=== PATIENT | male | born 1970 | race Caucasian/White ===

== ENCOUNTER 2023-05-01 18:25 | Emergency (ER) | payer OTHER, SELFPAY ==
[2023-05-01 18:30] VITALS: BP 140/92; PULSE 101; RESP 18; TEMP 36.8; O2SAT 99; BMI 22.7
--- NOTE | 2023-05-01 18:37 | XR_ITS ---
The [place] [id number] Patient Name: COLBY MOCK MRN: [id number] date: 1970 Sex: M Assigned Patient Location: ER Current Patient Location: ED.MAIN Accession/Order Number: [id number] Exam Date: 05/01/2023 18:45 Report Date: 05/01/2023 19:30 At the request of: MARGUERITE CHING Procedure: XR foot LT min 3V STUDY: XR foot LT min 3V, [id number] HISTORY: Crush injury COMPARISON: None FINDINGS: Comminuted transverse oriented fracture of the midshaft of the first proximal phalanx which demonstrates minimal dorsal and medial displacement of the distal fracture with respect to the proximal. No intra-articular extension. No other acute fracture. Bipartite medial first MTP sesamoid present. An accessory navicular and os peroneum are present. XR/XR foot LT min 3V IMPRESSION: Minimally displaced fracture of the left first proximal phalanx. Electronically authenticated by: ROBER PITT Date: 05/01/2023 19:30
--- NOTE | 2023-05-01 18:45 | ED.LOWEXI1 ---
Documented by User: BRIGITTE Pedraza 05/01/23 18:56 HPI - Extremity Injury (Lower) General Chief Complaint: Extremity Injury, Lower Stated Complaint: LOWER EXTREMITY INJURY Time Seen by Provider: 05/01/23 18:31 Source: patient Mode of arrival: walk-in Limitations: no limitations History of Present Illness HPI Narrative: patient is a 52-year-old male who presents to the emergency department for pain, swelling and drainage from the left foot. Patient is diabetic. He states yesterday he dropped a 10 pound weight on his foot. Unknown last tetanus. He is ambulatory, he accompanied his stepson to this emergency department earlier today. He states after being on his feet he has noticed an increase in drainage from the foot. No medications taken prior to arrival Related Data Home Medications Medication Instructions Recorded Confirmed insulin glargine 100 unit/mL (3 34 unit subcut DAILY 05/01/23 05/01/23 mL) subcutaneous pen Previous Rx's Medication Instructions Recorded amoxicillin 875 mg-potassium 1 tab PO Q12H #20 tabs 05/01/23 clavulanate 125 mg tablet hydrocodone 5 mg-acetaminophen 325 1 tab PO Q6H PRN pain #15 tabs 05/01/23 mg tablet ondansetron 4 mg disintegrating 4 mg PO Q6H PRN nausea and 05/01/23 tablet vomiting #12 tabs Allergies Allergy/AdvReac Type Severity Reaction Status Date / Time No Known Drug Allergies Allergy Verified 05/01/23 18:29 Review of Systems ROS Constitutional Denies: fever or chills Cardiovascular Denies: chest pain Respiratory Denies: shortness of breath or cough Gastrointestinal Denies: nausea or vomiting Musculoskeletal Reports: extremity pain and extremity swelling; Denies: back pain or neck pain Integumentary/Breast Denies: rash Hematologic/Lymphatic Denies: easy bruising Allergic/Immunologic Denies: hives Exam Narrative Exam Narrative: Gen.: Awake, alert, in no distress Head: Normocephalic, atraumatic ENT: Moist mucous membranes Respiratory: No respiratory distress Extremities: Moves extremities equally, left foot with diffuse edema, ecchymosis and multiple raised blood-filled blisters to the great toe. Small abrasion noted, no evidence of abscess, no active bleeding. No large lacerations noted. Psych: Normal mood and affect Neuro: No focal neuro deficit Skin: Warm, dry Constitutional Vital Signs, click to edit/add: Last Vital Signs Temp 98.2 F 05/01/23 18:30 Pulse 101 H 05/01/23 18:30 Resp 18 05/01/23 18:30 BP 140/92 H 05/01/23 18:30 Pulse Ox 99 05/01/23 18:30 Course Vital Signs Vital signs: Vital Signs Temperature 98.2 F 05/01/23 18:30 Pulse Rate 101 H 05/01/23 18:30 Respiratory Rate 18 05/01/23 18:30 Blood Pressure 140/92 H 05/01/23 18:30 Pulse Oximetry 99 05/01/23 18:30 Temperature 98.2 F 05/01/23 18:30 Pulse Rate 101 H 05/01/23 18:30 Respiratory Rate 18 05/01/23 18:30 Blood Pressure 140/92 H 05/01/23 18:30 Pulse Oximetry 99 05/01/23 18:30 MDM - Extremity Injury (Lower) MDM Narrative Medical decision making narrative: x-ray show the patient has a comminuted fracture of the proximal phalanx of the left great toe. As the skin is open, tetanus is updated and the open areas are dressed with bacitracin, dressing and postop shoe. Patient remains neurovascularly intact. He is placed on Augmentin for open fracture as well as analgesics. He is referred to podiatry, rest, ice, elevate. Return to the Emergency Room if symptoms change or worsen. Medical Records Attestation: I reviewed the patient's medical records. Imaging Data XR foot: Attestation: I personally reviewed and interpreted this imaging study as follows: My impression: comminuted fracture proximal phalanx left great toe Discharge Plan Discharge Chief Complaint: Extremity Injury, Lower Clinical Impression: Open fracture of great toe of left foot, Crush injury of left foot Patient Disposition: Home, Self-Care Time of Disposition Decision: 18:50 Condition: Good Prescriptions / Home Meds: New hydrocodone-acetaminophen 5-325 mg tablet 1 tab PO Q6H PRN (Reason: pain) Qty: 15 0RF Rx Instructions: DX: M9.672 amoxicillin-pot clavulanate 875-125 mg tablet 1 tab PO Q12H Qty: 20 0RF ondansetron 4 mg tablet,disintegrating 4 mg PO Q6H PRN (Reason: nausea and vomiting) Qty: 12 0RF No Action insulin glargine 100 unit/mL (3 mL) insulin pen 34 unit subcut DAILY Instructions: Foot Fracture in Adults (ED), Crush Injury (ED) Stand Alone Forms: Portal Instructions Referrals: Eduard Shoemaker MD [Primary Care Provider] - 1 week Norberto Davies DPM [Physician] - As soon as possible Discharge Date/Time: 05/01/23 19:32 Documented by User: Jostin Lozano MD 05/01/23 19:45 HPI - Extremity Injury (Lower) General Chief Complaint: Extremity Injury, Lower Stated Complaint: LOWER EXTREMITY INJURY Time Seen by Provider: 05/01/23 18:31 Related Data Home Medications Medication Instructions Recorded Confirmed insulin glargine 100 unit/mL (3 34 unit subcut DAILY 05/01/23 05/01/23 mL) subcutaneous pen Previous Rx's Medication Instructions Recorded amoxicillin 875 mg-potassium 1 tab PO Q12H #20 tabs 05/01/23 clavulanate 125 mg tablet hydrocodone 5 mg-acetaminophen 325 1 tab PO Q6H PRN pain #15 tabs 05/01/23 mg tablet ondansetron 4 mg disintegrating 4 mg PO Q6H PRN nausea and 05/01/23 tablet vomiting #12 tabs Allergies Allergy/AdvReac Type Severity Reaction Status Date / Time No Known Drug Allergies Allergy Verified 05/01/23 18:29 Exam Constitutional Vital Signs, click to edit/add: Last Vital Signs Temp 98.2 F 05/01/23 18:30 Pulse 101 H 05/01/23 18:30 Resp 18 05/01/23 18:30 BP 140/92 H 05/01/23 18:30 Pulse Ox 99 05/01/23 18:30 Course Vital Signs Vital signs: Vital Signs Temperature 98.2 F 05/01/23 18:30 Pulse Rate 101 H 05/01/23 18:30 Respiratory Rate 18 05/01/23 18:30 Blood Pressure 140/92 H 05/01/23 18:30 Pulse Oximetry 99 05/01/23 18:30 Temperature 98.2 F 05/01/23 18:30 Pulse Rate 101 H 05/01/23 18:30 Respiratory Rate 18 05/01/23 18:30 Blood Pressure 140/92 H 05/01/23 18:30 Pulse Oximetry 99 05/01/23 18:30 MDM - Extremity Injury (Lower) MDM Narrative Medical decision making narrative: x-ray show the patient has a comminuted fracture of the proximal phalanx of the left great toe. As the skin is open, tetanus is updated and the open areas are dressed with bacitracin, dressing and postop shoe. Patient remains neurovascularly intact. He is placed on Augmentin for open fracture as well as analgesics. He is referred to podiatry, rest, ice, elevate. Return to the Emergency Room if symptoms change or worsen. I, Dr Lozano, have reviewed the above progress note and course of action in the ER; agree with the above. I have personally seen and evaluated this patient, gone over history and physical, and discussed disposition and treatment plan with the patient. Discharge Plan Discharge Chief Complaint: Extremity Injury, Lower Clinical Impression: Open fracture of great toe of left foot, Crush injury of left foot Patient Disposition: Home, Self-Care Time of Disposition Decision: 18:50 Condition: Good Prescriptions / Home Meds: New hydrocodone-acetaminophen 5-325 mg tablet 1 tab PO Q6H PRN (Reason: pain) Qty: 15 0RF Rx Instructions: DX: M9.672 amoxicillin-pot clavulanate 875-125 mg tablet 1 tab PO Q12H Qty: 20 0RF ondansetron 4 mg tablet,disintegrating 4 mg PO Q6H PRN (Reason: nausea and vomiting) Qty: 12 0RF No Action insulin glargine 100 unit/mL (3 mL) insulin pen 34 unit subcut DAILY Instructions: Foot Fracture in Adults (ED), Crush Injury (ED) Stand Alone Forms: Portal Instructions Referrals: Eduard Shoemaker MD [Primary Care Provider] - 1 week Norberto Davies DPM [Physician] - As soon as possible Discharge Date/Time: 05/01/23 19:32
[2023-05-01] MEDS: BACITRACIN OINTMENT 28.4 GM TUBE 1 APPLIC TOPICAL (19:20)
[2023-05-01] MEDS: ADACEL DIPH,PERTUSS(ACELL),TET VAC/PF 0.5 ML ADULT SYRINGE IM (19:20)
== END 2023-05-01 19:32 | disposition home or self-care (01) ==
PROVIDERS: Emergency Provider Emergency Medicine; PCP Family Medicine
DX: S97.112A Crushing injury of left great toe, initial encounter (principal); S92.412B Displaced fracture of proximal phalanx of left great toe, initial encounter for open fracture; E11.9 Type 2 diabetes mellitus without complications; W20.8XXA Other cause of strike by thrown, projected or falling object, initial encounter; Z79.4 Long term (current) use of insulin; Z23 Encounter for immunization
CPT/HCPCS: 73630; 90471; 90715; 99284

== ENCOUNTER 2023-05-03 13:40 | Outpatient (OUT) | payer OTHER, SELFPAY ==
--- NOTE | 2023-05-03 14:30 | XR_ITS ---
The [address] [address] Patient Name: COLBY MOCK MRN: [id number] date: 1970 Sex: M Assigned Patient Location: [facility] Current Patient Location: [facility] Accession/Order Number: [id number] Exam Date: 05/03/2023 13:48 Report Date: 05/04/2023 08:25 At the request of: JACOB JOSE Procedure: XR foot LT min 3V PROCEDURE: XR foot LT min 3V HISTORY: RIGHT FOOT PAIN COMPARISON: None. FINDINGS: BONES:Comminuted and minimally displaced fractures of the first proximal phalanx without appreciable change in alignment, callus formation, or increasing density of the fracture lines. SOFT TISSUES:Soft tissue swelling of the first toe. EFFUSION:None visible. OTHER: Negative. XR/XR foot LT min 3V IMPRESSION: 1. Stable comminuted fractures of the first proximal phalanx. No change in alignment or radiographic evidence of early bone healing at this time. Electronically authenticated by: KOLBY PELAEZ Date: 05/04/2023 08:25
== END 2023-05-03 13:41 | disposition home or self-care (01) ==
LOC: RAD 13:40
PROVIDERS: PCP Family Medicine; Visit Provider Physician Assistant
DX: M79.675 Pain in left toe(s) (principal)
CPT/HCPCS: 73630

== ENCOUNTER 2023-05-17 14:20 | Outpatient (OUT) | payer OTHER, SELFPAY ==
--- NOTE | 2023-05-17 | XR_ITS ---
The [place] [id number] Patient Name: COLBY MOCK MRN: [id number] date: 1970 Sex: M Assigned Patient Location: RAD Current Patient Location: [facility] Accession/Order Number: [id number] Exam Date: 05/17/2023 10:30 Report Date: 05/17/2023 13:37 At the request of: JEWEL RAI Procedure: XR foot LT min 3V STUDY: XR foot LT min 3V, [id number] HISTORY: LEFT GREAT TOE PAIN COMPARISON: Left foot x-rays 05/03/2023. FINDINGS: Mildly impacted and minimally displaced fracture of the left first proximal phalanx is similar in alignment and degree of displacement compared with 05/03/2023. There has been interval bony consolidation suggesting healing. No new or worsening fracture. A large accessory navicular is present. XR/XR foot LT min 3V IMPRESSION: Healing first proximal phalanx fracture. Electronically authenticated by: ROBER PITT Date: 05/17/2023 13:37
== END 2023-05-17 14:21 | disposition home or self-care (01) ==
LOC: RAD 14:20
PROVIDERS: PCP Family Medicine; Visit Provider Podiatrist Foot & Ankle Surgery
DX: S92.415A Nondisplaced fracture of proximal phalanx of left great toe, initial encounter for closed fracture (principal)
CPT/HCPCS: 73630

== ENCOUNTER 2023-05-24 12:52 | Outpatient (OUT) | payer OTHER, SELFPAY ==
--- NOTE | 2023-05-24 12:56 | CT_ITS ---
[address] [address] Patient Name: COLBY MOCK MRN: [id number] date: 1970 Sex: M Assigned Patient Location: CT Current Patient Location: Accession/Order Number: [id number] Exam Date: 05/24/2023 12:55 Report Date: 05/25/2023 07:32 At the request of: ROE MYERS Procedure: CT lung screening low-dose EXAMINATION: CT lung screening low-dose HISTORY: Screening For Lung Caner COMPARISON: No relevant comparison available. TECHNIQUE: Axial, Coronal, and Sagittal images were created without the administration of IV contrast material. Dose reduction techniques were achieved by using automated exposure control and/or adjustment of mA and/or kV according to patient size and/or use of iterative reconstruction technique. FINDINGS: LUNGS: Scattered subcentimeter noncalcified pulmonary nodules the largest is in the right lower lobe adjacent to the hemidiaphragm axial image 153 measuring 5.3 mm in diameter and in the lingula axial image 133 measuring 6.6 mm in diameter. Additional groundglass opacities are noted in the lung bases, nonspecific. Moderate diffuse centrilobular and paraseptal emphysema with an upper lobe predominance. PLEURA: No mass, effusion, or pneumothorax. VASCULATURE: No abnormality. GISELLE: Calcified left hilar lymph nodes MEDIASTINUM: No mass or pathologic adenopathy. CARDIAC: No enlargement, pericardial thickening, or significant calcification. AORTA: No aneurysm or dissection. CHEST WALL: No mass or axillary adenopathy BONES: No bone lesion or fracture. LIMITED ABDOMEN: No suspicious findings. Limited images of the upper abdomen. OTHER: Negative. CT/CT lung screening low-dose IMPRESSION: LUNG SCREENING: Lung-RADS Category 3- Probably benign. Probably benign finding(s)- short term follow up suggested; includes nodules with a low likelihood of becoming a clinically active cancer. Six month LDCT. Electronically authenticated by: ERVIN PATEL Date: 05/25/2023 07:32
== END 2023-05-24 12:53 | disposition home or self-care (01) ==
LOC: CT 12:52
PROVIDERS: PCP Family Medicine; Visit Provider Family Medicine
DX: Z12.2 Encounter for screening for malignant neoplasm of respiratory organs (principal)
CPT/HCPCS: 71271

== ENCOUNTER 2023-06-15 14:55 | Outpatient (OUT) | payer OTHER, SELFPAY ==
--- NOTE | 2023-06-15 | XR_ITS ---
The [address] [address] Patient Name: COLBY MOCK MRN: [id number] date: 1970 Sex: M Assigned Patient Location: [facility] Current Patient Location: Accession/Order Number: [id number] Exam Date: 06/15/2023 15:00 Report Date: 06/16/2023 12:11 At the request of: JACOB JOSE Procedure: XR foot LT min 3V PROCEDURE: XR foot LT min 3V HISTORY: LEFT FOOT SX F/U ; follow-up fracture of left first toe COMPARISON: XR foot left 05/17/2023 FINDINGS: BONES:Comminuted fracture of the mid diaphysis of the first proximal phalanx; no appreciable intra-articular extension. Mild callus formation and slight increase in density of the fracture lines. Relatively normal alignment is maintained. SOFT TISSUES:No visible soft tissue swelling. EFFUSION:None visible. OTHER: Negative. XR/XR foot LT min 3V IMPRESSION: 1. Stable alignment and ongoing changes of early bone healing of first proximal phalanx fracture. Electronically authenticated by: KOLBY PELAEZ Date: 06/16/2023 12:11
== END 2023-06-15 14:56 | disposition home or self-care (01) ==
LOC: RAD 14:55
PROVIDERS: PCP Family Medicine; Visit Provider Physician Assistant
DX: S92.411D Displaced fracture of proximal phalanx of right great toe, subsequent encounter for fracture with routine healing (principal)
CPT/HCPCS: 73630

== ENCOUNTER 2023-07-06 14:44 | Outpatient (OUT) | payer OTHER, SELFPAY ==
--- NOTE | 2023-07-06 | XR_ITS ---
The [address] [address] Patient Name: COLBY MOCK MRN: [id number] date: 1970 Sex: M Assigned Patient Location: [facility] Current Patient Location: Accession/Order Number: [id number] Exam Date: 07/06/2023 14:51 Report Date: 07/07/2023 01:23 At the request of: JACOB JOSE Procedure: XR foot LT min 3V PROCEDURE: XR foot LT min 3V HISTORY: LEFT FOOT PAIN COMPARISON: XR foot left 06/15/2023 FINDINGS: BONES:Prior comminuted fracture of first proximal phalanx. Normal alignment is maintained. Increased density of the fracture lines consistent with ongoing bone healing. No intra-articular extension. SOFT TISSUES:No visible soft tissue swelling. EFFUSION:None visible. OTHER: Negative. XR/XR foot LT min 3V IMPRESSION: 1. Stable alignment and ongoing bone healing of first proximal phalanx fracture. Electronically authenticated by: KOLBY PELAEZ Date: 07/07/2023 01:23
== END 2023-07-06 14:45 | disposition home or self-care (01) ==
LOC: RAD 14:44
PROVIDERS: PCP Family Medicine; Visit Provider Physician Assistant
DX: M79.672 Pain in left foot (principal); S92.415D Nondisplaced fracture of proximal phalanx of left great toe, subsequent encounter for fracture with routine healing
CPT/HCPCS: 73630

== ENCOUNTER 2023-07-26 13:47 | Outpatient (OUT) | payer OTHER, SELFPAY ==
--- NOTE | 2023-07-26 | XR_ITS ---
The [address] [address] Patient Name: COLBY MOCK MRN: [id number] date: 1970 Sex: M Assigned Patient Location: [facility] Current Patient Location: Accession/Order Number: [id number] Exam Date: 07/26/2023 14:10 Report Date: 07/27/2023 01:56 At the request of: JEWEL RAI Procedure: XR foot LT min 3V PROCEDURE: XR foot LT min 3V HISTORY: LEFT FOOT PAIN ; follow-up first toe fracture COMPARISON: XR foot left 07/06/2023 FINDINGS: BONES:Comminuted fracture of first proximal phalanx diaphysis without appreciable significant displacement. Slowly increasing density of the diaphysis consistent with ongoing bone healing. Stable, near normal alignment. SOFT TISSUES:No visible soft tissue swelling. EFFUSION:None visible. OTHER: Negative. XR/XR foot LT min 3V IMPRESSION: 1. Stable alignment and ongoing bone healing of left first toe proximal phalanx fracture. Electronically authenticated by: KOLBY PELAEZ Date: 07/27/2023 01:56
== END 2023-07-26 13:48 | disposition home or self-care (01) ==
LOC: RAD 13:47
PROVIDERS: PCP Family Medicine; Visit Provider Podiatrist Foot & Ankle Surgery
DX: S92.415A Nondisplaced fracture of proximal phalanx of left great toe, initial encounter for closed fracture (principal)
CPT/HCPCS: 73630

== ENCOUNTER 2023-08-30 11:40 | Outpatient (OUT) | payer OTHER, SELFPAY ==
--- NOTE | 2023-08-30 | XR_ITS ---
The [address] [address] Patient Name: COLBY MOCK MRN: [id number] date: 1970 Sex: M Assigned Patient Location: RAD Current Patient Location: [facility] Accession/Order Number: [id number] Exam Date: 08/30/2023 11:43 Report Date: 08/30/2023 15:04 At the request of: JEWEL RAI Procedure: XR foot LT min 3V PROCEDURE: XR foot LT min 3V HISTORY: LEFT FOOT PAIN COMPARISON: XR foot left 07/26/2023, 05/17/2023 FINDINGS: BONES:Stable, normal alignment of the first proximal phalanx comminuted fracture with slowly increasing density of the fracture lines and small amount of peripheral callus formation. SOFT TISSUES:No visible soft tissue swelling. EFFUSION:None visible. OTHER: Negative. XR/XR foot LT min 3V IMPRESSION: 1. Stable alignment and slowly ossifying right first toe proximal phalanx fracture. Electronically authenticated by: KOLBY PELAEZ Date: 08/30/2023 15:04
--- OUTSIDE RECORDS SUMMARY | 2023-08-30 11:43 | XMS_ITS | CCD ---
Author Name Unknown Address [address] [place] [address] Organization [facility] Care Team Providers Care Gear Technician Name Role Phone DR ROE MYERS Admitting Unavailable LOUIS, DR AU Attending Unavailable DR ROE MYERS Primary Care Unavailable Encounters Encounter Date Encounter Type Care Provider Facility Start: 02-11-[address] ROE MYERS Facility : Payers Date Payer Category Payer Unknown [id number] 1958 Self-pay [id number] Summary Purpose Family History No Family History Records Found Advance Directives No Advanced Directives Records Found Additional Source Comments (unrecognized sect ion and content) No Status Records Found INFORMATION SOURCE (unrecogn ized section and content) DATE CREATED AUTHOR 02/12/2022 The [facility] FOR RECORDS PERTAINING TO PATIENTS WHO ARE OR HAVE BEEN ENROLLED IN A CHEMICAL DEPENDENCY/SUBSTANCEABUSE PROGRAM, SOME INFORMATION MAY BE OMITTED. This clinical summary was aggregated from multiple sources. Caution should be exercised in using it in the provision of clinical care. This summary normalizes information from multiple sources, and as a consequence, information in this document may materially change the coding, format and clinical context of patient data. In addition, data may be omitted in some cases. CLINICAL DECISIONS SHOULD BE BASED ON THE PRIMARY CLINICAL RECORDS. [employer] provides no warranty or guarantee of the accuracy or completeness of information in this document.
== END 2023-08-30 11:41 | disposition home or self-care (01) ==
LOC: RAD 11:40
PROVIDERS: PCP Family Medicine; Visit Provider Podiatrist Foot & Ankle Surgery
DX: M79.672 Pain in left foot (principal); S92.414D Nondisplaced fracture of proximal phalanx of right great toe, subsequent encounter for fracture with routine healing
CPT/HCPCS: 73630

== ENCOUNTER 2023-09-20 14:41 | Outpatient (OUT) | payer OTHER, SELFPAY ==
--- NOTE | 2023-09-20 | XR_ITS ---
The [address] [address] Patient Name: COLBY MOCK MRN: [id number] date: 1970 Sex: M Assigned Patient Location: RAD Current Patient Location: [facility] Accession/Order Number: [id number] Exam Date: 09/20/2023 14:45 Report Date: 09/20/2023 16:21 At the request of: JEWEL RAI Procedure: XR foot LT min 3V PROCEDURE: XR foot LT min 3V COMPARISON: 08/30/2023 HISTORY: LEFT FOOT PAIN FINDINGS: BONES:Stable complex extra-articular fracture diaphysis of the first proximal phalanx. Interval increase in sclerosis and callus formation. No new fracture or dislocation. SOFT TISSUES:Negative. No visible soft tissue swelling. EFFUSION:None visible. OTHER: Negative. XR/XR foot LT min 3V IMPRESSION: Stable healing fracture first proximal phalanx Electronically authenticated by: ERVIN PATEL Date: 09/20/2023 16:21
--- OUTSIDE RECORDS SUMMARY | 2023-09-20 14:49 | XMS_ITS | CCD ---
Author Name Unknown Address [address] [place] [address] Organization [facility] Care Team Providers Care Commercial Door Installer Name Role Phone DR ROE MYERS Admitting Unavailable LOUIS, DR AU Attending Unavailable DR ROE MYERS Primary Care Unavailable Encounters Encounter Date Encounter Type Care Provider Facility Start: 02-11-[address] ROE MYERS Facility : Payers Date Payer Category Payer Unknown [id number] 1958 Self-pay [id number] Summary Purpose Family History No Family History Records Found Advance Directives No Advanced Directives Records Found Additional Source Comments (unrecognized sect ion and content) No Status Records Found INFORMATION SOURCE (unrecogn ized section and content) DATE CREATED AUTHOR 02/12/2022 The [facility] FOR RECORDS PERTAINING TO PATIENTS WHO ARE [...] BE BASED ON THE PRIMARY CLINICAL RECORDS. [employer] provides no warranty or guarantee of the accuracy or completeness of information in this document.
== END 2023-09-20 14:42 | disposition home or self-care (01) ==
LOC: RAD 14:41
PROVIDERS: PCP Family Medicine; Visit Provider Podiatrist Foot & Ankle Surgery
DX: M79.672 Pain in left foot (principal); S92.415D Nondisplaced fracture of proximal phalanx of left great toe, subsequent encounter for fracture with routine healing
CPT/HCPCS: 73630

== ENCOUNTER 2024-05-18 10:48 | Outpatient (OUT) | payer OTHER, SELFPAY ==
--- OUTSIDE RECORDS SUMMARY | 2024-05-18 10:51 | XMS_ITS | CCD ---
Author Organization [facility] [employer] [facility] Care Team Providers Care Electrical Accessories Assembler Name Role Phone DR ROE MYERS Admitting Unavailable LOUIS, DR AU Attending Unavailable DR ROE MYERS Primary Care Unavailable Encounters Encounter Date Encounter Type Care Provider Facility Start: 02-11-[address] ROE MYERS Facility : Payers Date Payer Category Payer Unknown [id number] 1958 Self-pay [id number] Summary Purpose Family History No Family History Records Found Advance Directives No Advanced Directives Records Found Additional Source Comments (unrecognized sect ion and content) No Status Records Found INFORMATION SOURCE (unrecogn ized section and content) DATE CREATED AUTHOR 02/12/2022 The [facility] FOR RECORDS PERTAINING TO PATIENTS WHO [...] BE BASED ON THE PRIMARY CLINICAL RECORDS. [employer] [facility]. provides no warranty or guarantee of the accuracy or completeness of information in this document.
[2024-05-18 11:27] LABS: Basophils Absolute Auto 0.1 10^3/uL (0.0-0.1); Basophils Percent Auto 1.2 % (0.2-2.0); Eosinophils Absolute Auto 0.6 10^3/uL (0.0-0.7); Eosinophils Percent Auto 7.3 % (0.9-7.0); Hematocrit 42.8 % (42.0-54.0); Hemoglobin 14.3 g/dL (14.0-18.0); Immature Granulocytes Abs Auto 0.03 10^3/uL (0.00-0.03); Immature Granulocytes Pct Auto 0.3 % (0.0-0.5); Lymphocytes Absolute Auto 1.8 10^3/uL (1.2-3.8); Lymphocytes Percent Auto 21.4 % (20.5-60.0); Mean Corpuscular HGB Conc 33.4 g/dL (29.9-35.2); Mean Corpuscular Hemoglobin 30.8 pg (25.9-34.0); Mean Corpuscular Volume 92.2 fL (80.0-94.0); Mean Platelet Volume 9.2 fL (9.5-13.5); Monocytes Absolute Auto 0.7 10^3/uL (0.3-0.8); Monocytes Percent Auto 7.8 % (1.7-12.0); Neutrophils Absolute Auto 5.3 10^3/uL (1.4-6.5); Platelet Count 307 10^3/uL (150-450); Red Blood Count 4.64 10^6/uL (4.70-6.10); Red Cell Distribution Width 12.9 % (11.0-15.0); White Blood Count 8.6 10^3/uL (4.0-11.0)
[2024-05-18 11:49] LABS: Estimated Average Glucose 258 mg/dL; Glycohemoglobin A1C 10.6 % (4.5-6.2)
[2024-05-18 12:45] LABS: Free T4 0.92 ng/dL (0.76-1.46)
[2024-05-18 12:51] LABS: Alanine Aminotransferase 35 U/L (16-63); Albumin Globulin Ratio 0.9; Albumin Level 3.4 g/dL (3.4-5.0); Alkaline Phosphatase 75 U/L (46-116); Anion Gap 10.7; Aspartate Amino Transferase 23 U/L (15-37); BUN Creatinine Ratio 15.4; Bilirubin Total 0.7 mg/dL (0.2-1.0); Calcium 9.3 mg/dL (8.5-10.1); Carbon Dioxide 30.2 mmol/L (21.0-32.0); Chloride 102 mmol/L (98-107); Chol HDL Ratio 2.1; Cholesterol 183 mg/dL (<=200); Estimated GFR (African America >60 (>=60); Estimated GFR (Non-African Ame >60 (>=60); Free T3 2.12 pg/mL (2.18-3.98); Globulin 3.7 g/dL; Glucose 71 mg/dL (74-106); HDL Cholesterol 86 mg/dL (40-60); Potassium 3.9 mmol/L (3.5-5.1); Sodium 139 mmol/L (136-145); Thyroid Stimulating Hormone 1.752 uIU/mL (0.358-3.740); Total Protein 7.1 g/dL (6.4-8.2); Triglycerides 66 mg/dL (<=150); VLDL CHOLESTEROL 13.2 mg/dL
[2024-05-19 09:07] LABS: PSA, Free 0.23 ng/mL
== END 2024-05-18 10:49 | disposition home or self-care (01) ==
LOC: LAB 10:49
PROVIDERS: PCP Family Medicine; Visit Provider Family Medicine
DX: Z00.00 Encounter for general adult medical examination without abnormal findings (principal)
CPT/HCPCS: 36415; 80053; 80061; 83036; 84153; 84154; 84439; 84443; 84481; 85025; G0103

== ENCOUNTER 2024-06-18 22:04 | Emergency (ER) | payer OTHER, SELFPAY ==
[2024-06-18] VITALS (15 sets, daily range): BP systolic 127–140; BP diastolic 80–93; PULSE 102–109; TEMP 37.4; O2SAT 90–98; BMI 18.5
--- OUTSIDE RECORDS SUMMARY | 2024-06-18 22:09 | XMS_ITS | CCD ---
Author Organization [facility] [employer] [facility] Care Team Providers Care Bait Man Name Role Phone DR ROE MYERS Admitting Unavailable LOUIS, DR AU Attending Unavailable DR ROE MYERS Primary Care Unavailable Encounters Encounter Date Encounter Type Care Provider Facility Start: 02-11-[address] ROE MYERS Facility : Payers Date Payer Category Payer Unknown [id number] 1958 Self-pay [id number] Summary Purpose Family History No Family History Records Found Advance Directives No Advanced Directives Records Found Additional Source Comments (unrecognized sect ion and content) No Status Records Found INFORMATION SOURCE (unrecogn ized section and content) DATE CREATED AUTHOR 02/12/2022 The [facility] FOR RECORDS PERTAINING TO PATIENTS WHO [...] BE BASED ON THE PRIMARY CLINICAL RECORDS. [employer] [facility]. provides no warranty or guarantee of the accuracy or completeness of information in this document.
--- NOTE | 2024-06-18 22:54 | ED.CHESTPAI1 ---
HPI - Chest Pain General Chief Complaint: Chest Pain Stated Complaint: SOB Time Seen by Provider: 06/18/24 22:51 Source: patient Mode of arrival: walk-in Limitations: no limitations History of Present Illness HPI narrative: type I IDDM. presents ill for the past week with shortness of breath and chest pain. pressure like pain.3-4 days ago had pain and his chest that radiated down both arms. No longer has this pain. nausea but no vomiting. felt he had probably pulled a muscle in his chest. cold chills. dry cough. Related Data Home Medications ?Medication ?Instructions ?Recorded ?Confirmed insulin glargine 100 unit/mL (3 34 unit subcut DAILY 05/01/23 05/01/23 mL) subcutaneous pen Previous Rx's ?Medication ?Instructions ?Recorded amoxicillin 875 mg-potassium 1 tab PO Q12H #20 tabs 05/01/23 clavulanate 125 mg tablet hydrocodone 5 mg-acetaminophen 325 1 tab PO Q6H PRN pain #15 tabs 05/01/23 mg tablet ondansetron 4 mg disintegrating 4 mg PO Q6H PRN nausea and 05/01/23 tablet vomiting #12 tabs Allergies Allergy/AdvReac Type Severity Reaction Status Date / Time No Known Drug Allergies Allergy Verified 05/01/23 18:29 Review of Systems ROS Status of ROS 10 or more systems reviewed and unremarkable except as noted in history and below PFSH [facility] Social History Little interest or pleasure in doing things: not at all Feeling down, depressed, or hopeless: not at all Exam Constitutional Vital Signs, click to edit/add: Last Vital Signs Temp 99.3 F 06/18/24 22:14 Pulse 94 H 06/19/24 01:00 Resp 22 H 06/19/24 01:00 BP 105/63 06/19/24 01:00 Pulse Ox 94 L 06/19/24 01:00 O2 Del Method Room Air 06/18/24 22:14 Common normals: no apparent distress, average body habitus, oriented x3, no limitations, healthy appearing, alert and well nourished [facility] Common normals: normocephalic and head/scalp atraumatic Eye Common normals: PERRL, EOMs intact bilaterally and conjunctivae normal Chest Other: mild chest wall tenderness Respiratory Common normals: normal respiratory effort, no retractions, no use of accessory muscles and clear to auscultation bilaterally Cardio Common normals: regular rate, regular rhythm, S1 normal heart sound and S2 normal heart sound GI Common normals: Normal to inspection, nondistended, normoactive bowel sounds present, soft to palpation and non-tender Extremity Common normals: normal to inspection and full ROM Neuro Common normals: oriented x3, CN's II-XII intact bilaterally, moves all extremities and no focal motor deficits Psych Appearance: grossly normal Course Vital Signs Vital signs: Vital Signs Blood Pressure 138/86 06/18/24 22:10 Pulse Oximetry 98 06/18/24 22:10 Temperature 99.3 F 06/18/24 22:14 Pulse Rate 94 H 06/19/24 01:00 Respiratory Rate 22 H 06/19/24 01:00 Blood Pressure 105/63 06/19/24 01:00 Pulse Oximetry 94 L 06/19/24 01:00 Oxygen Delivery Method Room Air 06/18/24 22:14 MDM - Chest Pain MDM Narrative Medical decision making narrative: IDDM presents complaining of chest pain. His worse pain was 3-4 days ago and at that time he also had pain radiating down both arms. No longer had this pain. chest stil feels sore but he also feels short of breath. no history of NV but EKG with old anterior wall scar anterior precordial leads. d-dimer positive and CTA chest ordered d-dimer positive. CTA with evidence of small bilat pleural effusion and pulmonary edema. COVID19 and influenza neg. Patient given lasix IVP. Serial troponin both positive and trending down. Patient informed he most likely had NV 3-4 days ago and the plan to transfer to a facility that has statistical typist available. Patient would like to be transferred to [facility] patient accepted in transfer by Hospitalist at [facility] Lab Data Labs: Lab Results 06/18/24 06/18/24 06/19/24 Range/Units 22:20 23:18 01:19 WBC 5.8 (4.0-11.0) 10^3/uL RBC 3.72 L (4.70-6.10) 10^6/uL Hgb 11.4 L (14.0-18.0) g/dL Hct 33.8 L (42.0-54.0) % MCV 90.9 (80.0-94.0) fL MCH 30.6 (25.9-34.0) pg MCHC 33.7 (29.9-35.2) g/dL RDW 12.0 (11.0-15.0) % Plt Count 419 (150-450) 10^3/uL MPV 9.6 (9.5-13.5) fL Neut % (Auto) 54.0 (43.0-75.0) % Lymph % (Auto) 18.1 L (20.5-60.0) % [place] % (Auto) 10.8 (1.7-12.0) % Eos % (Auto) 15.7 H (0.9-7.0) % Baso % (Auto) 1.2 (0.2-2.0) % Neut # (Auto) 3.1 (1.4-6.5) 10^3/uL Lymph # (Auto) 1.1 L (1.2-3.8) 10^3/uL [place] # (Auto) 0.6 (0.3-0.8) 10^3/uL Eos # (Auto) 0.9 H (0.0-0.7) 10^3/uL Baso # (Auto) 0.1 (0.0-0.1) 10^3/uL Abs Immat Gran (auto) 0.01 (0.00-0.03) 10^3/uL Imm/Tot Granulo (auto) 0.2 (0.0-0.5) % D-Dimer 1.33 H* (<=0.59) mg/L FEU Sodium 135 L (136-145) mmol/L Potassium 4.7 (3.5-5.1) mmol/L Chloride 98 (98-107) mmol/L Carbon Dioxide 27.5 (21.0-32.0) mmol/L Anion Gap 14.2 BUN 22.0 H (7.0-18.0) mg/dL Creatinine 1.20 (0.70-1.30) mg/dL Est GFR ( Amer) >60 (>=60 mL/min/1.73m^2) Est GFR (Non-Af Amer) >60 (>=60 mL/min/1.73m^2) BUN/Creatinine Ratio 18.3 Glucose 493 H (74-106) mg/dL Calcium 8.9 (8.5-10.1) mg/dL Total Bilirubin 0.4 (0.2-1.0) mg/dL AST 25 (15-37) U/L ALT 38 (16-63) U/L Alkaline Phosphatase 131 H (46-116) U/L Troponin I High Sens 547.4 H* 515.1 H* (4.0-76.1) pg/mL Total Protein 6.7 (6.4-8.2) g/dL Albumin 2.5 L (3.4-5.0) g/dL Globulin 4.2 g/dL Albumin/Globulin Ratio 0.6 Influenza Type A Ag Negative Influenza Type B Ag Negative SARS-CoV-2 Ag (CV2AG) Negative (NEGATIVE) Imaging Data Chest x-ray: Radiologist's impression: ITS Impressions Chest X-Ray 06/18/24 22:57 IMPRESSION: Findings suggest pulmonary interstitial edema and small bilateral pleural effusions. Multifocal pneumonia is possible in the appropriate clinical setting. Electronically authenticated by: KOLBY JACOBS Date: 06/19/2024 01:00 Chest CTA 06/18/24 23:27 IMPRESSION: 1. No evidence of pulmonary embolus. 2. Interstitial edema in the lungs. Diffuse hazy airspace disease in each upper lobe and each lower lobe concerning for multifocal infection. Superimposed alveolar edema cannot entirely be excluded, either. 3. Small to moderate bilateral pleural effusions. Electronically authenticated by: YADIRA NUÑEZ Date: 06/19/2024 01:51 Discharge Plan Discharge Chief Complaint: Chest Pain Clinical Impression: Congestive heart failure, Myocardial infarct [facility] Disposition: [facility]
--- NOTE | 2024-06-18 22:57 | XR_ITS ---
The [address] [address] Patient Name: COLBY MOCK MRN: [id number] date: 1970 Sex: M Assigned Patient Location: ER Current Patient Location: ER Accession/Order Number: [id number] Exam Date: 06/18/2024 23:13 Report Date: 06/19/2024 01:00 At the request of: JORGE MARROQUIN Procedure: XR chest 1V EXAM: XR chest 1V HISTORY: pain-chest COMPARISON: Chest CT 05/24/2023 TECHNIQUE: Single frontal view of the chest FINDINGS: Hazy airspace opacities of the right and left lower lung with bronchial wall thickening. Left retrocardiac opacity. No pneumothorax. Blunting of the bilateral costophrenic angles. Unremarkable cardiomediastinal contours. No acute osseous abnormality. XR/XR chest 1V IMPRESSION: Findings suggest pulmonary interstitial edema and small bilateral pleural effusions. Multifocal pneumonia is possible in the appropriate clinical setting. Electronically authenticated by: KOLBY JACOBS Date: 06/19/2024 01:00
[2024-06-18] MEDS: 0.9 % SODIUM CHLORIDE 1,000 ML 999 ML IV (23:02)
[2024-06-18 23:08] LABS: Basophils Absolute Auto 0.1 10^3/uL (0.0-0.1); Basophils Percent Auto 1.2 % (0.2-2.0); Eosinophils Absolute Auto 0.9 10^3/uL (0.0-0.7); Eosinophils Percent Auto 15.7 % (0.9-7.0); Hematocrit 33.8 % (42.0-54.0); Hemoglobin 11.4 g/dL (14.0-18.0); Immature Granulocytes Abs Auto 0.01 10^3/uL (0.00-0.03); Immature Granulocytes Pct Auto 0.2 % (0.0-0.5); Lymphocytes Absolute Auto 1.1 10^3/uL (1.2-3.8); Lymphocytes Percent Auto 18.1 % (20.5-60.0); Mean Corpuscular HGB Conc 33.7 g/dL (29.9-35.2); Mean Corpuscular Hemoglobin 30.6 pg (25.9-34.0); Mean Corpuscular Volume 90.9 fL (80.0-94.0); Mean Platelet Volume 9.6 fL (9.5-13.5); Monocytes Absolute Auto 0.6 10^3/uL (0.3-0.8); Monocytes Percent Auto 10.8 % (1.7-12.0); Neutrophils Absolute Auto 3.1 10^3/uL (1.4-6.5); Platelet Count 419 10^3/uL (150-450); Red Blood Count 3.72 10^6/uL (4.70-6.10); White Blood Count 5.8 10^3/uL (4.0-11.0)
[2024-06-18 23:19] LABS: Alanine Aminotransferase 38 U/L (16-63); Albumin Globulin Ratio 0.6; Albumin Level 2.5 g/dL (3.4-5.0); Alkaline Phosphatase 131 U/L (46-116); Anion Gap 14.2; Aspartate Amino Transferase 25 U/L (15-37); BUN Creatinine Ratio 18.3; Bilirubin Total 0.4 mg/dL (0.2-1.0); Calcium 8.9 mg/dL (8.5-10.1); Carbon Dioxide 27.5 mmol/L (21.0-32.0); Chloride 98 mmol/L (98-107); Estimated GFR (African America >60 (>=60 mL/min/1.73m^2); Estimated GFR (Non-African Ame >60 (>=60 mL/min/1.73m^2); Globulin 4.2 g/dL; Glucose 493 mg/dL (74-106); Potassium 4.7 mmol/L (3.5-5.1); Sodium 135 mmol/L (136-145); Total Protein 6.7 g/dL (6.4-8.2)
[2024-06-18 23:23] LABS: D Dimer 1.33 mg/L FEU (<=0.59); Troponin I High Sensitivity 547.4 pg/mL (4.0-76.1)
--- NOTE | 2024-06-18 23:27 | CT_ITS ---
[address] [address] Patient Name: COLBY MOCK MRN: [id number] date: 1970 Sex: M Assigned Patient Location: ER Current Patient Location: ER Accession/Order Number: [id number] Exam Date: 06/18/2024 23:35 Report Date: 06/19/2024 01:51 At the request of: JORGE MARROQUIN Procedure: CT angio chest EXAMINATION:CT angio chest INDICATION:chest pain COMPARISON:05/24/2023 TECHNIQUE:Thin section transaxial slices were acquired through the chest with intravenous contrast per PE protocol. Coronal and sagittal reconstructed images were reviewed. FINDINGS: PULMONARY ARTERIES: There is excellent opacification of the pulmonary vasculature. No suspicious pulmonary arterial filling defects are identified to suggest pulmonary embolus. LUNGS: Severe bullous emphysematous changes are present in the lungs with chronic interstitial lung disease. There are multiple scattered subsolid groundglass densities in the right upper lobe extending into the lower lobes. There is also diffuse interstitial edema in the chest. The airspace disease is concerning for multifocal infection. Superimposed alveolar edema cannot be excluded, either. PLEURAL CAVITY: There are small to moderate bilateral pleural effusions, right greater than left. MEDIASTINUM: Trachea and central airways are patent. HEART: No pericardial effusion.There is no evidence of right heart strain. VASCULAR:No aneurysm or dissection of the thoracic aorta. LYMPH NODES:Small mediastinal lymph nodes are present likely reactive. CHEST WALL/AXILLA: Chest wall and axilla are unremarkable. BONES: Osseous structures are unremarkable. VISUALIZED UPPER ABDOMEN: Severe diffuse hepatic steatosis is present. Calcified granulomas are present in the spleen. CT/CT angio chest IMPRESSION: 1. No evidence of pulmonary embolus. 2. Interstitial edema in the lungs. Diffuse hazy airspace disease in each upper lobe and each lower lobe concerning for multifocal infection. Superimposed alveolar edema cannot entirely be excluded, either. 3. Small to moderate bilateral pleural effusions. Electronically authenticated by: YADIRA NUÑEZ Date: 06/19/2024 01:51
[2024-06-18 23:38] LABS: Influenza Virus A Antigen Negative; Influenza Virus B Antigen Negative; Internal Control Within Normal Limits; SARS-CoV-2 Ag NEGATIVE (NEGATIVE)
--- NOTE | 2024-06-18 23:38 | ECG_ITS ---
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
[2024-06-18] MEDS: FUROSEMIDE 40 MG/4 ML VIAL IVP (23:53)
[2024-06-19] VITALS (31 sets, daily range): BP systolic 105–128; BP diastolic 63–83; PULSE 90–113; TEMP 37.5; O2SAT 86–96
[2024-06-19 01:45] LABS: Troponin I High Sensitivity 515.1 pg/mL (4.0-76.1)
[2024-06-19 03:53] LABS: INR 1.03; Prothrombin Time 10.9 sec (9.0-11.6)
[2024-06-19 03:54] LABS: Partial Thromboplastin Time 26.5 sec (22.3-36.2)
[2024-06-19] MEDS: HEPARIN SODIUM,PORCINE/D5W 25,000 UNIT/500 ML IV.SOLN 15.241 UNIT IV (04:05)
--- NOTE | 2024-06-19 05:05 | PC.NURSE ---
04:55 [facility] arrives and I gave patient report and paperwork to ems crew 04:59 I callled [phone] [facility] to give patient report to Padmini BARRAZA
== END 2024-06-19 05:00 | disposition short-term general hospital (02) ==
PROVIDERS: Emergency Provider Internal Medicine; PCP Family Medicine
DX: I21.9 Acute myocardial infarction, unspecified (principal); I50.9 Heart failure, unspecified; E10.9 Type 1 diabetes mellitus without complications; Z20.822 Contact with and (suspected) exposure to COVID-19
CPT/HCPCS: 36415; 71045; 71275; 80053; 84484; 85025; 85378; 85610; 85730; 87804; 87811; 93005; 96365; 96375; 99285; J1644; J1940; Q9967

== ENCOUNTER 2024-08-20 12:22 | Outpatient (RCR) | payer OTHER, SELFPAY ==
--- NOTE | 2024-07-09 12:48 | CR1_ITS ---
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
--- NOTE | 2024-07-10 11:22 | CR1_ITS ---
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
--- NOTE | 2024-08-06 10:08 | CR1_ITS ---
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
--- NOTE | 2024-09-05 08:00 | CR1_ITS ---
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
== END 2024-08-20 23:59 | disposition home or self-care (01) ==
LOC: CR 12:22
PROVIDERS: PCP Family Medicine; Visit Provider Internal Medicine Cardiovascular Disease
DX: I25.10 Atherosclerotic heart disease of native coronary artery without angina pectoris (principal); I25.5 Ischemic cardiomyopathy; Z98.61 Coronary angioplasty status; I21.3 ST elevation (STEMI) myocardial infarction of unspecified site; E10.65 Type 1 diabetes mellitus with hyperglycemia
CPT/HCPCS: 36415; 80061; 80069; 82043; 82306; 82570; 84681; 93798

== ENCOUNTER 2024-09-26 10:02 | Outpatient (OUT) | payer OTHER, SELFPAY ==
--- OUTSIDE RECORDS SUMMARY | 2024-09-26 10:21 | XMS_ITS | CCD ---
Author Organization [facility] Care Team Providers Care Flight Service Specialist Name Role Phone DR ROE SHOEMAKER Admitting Unavailable DR ROE SHOEMAKER Attending Unavailable DR ROE SHOEMAKER Primary Care Unavailable MD Katlin Salvador Admit Provider MD Mekhi Powers Attending Provider MADI Long Other Provider Unavailable DO Nuria Tobin Other Provider MD Ric Nicole Other Provider MD Adiel Davidson Other Provider MD Ruba Teran Other Provider MD Andrew Rainey Other Provider TASHI Wilcox Other Provider [phone] MD Irish Verdugo Other Provider MD Ascencion Parker Other Provider MD Renee Newberry Other Provider Blake [facility] Brianda Zelaya Other Provider MD Amy Lozoya Other Provider MD Roe Shoemaker Primary Care Provider George BARRAZA, Maru Unavailable Unavailable Roe Shoemaker MD Primary Care Provider Adiel Tobin DO Unavailable [phone] Katlin Salvador Admitting Unavailable Roe Shoemaker Primary Care Unavailable Mekhi Powers Attending Unavailable Gabriela Long Consulting Unavailable Nuria Tobin Consulting Unavailable Ric Nicole Consulting Unavailable Adiel Davidson Consulting Unavail able Ruba Teran Consulting Unavailable Andrew Rainey Consulting Unavailab Nisreen Cotto Consulting Unavailable Irish Verdugo Consulting Unavailable Ascencion Parker Consulting Unavailab Renee Vasquez Consulting Unavailable Brianda Lozano Consulting Unavailable Amy Lozoya Consulting Unavaila ADIEL Morrison Referring Unavailable ROE SHOEMAKER Primary Care Unavailable ADIEL TOBIN Attending Unavailable ROE SHOEMAKER Primary Care Unavailable Roe Shoemaker MD Primary Care Provider [phone] Allergies Allergy Classification Reported Allergen(s) Allergy Type Date of Onset Reaction(s) Facility (2 sources) Gadolinium-Conta ining Contrast Medi; Translations: [Gadolinium-Cont aining Contrast Medi] Allergy to substance 06-19-2024 [facility] (2 sources) Iodinated Contrast Media; Translations: [Iodinated Contrast Media] Allergy to substance 06-19-2024 [facility] Medications Current Medications Medication Drug Class(es) Dates Sig (Normalized) Sig (Original) aspirin 81 mg delayed release oral tablet (7 sources) Platelet Aggregation Inhibitor, Nonsteroidal Anti-inflammatory Drug Start: 06-20-2024 take 81 mg by mouth once daily Aspirin Active 81 MG PO Daily 90 90 June 20, 2024 12:00am atorvastatin 80 mg oral tablet (8 sources) HMG-CoA Reductase Inhibitor Start: 06-20-2024 End: 07-03-2025 take 1 tablet by mouth once daily atorvastatin (Lipitor) 80 mg tablet Indications: Coronary artery disease involving afognak coronary artery of afognak heart without angina pectoris Take 1 tablet (80 mg) by mouth once daily. 90 tablet 3 07/03/2024 07/03/2025 Active carvedilol 6.25 mg oral tablet (5 sources) alpha-Adrenergic Deven, beta-Adrenergic Deven Start: 06-20-2024 End: 07-03-2025 take 1 tablet by mouth twice daily carvedilol (Coreg) 6.25 mg tablet Indications: Coronary artery disease involving afognak coronary artery of afognak heart without angina pectoris , Cardiomyopathy, ischemic Take 1 tablet (6.25 mg) by mouth 2 times a day. 180 tablet 3 07/03/2024 07/03/2025 Active take 1 tablet by mouth twice avril ly carvedilol (Coreg) 3.125 mg tablet Take 1 tablet (3.125 mg) by mouth 2 times a day. Active Continuous Glucose Horse Trainer (Dexcom G6 senior it specialist) device (3 sources) Continuous Gluco se Horse Trainer (Dexcom G6 senior it specialist) device Inject 1 Device under the skin if needed Use as instructed Active Continuous Glucose Sensor (Dexcom G6 Sensor) misc (3 sources) Continuous Gluco se Sensor (Dexcom G6 Sensor) misc Active Continuous Glucose Transmitter (Dexcom G6 transmitter) misc (3 sources) Continuous Gluco se Transmitter (Dexcom G6 transmitter) misc Inject under the skin if needed Use as instructed Active dapagliflozin 10 mg oral tablet (8 sources) Sodium-Glucose Cotransporter 2 Inhibitor Start: End: take 1 tablet by mouth in the morning Farxiga 10 mg Indications: Coronary artery disease involving afognak coronary artery of afognak heart without angina pectoris , Cardiomyopathy, ischemic , Type 2 diabetes mellitus without complication, with long-term current use of insulin (Multi) Take 1 tablet (10 mg) by mouth early in the morning.. 90 tablet 3 07/03/2024 07/03/2025 Active 3 ml insulin glargine 100 unt/ml pen injector (7 sources) Insulin Analog Start: inject 34 [IU] by subcutaneous injection once daily at bedtime insulin glargine (Lantus) 100 unit/mL (3 mL) pen Inject 34 Units under the skin once daily at bedtime. 06/19/2024 Active insulin glargine (Semglee) 100 UNIT/ML injection Inject 34 Units under the skin at bedtime Active insulin glargine (Semglee) 100 UNIT/ML injection Inject 44 Units under the skin at bedtime Active Insulin Lispro (3 sources) Insulin Analog Insulin Lispro (HUMALOG KWIKPEN SC) Inject under the skin Per sliding scale. Active nitroglycerin 0.4 mg sublingual tablet (4 sources) Nitrate Vasodilator Start: nitroglycerin (Nitrostat) 0.[address] 1 tablet (0.4 mg) under the tongue every 5 minutes if needed. 06/20/2024 Active olmesartan medoxomil 5 mg oral tablet (3 sources) Angiotensin 2 Receptor Deven Start: End: take 1 tablet by mouth once daily olmesartan (BENIcar) 5 mg tablet Indications: Coronary artery disease involving afognak coronary artery of afognak heart without angina pectoris , Cardiomyopathy, ischemic Take 1 tablet (5 mg) by mouth once daily. 90 tablet 3 07/03/2024 07/03/2025 Active Semglee,insulin glarg-yfgn,Pen 100 unit/mL (3 mL) Pen (3 sources) Start: Semglee,insulin glarg-yfgn,Pen 100 unit/mL (3 mL) Pen Inject under the skin once daily in the morning. 02/29/2024 Active sildenafil 100 mg oral tablet (3 sources) Phosphodiesterase 5 Inhibitor take 1 tablet by mouth every twenty-four hours as needed sildenafil (Viagra) 100 MG tablet Take 100 mg by mouth Daily as needed for erectile dysfunction Active spironolactone 25 mg oral tablet (8 sources) Aldosterone Antagonist Start: End: take 0.5 tablet by mouth once daily spironolactone (Aldactone) 25 mg tablet Indications: Coronary artery disease involving afognak coronary artery of afognak heart without angina pectoris , Cardiomyopathy, ischemic Take 0.5 tablets (12.5 mg) by mouth once daily. 45 tablet 3 07/03/2024 07/03/2025 Active Start: 06-20-2024 take 12.5 mg by mout h once daily Spironolactone Active 12.5 MG PO Daily 45 90 June 20, 2024 12:00am take 1 tablet by aaliyah th once daily spironolactone (Aldactone) 25 MG tablet Take 25 mg by mouth Daily Active ticagrelor 90 mg oral tablet (8 sources) Start: 06-20-2024 End: 07-03-2025 take 1 tablet by mouth twice daily ticagrelor (Brilinta) 90 mg tablet Indications: Coronary artery disease involving afognak coronary artery of afognak heart without angina pectoris , S/P PTCA (percutaneous transluminal coronary angioplasty) , ST elevation myocardial infarction (STEMI), unspecified artery (Multi) Take 1 tablet (90 mg) by mouth 2 times a day. 180 tablet 3 07/03/2024 07/03/2025 Active Completed/Discontinued Medications Medication Drug Class(es) Dates Sig (Normalized) Sig (Original) [id number] RBCs (Ultratag) injection 25 millicurie (1 source) Start: 07-30-2024 End: 07-30-2024 25 millicurie, intravenous, Once in imaging, Starting on Mon07/30/24 at 1512, For 1 dose, Administer immediately and up to 24 hours prior to imaging unless otherwise indicated Problems Problem Classification Problem Date Documented Da te Episodic/Chronic Acute myocardial infarction (17 sources) Myocardial infarction; Translations: [Non-ST elevation (NSTEMI) myocardial infarction] Onset: 06-19-2024 06-19-2024 Chronic Administrative/social admission (2 sources) Patient encounter status; Translations: [Dietary counseling and surveillance] 09-25-2024 Episodic Congestive heart failure; nonhypertensive (3 sources) Acute exacerbation of chronic congestive heart failure; Translations: [Heart failure, unspecified] Onset: 06-19-2024 06-19-2024 Chronic Coronary atherosclerosis and other heart disease (20 sources) Ischemic myocardial dysfunction; Translations: [Ischemic cardiomyopathy] Onset: 06-19-2024 06-19-2024 Chronic Coronary atherosclerosis and other heart disease (12 sources) Patient post percutaneous transluminal coronary angioplasty; Translations: [Coronary angioplasty status] Onset: 07-03-2024 07-03-2024 Episodic Diabetes mellitus with complications (2 sources) Type 1 diabetes mellitus uncontrolled; Translations: [Type 1 diabetes mellitus with hyperglycemia] 09-25-2024 Chronic Diabetes mellitus without complication (9 sources) Type 1 diabetes mellitus; Translations: [Type 1 diabetes mellitus without complications] Onset: 06-19-2024 06-19-2024 Chronic Disorders of lipid metabolism (8 sources) Mixed hyperlipidemia; Translations: [Mixed hyperlipidemia] Onset: 07-03-2024 07-03-2024 Chronic Essential hypertension (2 sources) Essential hypertension; Translations: [Essential (primary) hypertension] 09-25-2024 Chronic Nutritional deficiencies (2 sources) Vitamin D deficiency; Translations: [Vitamin D deficiency, unspecified] 09-25-2024 Chronic Other aftercare (2 sources) alf (current) use of insulin; Translations: [alf (current) use of insulin (Multi)] Onset: 07-03-2024 Episodic Other aftercare (2 sources) Long-term current use of insulin; Translations: [alf (current) use of insulin] 09-25-2024 Episodic Other nutritional; endocrine; and metabolic disorders (5 sources) Decreased body mass index; Translations: [Body mass index (BMI) 19.9 or less, adult] Onset: 07-03-2024 07-03-2024 Episodic Other nutritional; endocrine; and metabolic disorders (1 source) Body mass index (BMI) 19.9 or less, adult; Translations: [Body mass index (BMI) 19.9 or less, adult] Onset: 07-03-2024 Episodic Residual codes; unclassified (1 source) Tobacco user; Translations: [Tobacco use] 06-19-2024 Episodic Residual codes; unclassified (2 sources) Tobacco use; Translations: [Tobacco use disorder] Onset: 06-19-2024 06-20-2024 Episodic Screening and history of mental health and substance abuse codes (6 sources) Ex-smoker; Translations: [Personal history of nicotine dependence] Onset: 07-03-2024 07-03-2024 Episodic Results Test Name Value Interpretation Reference Range Facility Glucose (Bld) [Mass/Vol]Orde red By: Jo Nunez on 09-25-2024 Glucose Blood, POC 112 mg/dL [facility] 09-25-2024 HbA1c (Bld) [Mass fraction] 9.6 % [facility] No Panel InformationOrdered By: Jo Nunez on 09-25-2024 [facility] NM HEART BLOOD POOL EJECTION FRACTION WALL MOTION (MUGA)on 07-30-2024 NM HEART BLOOD POOL EJECTION FRACTION WALL MOTION (MUGA) Interpreted By: Ruba Teran and Giannuzzi Michael STUDY: MUGA Performing facility: [facility], [address] [place] [address], Suite [facility], [address] Provider: Tae Tobin DO, [facility] PCP: Dr. Rocky Shoemaker Supervising provider: Ric Nicole [facility] INDICATION: CAD; ICM STEMI Hx PTCA HISTORY: Gender: M; Age: 54 y/o ; Height: HT 185.4 cm cm; Weight: WT 66.679 kg kg. CAD; High Cholesterol; Diabetes; Previous HI;2023 Quit smoking unknown years ago. Cardiac catheterization on 2023. PTCA on 2023. COMPARISON: No comparison. Echo 2023 EF= 25-30% ACCESSION NUMBER(S): [id number] ORDERING CLINICIAN: ADIEL TOBIN TECHNIQUE: The patient's red cells were labeled using the ultra tag method with 24.6 mCi of technetium 99m pertechnetate. Gated cardiac images were then acquired with images obtained in the anterior, left anterior oblique, and left lateral projections. FINDINGS: The right ventricle was normal. The left ventricle was normal in size. Regional wall motion was global hypokinesis. Global resting LVEF was abnormal- at 33%. IMPRESSION: Normal resting right ventricular function. Abnormalresting left ventricular function. Left ventricular ejection fraction is 33%. No previous study available for comparison Signed by: Ruba Teran 07/30/2024 5:00 PM Dictation workstation: [id number] [place] Heart Wall motion and Eje ction fractionon 07-30-2024 Normal resting right ventricular function. Abnormalresting left ventricular function. Left ventricular ejection fraction is 33%. No previous study available for comparison Signed by: Ruba Teran 07/30/2024 5:00 PM Dictation workstation: [id number] Interpreted By: Ruba Teran and Giannuzzi Michael STUDY: MUGA Performing facility: [facility], [address] [place] [address], [address] Provider: Tae Tobin DO, FACC PCP: Dr. Rocky Shoemaker Supervising provider: Ric Nicole MD, FACC INDICATION: CAD; ICM STEMI Hx PTCA HISTORY: Gender: M; Age: 54 y/o ; Height: HT 185.4 cm cm; Weight: WT 66.679 kg kg. CAD; High Cholesterol; Diabetes; Previous HI;2023 Quit smoking unknown years ago. Cardiac catheterization on 2023. PTCA on 2023. COMPARISON: No comparison. Echo 2023 EF= 25-30% ACCESSION NUMBER(S): [id number] ORDERING CLINICIAN: ADIEL TOBIN TECHNIQUE: The patient's red cells were labeled using the ultra tag method with 24.6 mCi of technetium 99m pertechnetate. Gated cardiac images were then acquired with images obtained in the anterior, left anterior oblique, and left lateral projections. FINDINGS: The right ventricle was normal. The left ventricle was normal in size. Regional wall motion was global hypokinesis. Global resting LVEF was abnormal- at 33%. MMODAL Ruba Teran MD - 07/30/2024 Interpreted By: Ruba Teran and Giannuzzi Michael STUDY: MUGA Performing facility: [facility], [address] [place] [address], [address], [address] Provider: Tae Tobin DO, FAC PCP: Dr. Rocky Shoemaker Supervising provider: Ric Nicole MD, FACC INDICATION: CAD; ICM STEMI Hx PTCA HISTORY: Gender: M; Age: 54 y/o ; Height: HT 185.4 cm cm; Weight: WT 66.679 kg kg. CAD; High Cholesterol; Diabetes; Previous HI;2023 Quit smoking unknown years ago. Cardiac catheterization on 2023. PTCA on 2023. COMPARISON: No comparison. Echo 2023 EF= 25-30% ACCESSION NUMBER(S): [id number] ORDERING CLINICIAN: ADIEL TOBIN TECHNIQUE: The patient's red cells were labeled using the ultra tag method with 24.6 mCi of technetium 99m pertechnetate. Gated cardiac images were then acquired with images obtained in the anterior, left anterior oblique, and left lateral projections. FINDINGS: The right ventricle was normal. The left ventricle was normal in size. Regional wall motion was global hypokinesis. Global resting LVEF was abnormal- at 33%. IMPRESSION: Normal resting right ventricular function. Abnormalresting left ventricular function. Left ventricular ejection fraction is 33%. No previous study available for comparison Signed by: Ruba Teran 07/30/2024 5:00 PM Dictation workstation: [id number] [facility] Work Phone: Radiology Study observation (narrative) [facility] Work Phone: NM Heart Wall motion and Eje ction fractionOrdered By: Ruba Teran on 07-30-2024 [facility] Work Phone: Automated basophil %Ordered By: Nuria Tobin on 06-20-2024 Basophils/100 WBC (Bld) 0.7 % Normal . [facility] Comment on above: Performed By: #### B MP, CBC, LIPID #### [address] Automated basophil countOrde red By: Nuria Tobin on 06-20-2024 Basophils (Bld) [#/Vol] 0.1 10*3/uL Normal 0.0-0.2 [facility] Comment on above: Result Comment: PERF ORMED BY: [place] [address] PATHOLOGIST IMPLEMENTATION SPECIALIST PAYROLL MEL SCOTT M.D. Performed By: #### B MP, CBC, LIPID #### [address] Automated blood monocyte cou ntOrdered By: Nuria Tobin on 06-20-2024 Monocytes (Bld) [#/Vol] 0.9 10*3/uL High 0.0-0.8 [facility] Comment on above: Performed By: #### B MP, CBC, LIPID #### [address] Automated eosinophil %Ordere d By: Nuria Tobin on 06-20-2024 Eosinophils/100 WBC (Bld) 0.8 % Normal . [facility] Comment on above: Performed By: #### B MP, CBC, LIPID #### [address] Automated eosinophil countOr dered By: Nuria Tobin on 06-20-2024 Eosinophils (Bld) [#/Vol] 0.1 10*3/uL Normal 0.0-0.45 [facility] Comment on above: Performed By: #### B MP, CBC, LIPID #### [address] Automated monocyte %Ordered By: Nuria Tobin on 06-20-2024 Monocytes/100 WBC (Bld) 10.6 % Normal . [facility] Comment on above: Performed By: #### B MP, CBC, LIPID #### [address] Automated neutrophil %Ordere d By: Nuria Tobin on 06-20-2024 Neutrophils/100 WBC (Bld) 68.1 % Normal . [facility] Comment on above: Performed By: #### B MP, CBC, LIPID #### [address] Basic Metabolic Panelon 10-3 Creatinine Clr Calc Pharmacy 94.82 Normal [facility] Comment on above: Performed By: #### B MP, CBC, LIPID #### [address] GFR/1.73 sq M.predicted MDRD (S/P/Bld) [Vol rate/Area] mL/min/{1.73_m2} Normal [facility] Comment on above: Performed By: #### B MP, CBC, LIPID #### [address] Calcium [Mass/volume] in Ser um or PlasmaOrdered By: Nuria Tobin on 06-20-2024 Calcium [Mass/Vol] 8.2 mg/dL Low 8.6-10.3 [facility] Comment on above: Performed By: #### B MP, CBC, LIPID #### [address] Capillary blood glucose reina urement by glucometer (mass/volume)Ordered By: Mekhi Powers on 06-20-2024 Glucose [Mass/Vol] 149 mg/dL Normal [facility] Comment on above: Random Glucose Refer ence Range is dependent on time and content of last meal. Glucose of more than 200 mg/dL in a nonstressed, ambulatory subject supports the diagnosis of Diabetes Mellitus. Result Comment: [place] Glucose Reference Range is dependent on time and content of last meal. Glucose of more than 200 mg/dL in a nonstressed, ambulatory subject supports the diagnosis of Diabetes Mellitus. Performed By: #### G LULS #### Point of Care testing , Carbon dioxide, total [Moles /volume] in Serum or PlasmaOrdered By: Nuria Tobin on 06-20-2024 CO2 [Moles/Vol] 29.7 mmol/L Normal 21.0-31.0 [facility] Comment on above: Performed By: #### B MP, CBC, LIPID #### [facility] [address] [place] [address] [place] Chloride [Moles/volume] in S jenelle or PlasmaOrdered By: Nuria Tobin on 06-20-2024 Chloride [Moles/Vol] 102 mmol/L Normal 98-[address] [facility] Comment on above: Performed By: #### B MP, CBC, LIPID #### [facility] [address] [place] [address] [place] Cholesterol [Mass/volume] in Serum or PlasmaOrdered By: Nuria Tobin on 06-20-2024 Cholesterol [Mass/Vol] 97 mg/dL Low 140-200 [facility] Comment on above: Chol less than 200 m g/dl low riskChol 201-239 mg/dl borderline riskChol 240 mg/dl and greater high risk Result Comment: Chol less than 200 mg/dl low risk Chol 201-239 mg/dl borderline risk Chol 240 mg/dl and greater high risk Performed By: #### B MP, CBC, LIPID #### [facility] [address] [place] [id number] [place] Cholesterol in LDL Calc [Mas s/Vol]Ordered By: Nuria Tobin on 06-20-2024 Cholesterol in LDL [Mass/Vol] 51 mg/dL 0-100 [facility] Comment on above: LDL ATP III CLASSIFI CATIONLDL less than 100 mg/dL OptimalLDL 100-129 mg/dL Near or above optimalLDL 130-159 mg/dL Borderline highLDL 160-189 mg/dL HighLDL greater than 189 mg/dL Very high Cholesterol in VLDL Calc [Ma ss/Vol]Ordered By: Nuria Tobin on 06-20-2024 Cholesterol in VLDL [Mass/Vol] 13 mg/dL [facility] Complete Blood Count Auto Di ffon 06-20-2024 Mean Corpuscular HGB Conc 34.2 g/dL Normal 32.5-35.6 [facility] Comment on above: Performed By: #### B MP, CBC, LIPID #### [facility] [address] NRBC% 0.1 /100{WBC} Normal 0-0.5 [facility] Comment on above: Performed By: #### B MP, CBC, LIPID #### [facility] [address] Creatinine [Mass/volume] in Serum or PlasmaOrdered By: Nuria Tobin on 06-20-2024 Creatinine [Mass/Vol] 0.85 mg/dL Normal 0.70-1.30 [facility] Comment on above: Performed By: #### B MP, CBC, LIPID #### [facility] [address] ECG 12 lead ECGon 06-20-2024 ECG 12 lead ECG [facility] Main [place] [address] [place] [address] Electrocardiograph Report Signed Patient: Wing Alejandro MR#: [id number] 5 : 1970 Acct:[id number] Age/Sex: 54 / M ADM Date: 06/19/24 Loc: Room: [address] [place] [address] Type: DIS IN Attending Dr: eMkhi Powers MD Ordering Provider: Nuria Tobin DO Date of Service: 06/20/24 ECG/ECG 12 lead ECG: Post Angioplasty Procedure in AM Copies to: Test Reason : Blood Pressure : 99/65 mmHG Vent. Rate : 77 BPM Atrial Rate : 77 BPM P-R Int : 156 ms QRS Dur : 92 ms QT Int : 462 ms P-R-T Axes : 69 85 182 degrees QTcB Int : 522 ms Normal sinus rhythm Septal infarct (cited on or before 19-Jun-2024) T wave abnormality, consider inferior ischemia T wave abnormality, consider anterolateral ischemia Prolonged QT Abnormal ECG When compared with ECG of 19-Jun-2024 06:39, Serial changes of evolving Septal infarct present Confirmed by Jim Hinkle ([id number]) on 06/20/2024 8:56:34 PM Referred By: Electronically Signed By: Jim Hinkle Transcribed By: MUS Signed By Jim Hinkle MD 06/20/242055 Normal [facility] echo transthoracicon [facility] echo transthoracic [facility] Main [place] [id number] Echocardiogram Signed Patient: Wing Alejandro MR#: [id number] 5 : 1970 Acct:[id number] Age/Sex: 54 / M ADM Date: 06/19/24 Loc: Room: [address] [place] [address] Type: ADM IN Attending Dr: Mekhi Powers MD Ordering Provider: Nuria Tobin DO Date of Service: 06/20/24 [facility] echo transthoracic: Anterior STEMI Copies to: MD Nuria Joseph, AM Patient Location: : 1970 Gender: Male (MM/DD/YYYY) Age: 54 Years Ordering Physician: Nuria Tobin Height: 72.83 in Weight: 150.128 lb Performed By: Tawana Parsons BSA: 1.90 m2 BP: 91 / 55 mmHg HR: 77 bpm Reason For Study: Anterior STEMI History: Smoker, DM + + Interpretation Summary Ejection Fraction = 25-30%. The left ventricle is mildly dilated. There is mild mitral regurgitation. Hypokinesis of the apical, anterior, anteroseptal and anterolateral figueroa. A variety of Doppler measurements indicate restrictive left ventricular relaxation, which is associated with grade III/IV or moderate diastolic dysfunction. There is no comparison study available. Procedure/Quality: A two-dimensional transthoracic echocardiogram with color flow and Doppler was performed. The study was technically good in quality. Left Ventricle: The left ventricular thickness is normal. The left ventricle is mildly dilated. Ejection Fraction = 25-30%. A variety of Doppler measurements indicate restrictive left ventricular relaxation, which is associated with grade III/IV or moderate diastolic dysfunction. Hypokinesis of the apical, anterior, anteroseptal and anterolateral figueroa. Left Atrium: The left atrium appears normal in size. Right Atrium: The right atrium appears normal in size. Right Ventricle: The right ventricle is normal in size and function. Aortic Valve: The aortic valve is normal in structure. No hemodynamically significant valvular aortic stenosis. No aortic regurgitation is present. Mitral Valve: The mitral valve is normal in structure. No significant mitral valve stenosis. There is mild mitral regurgitation. Tricuspid Valve: The tricuspid valve is normal in structure. No tricuspid regurgitation. Pulmonic Valve: The pulmonic valve is not well visualized. No significant pulmonic regurgitation. Arteries: The aortic root is normal size. Pericardium/Pleura: No pericardial effusion seen. There is no pleural effusion. IVC/Hepatic Veins: The inferior vena cava is normal in size, with a normal collapsibility index. MMode/2D Measurements Calculations IVSd (0.7-1.1 cm): 0.92 cm LVIDd (3.7-5.4 cm): 5.4 cm LVPWd (0.7-1.1 cm): 0.92 cm LVIDs (2.3-3.6 cm): 4.1 cm LA dimension (2.3-4.0 cm): 2.9 Ao root diam (2.0-3.2 cm): 3.0 cm cm FS: 24.5 % Ao root area: 7.1 cm2 EDV(Teich): 142.5 ml LVOT diam: 1.99 cm ESV(Teich): 74.0 ml LVOT area: 3.1 cm2 EF(Teich): 48.1 % LAV(MOD-sp2): 58.0 ml LAV(MOD-sp4): 32.6 ml LA A2 area: 19.5 cm2 LA A4 area: 13.6 cm2 LA length (vol): 4.5 cm LA vol: 50.6 ml LA vol index: 26.6 ml/m2 Doppler Measurements Calculations MV E max belkys: 93.1 cm/sec Ao V2 max: 112.9 cm/sec MV A max belkys: 37.3 cm/sec Ao max P.1 mmHg MR max belkys: 184.6 cm/sec Ao mean P.5 mmHg MV dec time: 0.18 sec Ao V2 mean: 88.7 cm/sec MV dec slope: 511.1 cm/sec?? Ao V2 VTI: 23.0 cm E/E' lat: 13.0 CHRISSIE(I,D): 2.6 cm2 E/E' med: 10.0 CHRISSIE(V,D): 2.9 cm2 TV max P.0 mmHg LV V1 max: 106.7 cm/sec TR max belkys: 220.4 cm/sec LV V1 max P.6 mmHg TR max P.4 mmHg LV V1 mean: 72.4 cm/sec RAP systole: 3.0 mmHg LV V1 mean P.50 mmHg LV V1 VTI: 19.3 cm + + + + + ------+ + : Electronically : : signed by: Jim : : : : Arin : : : : on: 06/20/2024, : : : : 1:36 PM : + ------+ + Transcribed By: SCV Performed At: 10/31/24 0909 Signed By: Jim Hinkle MD 06/20/24 1336 Normal [facility] Erythrocyte distribution wid th [Ratio] by Automated countOrdered By: Nuria Tobin on 06-20-2024 Erythrocyte distribution width (RBC) [Ratio] 12.6 % Normal 12.0-14.8 [facility] Comment on above: Performed By: #### B MP, CBC, LIPID #### [facility] [address] [place] [address] [place] Erythrocytes [#/volume] in B lood by Automated countOrdered By: Nuria Tobin on 06-20-2024 RBC (Bld) [#/Vol] 3.41 10*6/uL Low 3.90-5.60 [facility] Comment on above: Performed By: #### B MP, CBC, LIPID #### [facility] [address] [place] [id number] [facility] Glucose Poct Glucometerson 1 Commemt1 Glu2: Cleaned Meter Normal [facility] Comment on above: Result Comment: PERF ORMED BY: [place] [address] PATHOLOGIST IMPLEMENTATION SPECIALIST PAYROLL MEL SCOTT M.D. Performed By: #### G LULS #### Point of Care testing , Commemt1 Glu2: Cleaned Meter Normal [facility] Comment on above: Result Comment: PERF ORMED BY: [place] [address] PATHOLOGIST IMPLEMENTATION SPECIALIST PAYROLL MEL SCOTT M.D. Performed By: #### H S TROP #### [facility] [address] [place] [address] [place] Glucose [Mass/Vol] 119 mg/dL Normal [facility] Comment on above: Result Comment: [facility] Glucose Reference Range is dependent on time and content of last meal. Glucose of more than 200 mg/dL in a nonstressed, ambulatory subject supports the diagnosis of Diabetes Mellitus. Performed By: #### H S TROP #### [facility] [address] [place] [id number] [place] Glucose [Mass/volume] in Ser um or PlasmaOrdered By: Nuria Tobin on 06-20-2024 Glucose [Mass/Vol] 100 mg/dL Normal 70-100 [facility] Comment on above: ADA recommended refe rence rangeRandom Glucose Reference Range is dependent on time and content of last meal. Glucose of more than 200 mg/dL in a nonstressed, ambulatory subject supports the diagnosis of Diabetes Mellitus. Result Comment: [place] om Glucose Reference Range is dependent on time and content of last meal. Glucose of more than 200 mg/dL in a nonstressed, ambulatory subject supports the diagnosis of Diabetes Mellitus. ADA recommended reference range Performed By: #### B MP, CBC, LIPID #### [address] Hematocrit [Volume Fraction] of Blood by Automated countOrdered By: Nuria Tobin on 06-20-2024 Hematocrit (Bld) [Volume fraction] 30.7 % Low 38.8-50.0 [facility] Comment on above: Performed By: #### B MP, CBC, LIPID #### [place] [address] [place] Hemoglobin [Mass/volume] in BloodOrdered By: Nuria Tobin on 06-20-2024 Hemoglobin (Bld) [Mass/Vol] 10.5 g/dL Low 13.0-17.0 [facility] Comment on above: Performed By: #### B MP, CBC, LIPID #### [place] [address] [place] Leukocytes [#/volume] correc cheryl for nucleated erythrocytes in Blood by Automated counOrdered By: Nuria Tobin on 06-20-2024 WBC corrected for nucl RBC Auto (Bld) [#/Vol] 8.8 10*3/uL 4.1-10.5 [facility] Leukocytes [#/volume] in Blo od by Automated countOrdered By: Nuria Tobin on 06-20-2024 WBC (Bld) [#/Vol] 8.8 10*3/uL Normal 4.1-10.5 [facility] Comment on above: Performed By: #### B MP, CBC, LIPID #### [address] [place] [address] [place] Lipid Panelon 06-20-2024 LDL Cholesterol,Calculated 51 mg/dL Normal 0-100 [facility] Comment on above: Result Comment: LDL ATP III CLASSIFICATION LDL less than 100 mg/dL Optimal LDL 100-129 mg/dL Near or above optimal LDL 130-159 mg/dL Borderline high LDL 160-189 mg/dL High LDL greater than 189 mg/dL Very high Performed By: #### B MP, CBC, LIPID #### [address] Triglyceride w/Reflex 67 mg/dL Normal 0-149 [facility] Comment on above: Result Comment: TRIG ATP III CLASSIFICATION TRIG less than 150 mg/dL Normal TRIG 150-199 mg/dL Borderline high TRIG 200-500 mg/dL High TRIG greater than 500 mg/dL Very high Standard traceable to the Center for Disease Conrtrol and Prevention (CDC) test method. Performed By: #### B MP, CBC, LIPID #### [address] VLDL CHOLESTEROL 13 mg/dL Normal [facility] Comment on above: Performed By: #### B MP, CBC, LIPID #### [address] Lymphocytes [#/volume] in Bl ood by Automated countOrdered By: Nuria Tobin on 06-20-2024 Lymphocytes (Bld) [#/Vol] 1.8 10*3/uL Normal 1.00-4.8 [facility] Comment on above: Performed By: #### B MP, CBC, LIPID #### [place] [address] [place] Lymphocytes/100 leukocytes i n Blood by Automated countOrdered By: Nuria Tobin on 06-20-2024 Lymphocytes/100 WBC (Bld) 19.8 % Normal . [facility] Comment on above: Performed By: #### B MP, CBC, LIPID #### [address] MCH [Entitic mass] by Automa cheryl countOrdered By: Nuria Tobin on 06-20-2024 MCH (RBC) [Entitic mass] 30.8 pg Normal 27.5-35.2 [facility] Comment on above: Performed By: #### B MP, CBC, LIPID #### [facility] [address] [place] [address] MCHC Auto (RBC) [Mass/Vol]Or dered By: Nuria Tobin on 06-20-2024 MCHC (RBC) [Mass/Vol] 34.2 g/dL 32.5-35.6 [facility] MCV [Entitic volume] by Auto mated countOrdered By: Nuria Tobin on 06-20-2024 MCV (RBC) [Entitic vol] 90.0 fL Normal 83.5-101 [facility] Comment on above: Performed By: #### B MP, CBC, LIPID #### [facility] [address] [place] [address] Neutrophils [#/volume] in Bl ood by Automated countOrdered By: Nuria Tobin on 06-20-2024 Neutrophils (Bld) [#/Vol] 6.0 10*3/uL Normal 1.8-7.7 [facility] Comment on above: Performed By: #### B MP, CBC, LIPID #### [facility] [address] [place] [address] No Panel InformationOrdered By: Mekhi Powers on 06-20-2024 Bedside Glucose Comment Glu2: cleaned meter [facility] No Panel InformationOrdered By: Nuria Tobin on 06-20-2024 Estimated GFR (CKD-EPI) > 60.0 mL/Min [facility] Creatinine Clearance (Chem 94.82 [facility] Nucleated erythrocytes [Pres ence] in Blood by Automated countOrdered By: Nuria Tobin on 06-20-2024 Nucleated RBC Auto Ql (Bld) 0.1 /100{WBC} 0-0.5 [facility] Platelet mean volume [Entiti c volume] in Blood by Automated countOrdered By: Nuria Tobin on 06-20-2024 Platelet mean volume (Bld) [Entitic vol] 7.5 fL Normal 6.6-10.1 [facility] Comment on above: Performed By: #### B MP, CBC, LIPID #### [facility] [address] Platelets [#/volume] in Bloo d by Automated countOrdered By: Nuria Tobin on 06-20-2024 Platelets (Bld) [#/Vol] 407 10*3/uL Normal 150-450 [facility] Comment on above: Performed By: #### B MP, CBC, LIPID #### [facility] [address] [place] [address] Potassium [Moles/volume] in Serum or PlasmaOrdered By: Nuria Tobin on 06-20-2024 Potassium [Moles/Vol] 3.6 mmol/L Normal 3.5-5.1 [facility] Comment on above: Performed By: #### B MP, CBC, LIPID #### [address] Serum or plasma anion gap de terminationOrdered By: Nuria Tobin on 06-20-2024 Anion gap [Moles/Vol] 9.9 mmol/L Normal 6.0-15.0 [facility] Comment on above: Performed By: #### B MP, CBC, LIPID #### [facility] [address] [place] [address] Serum or plasma high density lipoprotein (HDL) cholesterol measurementOrdered By: Nuria Tobin on 06-20-2024 Cholesterol in HDL [Mass/Vol] 33 mg/dL Normal 23-92 [facility] Comment on above: HDL CHOL ATP-III CLA SSIFICATION Cardiovascular RiskHDL > or equal to 60 mg/dL LOWHDL < 40 mg/dL HIGH Result Comment: HDL CHOL ATP-III CLASSIFICATION Cardiovascular Risk HDL > or equal to 60 mg/dL LOW HDL < 40 mg/dL HIGH Performed By: #### B MP, CBC, LIPID #### [address] Serum or plasma total choles terol/high density lipoprotein (HDL) cholesterol mass ratOrdered By: Nuria Tobin on 06-20-2024 Cholesterol.total/Choles terol in HDL [Mass ratio] 2.9 {ratio} Normal <5.0 [facility] Comment on above: Result Comment: PERF ORMED BY: [place] [address] PATHOLOGIST IMPLEMENTATION SPECIALIST PAYROLL MEL SCOTT M.D. Performed By: #### B MP, CBC, LIPID #### [address] Sodium [Moles/volume] in Ser um or PlasmaOrdered By: Nuria Tobin on 06-20-2024 Sodium [Moles/Vol] 138 mmol/L Normal 136-145 [facility] Comment on above: Performed By: #### B MP, CBC, LIPID #### [address] Triglyceride [Mass/volume] i n Serum or PlasmaOrdered By: Nuria Tobin on 06-20-2024 Triglyceride [Mass/Vol] 67 mg/dL 0-149 [facility] Comment on above: TRIG ATP III CLASSIF ICATIONTRIG less than 150 mg/dL NormalTRIG 150-199 mg/dL Borderline highTRIG 200-500 mg/dL High TRIG greater than 500 mg/dL Very highStandard traceable to the Center for Disease Conrtrol and Prevention (CDC) test method. Troponin I High Sensitivityo n 06-20-2024 Troponin I High Sensitivity 311.6 pg/mL Off scale high 0.0-20.0 [facility] Comment on above: Result Comment: Crit ical Result : Called to and read back by: MARK OJEDA at: 06/20/2024 05:31:19 by:[id number] PERFORMED BY: [place] [address] PATHOLOGIST IMPLEMENTATION SPECIALIST PAYROLL MEL SCOTT M.D. Performed By: #### H S TROP #### [facility] [address] [place] [address] Troponin I.cardiac [Mass/vol ume] in Serum or Plasma by Detection limit <= 0.01 ng/Ordered By: Nuria Tobin on 06-20-2024 Troponin I.cardiac DL <= 0.01 ng/mL [Mass/Vol] 311.6 pg/mL High 0.0-20.0 [facility] Comment on above: Critical Result : Ca lled to and read back by: MARK OJEDA at: 06/20/2024 05:31:19 by:[id number] Urea nitrogen [Mass/volume] in Serum or PlasmaOrdered By: Nuria Tobin on 06-20-2024 Urea nitrogen [Mass/Vol] 19 mg/dL Normal 7-25 [facility] Comment on above: Performed By: #### B MP, CBC, LIPID #### [facility] [address] [place] [address] A1C with Estimated Average G benignon 06-19-2024 Glucose [Mass/Vol] 278 mg/dL Normal [facility] Comment on above: Result Comment: PERF ORMED BY: [place] [address] PATHOLOGIST IMPLEMENTATION SPECIALIST PAYROLL MEL SCOTT M.D. Performed By: #### H S TROP #### [address] Anti-Xa UF Heparinon 024 Anti-Xa UF Heparin < 0.04 Low 0.30-0.70 [facility] Comment on above: Result Comment: Use the aPTT protocol when triglycerides are > 800 mg/dL, total bilirubin is > 20 mg/dL and/or patient has received a DOAC, Fondaparinux or LMWH within 72 hours AND baseline anti-Xa level is > 0.7 units/mL PERFORMED BY: [place] [address] PATHOLOGIST IMPLEMENTATION SPECIALIST PAYROLL MEL SCOTT M.D. Performed By: #### H S TROP #### [place] [address] [place] BNP ser/plasOrdered By: Abundio Salvador on 06-19-2024 Natriuretic peptide B (Bld) [Mass/Vol] 1043.0 pg/mL High 5-100 [facility] Comment on above: Result Comment: PERF ORMED BY: [place] [address] PATHOLOGIST IMPLEMENTATION SPECIALIST PAYROLL MEL SCOTT M.D. Performed By: #### G LULS #### Point of Care testing , ECG 12 lead ECGon 06-19-2024 ECG 12 lead ECG [facility] [place] [address] Electrocardiograph Report Signed Patient: Wing Alejandro MR#: [id number] 5 : 1970 Acct:[id number] Age/Sex: 54 / M ADM Date: 06/19/24 Loc: Room: [address] [place] [address] Type: ADM IN Attending Dr: Mekhi Powers MD Ordering Provider: Katlin Salvador MD Date of Service: 06/19/24 ECG/ECG 12 lead ECG: chest pain, elevated trop Copies to: Test Reason : Blood Pressure : */* mmHG Vent. Rate : 90 BPM Atrial Rate : 90 BPM P-R Int : 154 ms QRS Dur : 94 ms QT Int : 420 ms P-R-T Axes : 72 72 119 degrees QTcB Int : 513 ms Normal sinus rhythm Minimal voltage criteria for LVH, may be normal variant ( Wagoner product ) Anterolateral infarct , age undetermined Prolonged QT Abnormal ECG No previous ECGs available Confirmed by Jim Hinkle ([id number]) on 06/19/2024 11:15:31 AM Referred By: Electronically Signed By: Jim Hinkle Transcribed By: MUS Signed By Jim Hinkle MD 06/19/24 1115 Normal [facility] Glucose Poct Glucometerson 1 Commemt1 Glu2: Cleaned Meter Normal [facility] Comment on above: Result Comment: PERF ORMED BY: [place] [address] PATHOLOGIST IMPLEMENTATION SPECIALIST PAYROLL MEL SCOTT M.D. Performed By: #### G LULS #### Point of Care testing , Glucose [Mass/Vol] 355 mg/dL Normal [facility] Comment on above: Result Comment: [place] Glucose Reference Range is dependent on time and content of last meal. Glucose of more than 200 mg/dL in a nonstressed, ambulatory subject supports the diagnosis of Diabetes Mellitus. Performed By: #### G LULS #### Point of Care testing , Commemt1 Glu2: Cleaned Meter Normal [facility] Comment on above: Result Comment: PERF ORMED BY: [place] [address] PATHOLOGIST IMPLEMENTATION SPECIALIST PAYROLL MEL SCOTT M.D. Performed By: #### H S TROP #### [place] [address] [place] Glucose [Mass/Vol] 282 mg/dL Normal [facility] Comment on above: Result Comment: [place] om Glucose Reference Range is dependent on time and content of last meal. Glucose of more than 200 mg/dL in a nonstressed, ambulatory subject supports the diagnosis of Diabetes Mellitus. Performed By: #### H S TROP #### [address] Glucose [Mass/Vol] 269 mg/dL Normal [facility] Comment on above: Result Comment: [place] om Glucose Reference Range is dependent on time and content of last meal. Glucose of more than 200 mg/dL in a nonstressed, ambulatory subject supports the diagnosis of Diabetes Mellitus. PERFORMED BY: [place] [address] PATHOLOGIST IMPLEMENTATION SPECIALIST PAYROLL MEL SCOTT M.D. Performed By: #### G LULS #### Point of Care testing , Glucose [Mass/Vol] 292 mg/dL Normal [facility] Comment on above: Result Comment: [place] om Glucose Reference Range is dependent on time and content of last meal. Glucose of more than 200 mg/dL in a nonstressed, ambulatory subject supports the diagnosis of Diabetes Mellitus. PERFORMED BY: [place] [address] PATHOLOGIST IMPLEMENTATION SPECIALIST PAYROLL MEL SCOTT M.D. Performed By: #### G LULS #### Point of Care testing , Glucose mean value [Mass/vol ume] in Blood Estimated from glycated hemoglobinOrdered By: Katlin Salvador on 06-19-2024 Average glucose Estimated from glycated hemoglobin (Bld) [Mass/Vol] 278 mg/dL [facility] Hemoglobin A1c percentageOrd ered By: Katlin Salvador on 06-19-2024 HbA1c (Bld) [Mass fraction] 11.3 % High 4.3-5.6 [facility] Comment on above: Increased risk for d iabetes: 5.7 - 6.4diabetes: >6.4glycemic control for adults with diabetes: <7.0 Result Comment: Incr eased risk for diabetes: 5.7 - 6.4 diabetes: >6.4 glycemic control for adults with diabetes: <7.0 Performed By: #### H S TROP #### [address] Heparin anti-Xa unfractionat edOrdered By: Katlin Salvador on 06-19-2024 Heparin unfractionated Chromogenic method Qn (PPP) < 0.04 [IU]/mL Low 0.30-0.70 [facility] Comment on above: Use the aPTT protoco l when triglycerides are > 800 mg/dL,total bilirubin is > 20 mg/dL and/or patient has received aDOAC, Fondaparinux or LMWH within 72 hours AND baselineanti-Xa level is > 0.7 units/mL Lipid Panelon 06-19-2024 Cholesterol [Mass/Vol] 116 mg/dL Low 140-200 [facility] Comment on above: Result Comment: Chol less than 200 mg/dl low risk Chol 201-239 mg/dl borderline risk Chol 240 mg/dl and greater high risk Performed By: #### H S TROP #### [facility] [address] [place] [address] Cholesterol in HDL [Mass/Vol] 39 mg/dL Normal 23-92 [facility] Comment on above: Result Comment: HDL CHOL ATP-III CLASSIFICATION Cardiovascular Risk HDL > or equal to 60 mg/dL LOW HDL < 40 mg/dL HIGH Performed By: #### H S TROP #### [facility] [address] [place] [address] Cholesterol.total/Choles terol in HDL [Mass ratio] 3.0 {ratio} Normal <5.0 [facility] Comment on above: Result Comment: PERF ORMED BY: [place] [address] PATHOLOGIST IMPLEMENTATION SPECIALIST PAYROLL MEL SCOTT M.D. Performed By: #### H S TROP #### [address] LDL Cholesterol,Calculated 60 mg/dL Normal 0-100 [facility] Comment on above: Result Comment: LDL ATP III CLASSIFICATION LDL less than 100 mg/dL Optimal LDL 100-129 mg/dL Near or above optimal LDL 130-159 mg/dL Borderline high LDL 160-189 mg/dL High LDL greater than 189 mg/dL Very high Performed By: #### H S TROP #### [address] Triglyceride w/Reflex 85 mg/dL Normal 0-149 [facility] Comment on above: Result Comment: TRIG ATP III CLASSIFICATION TRIG less than 150 mg/dL Normal TRIG 150-199 mg/dL Borderline high TRIG 200-500 mg/dL High TRIG greater than 500 mg/dL Very high Standard traceable to the Center for Disease Conrtrol and Prevention (CDC) test method. Performed By: #### H S TROP #### [address] VLDL CHOLESTEROL 17 mg/dL Normal [facility] Comment on above: Performed By: #### H S TROP #### [place] [address] [place] Troponin I High Sensitivityo n 06-19-2024 Troponin I High Sensitivity 298.5 pg/mL Off scale high 0.0-20.0 [facility] Comment on above: Result Comment: Crit ical Result : Called to and read back by: MONA ZARAGOZA at: 06/19/2024 15:36 by:MLG PERFORMED BY: [place] [address] PATHOLOGIST IMPLEMENTATION SPECIALIST PAYROLL MEL SCOTT M.D. Performed By: #### H S TROP #### [address] Troponin I High Sensitivity 313.1 pg/mL Off scale high 0.0-20.0 [facility] Comment on above: Result Comment: Crit ical Result : Called to and read back by: MARIAH PATTON at: 06/19/2024 14:48:55 by:MLG PERFORMED BY: [place] [address] PATHOLOGIST IMPLEMENTATION SPECIALIST PAYROLL MEL SCOTT M.D. Performed By: #### H S TROP #### [address] Troponin I High Sensitivity 364.4 pg/mL Off scale high 0.0-20.0 [facility] Comment on above: Result Comment: Crit ical Result : Called to and read back by: NERISSA LARRY at: 06/19/2024 11:50:46 by:MLG PERFORMED BY: [place] [address] PATHOLOGIST IMPLEMENTATION SPECIALIST PAYROLL MEL SCOTT M.D. Performed By: #### H S TROP #### [address] Troponin I High Sensitivity 343.1 pg/mL Off scale high 0.0-20.0 [facility] Comment on above: Result Comment: Crit ical Result : Called to and read back by: MONALAMONT LOMBARDI at: 06/19/2024 07:40:51 by:MLG PERFORMED BY: [place] [address] PATHOLOGIST IMPLEMENTATION SPECIALIST PAYROLL MEL SCOTT M.D. Performed By: #### H S TROP #### [place] [id number] [facility] XR chest 1V portableon 06-19 XR chest 1V portable [facility] [place] [address] XRay Report Signed Patient: Wing Alejandro MR#: [id number] 5 : 1970 Acct:[id number] Age/Sex: 54 / M ADM Date: 06/19/24 Loc: Room: [address] [place] [address] Type: ADM IN Attending Dr: Mekhi Powers MD Copies to: MD Katlin Soliz MD Ordering Provider: Katlin Salvador MD Date of Service: 06/19/24 XR/XR chest 1V portable: CHF exacerbation PORTABLE AP ERECT CHEST 0607 hours CLINICAL HISTORY: Chest pain. Exacerbation of CHF COMPARISON: 06/18/2024 The heart is within normal limits. There is continued interstitial change and some areas of groundglass opacity. There is little if any interval improvement. There is blunting of the costophrenic angles suggesting pleural effusion.. No pneumothorax is noted. The osseous structures are intact. Mild endplate spurring is seen. XR/XR chest 1V portable IMPRESSION: CONTINUED PARENCHYMAL CHANGES SUGGESTING EDEMA, STABLE TO MINIMALLY IMPROVED. SMALL PLEURAL EFFUSIONS. Impression dictated by: Chelsi Ordaz M.D.06/19/2024 8:03 AM Dictation Location: [place] [address] Transcribed By: [facility] 06/19/24 0803 Dictated By: Chelsi Ordaz MD 06/19/24 0756 Signed By: 06/19/24 0803 Normal [facility] Vital Signs Date Time Vital Sign Value Performing Clinician Facility 09-25-2024 10:15-0500 Body height 185.4 cm Zenia Langford MD Work Phone: [facility] 09-25-2024 10:15-0500 Body mass index (BMI) [Ratio] 20.58 kg/m2 Zenia Langford MD Work Phone: [facility] 09-25-2024 10:15-0500 Body weight 70.76 kg Zenia Langford MD Work Phone: [facility] 09-25-2024 10:15-0500 Diastolic blood pressure 70 mm[Hg] Zenia Langford MD Work Phone: [facility] 09-25-2024 10:15-0500 Heart rate 95 /min Zenia Langford MD Work Phone: [facility] 09-25-2024 10:15-0500 Respiratory rate 18 /min Zenia Langford MD Work Phone: [facility] 09-25-2024 10:15-0500 SaO2% (BldA) [Mass fraction] 97 % Zenia Langford MD Work Phone: [facility] 09-25-2024 10:15-0500 Systolic blood pressure 100 mm[Hg] Zenia Langford MD Work Phone: [facility] 07-03-2024 10:37-0500 Body height 185.4 cm Adiel Tobin DO Work Phone: [facility] 07-03-2024 10:37-0500 Body mass index (BMI) [Ratio] 19.39 kg/m2 Adiel Tobin DO Work Phone: [facility] 07-03-2024 10:37-0500 Body weight 66.68 kg Adiel Tobin DO Work Phone: [facility] 07-03-2024 10:37-0500 Diastolic blood pressure 60 mm[Hg] Adiel Tobin DO Work Phone: [facility] 07-03-2024 10:37-0500 Heart rate 72 /min Adiel Tobin DO Work Phone: [facility] 07-03-2024 10:37-0500 Systolic blood pressure 100 mm[Hg] Adiel Tobin DO Work Phone: [facility] 06-20-2024 16:15-0400 Diastolic blood pressure 69 mm[Hg] MD Katlin Salvador Work Phone: [facility] 06-20-2024 16:15-0400 Heart rate 80 /min MD Katlin Salvador Work Phone: [facility] 06-20-2024 16:15-0400 Respiratory rate 20 /min MD Katlin Salvador Work Phone: [facility] 06-20-2024 16:15-0400 SaO2% (BldA) [Mass fraction] 95 % MD Katlin Salvador Work Phone: [facility] 06-20-2024 16:15-0400 Systolic blood pressure 108 mm[Hg] MD Katlin Salvador Work Phone: [facility] 06-20-2024 15:08-0400 Body height 185.42 cm MD Katlin Salvador Work Phone: [facility] 06-20-2024 12:00-0400 Body temperature 98.3 [degF] MD Katlin Salvador Work Phone: [facility] 06-20-2024 06:00-0400 Body weight 68.1 kg MD Katlin Salvador Work Phone: [facility] Encounters Encounter Date Encounter Type Care Provider Facility Start: 09-25-2024 End: 09-25-2024 Bamboo flowsheet Zenia Langford MD Work Phone: [facility] Start: 09-25-2024 End: 09-25-2024 [employer] Manzanao flowsheet Zenia Langford MD Work Phone: [facility] Start: 09-25-2024 End: 09-25-2024 Office outpatient new 45 minutes Zenia Langford MD Work Phone: [facility] Comment on above: Poor control type I diabetes mellitus (CMS/HCC) (Primary Dx); Primary hypertension (CMS/HCC); Encounter for dietary consultation; Vitamin D deficiency; Hyperlipemia, mixed (CMS/HCC); Insulin long-term use (CMS/HCC) Start: 07-30-2024 End: 07-30-2024 Subsequent hospital visit by physician Natalee Love Admin Room 1 [facility] Comment on above: Coronary artery dise ase involving afognak coronary artery of afognak heart without angina pectoris; Cardiomyopathy, ischemic; S/P PTCA (percutaneous transluminal coronary angioplasty); ST elevation myocardial infarction (STEMI), unspecified artery (Multi) Start: 07-30-2024 End: 07-30-2024 ambulatory [facility] Start: 07-03-2024 End: 07-03-2024 Transitional care manage srvc 14 day discharge Adiel Tobin DO Work Phone: [facility] Comment on above: Coronary artery dise ase involving afognak coronary artery of afognak heart without angina pectoris; Cardiomyopathy, ischemic; S/P PTCA (percutaneous transluminal coronary angioplasty); ST elevation myocardial infarction (STEMI), unspecified artery (Multi); Type 2 diabetes mellitus without complication, with long-term current use of insulin (Multi); Mixed hyperlipidemia; Former smoker; Body mass index (BMI) 19.9 or less, adult Start: 07-03-2024 End: 07-03-2024 ambulatory [facility] Start: 06-19-2024 Non-patient / Non-visit MD Phi Salvador Work Phone: [facility] Work Phone: Start: 06-19-2024 End: 06-20-2024 Evaluation and management of inpatient MD Katlin Salvador Work Phone: [facility] Work Phone: Start: 02-11-[address] ROE SHOEMAKER Facility :H1 Procedures Date Procedure Procedure Detail Performing Clinician Start: 09-25-2024 Gluc bld gluc mntr d ev cleared fda spec home use Zenia Langford MD Work Phone: Start: 07-30-2024 Card blood pool gate d planar 1 study rest/stress Adiel Tobin Work Phone: Start: 06-19-2024 CL Coronary Thrombol ysis IV MD Katlin Salvador Work Phone: Start: 06-19-2024 CL Ivus Initial Vessel MD Katlin Salvador Work Phone: Start: 06-19-2024 CL LHC & COR Angio MD Marlene Salvador Work Phone: Start: 06-19-2024 CL PCI AMI 1st Vesse l LAD ESTHER MD Katlin Salvador Work Phone: Start: 06-19-2024 MD Katlin Salvador Work Phone: Start: 06-19-2024 Plain chest X-ray MD Heriberto Salvador Work Phone: Plan of Treatment Date Care Activity Detail Author Start: 06-20-2025 Echocardiography Echocardiogram [facility] Start: 12-23-2024 End: 12-23-2024 Patient encounter procedure 12/23/2024 11:20 AM EDT Office Visit [facility] [address] [place] [address] Zenia Langford MD [address] [place] [address] [facility] Start: 10-02-2024 End: 10-02-2024 Patient encounter procedure 10/02/2024 10:40 AM EST Office Visit [facility] [address] [place] [id number] Adiel Tobin DO [address] [place] [address] [facility] Start: 09-25-2024 End: 09-25-2025 25-hydroxyvitamin D3 [Mass/volume] in Serum or Plasma Vitamin D 25 hydroxy Total Lab Routine Poor control type I diabetes mellitus (CMS/HCC) Expected: 09/25/2024 (Approximate), Expires: 09/25/2025 [facility] Comment on above: Expected: 09/25/2024 (Approximate), Expi res: 09/25/2025 Start: 09-25-2024 End: 09-25-2025 C-peptide C-peptide Lab Routine Poor control type I diabetes mellitus (CMS/HCC) Expected: 09/25/2024 (Approximate), Expires: 09/25/2025 [facility] Work Phone: Comment on above: Expected: 09/25/2024 (Approximate), Expi res: 09/25/2025 Start: 09-25-2024 End: 09-25-2025 Lipid 1996 panel - Serum or Plasma Lipid panel Lab Routine Poor control type I diabetes mellitus (CMS/HCC) Expected: 09/25/2024 (Approximate), Expires: 09/25/2025 [facility] Comment on above: Expected: 09/25/2024 (Approximate), Expi res: 09/25/2025 Start: 09-25-2024 End: 09-25-2025 Microalbumin/Creatinine panel in random Urine Microalbumin / creatinine urine ratio Lab Routine Poor control type I diabetes mellitus ([facility]) Expected: 09/25/2024 (Approximate), Expires: 09/25/2025 [facility] Comment on above: Expected: 09/25/2024 (Approximate), Expi res: 09/25/2025 Start: 09-25-2024 End: 09-25-2025 Renal function panel Renal function panel Lab Routine Poor control type I diabetes mellitus ([facility]) Expected: 09/25/2024 (Approximate), Expires: 09/25/2025 [facility] Comment on above: Expected: 09/25/2024 (Approximate), Expi res: 09/25/2025 Start: 09-25-2024 End: 09-25-2024 Patient encounter procedure 09/25/2024 10:00 AM EST Office Visit [facility] [address] [place] [address] Zenia Langford MD [address] [place] [address] Type 2 diabetes mellitus with hyperglycemia, with long-term current use of insulin ([facility]) [facility] Comment on above: Type 2 diabetes mellitus with hyperglyce lion, with long-term current use of insulin ([facility]) Start: 08-02-2024 End: 07-03-2025 NM Heart Wall motion and Ejection fraction NM heart blood pool ejection fraction wall motion (MUGA) Imaging Routine Coronary artery disease involving afognak coronary artery of afognak heart without angina pectoris Cardiomyopathy, ischemic S/P PTCA (percutaneous transluminal coronary angioplasty) ST elevation myocardial infarction (STEMI), unspecified artery (Multi) Expected: 08/02/2024, Expires: 07/03/2025 [facility] Service Area Work Phone: Comment on above: Expected: 08/02/2024, Expires: Start: 06-20-2024 [facility] Start: 06-19-2024 Consultation [facility] Start: 06-19-2024 Hospital admission [facility] Start: 06-19-2024 Referral to cardiac rehabilitation program [facility] Start: 06-19-2024 Referral to elocution teacher [facility] Start: 06-19-2024 Hospital admission [facility] Start: 04-21-2024 COVID-19 Vaccine ( season) COVID-19 Vaccine ( season) [facility] Start: 04-21-2024 COVID-19 Vaccine ( season) COVID-19 Vaccine ( season) [facility] Start: 04-21-2024 Influenza vaccination Influenza Vaccine (#1) [facility] Start: 2021 Zoster Vaccines (1 of 2) Zoster Vaccines (1 of 2) [facility] Start: 1993 DTaP/Tdap/Td Vaccines (1 - Tdap) DTaP/Tdap/Td Vaccines (1 - Tdap) [facility] Start: 1990 Hepatitis B Vaccines (1 of 3 - 19+ 3-dose series) Hepatitis B Vaccines (1 of 3 - 19+ 3-dose series) [facility] Start: 1990 Urine screening for protein Diabetes: Urine Protein Screening [facility] Start: 1989 Diabetes mellitus screening Diabetes Screening [facility] Start: 1989 Hepatitis C screening Hepatitis C Screening [facility] Start: 1981 Glaucoma screening Diabetes: Retinopathy Screening [facility] Start: 1977 Pneumococcal Vaccine: Pediatrics (0 to 5 Years) and At-Risk Patients (6 to 64 Years) (1 of 2 - PCV) Pneumococcal Vaccine: Pediatrics (0 to 5 Years) and At-Risk Patients (6 to 64 Years) (1 of 2 - PCV) [facility] Start: 1972 MMR Vaccines (1 of 1 - Standard series) MMR Vaccines (1 of 1 - Standard series) [facility] Start: 1971 Creatinine measurement [facility]inine [facility] Start: 1971 Hemoglobin A1c measurement Diabetes: Hemoglobin A1C [facility] Start: 1971 HIV screening HIV Screening [facility] Start: 1971 Lipid panel Lipid Panel [facility] Start: 1971 Potassium measurement Potassium Level [facility] Start: 1971 Screening for malignant neoplasm of colon [facility] Start: 1971 Yearly Adult Physical Yearly Adult Physical [facility] Patient Education Smoking: Not J ust Harmful to Your Lungs and Heart Heart Failure, Adult (DC) Heart Attack (DC) Coronary Stenting (DC) Angina (DC) Chest Pain (DC) Quitting smoking Drug Eluting Stents Know your Meds [facility] Work Phone: Patient referral [facility] Work Phone: Referral to cardiac rehabilitation program [facility] Payers Date Payer Category Payer Self-pay 2023 Managed Care (Private) [facility] [id number] 2023 Private Health Insurance [id number] 1998 Managed Care HMO (unspecified) [employer] [id number] 1998 Private Health Insurance [id number] 1971 Unknown [id number] 1971 Unknown [id number] 1971 Unknown [id number] 1971 Unknown [id number] 1959 Self-pay [id number] Unknown [id number] Social History Date Type Detail Facility Start: 06-19-2024 Tobacco smoking stat [facility] Smoker (finding) [facility] Start: 1971 Sex Assigned At Male F [facility] Start: 07-03-2024 [facility] Work Phone: History of tobacco use Cigarette Smoker [facility] Work Phone: Start: 07-03-2024 Tobacco use and exposure Smokeless tobacco non-user [facility] Work Phone: Start: 07-03-2024 Alcoholic beverage intake Current drinker of alcohol (finding) [facility] Work Phone: Start: 07-03-2024 Alcohol Comment social [facility] Work Phone: Start: 1971 Sex assigned at Not on file [facility] Work Phone: Start: 07-03-2024 Gender identity Not on file [facility] Work Phone: Start: 06-23-2024 End: 07-30-2024 Exposure to SARS-CoV-2 (event) Not sure [facility] Start: 07-03-2024 History of Social function [facility] Work Phone: Tobacco smoking stat us [facility] Tobacco smoking consumption unknown [facility] Medical Equipment Procedure Code Equipment Code Equipment Origin al Text Equipment Identifier Dates CL STENT GISELLE FRONTIER 3.5 X 15 FDA Start: 06-19-2024 Goals Date Patient Goal Desired Activity /State Functional Status Date Assessment Result Facility 06-20-2024 Functional status Patient at Baseline [facility] Work Phone: Mental Status Date Assessment Result Facility 06-20-2024 Cognitive function Cognitive Sta tus Patient at Baseline [facility] Work Phone: Clinical Notes 06-19-2024 to 09-25-2024 Zenia Langford MD - 09/25/2024 10:00 AM Mariel Tobin DO - 07/03/2024 10:30 AM ESTPatient Instructions Note Date & Type Note Facility 09-25-2024 History of Present illness Narrative Wing Alejandro is a 54 y.o. male Roe Shoemaker MD presents with chief complaint of Diabetes (NEW REF) HPI: HPI 09/2024 New patient sent from Dr. Roe Shoemaker for uncontrolled diabetes, he has it since 2002, currently he is on Lantus 34 units at bedtime, Humalog sliding scale only A1c in our office 9.6, blood sugar 112, he has coronary artery disease status post stent, denies kidney problems, he is on Farxiga recently since 05/2024. SUBJECTIVE: MEDICATIONS: Current Outpatient Medications Medication Instructions aspirin 81 mg, Daily atorvastatin (LIPITOR) 80 mg, Daily Continuous Glucose Horse Trainer (Dexcom G6 senior it specialist) device 1 Device, As needed Continuous Glucose Sensor (Dexcom G6 Sensor) misc No dose, route, or frequency recorded. Continuous Glucose Transmitter (Dexcom G6 transmitter) misc As needed insulin glargine (SEMGLEE) 34 Units, Nightly Insulin Lispro (HUMALOG KWIKPEN SC) Inject under the skin Per sliding scale. sildenafil (VIAGRA) 100 mg, Daily PRN spironolactone (ALDACTONE) 25 mg, Daily ticagrelor (BRILINTA) 90 mg, 2 times daily ALLERGIES: No Known Allergies Past Medical History: Diagnosis Date CAD (coronary artery disease) ([facility]) Cardiomyopathy ([facility]) Cervical disc disease 05/2024 Controlled type 2 diabetes mellitus with diabetic polyneuropathy ([facility]) Crushing injury of left foot, initial encounter Hyperkalemia Hypertension ([facility]) Impotence Kidney injury Nondisplaced fracture of proximal phalanx of left great toe, initial encounter for closed fracture Pain in left foot Sinus tachycardia STEMI (ST elevation myocardial infarction) ([facility]) ([facility]) Type 2 diabetes mellitus ([facility]) Past Surgical History: Procedure Laterality Date CORONARY ANGIOPLASTY REVIEW OF SYMPTOMS: 14 POINT OF SYSTEM REVIEWED AND NEGATIVE OBJECTIVE: Constitutional: Afebrile @ home; no weakness or night sweats SKIN: No change in skin color; no itching, rash or lesions; no hair loss; HEENT: No HAs or injury; no dizziness; No difficulty with vision; no eye pain, discharge or lesions; no hearing loss or difficulty; no nasal discharge, NECK: No pain, limitation of motion, lumps or swollen glands RESP: No cough, wheezing or difficulty breathing. No CP with breathing; CARDIO: No CP , SOB or fatigue, No edema, palpitations or dyspnea with exertion GI: No N/V/D or abd. pain; good appetite with no recent change. No heart burn, liver or gallbladder disease; no rectal bleeding or pain : No urinary pain , frequency or odor. MUSCULOSKELETAL: No muscle pain or cramps; no extremity weakness.No joint pain, stiffness, swelling or limitation of movement NEUROLOGY: No H/O seizures, stroke or fainting. No weakness, tremors. Hematology: No bleeding problems or excessive bruising ENDOCRINE: No increase in hunger, thirst or urination; admits compliance to medical management plan Feet: numbness tingling yes , ulcers or skin break no Lab Results Component Value Date HGBA1C 9.6 09/25/2024 Lab Results Component Value Date GLU 112 09/25/2024 Visit Vitals BP 100/70 Pulse 95 Resp 18 Ht 6' 1 Wt 156 lb SpO2 97% BMI 20.58 kg/m BSA 1.91 m ASSESSMENT AND PLAN: Assessment/Plan Diagnoses and all orders for this visit: Poor control type I diabetes mellitus (CMS/HCC) - POCT glucose manually resulted - POCT glycosylated hemoglobin (Hb A1C) docked device - C-peptide; Future - Vitamin D 25 hydroxy Total; Future - Microalbumin / creatinine urine ratio; Future - Lipid panel; Future - Renal function panel; Future We will decrease his Lantus to 25 units, start Humalog fixed dose 3-4-5 according to meal size, instruction to start how to count carbs, sliding scale +1, we will start him on T slim insulin pump. Primary hypertension ([facility]) Encounter for dietary consultation Diet and exercise reviewed with the patient Vitamin D deficiency Hyperlipemia, mixed ([facility]) Insulin long-term use ([facility]) Follow up in about 3 months (around 12/23/2024). documented in this encounter [facility] 07-03-2024 History of Present illness Narrative Subjective Wing Alejandro is a 54 y.o. male Chief Complaint Follow-up 54-year-old gentleman here for TCM follow-up visit following recent in-house anterior STEMI (probably late presenting), with primary revascularization of the distal left main and ostial/proximal LAD with drug-eluting stent with IVUS guidance. LV function was severely impaired with ejection fraction of 25 to 35%. Interestingly the remainder of his coronary arteries were completely normal. He has had no cardiac symptoms or repeat hospitalizations since discharge, denies shortness of breath, angina, syncope or edema. He has quit smoking altogether, he remains compliant with GDMT as reviewed He does have underlying diabetes that is under good control from what he tells me currently insulin requiring. 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 HENT: Nose: Nose normal. Neck: Vascular: No carotid bruit. Cardiovascular: Rate and Rhythm: Normal rate. Pulses: Normal pulses. Heart sounds: Normal heart sounds. Pulmonary: Effort: Pulmonary effort is normal. Abdominal: General: Bowel sounds are normal. Palpations: Abdomen is soft. Musculoskeletal: General: Normal range of motion. Cervical back: Normal range of motion. Right lower leg: No edema. Left lower leg: No edema. Skin: General: Skin is warm and dry. Neurological: General: No focal deficit present. Mental Status: He is alert. Psychiatric: Mood and Affect: Mood normal. Behavior: Behavior normal. Thought Content: Thought content normal. Judgment: Judgment normal. Allergies Patient has no known allergies. Current Medications Current Outpatient Medications: aspirin 81 mg EC tablet, Take 1 tablet (81 mg) by mouth once daily., Disp: , Rfl: atorvastatin (Lipitor) 80 mg tablet, Take 1 tablet (80 mg) by mouth once daily., Disp: , Rfl: carvedilol (Coreg) 6.25 mg tablet, Take 1 tablet (6.25 mg) by mouth 2 times a day., Disp: , Rfl: Farxiga 10 mg, Take 1 tablet (10 mg) by mouth early in the morning.., Disp: , Rfl: insulin glargine (Lantus) 100 unit/mL (3 mL) pen, Inject 34 Units under the skin once daily at bedtime., Disp: , Rfl: nitroglycerin (Nitrostat) 0.4 mg SL tablet, Place 1 tablet (0.4 mg) under the tongue every 5 minutes if needed., Disp: , Rfl: olmesartan (BENIcar) 5 mg tablet, Take 1 tablet (5 mg) by mouth once daily., Disp: , Rfl: Semglee,insulin glarg-yfgn,Pen 100 unit/mL (3 mL) Pen, Inject under the skin once daily in the morning., Disp: , Rfl: spironolactone (Aldactone) 25 mg tablet, Take 0.5 tablets (12.5 mg) by mouth once daily., Disp: , Rfl: ticagrelor (Brilinta) 90 mg tablet, Take 1 tablet (90 mg) by mouth 2 times a day., Disp: , Rfl: Assessment/Plan 1. Coronary artery disease involving afognak coronary artery of afognak heart without angina pectoris 2. Cardiomyopathy, ischemic 3. S/P PTCA (percutaneous transluminal coronary angioplasty) 4. ST elevation myocardial infarction (STEMI), unspecified artery (Multi) 5. Type 2 diabetes mellitus without complication, with long-term current use of insulin (Multi) 6. Former smoker 7. Body mass index (BMI) 19.9 or less, adult Scribe Attestation By signing my name below, I, Rekha Gonzales LPN , Scribe attest that this documentation has been prepared under the direction and in the presence of Adiel Tobin DO. Provider Attestation - Scribe documentation All medical record entries made by the Scribe were at my direction and personally dictated by me. I have reviewed the chart and agree that the record accurately reflects my personal performance of the history, physical exam, discussion and plan. documented in this encounter [facility] Work Phone: 07-03-2024 Instructions Martha Mckeon RN - 07/03/2024 10:30 AM EST Please bring all medicines, vitamins, and herbal supplements with you when you come to the office. Prescriptions will not be filled unless you are compliant with your follow up appointments or have a follow up appointment scheduled as per instruction of your physician. Refills should be requested at the time of your visit. documented in this encounter [facility] Work Phone: 06-20-2024 Procedure note [facility] 06-20-2024 Hospital Discharge instructions Additional Instructions DISCHARGE INSTRUCTIONS FOR ANGIOPLASTY/CORONARY/PERIPHERAL/ STENT IMPLANT FOR ADULT ANTICOAGULATION -Since the greatest risk of a blood clot forming with the stent occurs in the first 2-3 weeks after implantation, you will need to take anticoagulants for at least 12-18 months. ANTICOAGULATION MEDICATION Aspirin 81mg once a day, Ticagrelor (Brilinta) 90mg twice a day STATIN MEDICATION Atorvastatin (Lipitor) 80 mg Drug-Eluting Stent (ESTHER) DO NOT discontinue Brilinta/Aspirin during the first few months regardless of what you are advised by your family doctor or pharmacist, without first calling the elocution teacher who implanted the stent. If you require pain relief during this time, please take only ACETAMINOPHEN (TYLENOL)- NO additional aspirin or ibuprofen. DISCHARGE ACTIVITIES ARE FOLLOWS: First week after discharge: -Take it easy at home, no strenuous activity. -Do not lift or pull objects over 10-15 pounds, including children, and groceries for four weeks. If puncture site is at wrist do NOT lift more than three pounds for three days. - May walk up stairs. -May shower. -No excessive scrubbing of the affected site (groin). -May ride in car. -May resume sexual intercourse after 1-2 weeks. -No MRI for 12 days. -May drive in 4-7 days. -If puncture site is at the wrist do not manipulate the wrist for 24 hours, and no soaking wrist for three days. Second Week: -May take a bath -May start walking 3 times a week for 15-20 minutes at a leisurely pace. You should be able to carry on a conversation comfortably without feeling winded. -No strenuous activity as in jogging, running, weight lifting, stair steppers, etc. until the elocution teacher approves these activities. Check with the elocution teacher on your first follow-up visit. CALL YOUR CREDIT COLLECTIONS REP: -If bleeding should occur from the catheter insertion site- apply pressure to the site then immediately call us. -Report any fever, redness, drainage, increased swelling, or firmness at the catheter insertion site. Some bruising or slight swelling may be present at the time of discharge. -Should arm or leg become cold, numb, white, or blue, contact the elocution teacher immediately. -IF you should experience episodes of angina, e.g. chest discomfort, heaviness, tightness, pressure burning with or without radiation to the neck, jaw, arms or back- use 1 Nitrostat tablet under your tongue every 5-10 minutes and up to three tablets. IF NO RELIEF, CALL 911 or GO TO THE NEAREST EMERGENCY ROOM. -Please notify our office if you have recurrent angina. -Cardiac Rehab Education Provided. Participation in the Cardiopulmonary Rehabilitation program is recommended. The attending elocution teacher or a nurse clinician should provide you with specific instructions regarding activity, diet, medications, and further follow up for you. Follow the medication instructions provided on your discharge. If the dosages and instructions on this sheet differ from the dosage and instructions on the bottle, follow the instructions on the bottle. [facility] is not responsible for incorrect prescription information provided by the patient during their visit. Do not stop your medications without consulting your health care provider. Please take the list with you to your next doctor's appointment. [facility] Work Phone: 06-19-2024 Consult note Note Date/Time June 19, 2024 12:28pm [facility] [address] [place] [address] Pulmonology Consult Note Signed Patient: Wing Alejandro MR#: [id number] : 1970 Acct:[id number] Age/Sex: 54 / M Adm Date: 4 Loc: Room: [address] [place] [address] Type: ADM IN Attending Dr: Mekhi Powers MD Copies to: NON STAFF MD Amy Soliz MD~ HPI Date/Time of Consultation: Date of Service: 06/19/2024 Time of Service: 12:21 Consulting Provider: Amy Lozoya Requesting Provider: Mekhi Powers History of Present Illness History of present illness: Mr. Alejandro is a 54 year old male smoker 1PPD, type I diabetes, presents to [place] ER with chest pain that has been ongoing for 2 weeks. Subsequent ECGs showed he evolved into an anterior STEMI and was [place] [facility] [place] with Dr. Kirk. PCI was performed at 0822; 72 minutes after recognition and review of in-house ECG, with Primary PCI distal left main?ostial/proximal LAD with 4 x 15 mm Phelps stent (per cardiology notes). CT chest at [place] reviewed, bilateral effusions and likely cardiogenic pulmonary edema with underlying emphysema. Patient denies productive cough or fevers, just PERDOMO. EF reported reduced 30%. Currently stable post cath in ICU. Review of Systems Review of Systems Review of systems: see HPI [facility] Social History Smoking Status: Current every day smoker Tobacco Type: cigarettes Substance Use Type: None Meds Medications and Allergies Allergies Gadolinium-Containing Contrast Medi [From Contrast Media] Allergy (Verified 06/19/24 09:25) Hives Iodinated Contrast Media [From Contrast Media] Allergy (Verified 06/19/24 09:25) Hives Home Medications insulin glargine 100 unit/mL (3 mL) subcutaneous pen (Lantus Solostar U-100 Insulin) 34 unit subcut QPM 06/19/24 [History Confirmed 06/19/24] Exam Physical Exam Vital Signs: Temp Pulse Resp BP Pulse Ox O2 Del Method 98.8 F 85 18 106/70 96 Room Air 06/19/24 05:36 06/19/24 12:15 06/19/24 12:15 06/19/24 12:15 06/19/24 05:36 06/19/24 12:15 Const Other: Gen: Chronically ill appearing not in respiratory distress HENT: EOMI PERRL no thrush Neck: supple no JVD CVS: RRR -m/r/g Lungs: clear to auscultation bilaterally Abd: soft non tender Ext: no LE edema good cap refill Neuro: AOx3 non focal motor and sensory exam Psych: normal affect Results - Pulmonology Intake and Output I&O - Last 24 Hours: Intake & Output 06/18/24 06/19/24 06/19/24 23:59 07:59 15:59 Intake Total 300 / 300 Output Total 0 / 0 Balance 300 / 300 Weight 66.7 kg Assessment/Plan (1) ST elevation myocardial infarction (STEMI) of anterior wall: (2) Ischemic cardiomyopathy: (3) Type 1 diabetes: (4) Tobacco abuse: (5) CHF exacerbation: Plan - patient currently stable in ICU post LHC and PCI - monitor for rhythm and hemodynamic changes - on DAPT, statin, BB, cardiology and hospitalist managing - strongly encourage smoking cessation - will likely benefit from PFTs outpatient as he has significant emphysema on CTand likely has COPD - lung clear on exam will hold off on steroids or nebs at this time - will follow while in ICU, thank you for consult Documented By: Amy Lozoya MD [id number] Signed By: <Electronically signed by Amy Lozoya MD> 06/19/24 1238 [facility] Work Phone: 1(207) 441-630210-30-2024 Progress note Author Mekhi Powers [facility] June 19, 2024 9:46am Note Date/Time June 19, 2024 9 :44am [facility] [address] [place] [address] Hospitalist Progress Note Signed Patient: Wing Alejandro MR#: [id number] : 1970 Acct:[id number] Age/Sex: 54 / M Adm Date: 4 Loc: Room: 9A4032-6 Type: ADM IN Attending Dr: Mekhi Powers MD Copies to: ~ Date of Service: 06/19/2024 Subjective Subjective Narrative: Patient is resting in bed, With no complaints of chest pain or shortness of breath. Spouse is at bedside. Heart is regular, no gallop rub JVD. Point of ultrasound shows a moderate to severe LV dysfunction. No effusion. Lungs clear to auscultation Abdomen soft benign Neurological nonfocal Assessment and plan 1. Acute coronary syndrome. Acute decompensated HFrEF. Patient has been having ongoing symptoms for about 2 weeks now. He presented chaim outside facility and was transferred to us with concern of unstable angina and non-STEMI. EKG performed this morning indicated ST elevation in anteroseptal leads. Ctixi-ut-wogd ultrasound shows moderate to severe LV dysfunction. Interventional cardiology service contacted, patient taken to the [facility] this morning, and he was found to have a distal 95% left main/proximal LAD stenosis. Continue dual antiplatelet Maximal statin Guideline directed medical therapy for HFrEF will be implemented. Discussed the importance of complete tobacco cessation Chronic problems Diabetes type 2 Tobacco abuse a pack a day Exam Physical Exam Vital Signs: Temp Pulse Resp BP Pulse Ox O2 Del Method 98.8 F 96 18 117/73 96 Room Air 06/19/24 05:36 06/19/24 05:36 06/19/24 05:36 06/19/24 05:36 06/19/24 05:36 06/19/24 05:36 Meds Allergies and Active Meds Allergies Gadolinium-Containing Contrast Medi [From Contrast Media] Allergy (Verified 06/19/24 09:25) Hives Iodinated Contrast Media [From Contrast Media] Allergy (Verified 06/19/24 09:25) Hives Active Meds: Active Medications Generic Name Dose Route Start Last Admin Trade Name Reynaldoq PRN Reason Stop Dose Admin Acetaminophen 1,000 mg 06/19/24 09:23 Acetaminophen 500 Mg Tablet PO 06/19/25 09:22 Q6H PRN Fever or Pain Aspirin 81 mg 06/19/24 09:00 Aspirin 81 Mg Tablet.Dr PO 06/19/25 08:59 DAILY ARLYN Atorvastatin Calcium 80 mg 06/19/24 21:00 Atorvastatin 80 Mg Tablet PO 06/19/25 20:59 QPM ARLYN Atropine Sulfate 1 mg 06/19/24 08:47 Atropine Sulfate 1 Mg/10 Ml Syringe IV-PUSH ONCE PRN Symptomatic Bradycardia Carvedilol 6.25 mg 06/19/24 17:00 Carvedilol 6.25 Mg Tablet PO 06/19/25 16:59 BID.WITH.MEALS ARLYN Dextrose 0 gm 06/19/24 06:05 Dextrose 50% In Water 25 Gm/50 Ml Syringe IV-PUSH 06/19/25 06:04 PRN PRN Hypoglycemia Enoxaparin Sodium 40 mg 06/19/24 10:00 Enoxaparin 40 Mg/0.4 Ml Syringe SUBCUT 06/19/25 09:59 DAILY@10 ARLYN Glucose 0 gm 06/19/24 06:05 Dextrose 40% Gel 15 Gm Tube PO 06/19/25 06:04 PRN PRN Hypoglycemia Dextrose/Sodium Chloride 1,000 mls @ 100 mls/hr 06/19/24 09:00 5 % Dextrose-0.45 % Nacl IV 06/19/24 18:59 .Q10H ARLYN Sodium Chloride 250 mls @ 999 mls/hr 06/19/24 08:47 0.9% Sodium Chloride 250 Ml IV 06/19/25 08:46 PRN PRN Hypotension Bivalirudin 250 mg in 50 mls @ 23.345 mls/hr 06/19/24 09:00 06/19/24 09:13 Angiomax IV 06/19/24 11:08 1.75 mg/kg/hr .Q2H9M ARLYN 23.35 mls/hr Administration 1.75 MG/KG/HR Cangrelor 50 mg/ Sodium 250 mls @ 80.04 mls/hr 06/19/24 09:00 06/19/24 09:14 Chloride IV 06/19/24 12:07 4 mcg/kg/min .Q3H8M ARLYN 80.04 mls/hr Administration 4 MCG/KG/MIN Insulin Aspart 0 units 06/19/24 08:00 06/19/24 09:14 Insulin Aspart 300 Units/3 Ml Insuln.Pen SUBCUT 06/19/25 07:59 Not Given TID.WM.HS ARLYN Protocol Insulin Glargine 34 units 06/19/24 21:00 Insulin Glargine 300 Units/3 Ml Insuln.Pen SUBCUT 06/19/25 20:59 QPM ARLYN Lidocaine HCl 10 ml 06/19/24 08:47 Lidocaine 2% Mdv 50 Ml Vial SUBCUT 06/19/24 20:47 ONCE PRN Sheath Removal Losartan Potassium 25 mg 06/19/24 09:23 Losartan 25 Mg Tablet PO 06/19/25 09:22 QAM ARLYN Meperidine HCl 25 mg 06/19/24 08:47 Meperidine Pf 25 Mg/Ml Vial IV-PUSH 06/19/24 20:47 ONCE PRN Sheath Removal Pantoprazole Sodium 40 mg 06/19/24 09:00 Pantoprazole 40 Mg Vial IV-PUSH 06/19/25 08:59 DAILY ARLYN Potassium Chloride 40 meq 06/19/24 08:47 Potassium Chloride Er 20 Meq Tab.Er.Prt PO ONCE PRN Potassium </= 3.9 Promethazine HCl 12.5 mg 06/19/24 08:47 Promethazine 25 Mg/Ml Vial IM 06/19/24 20:47 ONCE PRN Sheath Removal Sodium Chloride 10 ml 06/19/24 06:15 06/19/24 06:56 Sodium Chloride 0.9 % 10 Ml Syringe IV-PUSH 06/19/25 06:14 10 ml Q8H ARLYN Administration Sodium Chloride 0 ml 06/19/24 14:00 Sodium Chloride 0.9 % 10 Ml Syringe IV-PUSH 06/19/25 13:59 QSHIFT ARLYN Sodium Chloride 10 ml 06/19/24 06:05 Sodium Chloride 0.9 % 10 Ml Vial.Pf INJECTION 06/19/25 06:04 PRN PRN Dilution Sodium Chloride 10 ml 06/19/24 06:05 Sodium Chloride 0.9 % 10 Ml Syringe IV-PUSH 06/19/25 06:04 PRN PRN Flush Sodium Chloride 0 ml 06/19/24 08:47 Sodium Chloride 0.9 % 10 Ml Syringe IV-PUSH 06/19/25 08:46 PRN PRN Flush Ticagrelor 90 mg 06/19/24 21:00 Ticagrelor 90 Mg Tablet PO 06/19/25 20:59 BID ARLYN A&P - Hospitalist Assessment/Plan (1) CHF exacerbation: (2) NSTEMI (non-ST elevated myocardial infarction): (3) Type 1 diabetes: Plan Atypical chest pain with heart score of 6 Acute exacerbation of CHF (not no other systolic or diastolic etc. diagnosis) Elevated troponin in the setting of type II HI versus non-STEMI History of type 1 diabetes on insulin -Patient presented with above HPI, physical exam findings lab and imaging results as well as ED course at [facility] -Pt has been chest pain free since yesterday, he is hemodynamically stable and not grossly overloaded on exam except for his chest xray findings -He has no fever or chills or cough, I don't see an indication to start him on antibiotics for pneumonia for now -Admit patient to PCU -Start patient heparin drip -Strict I/os -Daily weight -Obtain echo -Low-sodium diet -Give atorvastatin 40 mg p.o. once -Give aspirin 81 mg p.o. once -Cardio consult -Place patient on telemetry -Obtain A1c and lipid panel for risk stratification -Counseled patient on smoking -Insulin sliding scale and keep monitoring his POCT glucose -I discussed the plan in detail with the patient at bedside. Understands agreeswith this plan of management. -Patient n.p.o. in anticipation of cardiac cath today pending cardiology Addendum addendum: At 648 I received the repeat EKG ordered for this patient, showing T wave inversions in V4 V5 V6 as well as possible Wellens sign in V2 andV3, I called interventional cardiology on-call, patient will be taken to [facility] and I will give Brilinta 180 mg p.o. once, pt is already NPO as discussed earlier. With the help of my colleague, a bedside echo was done showing an EF of approximately 15-20%. Documented By: Mekhi Powers MD 06/19/24 0956 Signed By: <Electronically signed by Mekhi Powers MD> 06/19/24 0946 [facility] Work Phone: 1(280) 657-902110-30-2024 Consult note Author Nuria Tobin [facility] June 19, 2024 9:23am Note Date/Time June 19, 2024 9 :24am [facility] [address] [place] [address] Cardiology Consult Note Signed Patient: Wing Alejandro MR#: [id number] : 1970 Acct:[id number] Age/Sex: 54 / M Adm Date: 4 Loc: Room: [address] [place] [address] Type: ADM IN Attending Dr: Mekhi Powers MD Copies to: NON STAFF MD Nuria Soliz, DO~ Cardiology HPI History of Present Illness Consult Date: 06/19/24 Reason for Consult: Anterior STEMI HPI: Mr. Alejandro is a 54 year old male seen in emergent interventional cardiology consultation at request of hospitalist earlier this morning and patient was transferred from [place] ER with acute coronary syndrome; initial ECGs from [place] did not reveal STEMI criteria. Patient arrived at 0531, and in clinically and hemodynamically stable condition. Subsequent ECGs on the progressive unit performed revealing evolving anterior STEMI performed at 0648, hospitalist contacted interventional cardiology immediately at 0700; [facility] team was activated; PCI was performed at 0822; 72 minutes after recognition and review of in-house ECG. Past medical history is noted for tobacco use, diabetes There is no prior history myocardial infarction, revascularization, stroke, thrombolic bleeding disorder Only medication noted on his EMR is insulin. The remainder of his medical history is unremarkable. A total of 60 minutes of nonprocedural critical care time were devoted to the hospitalist, [facility] staff, nursing staff, patient and family both pre and postprocedurally Review of Systems Review of Systems All other systems reviewed & are negative unless noted below or in HPI Cardiovascular Cardiovascular: Reports as per HPI and Reports chest pain at rest PMFSH Social History Smoking Status: Current every day smoker Tobacco Type: cigarettes Substance Use Type: None Meds Medications and Allergies Allergies No Known Allergies Allergy (Verified 06/19/24 06:23) Home Medications insulin glargine 100 unit/mL (3 mL) subcutaneous pen (Lantus Solostar U-100 Insulin) 34 unit subcut QPM 06/19/24 [History Confirmed 06/19/24] Exam Physical Exam Vital Signs: Temp Pulse Resp BP Pulse Ox O2 Del Method 98.8 F 96 18 117/73 96 Room Air 06/19/24 05:36 06/19/24 05:36 06/19/24 05:36 06/19/24 05:36 06/19/24 05:36 06/19/24 05:36 Const General: cooperative and comfortable Orientation: alert, awake and oriented x3 HEENT Head: normal to inspection Teeth and gingiva: abnormal dentition and abnormal tooth or associated gingiva Neck Neck: normal visual inspection Chest Chest palpation & inspection: normal inspection of the chest Resp Effort & Inspection: normal respiratory effort Auscultation: clear to auscultation bilaterally Cardio Palpation: normal PMI Rate: regular rate Rhythm: regular rhythm Bruits: no carotid bruits Pulses: radial pulses present GI Inspection: no obesity Palpation: soft Skin General: no rashes or lesions noted Neuro General: patient alert, patient awake and patient oriented x3 Cognition: normal cognition Speech: speech normal Extrem General: no clubbing, cyanosis or edema Results - Cardiology Labs Lab results: Cardiac Enzymes 06/19/24 Range/Units 06:07 B-Natriuretic Peptide 1043.0 H (5-100) pg/mL Lipids 06/19/24 Range/Units 06:03 Triglycerides 85 (0-149) mg/dL Cholesterol 116 L (140-200) mg/dL HDL Cholesterol 39 (23-92) mg/dL Cholesterol/HDL Ratio 3.0 (<5.0) Intake and Output 06/18/24 06/19/24 06/19/24 23:59 07:59 15:59 Other: Weight 66.7 kg Patient Weight 06/19/24 23:59 Weight 66.7 kg EKG Interpretations EKG EKG results cardiology: sinus rhythm HI, pacemaker, normal Myocardial infarction: anterior HI (acute or recent) A&P - Cardiology (1) ST elevation myocardial infarction (STEMI) of anterior wall: Assessment/Problem Details: Initially presented with ACS at [facility] and converted to anterior STEMI after arrival at [facility] Code(s): I21.09 - ST elevation (STEMI) myocardial infarction involving other coronary artery of anterior wall (2) CHF exacerbation: Code(s): I50.9 - Heart failure, unspecified (3) Ischemic cardiomyopathy: Code(s): I25.5 - Ischemic cardiomyopathy (4) Tobacco abuse: Code(s): Z72.0 - Tobacco use (5) Type 1 diabetes: Code(s): E10.9 - Type 1 diabetes mellitus without complications Plan Emergent cath and revascularization Documented By: Nuria Tobin DO 06/19/2417 Signed By: <Electronically signed by Nuria Tobin DO> 06/19/24922 [facility] Work Phone: 1(979) 451-184210-30-2024 History and physical note Author Katlin Salvador [facility] June 19, 2024 7:20am Note Date/Time June 19, 2024 6 :08am [facility] [address] [place] [address] Hospitalist H&P Signed Patient: Wing Alejandro MR#: [id number] : 1970 Acct:[id number] Age/Sex: 54 / M Adm Date: 4 Loc: Room: [address] [place] [address] Type: ADM IN Attending Dr: Mekhi Powers MD Copies to: NON STAFF MD Katlin Soliz MD~ HPI DATE OF EXAMINATION: 06/19/24 CHIEF COMPLAINT: Chest pain and SOB of 2 weeks duration HISTORY OF PRESENT ILLNESS: This is a 54-year-old male with past medical history of type I diabetes, tobaccouse, presented initially to [facility] complaining of chest pain of 2 weeks duration. History obtained from the patient at bedside as well as from the ED physician at [facility] as well as from his chart from his ED stay. 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 2 weeks ago he started to have this generalized chest pain all over his chest radiating to both his arms down, described as as if he is being hit bya block and pressure-like sensation, continuous 4/10 intensity, no specific relieving factors however it started when he was doing a job, associated with shortness of breath and dyspnea on exertion, with palpitations at times, no nausea or vomiting, he endorses having sweating with the symptoms. He thought that he had problems with a muscle in the chest while doing his job up until 2 days ago chest pain became worse and last night he came to the ED at [place] for further workup and management. He denies having this pain before. He denies any fever or chills, he denies any cough. He denies any PND orthopnea orleg swelling. At [place] ED, he had a heart rate of 94 with respiratory of 22 and a blood pressure of 105/63 with a pulse of 94-98 on room air and patient didnot require any oxygen. He was not in acute distress. His labs showed a CBC significant for white blood cell count of 5.8, hemoglobin of 11.4 as well as platelet of 419 which is insignificant, his D-dimer was elevated at 1.33 BUN was22 and creatinine was 1.2. His glucose was elevated at 493 however the patient did not have any acidosis. His potassium and sodium were not significant. His respiratory panel including COVID and influenza were negative in the ED. He didhave a troponin of of 547.4 which later became 515.1. His chest x-ray showed pulmonary interstitial edema and small bilateral pleural effusion. Given his elevated D-dimer a CTA chest was done which was negative for pulmonary embolism but did endorse again interstitial edema in the lungs concerning for possible infection versus pulmonary edema and vascular congestion. In the ED at [place] patient received IV Lasix once, and patient was transferred to our facility for further workup and management. He will be admitted for management of non-STEMI and CHF exacerbation and no other systolic diastolic and that will be a new diagnosis. I discussed the plan of management with the patient at bedside in details. I answered his questions and addressed his concerns. Review of Systems Review of Systems All other systems reviewed & are negative unless noted below or in HPI Meds Medications and Allergies Allergies No Known Allergies Allergy (Verified 06/19/24 06:23) Home Medications insulin glargine 100 unit/mL (3 mL) subcutaneous pen (Lantus Solostar U-100 Insulin) 34 unit subcut QPM 06/19/24 [History Confirmed 06/19/24] Exam Physical Exam Vital Signs: Temp Pulse Resp BP Pulse Ox O2 Del Method 98.8 F 96 18 117/73 96 Room Air 06/19/24 05:36 06/19/24 05:36 06/19/24 05:36 06/19/24 05:36 06/19/24 05:36 06/19/24 05:36 Narrative: Constitutional: Alert and oriented x 3, patient is average body habitus, he is not ill-appearing, he is well-nourished and is not in acute distress. He is cooperative, calm, pleasant, and conversant HEENT: PERRL, EOMI, neck is supple no lymphadenopathy no JVD no thyromegaly, head is atraumatic and normocephalic Chest: Bilateral decreased air entry however no wheezes or crackles. Patient brittany room air satting 92 to 98%. No use of accessory muscles, no abdominal breathing, no labored breathing, not tachypneic. CVS: Normal S1 and S2, no murmurs, no gallops or rub, regular rhythm and normal rate Abdomen: Soft, non tender, no organomegaly, normal Bowel sounds Extremities; No leg swelling, intact peripheral pulses Neuro: Alert and oriented x3, no focal motor or sensory deficits, Cranial nervesII-XII intact, pleasant and cooperative Assessment & Plan Assessment/Plan (1) CHF exacerbation: (2) NSTEMI (non-ST elevated myocardial infarction): (3) Type 1 diabetes: Plan Atypical chest pain with heart score of 6 Acute exacerbation of CHF (not no other systolic or diastolic etc. diagnosis) Elevated troponin in the setting of type II HI versus non-STEMI History of type 1 diabetes on insulin -Patient presented with above HPI, physical exam findings lab and imaging results as well as ED course at [facility] -Pt has been chest pain free since yesterday, he is hemodynamically stable and not grossly overloaded on exam except for his chest xray findings -He has no fever or chills or cough, I don't see an indication to start him on antibiotics for pneumonia for now -Admit patient to PCU -Start patient heparin drip -Strict I/os -Daily weight -Obtain echo -Low-sodium diet -Give atorvastatin 40 mg p.o. once -Give aspirin 81 mg p.o. once -Cardio consult -Place patient on telemetry -Obtain A1c and lipid panel for risk stratification -Counseled patient on smoking -Insulin sliding scale and keep monitoring his POCT glucose -I discussed the plan in detail with the patient at bedside. Understands agreeswith this plan of management. -Patient n.p.o. in anticipation of cardiac cath today pending cardiology Addendum addendum: At 648 I received the repeat EKG ordered for this patient, showing T wave inversions in V4 V5 V6 as well as possible Wellens sign in V2 andV3, I called interventional cardiology on-call, patient will be taken to the [facility] and I will give Brilinta 180 mg p.o. once, pt is already NPO as discussed earlier. With the help of my colleague, a bedside echo was done showing an EF of approximately 15-20%. IP vs OBS Justification Based on differential dx, clinical care plan, and risk of adverse events, if untreated, in my clinical judgement this patient requires an acute care setting as: INPATIENT because of an expectation of an over 2 midnight stay. Estimated length of stay (# of days): 3 Time Spent With Patient (min): 55 Documented By: Katlin Salvador MD 06/19/24 0546 Signed By: <Electronically signed by Katlin Salvador MD> 06/19/24 0720 [facility] Work Phone: 1(365) 980-606210-30-2024 [facility] * Diagnosis Onset Date Resolution Status CHF exacerbation acute Ischemic cardiomyopathy acut e ST elevation myocardial infa rction (STEMI) of anterior wall acute Tobacco abuse acute Type 1 diabetes acute [facility] Work Phone: Evaluation note* Diagnosis Coronary artery disease involving afognak coronary artery of afognak heart without angina pectoris Cardiomyopathy, ischemic Other specified forms of chronic ischemic heart disease S/P PTCA (percutaneous transluminal coronary angioplasty) Postsurgical percutaneous transluminal coronary angioplasty status ST elevation myocardial infarction (STEMI), unspecified artery (Multi) Type 2 diabetes mellitus without complication, with long-term current use of insulin (Multi) Mixed hyperlipidemia Former smoker Personal history of tobacco use, presenting hazards to health Body mass index (BMI) 19.9 or less, adult documented in this encounter [facility] Work Phone: Evaluation note* Diagnosis Coronary artery disease involving afognak coronary artery of afognak heart without angina pectoris Cardiomyopathy, ischemic Other specified forms of chronic ischemic heart disease S/P PTCA (percutaneous transluminal coronary angioplasty) Postsurgical percutaneous transluminal coronary angioplasty status ST elevation myocardial infarction (STEMI), unspecified artery (Multi) documented in this encounter [facility] Work Phone: Evaluation note* Diagnosis Poor control type I diabetes mellitus ([facility] [facility] Primary Type I (juvenile type) diabetes mellitus without mention of complication, uncontrolled Primary hypertension ([facility]) Unspecified essential hypertension Encounter for dietary consultation Vitamin D deficiency Hyperlipemia, mixed ([facility]) Mixed hyperlipidemia Insulin long-term use ([facility]) Encounter for long-term (current) use of insulin documented in this encounter [facility] note Author W Ángel [facility] June 20, 2024 4:44pm Note Date/Time June 20, 2024 4 :44pm [facility] [address] [place] [address] Cardiology Progress Note Signed Patient: Wing Alejandro MR#: [id number] : 1970 Acct:[id number] Age/Sex: 54 / M Adm Date: 4 Loc: Room: [address] [place] [address] Type: ADM IN Attending Dr: Mekhi Powers MD Copies to: ~ Date of Service: 06/20/2024 Subjective Principal diagnosis: Anterior STEMI Interval history: Mr. Alejandro is a 54 year old male seen in emergent interventional cardiology consultation at request of hospitalist earlier this morning and patient was transferred from [place] ER with acute coronary syndrome; initial ECGs from [place] did not reveal STEMI criteria. Patient arrived at 0531, and in clinically and hemodynamically stable condition. Subsequent ECGs on the progressive unit performed revealing evolving anterior STEMI performed at 0648, hospitalist contacted interventional cardiology immediately at 0700; [facility] team was activated; PCI was performed at 0822; 72 minutes after recognition and review of in-house ECG. Past medical history is noted for tobacco use, diabetes There is no prior history myocardial infarction, revascularization, stroke, thrombolic bleeding disorder Only medication noted on his EMR is insulin. The remainder of his medical history is unremarkable. A total of 60 minutes of nonprocedural critical care time were devoted to the hospitalist, [facility] staff, nursing staff, patient and family both pre and postprocedurally Interim evaluation 06/20/2024: Stable status post anterior STEMI with primary revascularization of the distal left main/proximal LAD x 1 drug-eluting stent with IVUS guidance. Peak troponin was 380, echocardiogram reveals severe anteroapical akinesis and ejection fraction of 25 to 30%; out of proportion compared to the relatively low troponin rise; however left ventricle could simply be stunned, and will likely come back with revascularization and appropriate GDMT. Discussed smoking cessation, dietary discretion, abstention from Mountain Dew soft drinks, participation in cardiac rehab, cardiology follow-up, and weight restrictions and work related activities. 30 minutes of review of medications, prescription services, follow-up arrangements performed; will follow-up again with TCM visit in 1 to 2 weeks patient is clinically stable, hemodynamically stable, ECG stable Exam Physical Exam Vital Signs: Temp Pulse Resp BP Pulse Ox O2 Del Method 98.3 F 79 18 104/62 95 Room Air 06/20/24 12:00 06/20/24 15:00 06/20/24 15:00 06/20/24 15:00 06/20/24 14:00 06/20/24 15:00 Const General: cooperative and comfortable Orientation: alert, awake and oriented x3 HEENT Head: normal to inspection Teeth and gingiva: abnormal dentition and abnormal tooth or associated gingiva Neck Neck: normal visual inspection Chest Chest palpation & inspection: normal inspection of the chest Resp Effort & Inspection: normal respiratory effort Auscultation: clear to auscultation bilaterally Cardio Palpation: normal PMI Rate: regular rate Rhythm: regular rhythm Bruits: no carotid bruits Pulses: radial pulses present GI Inspection: no obesity Palpation: soft Skin General: no rashes or lesions noted Neuro General: patient alert, patient awake and patient oriented x3 Cognition: normal cognition Speech: speech normal Extrem General: no clubbing, cyanosis or edema Objective Labs 06/20/24 04:23 06/20/24 04:23 Labs: Laboratory Results - last 24 hr 06/19/24 06/20/24 06/20/24 21:03 04:23 07:51 Corrected WBC 8.8 Uncorrected WBC Count 8.8 RBC 3.41 L Hgb 10.5 L Hct 30.7 L MCV 90.0 MCH 30.8 MCHC 34.2 RDW 12.6 Plt Count 407 MPV 7.5 Neut % (Auto) 68.1 Lymph % (Auto) 19.8 Grayson % (Auto) 10.6 Eos % (Auto) 0.8 Baso % (Auto) 0.7 Nucleat RBC Rel Count 0.1 Neut # (Auto) 6.0 Lymph # (Auto) 1.8 Grayson # (Auto) 0.9 H Eos # (Auto) 0.1 Baso # (Auto) 0.1 PHA Creatinine Clear 94.82 Sodium 138 Potassium 3.6 Chloride 102 Carbon Dioxide 29.7 Anion Gap 9.9 BUN 19 Creatinine 0.85 Est GFR (CKD-EPI) > 60.0 Glucose 100 POC Glucose 355 119 POC Glucose Comment Glu2: cleaned meter Glu2: cleaned meter Calcium 8.2 L Troponin I High Sens 311.6 H* Triglycerides 67 Cholesterol 97 L LDL Cholesterol, Calc 51 VLDL Cholesterol 13 HDL Cholesterol 33 Cholesterol/HDL Ratio 2.9 06/20/24 11:32 Corrected WBC Uncorrected WBC Count RBC Hgb Hct MCV MCH MCHC RDW Plt Count MPV Neut % (Auto) Lymph % (Auto) Grayson % (Auto) Eos % (Auto) Baso % (Auto) Nucleat RBC Rel Count Neut # (Auto) Lymph # (Auto) Grayson # (Auto) Eos # (Auto) Baso # (Auto) PHA Creatinine Clear Sodium Potassium Chloride Carbon Dioxide Anion Gap BUN Creatinine Est GFR (CKD-EPI) Glucose POC Glucose 149 POC Glucose Comment Glu2: cleaned meter Calcium Troponin I High Sens Triglycerides Cholesterol LDL Cholesterol, Calc VLDL Cholesterol HDL Cholesterol Cholesterol/HDL Ratio A&P - Cardiology (1) ST elevation myocardial infarction (STEMI) of anterior wall: Assessment/Problem Details: Initially presented with ACS at [facility] and converted to anterior STEMI after arrival at [facility] Code(s): I21.09 - ST elevation (STEMI) myocardial infarction involving other coronary artery of anterior wall (2) CHF exacerbation: Code(s): I50.9 - Heart failure, unspecified (3) Ischemic cardiomyopathy: Code(s): I25.5 - Ischemic cardiomyopathy (4) Tobacco abuse: Code(s): Z72.0 - Tobacco use (5) Type 1 diabetes: Code(s): E10.9 - Type 1 diabetes mellitus without complications Plan Emergent cath and revascularization Documented By: Nuria Tobin DO 06/20/24 3187 Signed By: <Electronically signed by Nuria Tobin DO> 06/20/24 1644 [facility] Work Phone: Reason for visit Narrative* Imaging (Routine) - Authorized Specialty Diagnoses / Procedures Referred By Contac t Referred To Contact Radiology Diagnoses Coronary artery disease involving afognak coronary artery of afognak heart without angina pectoris Cardiomyopathy, ischemic S/P PTCA (percutaneous transluminal coronary angioplasty) ST elevation myocardial infarction (STEMI), unspecified artery (Multi) Procedures NM heart blood pool ejection fraction wall motion (MUGA) Adiel Tobin, [address] [facility] [address] [place] [id number] Phone: tel: fax: Referral ID Status Reason Start Date Expiration Date Visits Requested Visits Authorized [id number] Authorized Perform Procedure 4 07/03/2025 2 2 [facility] Work Phone: Reason for visit Narrative* Imaging (Routine) - Authorized Specialty Diagnoses / Procedures Referred By Contdarshana t Referred To Contact Radiology Diagnoses Coronary artery disease involving afognak coronary artery of afognak heart without angina pectoris Cardiomyopathy, ischemic S/P PTCA (percutaneous transluminal coronary angioplasty) ST elevation myocardial infarction (STEMI), unspecified artery (Multi) Procedures NM heart blood pool ejection fraction wall motion (MUGA) Adiel Tobin, [address] [facility] [address], [facility] [address] [place] [address] Phone: tel: fax: Referral ID Status Reason Start Date Expiration Date Visits Requested Visits Authorized [id number] Authorized Perform Procedure 4 07/03/2025 2 2 [facility] Work Phone: Summary Purpose Family History No Family History Records FoundNo Family History Records FoundNo Family History Records FoundNo Family History Records Found Advance Directives Advance Directive Response Recorded Date/ Time Advance Directives No June 19, 2024 3:44am Chief Complaint and Reason for Visit Chief Complaint n-stemi, chs n-stemi, chs Reason for Visit CHF exacerbation Ischemic cardiomyopathy ST elevation myocardial infarction (STEMI) of anterior wall Tobacco abuse Type 1 diabetes Additional Source Comments (unrecognized sect ion and content) No Status Records FoundNo Status Records FoundNo Status Records FoundNo Status Records Found INFORMATION SOURCE (unrecogn ized section and content) DATE CREATED AUTHOR 02/12/2022 [facility] DATE CREATED AUTHOR AUTHOR'S ORGANIZ ATION 07/18/2024 [facility] DATE CREATED AUTHOR AUTHOR'S ORGANIZ ATION 09/11/2024 [facility] DATE CREATED AUTHOR AUTHOR'S ORGANIZ ATION 09/21/2024 [facility] Data Review Specialist Teams (unrecognized sec tion and content) Team Status: Active Member Role Status Dates Roe Shoemaker MD Primary Care Provider Active Team Status: Inactive Member Role Status Dates Katlin Salvador MD Admit Provider Active Start: O ctober 2023 End: June 20, 2024 Mekhi Powers MD Attending Provider Active St art: June 19, 2024 End: June 20, 2024 Gabriela Long RN Other Provider Active Star t: June 19, 2024 End: June 20, 2024 Nuria Tobin DO Other Provider Active Start : June 19, 2024 End: June 20, 2024 Ric Nicole MD Other Provider Active Start: June 19, 2024 End: June 20, 2024 Adiel Davidson MD Other Provider Active Start: June 19, 2024 End: June 20, 2024 Ruba Teran MD Other Provider Active St art: June 19, 2024 End: June 20, 2024 Andrew Rainey MD Other Provider Active Start: June 19, 2024 End: June 20, 2024 Nisreen Wilcox APRN Other Provider Active Start : June 19, 2024 End: June 20, 2024 Irish Verdugo MD Other Provider Active Start: O ctober 2023 End: June 20, 2024 Ascencion Parker MD Other Provider Active Start: June 19, 2024 End: June 20, 2024 Renee Newberry MD Other Provider Active Start: O ctober 2023 End: June 20, 2024 PATRICIA Bernard-KIMMY Other Provider Active Sta rt: June 19, 2024 End: June 20, 2024 Amy Lozoya MD Other Provider Active Start: June 19, 2024 End: June 20, 2024 Roe Shoemaker MD Primary Care Provider Active Start: June 19, 2024 End: June 20, 2024 Team Status: Active Member Role Status Dates Katlin Salvador MD Admit Provider Active Start: O ctober 2023 NON STAFF Primary Care Provider Active Start: June 19, 2024 Mekhi Powers MD Other Provider Active Start: June 19, 2024 Gabriela Long RN Other Provider Active Star t: June 19, 2024 W Julián Tobin DO Other Provider Active Start : June 19, 2024 Ric Nicole MD Other Provider Active Start: June 19, 2024 Adiel Davidson MD Other Provider Active Start: June 19, 2024 Ruba Teran MD Other Provider Active St art: June 19, 2024 Andrew Rainey MD Other Provider Active Start: June 19, 2024 Nisreen Wilcox APRN Other Provider Active Start : June 19, 2024 Irish Verdugo MD Other Provider Active Start: O ctober 2023 Ascencion Parker MD Other Provider Active Start: June 19, 2024 Renee Newberry MD Other Provider Active Start: O ctober 2023 Brianda Lozano , IMPLEMENTATION SPECIALIST [employer]- Other Provider Active Sta rt: June 19, 2024 Amy Lozoya MD Attending Ia nolan, Other Provider Active Start: June 19, 2024 Flight Service Specialist Relationship Specialty Start Date End Date Roe Shoemaker MD [address] [facility] [place] [address] PCP - General Family Medicine 07/03/24 Maru Vazquez, software educatorCourt Monitor 06/20/24 Adiel Tobin DO [address] [facility] [address] [place] [address] Consulting Physician Cardiology 07/03/24 Flight Service Specialist Relationship Specialty Start Date End Date Roe Shoemaker MD [address] [place] [address] PCP - General Family Medicine 07/03/24 Maru Vazquez, software educatorCourt Monitor 06/20/24 Adiel Tobin DO [address] [place] [address] [address] [place] [address] Consulting Physician Cardiology 07/03/24 Flight Service Specialist Relationship Specialty Start Date End Date Roe Shoemaker MD [facility] [place] [address] PCP - General Family Medicine 07/03/24 Maru Vazquez, software educatorCourt Monitor 06/20/24 Adiel Tobin DO [address] [place] [address] [address] [place] [address] Consulting Physician Cardiology 07/03/24 Flight Service Specialist Relationship Specialty Start Date End Date Roe Shoemaker MD [address] [place] [address] PCP - General Family Medicine 09/02/24 Flight Service Specialist Relationship Specialty Start Date End Date Roe Shoemaker MD [address] [place] [address] PCP - General Family Medicine 09/02/24 Reason for Visit (unrecogniz ed section and content) Reason Comments Follow-up TCM Visit Reason Comments Diabetes NEW REF Specialty Diagnoses / Procedures Referred By Contac t Referred To Contact Endocrinology Diagnoses Type 2 diabetes mellitus without complications ([facility]) Procedures AL OFFICE/OUTPATIENT NEW LOW MDM 30 MINUTES Roe Shoemaker MD [address] [place] [address] Phone: tel: fax: Zenia Langford MD [address] [place] [address] Phone: tel: fax: Referral ID Status Reason Start Date Expiration Date V isits Requested Visits Authorized [id number] Pending Review 09/02/2024 03/01/2025 1 FOR RECORDS PERTAINING TO PATIENTS WHO ARE [...] BE BASED ON THE PRIMARY CLINICAL RECORDS. [facility] [employer] provides no warranty or guarantee of the accuracy or completeness of information in this document.
[2024-09-26 11:24] LABS: Albumin Level 3.8 g/dL (3.4-5.0); Anion Gap 12.4; BUN Creatinine Ratio 20.4; Carbon Dioxide 29.9 mmol/L (21.0-32.0); Chloride 104 mmol/L (98-107); Chol HDL Ratio 1.8; Cholesterol 138 mg/dL (<=200); Estimated GFR (African America >60 (>=60 mL/min/1.73m^2); Estimated GFR (Non-African Ame >60 (>=60 mL/min/1.73m^2); Glucose 80 mg/dL (74-106); HDL Cholesterol 75 mg/dL (40-60); Phosphorus 4.6 mg/dL (2.6-4.7); Potassium 4.3 mmol/L (3.5-5.1); Sodium 142 mmol/L (136-145); Triglycerides 53 mg/dL (<=150); VLDL CHOLESTEROL 10.6 mg/dL
[2024-09-26 11:33] LABS: Creatinine Urine Random 101.02 mg/dL (20.00-300.00); Microalbum Creatinine Ratio Ur 83.1 mg/g (0.0-29.9); Microalbumin Urine Random 8.4 mg/dL (<=30.0)
[2024-09-27 05:08] LABS: C-Peptide, Serum <0.1 ng/mL (1.1-4.4)
== END 2024-09-26 10:03 | disposition home or self-care (01) ==
LOC: LAB 10:05
PROVIDERS: PCP Family Medicine; Visit Provider Internal Medicine
DX: E10.65 Type 1 diabetes mellitus with hyperglycemia (principal)
CPT/HCPCS: 36415; 80061; 80069; 82043; 82306; 82570; 84681

== ENCOUNTER 2024-11-08 07:02 | Outpatient (RCR) | payer OTHER, SELFPAY ==
--- NOTE | 2024-10-07 14:00 | CR1_ITS ---
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
--- NOTE | 2024-11-05 08:14 | CR1_ITS ---
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
== END 2024-12-04 14:31 | disposition home or self-care (01) ==
LOC: CR 07:02
PROVIDERS: PCP Family Medicine; Visit Provider Internal Medicine Cardiovascular Disease
DX: I25.10 Atherosclerotic heart disease of native coronary artery without angina pectoris (principal); I25.5 Ischemic cardiomyopathy; Z98.61 Coronary angioplasty status; I21.3 ST elevation (STEMI) myocardial infarction of unspecified site; E10.65 Type 1 diabetes mellitus with hyperglycemia
CPT/HCPCS: 36415; 80061; 80069; 82043; 82306; 82570; 84681; 93798

== ENCOUNTER 2024-11-22 11:23 | Outpatient (OUT) | payer OTHER, SELFPAY ==
[2024-11-22 11:56] LABS: Basophils Absolute Auto 0.1 10^3/uL (0.0-0.1); Basophils Percent Auto 1.3 % (0.2-2.0); Eosinophils Absolute Auto 0.5 10^3/uL (0.0-0.7); Eosinophils Percent Auto 6.2 % (0.9-7.0); Hematocrit 39.4 % (42.0-54.0); Hemoglobin 12.9 g/dL (14.0-18.0); Immature Granulocytes Abs Auto 0.03 10^3/uL (0.00-0.03); Immature Granulocytes Pct Auto 0.4 % (0.0-0.5); Lymphocytes Absolute Auto 2.4 10^3/uL (1.2-3.8); Lymphocytes Percent Auto 30.4 % (20.5-60.0); Mean Corpuscular HGB Conc 32.7 g/dL (29.9-35.2); Mean Corpuscular Hemoglobin 30.4 pg (25.9-34.0); Mean Corpuscular Volume 92.9 fL (80.0-94.0); Mean Platelet Volume 8.7 fL (9.5-13.5); Monocytes Absolute Auto 0.7 10^3/uL (0.3-0.8); Monocytes Percent Auto 9.4 % (1.7-12.0); Neutrophils Absolute Auto 4.1 10^3/uL (1.4-6.5); Neutrophils Percent Auto 52.3 % (43.0-75.0); Platelet Count 248 10^3/uL (150-450); Red Blood Count 4.24 10^6/uL (4.70-6.10); Red Cell Distribution Width 12.8 % (11.0-15.0); White Blood Count 7.8 10^3/uL (4.0-11.0)
[2024-11-22 12:17] LABS: INR 1.03; Prothrombin Time 10.9 sec (9.0-11.6)
[2024-11-22 13:14] LABS: Anion Gap 12.9; BUN Creatinine Ratio 22.7; Carbon Dioxide 27.6 mmol/L (21.0-32.0); Chloride 104 mmol/L (98-107); Estimated GFR (African America >60 (>=60 mL/min/1.73m^2); Estimated GFR (Non-African Ame >60 (>=60 mL/min/1.73m^2); Glucose 117 mg/dL (74-106); Potassium 4.5 mmol/L (3.5-5.1); Sodium 140 mmol/L (136-145)
== END 2024-11-22 11:24 | disposition home or self-care (01) ==
PROVIDERS: PCP Family Medicine; Visit Provider Internal Medicine Cardiovascular Disease
DX: I25.5 Ischemic cardiomyopathy (principal)
CPT/HCPCS: 36415; 80048; 85025; 85610

== ENCOUNTER 2025-06-19 22:10 | Inpatient (IN) | payer OTHER, SELFPAY ==
--- OUTSIDE RECORDS SUMMARY | 2024-05-22 10:30 | XMS_ITS ---
Author Organization The [facility] [place] Address [address] [place] [address] Care Team Providers Care Bond Manager Name Role Phone Fidel Shoemaker Primary Care Provider [phone] REASON FOR VISIT Wellness Encounters Encounter Location Date Provider Diagnosis [facility] [address] [place] [address] 05/22/2024 Fidel Shoemaker Plan Of Treatment No Information Progress Notes * FLAVIA Wing LDOB:1970 (55 yo M)Acc No.[id number]:05/22/2024 UNLOCKED PROGRESS NOTE Progress Note Patient: Wing VASQUEZ :?Eduard JENNINGS), MDDOB:1970???Age: 53 Y???Sex:MaleDate:4Phone:[phone]:[address] [place], [place] [id number] Subjective: * Chief Complaints: * 1 . Wellness. * Medical History: Objective: * Vitals: Assessment: Plan: * Treatment: * * Electronic signature of Fidel Shoemaker MD, [phone] on 06/19/2025 at 10:44 PM EDT Sign off status: PendingVisit Status:?N/S N/C (No Show/No Charge) * Provider: Roberto Shoemaker MD (TTC) Date: 1 Generated for Printing/Faxing/eTransmitting on:?06/19/2025 10:44 PM EDT
--- OUTSIDE RECORDS SUMMARY | 2025-06-10 11:10 | XMS_ITS | Encounter Summary ---
Author Organization [facility] Address [address] [place] [address] Phone Care Team Providers Care Nuclear Power Reactor Operator Name Role Phone Eduard Shoemaker MD Primary Care Provider [phone] Uriah Neal DO Unavailable [phone] Maris White MD Unavailable Reason for Referral * Imaging (Routine) - Pending ReviewSpecialtyDiagnoses / ProceduresReferred By ContactReferred To ContactCardiology Diagnoses Presence of automatic cardioverter/defibrillator (AICD) Non-ischemic cardiomyopathy (Multi) Procedures Cardiac Device Check - Remote Maris White MD [address] [place] [address] [address] [place] [address] Phone: tel: fax: Referral IDStatusDarleneasonStart DateExpiration DateVisits RequestedVisits [id number] Review Perform Procedure / Reason for Visit * Imaging (Routine) - Pending ReviewSpecialtyDiagnoses / ProceduresReferred By ContactReferred To ContactCardiology Diagnoses Presence of automatic cardioverter/defibrillator (AICD) Non-ischemic cardiomyopathy (Multi) Procedures Cardiac Device Check - Remote Maris White MD [address] [place] [address] [address] [place] [address] Phone: tel: fax: Referral IDStatusDarleneasonStart DateExpiration DateVisits RequestedVisits [id number] Review Perform Procedure 5/20/59735/252 Encounter Details DateTypeDepartmentCare Team (Latest Contact Info)Cmierivnwvu78/21/2025 11:10 AM EDT - 2025 11:59 PM EDTHospital Encounter [place] [address] [place] [address] Presence of automatic cardioverter/defibrillator (AICD); Non-ischemic cardiomyopathy (Multi) Discharge Disposition: Home Social History Tobacco UseTypesPacks/DayYears UsedDateSmoking Tobacco: FormerCigarettesQuit: 04/02/2024Smokeless Tobacco: NeverAlcohol UseStandard Drinks/WeekCommentsYes0 (1 standard drink = 0.6 oz pure alcohol)[facility] UtilitiesAnswerDate RecordedIn the past 12 months has the electric, gas, oil, or water [employer] threatened to shut off services in your home?No11/27/2024Humiliation, Afraid, Rape, and Kick questionnaireAnswerDate RecordedWithin the last year, have you been afraid of your partner or ex-partner?No11/27/2024Within the last year, have you been humiliated or emotionally abused in other ways by your partner or ex-partner?No 11/27/2024Within the last year, have you been kicked, hit, slapped, or otherwise physically hurt by your partner or ex-partner?No11/27/2024Within the last year, have you been raped or forced to have any kind of sexual activity by your part ner or ex-partner?No11/27/2024UDIT-CAnswerDate RecordedQ1: How often do you have a drink containing alcohol?4 or more times a week11/27/2024Q2: How many drinks containing alcohol do you have on a typical day when you are drinking?1 or Q3: How often do you have six or more drinks on one occasion?Less than pstimau9311/27/2024Overall Financial Resource Strain (CARDIA)AnswerDate RecordedHow hard is it for you to pay for the very basics like food, housing, medical care, and heating?Not very hard11/27/2024PHQ-2AnswerDate RecordedPatient Health Questionnaire-2 [id number] Vital SignAnswerDate RecordedOn average, how many days per week do you engage in moderate to strenuous exercise (like a brisk walk)?5 days11/27/2024On average, how many minutes do you engage in exercise at this level?30 min11/27/2024Hunger Vital SignAnswerDate Recorded Within the past 12 months, you worried that your food would run out before you got the money to buymore.Never true11/27/2024Within the past 12 months, the food you bought just didn't last and you didn't have money to get more.Never true 11/27/2024PRAPARE - TransportationAnswerDate RecordedIn the past 12 months, has lack of transportation kept you from medical appointments or from getting medications?No11/27/2024In the past 12 months, has lack of transportation kept you from meetings, work, or from getting things needed for daily living?No 11/27/2024Housing Stability Vital SignAnswerDate RecordedIn the last 12 months, was there a time when you were not able to pay the mortgage or rent on time?No 11/27/2024In the past 12 months, how many times have you moved where you were living?t any time in the past 12 months, were you homeless or living in a long-term (including now)?No11/27/2024Sex and Gender InformationValueDate RecordedSex Assigned at BirthNot on fileLegal BhrIhkv51/30/2024 8:42 AM EDT Gender IdentityNot on fileSexual OrientationNot on filedocumented as of this encounter Medications at Time of Discharge MedicationSigDispense QuantityRefillsLast FilledStart DateEnd Date acetaminophen (Tylenol) 325 mg tablet Indications:Post-op painTake 2 tablets (650 mg) by mouth every 6 hours. 11/28/2024 aspirin 81 mg EC tablet Take 1 tablet (81 mg) by mouth once daily. atorvastatin (Lipitor) 80 mg tablet Indications:Coronary artery disease involving [place]qasuk coronary artery of [place] heart without angina pectorisTAKE 1 TABLET BY MOUTH ONCE DAILY 90 tablet 05/15/2025 carvedilol (Coreg) 3.125 mg tablet Take 1 tablet (3.125 mg) by mouth 2 times a day. Dexcom G6 Transmitter device USE 1 DEVICE EVERY 3 MONTHS FOR CONTINUOUS GLUCOSE [id number]/03/2025 Farxiga 10 mg tablet Indications:Coronary artery disease involving [place]qasuk coronary artery of [place] heart without angina pectoris,Cardiomyopathy, ischemic,Type 2 diabetes mellitus without complication, with long-term current use of insulin (Multi)Take 1 tablet (10 mg) by mouth once daily. 90 tablet 05/15/2025 HumaLOG KwikPen Insulin 100 unit/mL injection 07/08/2024 lisinopril 2.5 mg tablet Indications:Coronary artery disease involving [place] coronary artery of [place]qas[place] heart without angina pectoris,Cardiomyopathy, unspecified type (Multi),S/P PTCA (percutaneous transluminal coronary angioplasty),ST elevation myocardial infarction (STEMI), unspecified artery (Multi),History of placement of stent in LAD coronary arteryTake 1 tablet (2.5 mg) by mouth once daily. 90 tablet / nitroglycerin (Nitrostat) 0.[address] 1 tablet (0.4 mg) under the tongue every 5 minutes if needed.06/20/2024 spironolactone (Aldactone) 25 mg tablet Indications:Coronary artery disease involving [place] coronary artery of [place] heart without angina pectoris,Cardiomyopathy, ischemicTAKE ONE-HALF (1/2) TABLET BY MOUTH DAILY 45 tablet 05/15/2025 ticagrelor (Brilinta) 90 mg tablet Indications:Coronary artery disease involving [place] coronary artery of [place] heart without angina pectoris,S/P PTCA (percutaneous transluminal coronary angioplasty),ST elevation myocardial infarction (STEMI), unspecified artery (Multi)TAKE 1 TABLET BY MOUTH TWICE A DAY 180 tablet 05/15/2025documented as of this encounter Plan of Treatment DateTypeDepartmentCare Team (Latest Contact Info)Oelvvabhtvx20/24/2025 2:00 PM ESTOffice Visit [facility] [address] [facility] [address] [place] [address] Nisreen Wilcox, ASSURANCE SERVICES MANAGER HEALTH CARE-VENTILATION MECHANIC [address] [facility] [address] [place] [address] 09/15/2025 10:00 AM ESTAppointment [facility] [address] [place] [address] documented as of this encounter Procedures Procedure NamePriorityDate/TimeAssociated DiagnosisCommentsCARDIAC DEVICE CHECK - REMOTE - YWYPspwngk20/21/2025 11:30 AM EDT Presence of automatic cardioverter/defibrillator (AICD) Non-ischemic cardiomyopathy (Multi) documented in this encounter Results * CARDIAC DEVICE CHECK - REMOTE - ICD (2025 11:30 AM EDT)Anatomical Region LateralityModalityMonitor/DeviceSpecimen (Source)Anatomical Location / LateralityCollection Method / VolumeCollection TimeReceived Time2025 3:33 AM EDT Narrative Authorizing ProviderResult TypeResult StatusMaris White [facility] IMPL[facility] CARDIAC DEVICE PROCEDURESFinal Result documented in this encounter Visit Diagnoses Diagnosis Presence of automatic cardioverter/defibrillator (AICD) Automatic implantable cardiac defibrillator in situ Non-ischemic cardiomyopathy (Multi) Other primary cardiomyopathies documented in this encounter Additional Health Concerns AssessmentNoted TimeA fall risk assessment has been completed for the patient 10/07/2024 11:12 AM ESTdocumented as of this encounter Care Teams Team MemberRelationshipSpecialtyStart DateEnd Eduard Shoemaker MD [address] [facility] [place] [address] PCP - GeneralFamily Dydgfrqr77/13/24 Uriah eNal DO [address] [facility] [address] [place] [address] Consulting BohkbehepNimucxwjud52/13/24 Maris White MD [address] [facility] [place] [address] CardiologistCardiology-Clinical Cardiac Electrophysiology03/05/25documented as of this encounter
[2025-06-19] VITALS (12 sets, daily range): BP systolic 131; BP diastolic 73; PULSE 97–199; TEMP 36.6; O2SAT 97–100; BMI 23.1
--- NOTE | 2025-06-19 22:29 | ECG_ITS ---
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 Measurements Intervals [place] Rate: 100 P: 74 CT: 166 QRS: 77 QRSD: 84 T: 90 QT: 350 QTc: 407 Interpretive Statements 1120 Sinus tachycardia 3432 Septal myocardial infarction, probably recent 9150 abnormal ECG Compared to ECG 06/18/2024 22:11:55 No significant changes Electronically Signed On 06-20-2025 6:29:28 EDT by JAMES KEARNEY M.D.
--- NOTE | 2025-06-19 22:35 | ED_ITS ---
HPI - Chest Pain General Chief Complaint: Nausea/Vomiting/Diarrhea Stated Complaint: VOMITED/ NOT EATING/ PAIN IN NECK AND SHOULDER Time Seen by Provider: 06/19/25 22:29 Source: patient and family Mode of arrival: walk-in Limitations: no limitations History of Present Illness HPI narrative: chest pain started about an hour ago past history of IDDM, CAD, CHF. has stent in place and AICD. Tonight experienced acute painful indigestion associated with recurrent vomiting and dyspnea. pain 10/10 at home. Pain has now eased to 2/10. States pain started abruptly. Ex smoker. Related Data Home Medications ?Medication ?Instructions ?Recorded ?Confirmed insulin glargine 100 unit/mL (3 34 unit subcut DAILY 0 05/01/23 05/01/23 mL) subcutaneous pen atorvastatin 80 mg tablet 80 mg PO DAILY 06/19/2505/23 blood-glucose transmitter (Dexcom 06/19/25 06/19/25 G6 Transmitter device) dapagliflozin propanediol 10 mg 10 mg PO DAILY 5 06/19/25 tablet (Farxiga) insulin lispro 100 unit/mL subcut 06/19/25 subcutaneous pen (Humalog KwikPen (U-100) Insulin) lisinopril 2.5 mg tablet 2.5 mg PO DAILY 06/19/25 spironolactone 25 mg tablet 25 mg PO DAILY 06/19/25 ticagrelor 90 mg tablet 90 mg PO DAILY 06/19/2505/23 Allergies Allergy/AdvReac Type Severity Reaction Status Date / Time No Known Drug Allergies Allergy Verified 06/19/25 22:51 Review of Systems ROS Status of ROS 10 or more systems reviewed and unremark able except as noted in history and below PFSH PFS Social History Little interest or pleasure in doing things: not at all Feeling down, depressed, or hopeless: not at all Exam Constitutional Vital Signs, click to edit/add: Last Vital Signs Temp 97.8 F 06/19/25 22:24 Pulse 102 H 06/20/25 02:00 Resp 13 06/20/25 02:00 BP 131/73 06/19/25 22:24 Pulse Ox 96 06/20/25 02:00 O2 Del Method Room Air 06/19/25 22:24 Common normals: no apparent distress, average body habitus, oriented x3, no limitations, healthy appearing, alert and well nourished [facility] Common normals: normocephalic and head/scalp atraumatic Eye Common normals: EOMs intact bilaterally and conjunctivae normal Respiratory Common normals: normal respiratory effort, no retractions, no use of accessory muscles and clear to auscultation bilaterally Cardio Common normals: S1 normal heart sound and S2 normal heart sound Rate: tachycardic GI Common normals: Normal to inspection, nondistended, normoactive bowel sounds present and soft to palpation Other: epigastric tenderness Extremity Common normals: normal to inspection and full ROM Neuro Common normals: oriented x3, moves all extremities and no focal motor deficits Psych Appearance: grossly normal Course Vital Signs Vital signs: Vital Signs Pulse Oximetry 100 06/19/25 22:19 Temperature 97.8 F 06/19/25 22:24 Pulse Rate 102 H 06/20/25 02:00 Respiratory Rate 13 06/20/25 02:00 Blood Pressure 131/73 06/19/25 22:24 Pulse Oximetry 96 06/20/25 02:00 Oxygen Delivery Method Room Air 06/19/25 22:24 MDM - Chest Pain MDM Narrative Medical decision making narrative: patient is IDDM with history of CAD and CHF. presents with acute onset of epigastric burning pain associated with nausea, vomiting and dyspnea. Pain was 10/10 at home and decreased to 2/10 by the time he arrived here an hour later. His pain did recur again and he vomited again during workup in the department. again pain decreased down to about 3/10. He was given Nitro SL and also GI cocktail with complete resolution of his pain. His labs demonstrate metabolic acidosis with bicarb down to 11.7. RBS 434. acetone level pending.Patient medicated with insulin 8U SQ. chest xray is clear. EKG with sinus tach and peaked T waves with potassium 5.1. first troponin neg and 2nd troponin pending. 2nd troponin is also neg. Patient remains pain free. repeat RBS after 8U insulin 348. Hospitalist paged for admission Dr Ray requested CT abdomen which returned neg except possibleRLL pneumonia. Clinically patient does not have pneumonia. Lab Data Labs: Lab Results 06/19/25 06/20/25 06/20/25 Range/Units 22:38 00:30 00:55 WBC 16.2 H (4.0-11.0) 10^3/uL RBC 4.39 L (4.70-6.10) 10^6/uL Hgb 13.3 L (14.0-18.0) g/dL Hct 41.5 L (42.0-54.0) % MCV 94.5 H (80.0-94.0) fL MCH 30.3 (25.9-34.0) pg MCHC 32.0 (29.9-35.2) g/dL RDW 12.4 (11.0-15.0) % Plt Count 303 (150-450) 10^3/uL MPV 9.2 L (9.5-13.5) fL Neut % (Auto) 85.6 H (43.0-75.0) % Lymph % (Auto) 8.4 L (20.5-60.0) % [place] % (Auto) 4.7 (1.7-12.0) % Eos % (Auto) 0.1 L (0.9-7.0) % Baso % (Auto) 0.7 (0.2-2.0) % Neut # (Auto) 13.8 H (1.4-6.5) 10^3/uL Lymph # (Auto) 1.4 (1.2-3.8) 10^3/uL [place] # (Auto) 0.8 (0.3-0.8) 10^3/uL Eos # (Auto) 0.0 (0.0-0.7) 10^3/uL Baso # (Auto) 0.1 (0.0-0.1) 10^3/uL Abs Immat Gran (auto) 0.08 H (0.00-0.03) 10^3/uL Imm/Tot Granulo (auto) 0.5 (0.0-0.5) % Sodium 134 L (136-145) mmol/L Potassium 5.1 (3.5-5.1) mmol/L Chloride 96 L (98-107) mmol/L Carbon Dioxide 11.7 L (21.0-32.0) mmol/L Anion Gap 31.4 BUN 30.0 H (7.0-18.0) mg/dL Creatinine 1.55 H (0.70-1.30) mg/dL Est GFR ( Amer) 57 L (>=60 mL/min/1.73m^2) Est GFR (Non-Af Amer) 47 L (>=60 mL/min/1.73m^2) BUN/Creatinine Ratio 19.4 Glucose 434 H (74-106) mg/dL Calcium 9.7 (8.5-10.1) mg/dL Total Bilirubin 1.2 H (0.2-1.0) mg/dL Direct Bilirubin 0.3 H (0.0-0.2) mg/dL AST 28 (15-37) U/L ALT 44 (16-63) U/L Alkaline Phosphatase 113 (46-116) U/L Troponin I High Sens 16.7 17.0 (4.0-76.1) pg/mL NT-Pro-B Natriuret Pep 680.0 (<=900.0) pg/mL Total Protein 7.7 (6.4-8.2) g/dL Albumin 4.0 (3.4-5.0) g/dL Globulin 3.7 g/dL Albumin/Globulin Ratio 1.1 Lipase 14.0 L (16.0-77.0) U/L Acetone, Qual Small A (NEGATIVE) POC Glucose 383 H 417 H (74-106) mg/dL 06/20/25 06/20/25 Range/Units 02:13 05:00 WBC (4.0-11.0) 10^3/uL RBC (4.70-6.10) 10^6/uL Hgb (14.0-18.0) g/dL Hct (42.0-54.0) % MCV (80.0-94.0) fL MCH (25.9-34.0) pg MCHC (29.9-35.2) g/dL RDW (11.0-15.0) % Plt Count (150-450) 10^3/uL MPV (9.5-13.5) fL Neut % (Auto) (43.0-75.0) % Lymph % (Auto) (20.5-60.0) % [place] % (Auto) (1.7-12.0) % Eos % (Auto) (0.9-7.0) % Baso % (Auto) (0.2-2.0) % Neut # (Auto) (1.4-6.5) 10^3/uL Lymph # (Auto) (1.2-3.8) 10^3/uL [place] # (Auto) (0.3-0.8) 10^3/uL Eos # (Auto) (0.0-0.7) 10^3/uL Baso # (Auto) (0.0-0.1) 10^3/uL Abs Immat Gran (auto) (0.00-0.03) 10^3/uL Imm/Tot Granulo (auto) (0.0-0.5) % Sodium (136-145) mmol/L Potassium (3.5-5.1) mmol/L Chloride (98-107) mmol/L Carbon Dioxide (21.0-32.0) mmol/L Anion Gap BUN (7.0-18.0) mg/dL Creatinine (0.70-1.30) mg/dL Est GFR ( Amer) (>=60 mL/min/1.73m^2) Est GFR (Non-Af Amer) (>=60 mL/min/1.73m^2) BUN/Creatinine Ratio Glucose (74-106) mg/dL Calcium (8.5-10.1) mg/dL Total Bilirubin (0.2-1.0) mg/dL Direct Bilirubin (0.0-0.2) mg/dL AST (15-37) U/L ALT (16-63) U/L Alkaline Phosphatase (46-116) U/L Troponin I High Sens (4.0-76.1) pg/mL NT-Pro-B Natriuret Pep (<=900.0) pg/mL Total Protein (6.4-8.2) g/dL Albumin (3.4-5.0) g/dL Globulin g/dL Albumin/Globulin Ratio Lipase (16.0-77.0) U/L Acetone, Qual (NEGATIVE) POC Glucose 348 H 291 H (74-106) mg/dL Discharge Plan Discharge Chief Complaint: Nausea/Vomiting/Diarrhea Clinical Impression: Chest pain, Metabolic acidosis, Acute hyperglycemia, DKA (diabetic ketoacidosis) Patient Disposition: Admitted as Observation
--- NOTE | 2025-06-19 22:35 | XR_ITS ---
[address] [address] Patient Name: COLBY MOCK MRN: [id number] date: 1970 Sex: M Assigned Patient Location: ER Current Patient Location: ED.MAIN Accession/Order Number: [id number] Exam Date: 06/19/2025 22:40 Report Date: 06/19/2025 23:05 At the request of: JORGE MARROQUIN MD Procedure: XR chest 1V PA CHEST: CLINICAL HISTORY: chest pain COMPARISON: 06/18/2024 Unremarkable cardiomediastinal silhouette. Lungs clear. No effusion or pneumothorax. Left chest wall pacemaker/fibrillator. IMPRESSION: Negative for acute pleural or parenchymal disease Impression dictated by: Caden Chavez M.D. 06/19/2025 11:05 PM Dictation Location: [place] [address] Electronically authenticated by: [id number] Y Date: 06/19/2025 23:05
--- OUTSIDE RECORDS SUMMARY | 2025-06-19 22:44 | XMS_ITS | CCD ---
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 Name Role Phone DR EDUARD MYERS Admitting Unavailable DR EDUARD MYERS Attending Unavailable DR EDUARD MYERS Primary Care Unavailable MD Katlin Salvador Admit Provider MD Mekhi Powers Attending Provider MADI Long Other Provider Unavailable DO Nuria Neal Other Provider MD Ric Nicole Other Provider MD Uriah Davidson Other Provider MD Ruba Teran Other Provider MD Andrew Rainey Other Provider TASHI Wilcox Other Provider [phone] MD Irish Verdugo Other Provider MD Ascencion Parker Other Provider MD Renee Newberry Other Provider Blake [facility] Brianda Zelaya Other Provider MD Amy Lozoya Other Provider MD Eduard Myers Primary Care Provider Maru Vazquez RN Unavailable Unavailable Eduard Myers MD Primary Care Provider Uriah Neal DO Unavailable Katlin Salvador Admitting Unavailable Eduard Myers Primary Care Unavailable Mekhi Powers Attending Unavailable Gabriela Long Consulting Unavailable Nuria Neal Consulting Unavailable Ric Nicole Consulting Unavailable Uriah Davidson Consulting Unavail able Ruba Teran Consulting Unavailable Andrew Rainey Consulting Unavailab Nisreen Cotto Consulting Unavailable Irish Verdugo Consulting Unavailable Ascencion Parker Consulting Unavailab Renee Vasquez Consulting Unavailable Brianda Lozano Consulting Unavailable Amy Lozoya Consulting Unavaila Eduard Cheema MD Primary Care Provider [id number] [phone] Eduard Myers MD Primary Care Provider Uriah Neal DO S Unavailable [phone] ZENIA LANGFORD Attending Unavailable EDUARD MYERS Referring Unavailable ZENIA LANGFORD Attending Unavailable ZENIA LANGFORD Referring Unavailable ZENIA LANGFORD Attending Unavailable Maris Ramos MD Unavailable Eduard Myers MD Primary Care Provider [phone] Maris Ramos MD Unavailable URIAH NEAL Attending Unavailable EDUARD MYERS Primary Care Unavailable URIAH NEAL Referring Unavailable URIAH NEAL Attending Unavailable EDUARD MYERS Primary Care Unavailable URIAH NEAL Attending Unavailable ÁNGEL, URIAH S Referring Unavailable HORey, EDUARD DORANTES Primary Care Unavailable MARIS RAMOS Attending Unavailable ÁNGELURIAH TATUM S Referring Unavailable HORey, EDUARD DORANTES Primary Care Unavailable HOY, EDUARD JAYNA Primary Care Unavailable HOY, EDUARD JAYNA Primary Care Unavailable Uriah Neal DO S Unavailable Maris Ramos MD Unavailable URIAH NEAL Referring Unavailable EDUARD MYERS Primary Care Unavailable MARIS RAMSO Admitting Unavailable MARIS RAMOS Attending Unavailable FRANK MYERSLAS JAYNA Primary Care Unavailable MARIS RAMOS Referring Unavailable LOUIS, EDUARD JAYNA Primary Care Unavailable MARIS RAMOS Referring Unavailable EDUARD MYERS Primary Care Unavailable Allergies Allergy ClassificationReported Allergen(s)Allergy TypeDate of OnsetReaction(s) Facility (2 sources)Gadolinium-Containing Contrast Medi; Translations: [Gadolinium- Containing Contrast Medi]Allergy to rfgifxguv62-79-3287ZnfvtNajchfuznWooster [facility] (10 sources)Iodinated Contrast Media; Translations: [Iodinated Contrast Media] Allergy to lkzkeifrq08-26-7717RqhbsLmgstfqmmWooster Community Hospital Medications Current Medications MedicationDrug Class(es)DatesSig (Normalized)Sig (Original)acetaminophen 325 mg oral tablet (6 sources)Start: 38-40-3593xekj 2 tablets by mouth every six hoursacetaminophen (Tylenol) 325 mg tablet Indications: Post-op pain Take 2 tablets (650 mg) by mouth every 6 hours. 11/28/2024 ActiveStart: 95-64-2590uevl 1 tablet by mouth every six mg, oral, Every 6 hours, First dose on Mon11/27/24 at 1230, If ordered PRN for pain, nurse is permitted to administer this medication for higher pain scores based on patient preference? Yesaspirin 81 mg delayed release oral tablet (20 sources)Platelet Aggregation Inhibitor, Nonsteroidal Anti-inflammatory Drug Start: 79-25-5184oxot 81 mg by mouth once daily81 mg, oral, Daily, First dose on Mon11/28/24 at 0900, Do not crush, chew, or split.atorvastatin 80 mg oral tablet (20 sources)HMG-CoA Reductase InhibitorStart: 06-20-2024 End: 04-62-1291dtvs 1 tablet by mouth once dailyatorvastatin (Lipitor) 80 mg tablet Indications: Coronary artery disease involving redding coronary artery of redding heart without angina pectoris TAKE 1 TABLET BY MOUTH ONCE DAILY 90 tablet 05/15/2025 Activecarvedilol 3.125 mg oral tablet (16 sources)alpha-Adrenergic Jaime, beta-Adrenergic BlockerStart: 10-02-2024 End: 25-46-2833ttil 1 tablet by mouth twice dailycarvedilol (Coreg) 3.125 mg tablet Indications: Coronary artery disease involving redding coronary artery of redding heart without angina pectoris , ST elevation myocardial infarction (STEMI), unspecified artery (Multi) , S/P PTCA (percutaneous transluminal coronary angioplasty) , History of placement of stent in LAD coronary artery , Cardiomyopathy, ischemic Take 1 tablet (3.125 mg) by mouth 2 times daily (morning and late afternoon). 180 tablet 3 10/02/2024 04/02/2025 Discontinued (Therapy completed)Start: 06-20-2024 End: 63-96-6302brqr 1 tablet by mouth twice dailycarvedilol (Coreg) 6.25 mg tablet Indications: Coronary artery disease involving redding coronary artery of redding heart without angina pectoris , Cardiomyopathy, ischemic Take 1 tablet (6.25 mg) by mouth 2 times a day. 180 tablet 3 07/03/2024 07/03/2025 Active Continuous Glucose Audio Narrator (Dexcom G6 client services coordinator) device (12 sources)Continuous Glucose Audio Narrator (Dexcom G6 client services coordinator) device Inject 1 Device under the skin if needed Use as instructed ActiveContinuous Glucose Sensor (Dexcom G6 Sensor) misc (12 sources)Continuous Glucose Sensor (Dexcom G6 Sensor) misc ActiveContinuous Glucose Transmitter (Dexcom G6 transmitter) misc (12 sources)Continuous Glucose Transmitter (Dexcom G6 transmitter) misc Inject under the skin if needed Use as instructed Activedapagliflozin 10 mg oral tablet (15 sources)Sodium-Glucose Cotransporter 2 InhibitorStart: 06-20-2024 End: 13-80-9505blnf 1 tablet by mouth once dailyFarxiga 10 mg tablet Indications: Coronary artery disease involving redding coronary artery of redding heart without angina pectoris , Cardiomyopathy, ischemic , Type 2 diabetes mellitus without complication, with long-term current use of insulin (Multi) Take 1 tablet (10 mg) by mouth once daily. 90 tablet 05/15/2025 ActiveDexcom G6 Transmitter device (6 sources)Start: 48-75-6048Ahktmc G6 Transmitter device USE 1 DEVICE EVERY 3 MONTHS FOR CONTINUOUS GLUCOSE MONITORING 09/23/2024 Active3 ml insulin glargine 100 unt/ml pen injector (17 sources)Insulin AnalogStart: 06-19-2024 End: 31-08-6800erbjeb 34 [IU] by subcutaneous injection once daily at bedtime insulin glargine (Lantus) 100 unit/mL (3 mL) pen Inject 34 Units under the skin once daily at bedtime. 06/19/2024 10/02/2024 Discontinued (Therapy completed) insulin glargine (Semglee) 100 UNIT/ML injection Inject 34 Units under the skin at bedtime Activeinsulin glargine (Semglee) 100 UNIT/ML injection Inject 44 Units under the skin at bedtime Activeinsulin lispro 100 unt/ml injectable solution (20 sources)Insulin AnalogStart: 03-25-2025 End: 94-17-0163Cpaajxp Lispro (HumaLOG) 100 UNIT/ML solution Indications: Poor control type I diabetes mellitus (HCC) Inject 70 Units as directed Daily 40 mL 1 03/25/2025 06/23/2025 ActiveStart: 39-04-1688GbzzFLT KWIKPEN 100 UNIT/ML injection Indications: Poor control type I diabetes mellitus (HCC) INJECT SUBCUTANEOUSLY 60 UNITS DAILY DIRECTED 60 mL 3 03/07/2025 ActiveStart: 11-21-2024 End: 25-93-9224Zifgcxl Lispro 100 UNIT/ML solution Indications: Poor control type I diabetes mellitus (CMS/HCC) Inject 60 Units as directed Daily 54 mL 1 12/23/2024 03/23/2025 ActiveStart: 96-44-8617SymjSQH KwikPen Insulin 100 unit/mL injection 07/08/2024 Active End: 14-08-6232Owqsctn Lispro (HUMALOG KWIKPEN SC) Inject under the skin Per sliding scale. 11/21/2024 Discontinued (Formulary change)Insulin Lispro (HUMALOG KWIKPEN SC) Inject under the skin Per sliding scale. Activelisinopril 2.5 mg oral tablet (2 sources)Angiotensin Converting Enzyme InhibitorStart: 04-02-2025 End: 59-53-5870heyy 1 tablet by mouth once dailylisinopril 2.5 mg tablet Indications: Coronary artery disease involving redding coronary artery of redding heart without angina pectoris , Cardiomyopathy, unspecified type (Multi) , S/P PTCA (percutaneous transluminal coronary angioplasty) , ST elevation myocardial infarction (STEMI), unspecified artery (Multi) , History of placement of stent in LAD coronary artery Take 1 tablet (2.5 mg) by mouth once daily. 90 tablet 3 04/02/2025 04/02/2026 Activemethocarbamol 500 mg oral tablet (2 sources)Muscle RelaxantStart: 04-38-3547wljq 500 mg by mouth every six hours 500 mg, oral, Every 6 hours scheduled, [place]11/[place] [address] ml morphine sulfate 4 mg/ml prefilled syringe (2 sources)Opioid AgonistStart: 61-87-6987ndzr 2 mg intravenously every four hours as needed2 mg, intravenous, Every 4 hours PRN, pain severe (7-10), second line, Starting on Mon11/27/24 at 1032, For 2 doses, If ordered PRN for pain, nurse is permitted to administer this medication for higher pain scores based on patient preference? Yesnitroglycerin 0.4 mg sublingual tablet (11 sources)Nitrate VasodilatorStart: 25-58-2403btvzjujuyxhnv (Nitrostat) 0.[address] 1 tablet (0.4 mg) under the tongue every 5 minutesif needed. 06/20/2024 Activeolmesartan medoxomil 5 mg oral tablet (3 sources)Angiotensin 2 Receptor BlockerStart: 06-20-2024 End: 83-27-2066slnq 1 tablet by mouth once dailyolmesartan (BENIcar) 5 mg tablet Indications: Coronary artery disease involving redding coronary artery of redding heart without angina pectoris , Cardiomyopathy, ischemic Take 1 tablet (5 mg) by mouthonce daily. 90 tablet 3 07/03/2024 07/03/2025 ActiveOndansetron (2 sources)Serotonin-3 Receptor AntagonistStart: 26-29-1750ttka 1 tablet by mouth every eight hours as neededondansetron (Zofran) tablet 4 mgSemglee,insulin glarg-yfgn,Pen 100 unit/mL (3 mL) Pen (9 sources)Start: 02-29-2024 End: 73-66-2403Myijfso,insulin glarg-yfgn,Pen 100 unit/mL (3 mL) Pen Inject under the skin once daily in the morning. 02/29/2024 04/02/2025 Discontinued (Therapy completed)Start: 47-30-1843Zmcbyrh,insulin glarg-yfgn,Pen 100 unit/mL (3 mL) Pen Inject under the skin once daily in the morning. 02/29/2024 Active sildenafil 100 mg oral tablet (12 sources)Phosphodiesterase 5 Inhibitortake 1 tablet by mouth every twenty- four hours as neededsildenafil (Viagra) 100 MG tablet Take 100 mg by mouth Daily as needed for erectile dysfunction Activespironolactone 25 mg oral tablet (20 sources)Aldosterone AntagonistStart: 47-24-1257nezb 12.5 mg by mouth once daily12.5 mg, oral, Daily, First dose on Sunshine 11/28/24 at 0900Start: 06-20-2024 End: 65-39-7155ttwr 0.5 tablet by mouth once dailyspironolactone (Aldactone) 25 mg tablet Indications: Coronary artery disease involving redding coronary artery of redding heart without angina pectoris , Cardiomyopathy, ischemic TAKE ONE-HALF (1/2) TABLET BY MOUTH DAILY 45 tablet 05/15/2025 ActiveStart: 46-37-8870pjta 12.5 mg by mouth once dailySpironolactone Active 12.5 MG PO Daily 45 90 June 20, 2024 12:00amtake 1 tablet by mouth once dailyspironolactone (Aldactone) 25 MG tablet Take 25 mg by mouth Daily Activeticagrelor 90 mg oral tablet (20 sources)Start: 06-20-2024 End: 58-67-4025rohh 1 tablet by mouth twice dailyticagrelor (Brilinta) 90 mg tablet Indications: Coronary artery disease involving redding coronary artery of redding heart without angina pectoris , S/P PTCA (percutaneous transluminal coronary angioplasty) , ST elevation myocardial infarction (STEMI), unspecified artery (Multi) TAKE 1 TABLET BY MOUTH TWICE A DAY 180 tablet 05/15/2025 Active traMADol hydrochloride 50 mg oral tablet (5 sources)Opioid AgonistStart: 11-28-2024 End: 64-98-8024mkmTZIqc (Ultram) 50 mg tablet Indications: Post-op pain Take 1 tablet (50 mg) by mouth every 8 hours if needed for moderate pain (4 - 6) or severe pain (7 - 10). If no relief from tylenol then alternate tylenol with Tramadol 15 tablet 11/28/2024 04/02/2025 Discontinued (Therapy completed)Start: 50-44-0072gzec 1 tablet by mouth every six hours as mg, oral, Every 6 hours PRN, pain moderate (4-6), second line, pain severe (7-10), second line, S tarting on Mon11/27/24 at 1031, If ordered PRN for pain, nurse is permitted to administer this medication for higher pain scores based on patient preference? Yes Completed/Discontinued Medications MedicationDrug Class(es)DatesSig (Normalized)Sig (Original)chlorhexidine gluconate 40 mg/ml medicated liquid soap (2 sources)Start: 11-27-2024 End: 08-48-6749bomba 1 dose topically onceTopical, Once, On Mon11/27/24 at 0645, For 1 dose, Preprocedure, For pre-op skin preparation1 ml ketorolac tromethamine 30 mg/ml injection (2 sources)Nonsteroidal Anti-inflammatory Drug, Cyclooxygenase InhibitorStart: 11-27-2024 End: 06-40-0425pogy 30 mg intravenously every six hours30 mg, intravenous, Every 6 hours, First dose on Mon11/27/24 at 1100, For 4 dosesmupirocin 0.02 mg/mg topical ointment (2 sources)RNA Synthetase Inhibitor AntibacterialStart: 11-27-2024 End: Application, Topical, Once, On Mon11/27/24 at 0645, For 1 dose, Preprocedure, Apply topically to both nares prior to procedure. Do not initiate until staph screening obtained first.Fs-31v-riqpotw RBCs (Ultratag) injection 25 millicurie (1 source)Start: 07-30-2024 End: millicurie, intravenous, Once in imaging, Starting on Mon07/30/24 at 1512, For 1 dose, Administer immediately and up to 24 hours prior to imaging unless otherwise xrxiyktfk395 ml vancomycin 5 mg/ml injection (2 sources)Glycopeptide AntibacterialStart: 11-27-2024 End: 29-95-7721xkcs 1 g intravenously every twelve hours1 g, intravenous, at 200 mL/hr, Administer over 60 Minutes, Every 12 hours, First dose on Mon11/27/24 at 0800, For 2 doses, car body designer to EP lab premix bag, Dosing of this medication varies based on severity of illness. Does this patient have sepsis or concern for sepsis (probable or documented infection plus systemic manifestations of infection)? No, Suspected Indication (Select all that apply): Surgical Prophylaxis, Indications: Surgical Prophylaxis Problems Active Problems Problem ClassificationProblemDateDocumented DateEpisodic/ChronicAcute myocardial infarction (20 sources)Myocardial infarction; Translations: [Non-ST elevation (NSTEMI) myocardial infarction]Onset: 602416-72-4287XxcvpxzJvtauwblzu disorders (11 sources)Automatic implantable cardiac defibrillator in situ; Translations: [Presence of automatic (implantable) cardiac defibrillator]Onset: 01-07-2025 06-39-3985EtfthmbQpkiedmosb heart failure; nonhypertensive (12 sources)Acute exacerbation of chronic congestive heart failure; Translations: [Heart failure, unspecified]Onset: 276936-86-6546Xvawemd Coronary atherosclerosis and other heart disease (20 sources)Ischemic myocardial dysfunction; Translations: [Ischemic cardiomyopathy]Onset: 946020-60-2538WgloiasTvrlxfpp mellitus with complications (8 sources)Type 1 diabetes mellitus uncontrolled; Translations: [Type 1 diabetes mellitus with hyperglycemia]56-90-8422IbaqxzqWbpjpwkg mellitus without complication (20 sources)Type 1 diabetes mellitus; Translations: [Type 1 diabetes mellitus without complications]Onset: 315943-23-1978WwkfnyyXrrnxnbu mellitus without complication (6 sources)Insulin pump present; Translations: [Presence of insulin pump (external) (internal)]57-20-6561FypkxcktOhbwgumag of lipid metabolism (20 sources)Mixed hyperlipidemia; Translations: [Mixed hyperlipidemia]Onset: 581595-19-4120EcoyyfnFqwmljxtb hypertension (8 sources)Essential hypertension; Translations: [Essential (primary) hypertension]88-18-4177EhvositZiibqidiqpt deficiencies (8 sources)Vitamin D deficiency; Translations: [Vitamin D deficiency, unspecified]05-60-1608XgwiddaIkfeu aftercare (8 sources)Long-term current use of insulin; Translations: [intermediate manager (current) use of insulin]84-06-7937NyldmzdpAjqns aftercare (2 sources)intermediate manager (current) use of insulin; Translations: [residential (current) use of insulin (Multi)]Onset: 94-51-9168NivfbslqTvcmf lower respiratory disease (3 sources)Dyspnea on exertion; Translations: [Other forms of dyspnea]Onset: 170392-47-9098EqulbwkuLoodx lower respiratory disease (2 sources)Other forms of dyspnea; Translations: [Other forms of dyspnea]Onset: 67-30-2507ZhoxyrbfGiegm nervous system disorders (1 source)Postoperative pain ; Translations: [Other acute postprocedural pain] 33-08-6597OqjnkiofTigo-; endo-; and myocarditis; cardiomyopathy (except that caused by tuberculosis or sexually transmitted disease) (19 sources)Cardiomyopathy; Translations: [Cardiomyopathy, unspecified]Onset: 653019-92-5759YxffnjkVdkstlwv codes; unclassified (1 source)Tobacco user; Translations: [Tobacco use]40-75-9679ChiamultCkzyinio codes; unclassified (2 sources)Tobacco use; Translations: [Tobacco use disorder]Onset: 06-19-2024 79-31-1029YckkqsskKynzfamu codes; unclassified (2 sources)Body mass index (BMI) 22.0-22.9, adult; Translations: [Body mass index (BMI) 22.0-22.9, adult]Onset: 10-86-0092Iuetfkxc Past or Other Problems Problem ClassificationProblemDateDocumented DateEpisodic/Chronic Administrative/social admission (20 sources)Patient encounter status; Translations: [Dietary counseling and surveillance]Onset: 611775-89-5886CwdzkkgjBmwxiyxy atherosclerosis and other heart disease (20 sources)Patient post percutaneous transluminal coronary angioplasty; Translations: [Coronary angioplasty status]Onset: 002834-84-4254Grpgycdv Other nutritional; endocrine; and metabolic disorders (12 sources)Decreased body mass index; Translations: [Body mass index (BMI) 19.9 or less, adult]Onset: 07-03-2024 Resolved: 603200-80-8767EyvkzfqgSmpqp nutritional; endocrine; and metabolic disorders (1 source)Body mass index (BMI) 19.9 or less, adult; Translations: [Body mass index (BMI) 19.9 or less, adult]Onset: 22-08-7213XnlbbogdSyazt screening for suspected conditions (not mental disorders or infectious disease) (7 sources)Depression of left ventricular systolic function; Translations: [Abnormal result of cardiovascular function study, unspecified]Onset: 10-02-2024 53-82-0752TfavufqpGetyzreg codes; unclassified (10 sources)Body mass index 20-24 - normal; Translations: [Body mass index (BMI) 21.0-21.9, adult]Onset: 107847-98-5733KyckwpjaApkjsezk codes; unclassified (2 sources)Body mass index (BMI) 21.0-21.9, adult; Translations: [Body mass index (BMI) 21.0-21.9, adult]Onset: 31-55-1525KqmlqjbjKtjjkwyyv and history of mental health and substance abuse codes (16 sources)Ex-smoker; Translations: [Personal history of nicotine dependence] Onset: 626307-48-1256SsbbzytdTdbnwzhrgove (6 sources)Onset: Results Test NameValueInterpretationReference RangeFacilityGlucose (Bld) [Mass/Vol]on 24-03-5985Lpavfmr Blood, LUM657 mg/dLNOMS HealthcareLaboratory - Hematology and Cell countson 91-99-3969ImY6o (Bld) [Mass fraction]7.7 %[facility] CenterNo Panel Informationon 01-17-8019VUXL HealthcareGlucose (Bld) [Mass/Vol]Ordered By: Jo Nunez on 50-44-0043Fraryxa Blood, ZWC316 mg/dLNOMS HealthcareLaboratory - Hematology and Cell countson 03-22-1909PhQ9z (Bld) [Mass fraction]7.3 %[facility] CenterNo Panel InformationOrdered By: Jo Nunez on 71-05-2066JPKT HealthcareBasic metabolic 2000 panelon 93-99-9461Rgmkb gap [Moles/Vol]10 mmol/L 10 - 20 mmol/[facility] Medical CenterCalcium [Mass/Vol]8.6 mg/dL8.6 - 10.3 mg/dLLima City HospitalChloride [Moles/Vol]104 mmol/L98 - 107 mmol/[facility] Medical CenterCO2 [Moles/Vol]27 mmol/L21 - 32 mmol/[facility] Medical CenterCreatinine [Mass/Vol]1.04 mg/dL0.50 - 1.30 mg/dLUnAshtabula County Medical CenterGFR/1.73 sq M.predicted among non- blacks MDRD (S/P/Bld) [Vol rate/Area]86 mL/min/{1.73_m2}- PINFUniversity Hospitals of ClevelandComment on above:Calculations of estimated GFR are performed using the 2020 CKD-EPI Study Refit equation without therace variable for the IDMS-Traceable creatinine methods. https://jasn.asnjournals.org/content/early/ASN.9075085700 Glucose [Mass/Vol]123 mg/yZZjpi09 - 99 mg/dLUnAshtabula County Medical Center Interpretation and review of laboratory resultsAbnormalUniKettering Health – Soin Medical CenterPotassium [Moles/Vol]4 mmol/L3.5 - 5.3 mmol/[facility] Medical CenterSodium [Moles/Vol]137 mmol/L136 - 145 mmol/[facility] Medical CenterUrea nitrogen [Mass/Vol]29 mg/dLHigh6 - 23 mg/dLUnAshtabula County Medical CenterUnAshtabula County Medical CenterAnion gap [Moles/Vol]10 mmol/LNormal 10-20UnUniversity Hospitals TriPoint Medical CenterComment on above:Performed By: #### [id number] #### ALAYNA JULIAN ([id number]) [facility] ([facility]) [address], [place] [address]Kejchwu [Mass/Vol]8.6 mg/dLNormal8.6-10.3UnUniversity Hospitals TriPoint Medical CenterComment on above:Performed By: #### [id number] #### ALAYNA JULIAN ([id number]) [facility] ([facility]) [address], [place] [address]Zwgubfva [Moles/Vol]104 mmol/MZcklcd19-037ZbnwcjzmigUniversity Hospitals TriPoint Medical CenterComment on above:Performed By: #### 97585-1 #### ALAYNA JULIAN ([id number]) [facility] ([facility]) [address] [place] [address] 519[address]KN6 [Moles/Vol]27 mmol/OCkfwhk80-97WgtflyygqpUniversity Hospitals TriPoint Medical CenterComment on above:Performed By: #### 79345-4 #### ALAYNA JULIAN ([id number]) [facility] ([facility]) [address] [place] [address] 11226Yxjdagmktx [Mass/Vol]1.04 mg/dLNormal0.50-1.30[facility] Barber[facility] CampusComment on above:Performed By: #### [id number] #### ALAYNA JULIAN ([id number]) [facility] ([facility]) [address] [place] [address] 432[address]Icmqqsmfjq filtration rate/1.73 sq M.krvzlshcu53 mL/min/1.73m*2 Normal>60UnUniversity Hospitals TriPoint Medical CenterComment on above:Result Comment: Calculations of estimated GFR are performed using the 2020 CKD-EPI Study Refit equation without the race variable for the IDMS-Traceable creatinine methods. https://jasn.asnjournals.org/content/early//ASN.7487479605Qkslzvptt By: #### [id number] #### ALAYNA JULIAN ([id number]) [facility] ([facility]) [address] [place] [address] 63[address]Rkeonsw [Mass/Vol]123 mg/sDZddc85-45KcdrpyiiuvSumma Health Barberton CampusComment on above:Performed By: #### [id number] #### ALAYNA JULIAN ([id number]) [facility] ([facility]) [address] [place] [address] 90816Otudlmpqn [Moles/Vol]4.0 mmol/LNormal3.5-5.3[facility] Barber[facility] CampusComment on above:Performed By: #### 80334-8 #### ALAYNA JULIAN ([id number]) [facility] ([facility]) [address] [place] [address] 83914Xszzpr [Moles/Vol]137 mmol/SKhyxol195-951SseggtncbeUniversity Hospitals TriPoint Medical CenterComment on above:Performed By: #### 95902-5 #### ALAYNA JULIAN ([id number]) [facility] ([facility]) [address] [place] [address] 80260Izjt nitrogen [Mass/Vol]29 mg/dLHigh6-23Sum[facility] CampusComment on above:Performed By: #### 25356-0 #### ALAYNA JULIAN ([id number]) [facility] ([facility]) [address] [place] [address] 595[address]UFX panel Auto (Bld)on 04-83-3630Ahdnvhrgnct distribution width (RBC) [Ratio]12.8 %11.5 - 14.5 %[facility] City HospitalHematocrit (Bld) [Volume fraction]34.7 %Low41.0 - 52.0 %[facility] Hemoglobin (Bld) [Mass/Vol]11.6 g/dLLow13.5 - 17.5 g/dLLima City HospitalInterpretation and review of laboratory resultsAbnoThe Jewish Hospital (RBC) [Entitic mass]30.9 pg26.0 - 34.0 pgDayton Osteopathic HospitalHC (RBC) [Mass/Vol]33.4 g/dL32.0 - 36.0 g/dLDayton Osteopathic HospitalV (RBC) [Entitic vol]93 fL80 - 100 [facility] HospitalNucleated RBC/100 WBC (Bld) [Ratio]0 %[facility] HospitalPlatelets (Bld) [#/Vol]194 10*3/[facility] RBC (Bld) [#/Vol]3.75 10*6/[facility] CenterWBC (Bld) [#/Vol]12.1 10*3/[facility] HospitalUnAshtabula County Medical CenterErythrocyte distribution width (RBC) [Ratio]12.8 %Juvfmr87.5-14.5 [facility] CampusComment on above:Performed By: #### 32974-5 #### ALAYNA JULIAN ([id number]) [facility] (EMC) [address] [place] [address] 98846Mbnvjcwfiz (Bld) [Volume fraction]34.7 %Low41.0-52.0UnUniversity Hospitals TriPoint Medical CenterComment on above:Performed By: #### 35158-8 #### ALAYNA JULIAN ([id number]) [facility] (EMC) [address] [place] [address] 49603Rlantzgipe (Bld) [Mass/Vol]11.6 g/dLLow13.5-17.5Sum[facility] Health Barberton CampusComment on above:Performed By: #### 32117-8 #### ALAYNA JULIAN ([id number]) [facility] (EMC) [address] [place] [address] 74788MEZ (RBC) [Entitic mass]30.9 loVafhrh54.0-34.0UnUniversity Hospitals TriPoint Medical CenterComment on above:Performed By: #### 23075-8 #### ALAYNA JULIAN ([id number]) [facility] (EMC) [address] [place] [address] 22937WYLS (RBC) [Mass/Vol]33.4 g/tGUcxkyt83.0-36.0UnUniversity Hospitals TriPoint Medical CenterComment on above:Performed By: #### 46463-1 #### ALAYNA JULIAN ([id number]) [facility] (EMC) [address] [place] [address] 22964HWF (RBC) [Entitic vol]93 fRQifava64-766WcaejgekifUniversity Hospitals TriPoint Medical CenterComment on above:Performed By: #### 38570-9 #### ALAYNA JULIAN ([id number]) [facility] (EMC) [address] [place] [address] 16474Cbuvpvedj RBC/100 WBC (Bld) [Ratio]0.0 /100 WBCsNormal0.0-0.0 [facility] Barber[facility] CampusComment on above:Performed By: #### 57574-1 #### ALAYNA JULIAN ([id number]) [facility] (EMC) [address] [place] [address] 92894Lnnqnagbg (Bld) [#/Vol]194 x10*3/sFGxwfvl246-995JogjkweolbUniversity Hospitals TriPoint Medical CenterComment on above:Performed By: #### 06617-7 #### ALAYNA JULIAN ([id number]) [facility] (EMC) [address] [place] [address] 91300UES (Bld) [#/Vol]3.75 x10*6/uLLow4.50-5.90UnUniversity Hospitals TriPoint Medical CenterComment on above:Performed By: #### 71037-6 #### ALAYNA JULIAN ([id number]) [facility] (EMC) [address] [place] [address] 71424BUZ (Bld) [#/Vol]12.1 x10*3/uLHigh4.4-11.3UnUniversity Hospitals TriPoint Medical CenterComment on above:Performed By: #### 12428-4 #### ALAYNA JULIAN ([id number]) [facility] (EMC) [address] [place] [address] 17213Qnpce metabolic 2000 panelon 78-87-1970Issod gap [Moles/Vol]11 mmol/L10 - 20 mmol/[facility] Medical CenterCalcium [Mass/Vol]8.9 mg/dL 8.6 - 10.3 mg/dLUnAshtabula County Medical CenterChloride [Moles/Vol]105 mmol/L 98 - 107 mmol/[facility] Vincent Medical CenterCO2 [Moles/Vol]26 mmol/L21 - 32 mmol/[facility] Medical CenterCreatinine [Mass/Vol]0.75 mg/dL0.50 - 1.30 mg/dLUnAshtabula County Medical CentereGFR- PINFUniKettering Health – Soin Medical CenterComment on above:Calculations of estimated GFR are performed using the 2020 CKD-EPI Study Refit equation without therace variable for the IDMS- Traceable creatinine methods. https://jasn.asnjournals.org/content//ASN.5447048012 Glucose [Mass/Vol]125 mg/wABchk01 - 99 mg/dLUnAshtabula County Medical Center Interpretation and review of laboratory resultsAbnormalUKettering Health TroyPotassium [Moles/Vol]4.2 mmol/L3.5 - 5.3 mmol/[facility] Vincent Medical CenterSodium [Moles/Vol]138 mmol/L136 - 145 mmol/[facility] Vincent Medical CenterUrea nitrogen [Mass/Vol]16 mg/dL6 - 23 mg/dLLima City HospitalUnAshtabula County Medical CenterAnion gap [Moles/Vol]11 mmol/LNormal 10-20UnUniversity Hospitals TriPoint Medical CenterComment on above:Performed By: #### 64530-6 #### ALAYNA JULIAN ([id number]) [facility] (EMC) [address] [place] [address] 72719Qnpvkax [Mass/Vol]8.9 mg/dLNormal8.6-10.3Sum[facility] Health Barberton CampusComment on above:Performed By: #### 54813-9 #### ALAYNA JULIAN ([id number]) [facility] (EMC) [address] [place] [address] 91892Enlzzdwh [Moles/Vol]105 mmol/EWcekbg81-702SjittqnqilUniversity Hospitals TriPoint Medical CenterComment on above:Performed By: #### 64907-1 #### ALAYNA JULIAN ([id number]) [facility] (EMC) [address] [place] [address] 33424GH2 [Moles/Vol]26 mmol/KZdeaoj21-67RkivdhkkuySumma Health Barberton CampusComment on above:Performed By: #### 53215-2 #### ALAYNA JULIAN ([id number]) [facility] (EMC) [address] [place] [address] 87487Kwgpztnxrn [Mass/Vol]0.75 mg/dLNormal0.50-1.30Sum[facility] Health Barberton CampusComment on above:Performed By: #### 11884-4 #### ALAYNA JULIAN ([id number]) [facility] (EMC) [address] [place] [address] 24183TEN/1.73 sq M.predicted MDRD (S/P/Bld) [Vol rate/Area] mL/min/{1.73_m2}Normal>60UnUniversity Hospitals TriPoint Medical CenterComment on above:Result Comment: Calculations of estimated GFR are performed using the 2020 CKD-EPI Study Refit equation without the race variable for the IDMS-Traceable creatinine methods. https://jasn.asnjournals.org/content/early/ASN.1584170593Bvuccrlxw By: #### 50007-3 #### ALAYNA JULIAN ([id number]) [facility] (EMC) [address] [place] [address] 47527Ifgnwiu [Mass/Vol]125 mg/kWDfkb72-20GrjywsjugkUniversity Hospitals TriPoint Medical CenterComment on above:Performed By: #### 34727-0 #### ALAYNA JULIAN ([id number]) [facility] (EMC) [address] [place] [address] 05144Ejhfgfgmh [Moles/Vol]4.2 mmol/LNormal3.5-5.3UnUniversity Hospitals TriPoint Medical CenterComment on above:Performed By: #### 47654-1 #### JACQUELINEIBKT JULIAN ([id number]) [facility] (EMC) [address] [place] [address] 52253[place] [Moles/Vol]138 mmol/IZqhxgr182-293AntsjefdwxUniversity Hospitals TriPoint Medical CenterComment on above:Performed By: #### 85591-8 #### ALAYNA JULIAN ([id number]) [facility] (EMC) [address] [place] [address] 68984Tmve nitrogen [Mass/Vol]16 mg/dLNormal6-23UnUniversity Hospitals TriPoint Medical CenterComment on above:Performed By: #### 01861-1 #### ALAYNA JULIAN ([id number]) [facility] (EMC) [address] [place] [address] 10385Redcx type and Indirect antibody screen panel (Bld)on 11-27-2024 ABO group Nom (Bld)OUniKettering Health – Soin Medical CenterBlood group antibody screen QlNegativeUnPremier Health Upper Valley Medical Center Ag Ql (Bld)PositiveLima City HospitalUnAshtabula County Medical CenterABO group Nom (Bld)O NormalSumma Health Barberton CampusComment on above:Performed By: #### 56796-5 #### ANAIBELIUNIQUE HERACLIO SAMUELS ([id number]) [facility] ([facility]) [address] [place] [address] USBlood group antibody screen QlNegativeNoWestern Reserve HospitalComment on above:Performed By: #### 49062-8 #### ANAIBELIUNIQUE DIOMEDESINSIGHT SURGICAL [facility] ([id number]) [facility] ([facility]) [address] [place] [address] USD Ag Ql (Bld)PositiveNoWestern Reserve HospitalComment on above:Performed By: #### 94246-4 #### ANAIBELIUNIQUE DIOMEDESINSIGHT SURGICAL HOSPITAL ([id number]) [facility] ([facility]) [address] [place] [address] USCBC panel Auto (Bld)on 11-40-6251Nircyajjzeu distribution width (RBC) [Ratio]12.9 %11.5 - 14.5 %[facility] Hematocrit (Bld) [Volume fraction]38.9 %Low41.0 - 52.0 %[facility] City HospitalHemoglobin (Bld) [Mass/Vol]12.8 g/dLLow13.5 - 17.5 g/dLUnAshtabula County Medical CenterInterpretation and review of laboratory resultsAbnormal [facility] Osteopathic HospitalH (RBC) [Entitic mass]30.5 pg26.0 - 34.0 pg [facility] City HospitalMCHC (RBC) [Mass/Vol]32.9 g/dL32.0 - 36.0 g/dL [facility] HospitalMCV (RBC) [Entitic vol]93 fL80 - 100 fL [facility] HospitalNucleated RBC/100 WBC (Bld) [Ratio]0 % [facility] HospitalPlatelets (Bld) [#/Vol]215 10*3/[facility]UM[facility] Barnesville HospitalRBC (Bld) [#/Vol]4.19 10*6/[facility] Medical CenterWBC (Bld) [#/Vol]7.2 10*3/WVUMedicine Barnesville HospitalUnAshtabula County Medical CenterErythrocyte distribution width (RBC) [Ratio]12.9 %Normal 11.5-14.5Sum[facility] Health Barberton CampusComment on above:Performed By: #### 44342-5 #### ALAYNA JULIAN ([id number]) [facility] (EMC) [address] [place] [address] 24906Blbwdkwbla (Bld) [Volume fraction]38.9 %Low41.0-52.0UnUniversity Hospitals TriPoint Medical CenterComment on above:Performed By: #### 12344-8 #### ALAYNA JULIAN ([id number]) [facility] (EMC) [address] [place] [address] 05548Bfinojlsrw (Bld) [Mass/Vol]12.8 g/dLLow13.5-17.5UnUniversity Hospitals TriPoint Medical CenterComment on above:Performed By: #### 32752-5 #### ALAYNA JULIAN ([id number]) [facility] (EMC) [address] [place] [address] 42742LWP (RBC) [Entitic mass]30.5 hkEfruhp32.0-34.0UnUniversity Hospitals TriPoint Medical CenterComment on above:Performed By: #### 83965-6 #### ALAYNA JULIAN ([id number]) [facility] ([facility]C) [address] [place] [address] 37408DAAO (RBC) [Mass/Vol]32.9 g/cUVbdkrx74.0-36.0UnUniversity Hospitals TriPoint Medical CenterComment on above:Performed By: #### 35980-3 #### ALAYNA JULIAN ([id number]) [facility] ([facility]C) [address] [place] [address] 16745RHY (RBC) [Entitic vol]93 sCUhnfnz98-515SydnghkeolUniversity Hospitals TriPoint Medical CenterComment on above:Performed By: #### 55434-2 #### ALAYNA JULIAN ([id number]) [facility] (EMC) [address] [place] [address] 14403Ubyttxuue RBC/100 WBC (Bld) [Ratio]0.0 /100 WBCsNormal0.0-0.0 [facility] CampusComment on above:Performed By: #### 84229-6 #### ALAYNA JULIAN ([id number]) [facility] (EMC) [address] [place] [address] 41655Eiulrlbxu (Bld) [#/Vol]215 x10*3/vODdfcpe785-281PyfyelzdgbUniversity Hospitals TriPoint Medical CenterComment on above:Performed By: #### 86690-7 #### ALAYNA JULIAN ([id number]) [facility] (EMC) [address] [place] [address] 99579TVW (Bld) [#/Vol]4.19 x10*6/uLLow4.50-5.90UnUniversity Hospitals TriPoint Medical CenterComment on above:Performed By: #### 40583-5 #### ALAYNA JULIAN ([id number]) [facility] (EMC) [address] [place] [address] 40093NCP (Bld) [#/Vol]7.2 x10*3/uLNormal4.4-11.3Sum[facility] Health Barberton CampusComment on above:Performed By: #### 16309-3 #### ALAYNA JULIAN ([id number]) [facility] (EMC) [address] [place] [address] 31214XTZ 12-LEADon 82-71-8241GIM 12-LEADVentricular Rate 68 Atrial Rate 68 P-R Interval 170 QRS Duration 92 Q-T Interval 416 QTC Calculation(Bazett) 442 P [place] 65 R [place] 13 T [place] 103 QRS Count 11 Q Onset 222 P Onset 137 P Offset 182 T Offset 430 QTC Fredericia 434 Diagnosis Poor data quality, interpretation may be adversely affected Sinus rhythm with marked sinus arrhythmia 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) T wave abnormality, consider lateral ischemia Abnormal ECG When compared with ECG of 27-NOV-2024 06:24, (unconfirmed) Serial changes of Anteroseptal infarct Present Confirmed by Jabier Arnett ([id number]) on 12/05/2024 7:01:22 [facility] HospitalECG 12-LEADVentricular Rate 78 Atrial Rate 78 P-R Interval 156 QRS Duration 92 Q-T Interval 388 QTC Calculation(Bazett) 442 P [place] 70 R [place] 26 T [place] 89 QRS Count 13 Q Onset 222 P Onset 144 P Offset 192 T Offset 416 QTC Fredericia 423 Diagnosis Normal sinus rhythm Septal infarct , age undetermined Abnormal ECG No previous ECGs available Confirmed by Jabier Arnett ([id number]) on 12/05/2024 6:43:06 [facility] HospitalElectrophysiology studyon 13-00-4018AjuzhtfreqAshtabula County Medical Center Work Phone: Glucose Test strip manual (Bld) [Mass/Vol]on 61-76-0792Eoukzrl [Mass/Vol]208 mg/rXHphr76 - 99 mg/dLUnAshtabula County Medical CenterInterpretation and review of laboratory resultsAbnoOhioHealth Van Wert HospitalUnAshtabula County Medical CenterGlucose [Mass/Vol]208 mg/iMEsus85-54OdfoqjxmwaUniversity Hospitals TriPoint Medical CenterComment on above: Performed By: #### 2341-6 #### ALAYNA JULIAN ([id number]) [facility] (EMC) [address] [place] [address] 84362Dvjmovj [Mass/Vol]340 mg/eQOkxq28 - 99 mg/dLUnAshtabula County Medical CenterInterpretation and review of laboratory resultsAbnoOhioHealth Van Wert HospitalUnAshtabula County Medical CenterGlucose [Mass/Vol]340 mg/dQExaw30-98VtidozggztUniversity Hospitals TriPoint Medical CenterComment on above: Performed By: #### 2341-6 #### JACQUELINEIBKT JULIAN ([id number]) [facility] (EMC) [address] [place] [address] 25563Tpbgqsiwpy - Blood bankon 26-94-7734WQO group Nom (Bld)O [facility] HospitalD Ag Ql (Bld)PositiveLima City HospitalNo Panel Informationon 15-31-2649Uazuu Expiration Date12/19/2024 11:59:00 PM EDTLima City HospitalDispense StatusXSouthern Ohio Medical CenterPRODUC BLOOD [id number] City HospitalPRODUC CODE [id number]. Elizabeth Hospital [id number] City HospitalUn ABOOUnSt. Charles Hospital Number [id number]-MDezvccivvaAdena Pike Medical Center [id number]-S [facility] RHPositiveWright-Patterson Medical Center YPSEYS833RthuwbogayMansfield Hospital UYZTZH393UiraqrafkgLima City HospitalX INTEPCOMPLima City HospitalUnAshtabula County Medical CenterUnAshtabula County Medical CenterPT and aPTT panel Coag (PPP)on 62-26-7302aIDO Coag (PPP) [Time]29 [facility] ClinicINR Coag (PPP) [Relative time]1 {INR}0.9 - 1.1[facility] Interpretation and review of laboratory resultsNormalUniKettering Health – Soin Medical CenterPT Coag (PPP) [Time]11 [facility] ClinicThe APTT is no longer used for monitoring Unfractionated Heparin Therapy. For monitoring Heparin Therapy, use the Heparin Assay.Ohio Valley HospitalaPTT Coag (PPP) [Time]29 eTaaajp05-83JjxemxewthUniversity Hospitals TriPoint Medical CenterComment on above:Order Comment: The APTT is no longer used for monitoring Unfractionated Heparin Therapy. For monitoring Heparin Therapy, use the Heparin Assay.Performed By: #### 39020-7 #### ALAYNA JULIAN ([id number]) [facility] ([facility]C) [address] [place] [address] 29132UUH Coag (PPP) [Relative time]1.0Wehanj0.9-1.1Sum[facility] Health Barberton CampusComment on above:Order Comment: The APTT is no longer used for monitoring Unfractionated Heparin Therapy. For monitoring Heparin Therapy, use the Heparin Assay.Performed By: #### 70381-7 #### JACQUELINEIBKT DIOMEDES ABRIL ([id number]) [facility] (EMC) [address] [place] [address] 50844LB Coag (PPP) [Time]11.0 sNormal9.8-12.4Summa Health Barberton CampusComment on above:Order Comment: The APTT is no longer used for monitoring Unfractionated Heparin Therapy. For monitoring Heparin Therapy, use the Heparin Assay.Performed By: #### 79722-2 #### ALAYNA DIOMEDES ABRIL ([id number]) [facility] ([facility]C) [address] [place] [address] 87919KOTEJ/VERIFY ABORHon 54-85-1488HDW group Nom (Bld)ONWilson Street HospitalComment on above:Order Comment: This is for confirming/verifying history of ABORh on file for transfusion of blood products. If this is not for transfusion, please order an ABO/RH [[id number]]. If you have any questions or unsure what to order, please call the blood bank. Performed By: #### VERAB #### ALAYNA [facility] ([id number]) [facility] ([facility]) [address] [place] [address] USD Ag Ql (Bld)PositiveNormalUniSt. Charles HospitalComment on above:Order Comment: This is for confirming/verifying history of ABORh on file for transfusion of bloodproducts. If this is not for transfusion, please order an ABO/RH [[id number]]. If you have any questions or unsure what to order, please call the blood bank.Performed By: #### VERAB #### JACQUELINEIBKT [facility] ([id number]) [facility] [address] [place] [address]3570 USXR CHEST 1 VIEWon 02-16-8843EE CHEST 1 VIEWInterpreted By: Sammy Paul, STUDY: XR CHEST 1 VIEW; 11/27/2024 1:03 pm INDICATION: Signs/Symptoms:s/p AICD placement. COMPARISON: None ACCESSION NUMBER(S): [id number] ORDERING CLINICIAN: PRIYA LOPEZ TECHNIQUE: Single frontal view of the chest; Portable technique FINDINGS: AICD generator and lead Not unexpected subcutaneous emphysema around the generator 6-7 mm nodule towards the left lung base; no other focal lung abnormality No overt edema/failure No pleural effusion, pneumothorax or pneumomediastinum No mediastinal widening IMPRESSION: As above MACRO: None Signed by: Sammy Paul 11/27/2024 2:04 PM Dictation workstation: [id number] County HospitalXR Chest Single viewon 04-26-9353Jk above MACRO: None Signed by: Sammy Paul 11/27/2024 2:04 PM Dictation workstation: [id number] MMODALInterpreted By: Sammy Paul, STUDY: XR CHEST 1 VIEW; 11/27/2024 1:03 pm INDICATION: Signs/Symptoms:s/p AICD placement. COMPARISON: None ACCESSION NUMBER(S): [id number] ORDERING CLINICIAN: PRIYA LOPEZ TECHNIQUE: Single frontal view of the chest; Portable technique FINDINGS: AICD generator and lead Not unexpected subcutaneous emphysema around the generator 6-7 mm nodule towards the left lung base; no other focal lung abnormality No overt edema/failure No pleural effusion, pneumothorax or pneumomediastinum No mediastinal widening MMODALSammy Paul MD - 11/27/2024 Interpreted By: Sammy Paul, STUDY: XR CHEST 1 VIEW; 11/27/2024 1:03 pm INDICATION: Signs/Symptoms:s/p AICD placement. COMPARISON: None ACCESSION NUMBER(S): [id number] ORDERING CLINICIAN: PRIYA LOPEZ TECHNIQUE: Single frontal view of the chest; Portable technique FINDINGS: AICD generator and lead Not unexpected subcutaneous emphysema around the generator 6-7 mm nodule towards the left lung base; no other focal lung abnormality No overt edema/failure No pleural effusion, pneumothorax or pneumomediastinum No mediastinal widening IMPRESSION: As above MACRO: None Signed by: Sammy Paul 11/27/2024 2:04 PM Dictation workstation: [id number] [facility] Work Phone: Radiology Study observation (narrative)[facility] Work Phone: xr Chest Single viewOrdered By: Sammy Paul on 56-81-9151VrykgnpnjiLima City Hospital Work Phone: Glucose (Bld) [Mass/Vol]Ordered By: Jo Nunez on 16-89-5860Pibaquh Blood, SBS374 mg/dLLafayette Regional Health Center HealthcareGlucose (Bld) [Mass/Vol]Ordered By: Jo Nunez on 19-05-1829Hpuusqz Blood, UOI450 mg/dL [facility] HealthcareLaboratory - Hematology and Cell countson 50-13-2017VyS0v (Bld) [Mass fraction]9.6 %[facility] HealthcareNo Panel InformationOrdered By: Jo Nunez on 35-64-9973NLNXRay County Memorial Hospital HEART BLOOD POOL EJECTION FRACTION WALL MOTION (MUGA)on 37-75-4965WX HEART BLOOD POOL EJECTION FRACTION WALL MOTION (MUGA) Interpreted By: Ruba Teran and Giannuzzi Michael STUDY: MUGA Performing facility: [facility], [address] [place] [address], [address] Provider: Tae Neal DO, [facility] PCP: Dr. Rocky Myers Supervising provider: Ric Nicole MD, [facility] INDICATION: CAD; ICM STEMI Hx PTCA HISTORY: Gender: M; Age: 54 y/o ; Height: HT 185.4 cm cm; Weight: WT 66.679 kg kg. CAD; High Cholesterol; Diabetes; Previous [place];2023 Quit smoking unknown years ago. Cardiac catheterization on 2023. PTCA on 2023. COMPARISON: No comparison. Echo 2023 EF= 25-30% ACCESSION NUMBER(S): [id number] ORDERING CLINICIAN: URIAH NEAL TECHNIQUE: The patient's red cells were labeled [...] Ruba Teran 07/30/2024 5:00 PM Dictation workstation: [id number] County Hospital NM Heart Wall motion and Ejection fractionon 52-96-9766Pqynie resting right ventricular function. Abnormalresting left ventricular function. Left ventricular ejection fraction is 33%. No previous study available for comparison Signed by: Ruba Teran 07/30/2024 5:00 PM Dictation workstation: [id number] By: Ruba Teran and Giannuzzi Michael STUDY: MUGA Performing facility: [facility], [address] [place] [address], [place] [id number] [facility] Provider: Tae Neal DO, FACC PCP: Dr. Rocky Myers Supervising provider: Ric Nicole MD, [facility] INDICATION: CAD; ICM STEMI Hx PTCA HISTORY: Gender: M; Age: 54 y/o ; Height: HT 185.4 cm cm; Weight: WT 66.679 kg kg. CAD; High Cholesterol; Diabetes; Previous [place];2023 Quit smoking unknown years ago. Cardiac catheterization on 2023. PTCA on 2023. COMPARISON: No comparison. Echo 2023 EF= 25-30% ACCESSION NUMBER(S): [id number] ORDERING CLINICIAN: URIAH NEAL TECHNIQUE: The patient's red cells were labeled [...] Global resting LVEF was abnormal- at 33%. Ruba Moura MD - 07/30/2024 Interpreted By: Ruba Teran and Giannuzzi Michael STUDY: MUGA Performing facility: [facility], [address] [place] [address], [address], [address] Provider: Tae Neal DO, [facility] PCP: Dr. Rocky Myers Supervising provider: Ric Nicole MD, [facility] INDICATION: CAD; ICM STEMI Hx PTCA HISTORY: Gender: M; Age: 54 y/o ; Height: HT 185.4 cm cm; Weight: WT 66.679 kg kg. CAD; High Cholesterol; Diabetes; Previous [place];2023 Quit smoking unknown years ago. Cardiac catheterization on 2023. PTCA on 2023. COMPARISON: No comparison. Echo 2023 EF= 25-30% ACCESSION NUMBER(S): [id number] ORDERING CLINICIAN: URIAH NEAL TECHNIQUE: The patient's red cells were labeled [...] Ruba Teran 07/30/2024 5:00 PM Dictation workstation: [id number] [facility] Work Phone: Radiology Study observation (narrative)[facility] Work Phone: nm Heart Wall motion and Ejection fractionOrdered By: Ruba Teran on 04-04-1784LbpfwydfxnLima City Hospital Work Phone: Automated basophil %Ordered By: Nuria Nela on 32-84-6265Kckqjguai/100 WBC (Bld)0.7 %Normal.[facility] Comment on above:Performed By: #### BMP, CBC, LIPID #### [facility] [address] [place] [address] USAAutomated basophil countOrdered By: Nuria Neal on 66-26-3238Jhpyndxag (Bld) [#/Vol]0.1 10*3/uLNormal0.0-0.2Firelands Regional Medical CenterComment on above:Result Comment: PERFORMED BY: [place] [address] PATHOLOGIST [employer] OPERATOR MEL SCOTT M.D.Performed By: #### BMP, CBC, LIPID #### [place] [address] USAAutomated blood monocyte countOrdered By: W Ángel on 10-21-8102Vkawgmuiv (Bld) [#/Vol]0.9 10*3/uLHigh0.0-0.8St. Francis HospitalComment on above:Performed By: #### BMP, CBC, LIPID #### [place] [address] USAAutomated eosinophil %Ordered By: W Ángel on 06-20-2024 Eosinophils/100 WBC (Bld)0.8 %Normal.St. Francis HospitalComment on above:Performed By: #### BMP, CBC, LIPID #### [place] [address] USAAutomated eosinophil countOrdered By: W Ángel on 47-89-7497Dbjnihnfrel (Bld) [#/Vol]0.1 10*3/uLNormal0.0-0.45St. Francis HospitalComment on above:Performed By: #### BMP, CBC, LIPID #### [place] [address] USAAutomated monocyte %Ordered By: Nuria Neal on 06-20-2024 Monocytes/100 WBC (Bld)10.6 %Normal.St. Francis HospitalComment on above:Performed By: #### BMP, CBC, LIPID #### [place] [address] USAAutomated neutrophil %Ordered By: W Ángel on 06-20-2024 Neutrophils/100 WBC (Bld)68.1 %Normal.St. Francis HospitalComment on above:Performed By: #### BMP, CBC, LIPID #### [place] [address] USABasic Metabolic Panelon 20-51-9578Laejignsfs Clr Calc Opofaybh79.82NoSandhills Regional Medical Center Physician GroupComment on above:Performed By: #### BMP, CBC, LIPID #### [facility] [address] [place] [address] USAGFR/1.73 sq M.predicted MDRD (S/P/Bld) [Vol rate/Area] mL/min/{1.73_m2}[facility] Physician GroupComment on above:Performed By: #### BMP, CBC, LIPID #### [facility] [address] [place] [address] USACalcium [Mass/volume] in Serum or PlasmaOrdered By: Nuria Neal on 95-95-9713Vektkno [Mass/Vol]8.2 mg/dLLow8.6-10.3FSuburban Community Hospital & Brentwood HospitalComment on above:Performed By: #### BMP, CBC, LIPID #### [facility] [address] [place] [address] USACapillary blood glucose measurement by glucometer (mass/volume)Ordered By: Mekhi Powers on 80-24-5644Gspnpfm [Mass/Vol]149 mg/dL City HospitalComment on above:Random Glucose Reference Range is dependent on time and content of last meal. Glucose of more than 200 mg/dL in a nonstressed, ambulatory subject supports the diagnosis of Diabetes Mellitus.Result Comment: Random Glucose Reference Range is dependent on time and content of last meal. Glucose of more than 200 mg/dL in a nonstressed, ambulatory subject supports the diagnosis of Diabetes Mellitus.Performed By: #### GLULS #### Point of Care testing ,[employer] dioxide, total [Moles/volume] in Serum or PlasmaOrdered By: Nuria Neal on 61-74-7340GV9 [Moles/Vol]29.7 mmol/FSvqomd73.0-31.0St. Francis HospitalComment on above:Performed By: #### BMP, CBC, LIPID #### [facility] [address] [place] [address] USAChloride [Moles/volume] in Serum or PlasmaOrdered By: Nuria Neal on 62-07-1644Dpcrqkez [Moles/Vol]102 mmol/EUsfown44-296PvlhoogtzSt. Francis HospitalComment on above:Performed By: #### BMP, CBC, LIPID #### [facility] [address] [place] [address] USACholesterol [Mass/volume] in Serum or PlasmaOrdered By: Nuria Neal on 21-39-6227Ysgwrgmeiot [Mass/Vol]97 mg/qOKol677-464LmsuufsziSt. Francis HospitalComment on above:Chol less than 200 mg/dl low riskChol 201-239 mg/dl borderline riskChol 240 mg/dl and greater high riskResult Comment: Chol less than 200 mg/dl low risk Chol 201-239 mg/dl borderline risk Chol 240 mg/dl and greater high riskPerformed By: #### BMP, CBC, LIPID #### [facility] [address] [place] [address] USACholesterol in LDL Calc [Mass/Vol]Ordered By: Nuria Neal on 21-28-6575Jdvtxgvxioy in LDL [Mass/Vol]51 mg/dL0-100St. Francis HospitalComment on above:LDL ATP III CLASSIFICATIONLDL less than 100 mg/dL OptimalLDL 100-129 mg/dL Near or above wbcyzgkXVP841-829 mg/dL Borderline highLDL 160-189 mg/dL HighLDL greater than 189 mg/dL Very highCholesterol in VLDL Calc [Mass/Vol]Ordered By: Nuria Neal on 85-69-8921Fqhpvmckppg in VLDL [Mass/Vol]13 mg/dLSt. Francis HospitalComplete Blood Count Auto Diffon 05-72-8345Gpyf Corpuscular HGB Conc34.2 g/lYWtlwkt52.5-35.6The [facility] Physician GroupComment on above:Performed By: #### BMP, CBC, LIPID #### [facility] [address] [place] [address] USANRBC%0.1 /100{WBC}Normal0-0.5The [facility] Comment on above:Performed By: #### BMP, CBC, LIPID #### [facility] [address] [place] [address] USACreatinine [Mass/volume] in Serum or PlasmaOrdered By: Nuria Neal on 79-86-8211Funeifccdj [Mass/Vol]0.85 mg/dLNormal0.70-1.30St. Francis HospitalComment on above:Performed By: #### BMP, CBC, LIPID #### [place] [address] USAECG 12 lead ECGon 55-29-3253JOF 12 lead ECGOHIOHEALTH [place] [address] Electrocardiograph Report Signed Patient: Wing Alejandro MR#: [id number] 5 : 1970 Acct:[id number] Age/Sex: 54 / M ADM Date: 06/19/24 Loc: Room: [address] [place] [address] Type: DIS IN Attending Dr: Mekhi Powers MD Ordering Provider: Nuria Neal DO Date of Service: 06/20/24 ECG/ECG 12 [...] Septal infarct present Confirmed by Jim Hinkle ([id number]) on 06/20/2024 8:56:34 PM Referred By: Electronically Signed By: Jim Hinkle Transcribed By: MUS Signed By Jim Hinkle MD 06/20/242055[facility] Physician GroupECH echo transthoracicon 05-80-3539SIQ echo transthoracicOHIOHEALTH MANSFIELD [facility]OSPITAL Main [place] [id number] Echocardiogram Signed Patient: Wing Alejandro MR#: [id number] 5 : 1970 Acct:[id number] Age/Sex: 54 / M ADM Date: 06/19/24 Loc: Room: [address] [place] [address] Type: ADM IN Attending Dr: Mekhi Powers MD Ordering Provider: Nuria Neal DO Date of Service: 06/20/24 ECH/ECH echo transthoracic: Anterior STEMI Copies to: Jim Hinkle MD Nuria Neal DO AM Patient Location: : 1970 Gender: Male (MM/DD/YYYY) Age: 54 Years Ordering Physician: Nuria Neal Height: 72.83 in Weight: 150.128 lb Performed [...] 19.3 cm + + + + + + + : Electronically : : signed by: Jim : : : : Arin : : : : on: 06/20/2024, : : : : 1:36 PM : + + + Transcribed By: SCV Performed At: 06/20/24908 Signed By: Jim Hinkle MD 06/20/[address] [place] [address] Physician GroupErythrocyte distribution width [Ratio] by Automated countOrdered By: Nuria Neal on 13-10-7993Aavcpzycems distribution width (RBC) [Ratio]12.6 % Nhcwhs70.0-14.8St. Francis HospitalComment on above:Performed By: #### BMP, CBC, LIPID #### [facility] [address] [place] [address] USAErythrocytes [#/volume] in Blood by Automated countOrdered By: Nuria Neal on 93-43-8211ODG (Bld) [#/Vol]3.41 10*6/uLLow3.90-5.60St. Francis HospitalComment on above:Performed By: #### BMP, CBC, LIPID #### [place] [address] USAGlucose Poct Glucometerson 40-22-4028Sonwugp0Akd9: Cleaned MeterNoSandhills Regional Medical Center Physician GroupComment on above:Result Comment: PERFORMED BY: [place] [address] PATHOLOGIST STEEL CRANE OPERATOR MEL SCOTT M.D.Performed By: #### GLULS #### Point of Care testing ,Lsjpfdi1Wsa6: Cleaned MeterNoSandhills Regional Medical Center Physician GroupComment on above: Result Comment: PERFORMED BY: [place] [address] PATHOLOGIST STEEL CRANE OPERATOR MEL SCOTT M.D.Performed By: #### HS TROP #### [place] [address] USAGlucose [Mass/Vol]119 mg/dLNoSandhills Regional Medical Center Physician GroupComment on above:Result Comment: Random Glucose Reference Range is dependent on time and content of last meal. Glucose of more than 200 mg/dL in a nonstressed, ambulatory subject supports the diagnosis of Diabetes Mellitus.Performed By: #### HS TROP #### [place] [address] USAGlucose [Mass/volume] in Serum or PlasmaOrdered By: Nuria Neal on 28-61-7759Ntbukbn [Mass/Vol]100 mg/bRPeylgh15-246AiiwpqvbpSt. Francis HospitalComment on above:ADA recommended reference rangeRandom Glucose Reference Range is dependent on time and content of last meal. Glucose of more than 200 mg/dL in a nonstressed, ambulatory subject supports the diagnosisof Diabetes Mellitus.Result Comment: Random Glucose Reference Range is dependent on time and content of last meal. Glucose of more than 200 mg/dL in a nonstressed, ambulatory subject supports the diagnosis of Diabetes Mellitus. ADA recommended reference rangePerformed By: #### BMP, CBC, LIPID #### [facility] [address] [place] [address] USAHematocrit [Volume Fraction] of Blood by Automated count Ordered By: Nuria Neal on 82-83-2391Rabzhswuje (Bld) [Volume fraction]30.7 %Low 38.8-50.0St. Francis HospitalComment on above:Performed By: #### BMP, CBC, LIPID #### [facility] [address] [place] [address] USAHemoglobin [Mass/volume] in BloodOrdered By: Nuria Neal on 21-15-0341Sbcwgvkddx (Bld) [Mass/Vol]10.5 g/dLLow13.0-17.0St. Francis HospitalComment on above:Performed By: #### BMP, CBC, LIPID #### [facility] [address] [place] [address] USALeukocytes [#/volume] corrected for nucleated erythrocytes in Blood by Automated counOrdered By: Nuria Neal on 78-73-8338ONT corrected for nucl RBC Auto (Bld) [#/Vol]8.8 10*3/uL4.1-10.5FSuburban Community Hospital & [facility] Leukocytes [#/volume] in Blood by Automated countOrdered By: Nuria Neal on 00-11-0121AFF (Bld) [#/Vol]8.8 10*3/uLNormal4.1-10.5FSuburban Community Hospital & Brentwood HospitalComment on above:Performed By: #### BMP, CBC, LIPID #### [facility] [address] [place] [address] USALipid Panelon 26-96-7080RKR Cholesterol,Wpdljaigor18 mg/dL Normal0-100The [facility]c Physician GroupComment on above:Result Comment: LDL ATP III CLASSIFICATION LDL less than 100 mg/dL Optimal LDL 100-129 mg/dL Near or above optimal LDL 130-159 mg/dL Borderline high LDL 160-189 mg/dL High LDL greater than 189 mg/dL Very highPerformed By: #### BMP, CBC, LIPID #### [facility] [address] [place] [address] USATriglyceride w/Zxxhhs56 mg/dLNormal0-149The [facility]c Physician GroupComment on above:Result Comment: TRIG ATP III CLASSIFICATION TRIG less than 150 mg/dL Normal TRIG 150-199 mg/dL Borderline high TRIG 200-500 mg/dL High TRIG greater than 500 mg/dL Very high Standard traceable to the Center for Disease Conrtrol and Prevention (CDC) test method.Performed By: #### BMP, CBC, LIPID #### [place] [address] USAVLDL VWFIUDAEENS84 mg/dLNormalThe [facility]c Physician GroupComment on above:Performed By: #### BMP, CBC, LIPID #### [place] [address] USALymphocytes [#/volume] in Blood by Automated countOrdered By: Nuria Neal on 00-57-4853Fnzawsrlsgh (Bld) [#/Vol]1.8 10*3/uLNormal1.00-4.8 [facility] Francis HospitalComment on above:Performed By: #### BMP, CBC, LIPID #### [place] [address] USALymphocytes/100 leukocytes in Blood by Automated count Ordered By: Nuria Neal on 69-36-4658Xqnuhfqfcje/100 WBC (Bld)19.8 %Normal. St. Francis HospitalComment on above:Performed By: #### BMP, CBC, LIPID #### [place] [id number] [facility] [Entitic mass] by Automated countOrdered By: Nuria Neal on 37-33-4954GYJ (RBC) [Entitic mass]30.8 plIrevan52.5-35.2FSuburban Community Hospital & Brentwood HospitalComment on above:Performed By: #### BMP, CBC, LIPID #### [place] [id number] USAMCHC Auto (RBC) [Mass/Vol]Ordered By: Nuria Neal on 37-65-3356GUES (RBC) [Mass/Vol]34.2 g/dL32.5-35.6FSuburban Community Hospital & Brentwood HospitalMCV [Entitic volume] by Automated countOrdered By: Nuria Neal on 06-20-2024 MCV (RBC) [Entitic vol]90.0 iZQwopdl78.5-101[facility] Comment on above:Performed By: #### BMP, CBC, LIPID #### [facility] [address] [place] [address] USANeutrophils [#/volume] in Blood by Automated countOrdered By: Nuria Neal on 89-73-7776Qvjcxgjnzzn (Bld) [#/Vol]6.0 10*3/uLNormal1.8-7.7 [facility] HospitalComment on above:Performed By: #### BMP, CBC, LIPID #### [facility] [address] [place] [address] USANo Panel InformationOrdered By: Mekhi Powers on 59-68-0973Npnwgol Glucose CommentGlu2: cleaned [facility] HospitalNo Panel InformationOrdered By: Nuria Neal on 67-43-2283Glqimhliu GFR (CKD-EPI)> 60.0 mL/MinSt. Francis HospitalPharmacy Creatinine Clearance (Chem94.82St. Francis HospitalNucleated erythrocytes [Presence] in Blood by Automated countOrdered By: Nuria Neal on 06-20-2024 Nucleated RBC Auto Ql (Bld)0.1 /100{WBC}0-0.5FSuburban Community Hospital & [facility] Platelet mean volume [Entitic volume] in Blood by Automated countOrdered By: Nuria Neal on 20-64-2956Fycmefbi mean volume (Bld) [Entitic vol]7.5 fLNormal 6.6-10.1FSuburban Community Hospital & Brentwood HospitalComment on above:Performed By: #### BMP, CBC, LIPID #### [facility] [address] [place] [address] USAPlatelets [#/volume] in Blood by Automated countOrdered By: Nuria Neal on 94-62-5185Ckbvyqalu (Bld) [#/Vol]407 10*3/gNJsfyhh819-763 [facility] HospitalComment on above:Performed By: #### BMP, CBC, LIPID #### [facility] [address] [place] [id number] USAPotassium [Moles/volume] in Serum or PlasmaOrdered By: Nuria Neal on 12-28-3915Anhwrfwvz [Moles/Vol]3.6 mmol/LNormal3.5-5.1FSuburban Community Hospital & Brentwood HospitalComment on above:Performed By: #### BMP, CBC, LIPID #### [facility] [address] [place] [address] USASerum or plasma anion gap determinationOrdered By: Nuria Neal on 42-73-3494Zorrz gap [Moles/Vol]9.9 mmol/LNormal6.0-15.0St. Francis HospitalComment on above:Performed By: #### BMP, CBC, LIPID #### [facility] [address] [place] [address] USASerum or plasma high density lipoprotein (HDL) cholesterol measurementOrdered By: Nuria Neal on 85-68-0619Ajirrzehaqt in HDL [Mass/Vol]33 mg/kRYdekag03-76PmpqyxnefSt. Francis HospitalComment on above:HDL CHOL ATP- III CLASSIFICATION Cardiovascular RiskHDL > or equal to 60 mg/dL LOWHDL < 40 mg/dL HIGHResult Comment: HDL CHOL ATP-III CLASSIFICATION Cardiovascular Risk HDL > or equal to 60 mg/dL LOW HDL < 40 mg/dL HIGHPerformed By: #### BMP, CBC, LIPID #### [facility] [address] [place] [id number] USASerum or plasma total cholesterol/high density lipoprotein (HDL) cholesterol mass ratOrdered By: Nuria Neal on 06-20-2024 Cholesterol.total/Cholesterol in HDL [Mass ratio]2.9 {ratio}Normal<5.0St. Francis HospitalComment on above:Result Comment: PERFORMED BY: [place] [id number] PATHOLOGIST STEEL CRANE OPERATOR MEL SCOTT M.D.Performed By: #### BMP, CBC, LIPID #### [facility] [address] [place] [address] USASodium [Moles/volume] in Serum or PlasmaOrdered By: Nuria Neal on 08-56-2774Kjngvp [Moles/Vol]138 mmol/OMbcqxa927-120OzwjakpcwSt. Francis HospitalComment on above:Performed By: #### BMP, CBC, LIPID #### [facility] [address] [place] [address] USATriglyceride [Mass/volume] in Serum or PlasmaOrdered By: Nuria Neal on 23-67-6355Timdaywvbrqw [Mass/Vol]67 mg/dL0-149St. Francis HospitalComment on above:TRIG ATP III CLASSIFICATIONTRIG less than 150 mg/dL NormalTRIG 150-199 mg/dL Borderline highTRIG 200-500 mg/dL High TRIG greater than 500 mg/dL Very highStandard traceable to the Center for Disease Co nrtrol and Prevention (CDC) test method.Troponin I High Sensitivityon 06-20-2024 Troponin I High Tcvvjmubhaq177.6 pg/mLOff scale high0.0-20.0The [facility] Physician GroupComment on above:Result Comment: Critical Result : Called to and read back by: ZANDRA OJEDA at: 06/20/2024 05:31:19 by:[id number] PERFORMED BY: [place] [id number] PATHOLOGIST STEEL CRANE OPERATOR MEL SCOTT M.D.Performed By: #### HS TROP #### [place] [id number] USATroponin I.cardiac [Mass/volume] in Serum or Plasma by Detection limit <= 0.01 ng/Ordered By: Nuria Neal on 12-60-6320Askxontj I.cardiac DL <= 0.01 ng/mL [Mass/Vol]311.6 pg/mLHigh0.0-20.0St. Francis HospitalComment on above:Critical Result : Called to and read back by: ZANDRA OJEDA at: 06/20/2024 05:31:19 by:[id number] nitrogen [Mass/volume] in Serum or PlasmaOrdered By: Nuria Neal on 71-27-1025Fqdo nitrogen [Mass/Vol]19 mg/dLNormal 03-14St. Francis HospitalComment on above:Performed By: #### BMP, CBC, LIPID #### [place] [address] USAA1C with Estimated Average Gluon 07-24-3599Xzzrxzl [Mass/Vol]278 mg/dLNoSandhills Regional Medical Center Physician GroupComment on above:Result Comment: PERFORMED BY: [place] [address] PATHOLOGIST STEEL CRANE OPERATOR MEL SCOTT M.D.Performed By: #### HS TROP #### [place] [address] USAAnti-Xa UF Heparinon 92-83-7754Tluy-Xa UF Heparin< 0.04Low 0.30-0.70The [facility] Physician [facility] GulfportComment on above:Result Comment: Use the aPTT protocol when triglycerides are > 800 mg/dL, total bilirubin is > 20 mg/dL and/or patient has received a DOAC, Fondaparinux or LMWH within 72 hours AND baseline anti-Xa level is > 0.7 units/mL PERFORMED BY: [place] [address] PATHOLOGIST STEEL CRANE OPERATOR MEL SCOTT M.D.Performed By: #### HS TROP #### [place] [address] USABNP ser/plasOrdered By: Katlin Salvador on 06-19-2024 Natriuretic peptide B (Bld) [Mass/Vol]1043.0 pg/mLEdith Nourse Rogers Memorial Veterans HospitalSt. Francis HospitalComment on above:Result Comment: PERFORMED BY: [place] [address] PATHOLOGIST STEEL CRANE OPERATOR MEL SCOTT M.D.Performed By: #### GLULS #### Point of Care testing ,ECG 12 lead ECGon 40-93-6196TIB 12 lead ECGOHIOHEALTH MANSFIELD [facility]OSPITAL Main [address] [address] Electrocardiograph Report Signed Patient: Wing Alejandro MR#: [id number] 5 : 1970 Acct:[id number] Age/Sex: 54 / M ADM Date: 06/19/24 Loc: Room: [address] [place] [address] Type: ADM IN Attending Dr: Mekhi Powers [...] for LVH, may be normal variant ( Ingomar product ) Anterolateral infarct , age undetermined Prolonged QT Abnormal ECG No previous ECGs available Confirmed by Jim Hinkle ([id number]) on 06/19/2024 11:15:31 AM Referred By: Electronically Signed By: Jim Hinkle Transcribed By: MUS Signed By Jim Hinkle MD 06/19/24 1115NoSandhills Regional Medical Center Physician GroupGlucose Poct Glucometerson 56-39-7414Hltwrnm4Zjw8: Cleaned MeterCleveland Clinic Tradition Hospital Physician GroupComment on above:Result Comment: PERFORMED BY: [place] [id number] PATHOLOGIST STEEL CRANE OPERATOR MEL SCOTT M.D.Performed By: #### GLULS #### Point of Care testing ,Glucose [Mass/Vol]355 mg/dLCleveland Clinic Tradition Hospital Physician GroupComment on above: Result Comment: Random Glucose Reference Range is dependent on time and content of last meal. Glucose of more than 200 mg/dL in a nonstressed, ambulatory subject supports the diagnosis of Diabetes Mellitus.Performed By: #### GLULS #### Point of Care testing ,Rumnyok3Rsw8: Cleaned MeterNormCleveland Clinic [facility] Hospital Physician GroupComment on above: Result Comment: PERFORMED BY: [place] [address] PATHOLOGIST STEEL CRANE OPERATOR MEL SCOTT M.D.Performed By: #### HS TROP #### [facility] [address] [place] [address] USAGlucose [Mass/Vol]282 mg/dLNoSandhills Regional Medical Center Physician GroupComment on above:Result Comment: Random Glucose Reference Range is dependent on time and content of last meal. Glucose of more than 200 mg/dL in a nonstressed, ambulatory subject supports the diagnosis of Diabetes Mellitus.Performed By: #### HS TROP #### [facility] [address] [place] [address] USAGlucose [Mass/Vol]269 mg/dLNoSandhills Regional Medical Center Physician GroupComment on above:Result Comment: Random Glucose Reference Range is dependent on time and content of last meal. Glucose of more than 200 mg/dL in a nonstressed, ambulatory subject supports the diagnosis of Diabetes Mellitus. PERFORMED BY: [place] [address] PATHOLOGIST STEEL CRANE OPERATOR MEL SCOTT M.D.Performed By: #### GLULS #### Point of Care testing ,Glucose [Mass/Vol]292 mg/dLNoSandhills Regional Medical Center Physician GroupComment on above: Result Comment: Random Glucose Reference Range is dependent on time and content of last meal. Glucose of more than 200 mg/dL in a nonstressed, ambulatory subject supports the diagnosis of Diabetes Mellitus. PERFORMED BY: [place] [address] PATHOLOGIST STEEL CRANE OPERATOR MEL SCOTT M.D.Performed By: #### GLULS #### Point of Care testing ,Glucose mean value [Mass/volume] in Blood Estimated from glycated hemoglobin Ordered By: Katlin Salvador on 88-25-7015Aoenwei glucose Estimated from glycated hemoglobin (Bld) [Mass/Vol]278 mg/dLSt. Francis HospitalHemoglobin A1c percentageOrdered By: Katlin Salvador on 69-10-4536UaW6q (Bld) [Mass fraction] 11.3 %High4.3-5.6FSuburban Community Hospital & Brentwood HospitalComment on above:Increased risk for diabetes: 5.7 - 6.4diabetes: >6.4glycemic control for adults with diabetes: <7.0Result Comment: Increased risk for diabetes: 5.7 - 6.4 diabetes: >6.4 glycemic control for adults with diabetes: <7.0Performed By: #### HS TROP #### [facility] [address] [place] [address] USAHeparin anti-Xa unfractionatedOrdered By: Katlin Salvador on 84-80-4591Vwbtdul unfractionated Chromogenic method Qn (PPP)< 0.04 [IU]/mLLow 0.30-0.70St. Francis HospitalComment on above:Use the aPTT protocol when triglycerides are > 800 mg/dL,total bilirubin is > 20 mg/dL and/orpatient has received aDOAC, Fondaparinux or LMWH within 72 hours AND baselineanti-Xa level is > 0.7 units/mLLipid Panelon 30-68-2621Hpulkxbayre [Mass/Vol]116 mg/dL Ppx388-601Kbo [facility] Physician GroupComment on above:Result Comment: Chol less than 200 mg/dl low risk Chol 201-239 mg/dl borderline risk Chol 240 mg/dl and greater high riskPerformed By: #### HS TROP #### [facility] [address] [place] [address] USACholesterol in HDL [Mass/Vol]39 mg/tAOndipx28-33Mke [facility] Physician GroupComment on above:Result Comment: HDL CHOL ATP-III CLASSIFICATION Cardiovascular Risk HDL > or equal to 60 mg/dL LOW HDL < 40 mg/dL HIGHPerformed By: #### HS TROP #### [facility] [address] [place] [address] USACholesterol.total/Cholesterol in HDL [Mass ratio]3.0 {ratio}Normal<5.0The [facility] Physician GroupComment on above:Result Comment: PERFORMED BY: [facility] [address] [place] [address] PATHOLOGIST STEEL CRANE OPERATOR MEL SCOTT M.D.Performed By: #### HS TROP #### [place] [id number] USALDL Cholesterol,Ettaqhpuxj88 mg/dLNormal0-100The [facility] Physician GroupComment on above:Result Comment: LDL ATP III CLASSIFICATION LDL less than 100 mg/dL Optimal LDL 100-129 mg/dL Near or above optimal LDL 130-159 mg/dL Borderline high LDL 160-189 mg/dL High LDL greater than 189 mg/dL Very highPerformed By: #### HS TROP #### [place] [address] USATriglyceride w/Ndlcxw31 mg/dLNormal0-149The [facility] Physician GroupComment on above:Result Comment: TRIG ATP III CLASSIFICATION TRIG less than 150 mg/dL Normal TRIG 150-199 mg/dL Borderline high TRIG 200-500 mg/dL High TRIG greater than 500 mg/dL Very high Standard traceable to the Center for Disease Conrtrol and Prevention (CDC) test method.Performed By: #### HS TROP #### [place] [address] USAVLDL BOBFKPTDWKV25 mg/dLNormalThe [facility] Physician GroupComment on above:Performed By: #### HS TROP #### [place] [address] USATroponin I High Sensitivityon 05-12-6308Hgzrftyw I High Ajyqgkulxbe107.5 pg/mLOff scale high0.0-20.0The [facility] Physician [facility] GulfportComment on above:Result Comment: Critical Result : Called to and read back by: MONA ZARAGOZA at: 06/19/2024 15:36 by:MLG PERFORMED BY: [place] [address] PATHOLOGIST STEEL CRANE OPERATOR MEL SCOTT M.D.Performed By: #### HS TROP #### [place] [address] USATroponin I High Dbdinavwqra777.1 pg/mLOff scale high 0.0-20.0The [facility] Physician GroupComment on above:Result Comment: Critical Result : Called to and read back by: MARYANNE PATTON at: 06/19/2024 14:48:55 by:MLG PERFORMED BY: [place] [address] PATHOLOGIST STEEL CRANE OPERATOR MEL SCOTT M.D.Performed By: #### HS TROP #### [place] [id number] USATroponin I High Ftnpnnyhjdj171.4 pg/mLOff scale high 0.0-20.0The [facility] Physician GroupComment on above:Result Comment: Critical Result : Called to and read back by: NERISSA LARRY at: 06/19/2024 11:50:46 by:MLG PERFORMED BY: [place] [address] PATHOLOGIST STEEL CRANE OPERATOR MEL SCOTT M.D.Performed By: #### HS TROP #### [place] [id number] USATroponin I High Ruxdqdmbtqr169.1 pg/mLOff scale high 0.0-20.0The [facility] Physician GroupComment on above:Result Comment: Critical Result : Called to and read back by: MONA LOMBARDI at: 06/19/2024 07:40:51 by:MLG PERFORMED BY: [place] [address] PATHOLOGIST STEEL CRANE OPERATOR MEL SCOTT M.D.Performed By: #### HS TROP #### [place] [id number] USAXR chest 1V portableon 92-08-2112LX chest 1V portable [facility] Main [place] [id number] XRay Report Signed Patient: Wing Alejandro MR#: [id number] [birth year] : 1970 Acct:[id number] Age/Sex: 54 / M ADM Date: 06/19/24 Loc: Room: [address] [place] [address] Type: ADM IN Attending Dr: Mekhi Powers [...] Chelsi Ordaz M.D.06/19/2024 8:03 AM Dictation Location: [facility]--23 Transcribed By: CHASE 06/19/24 0803 Dictated By: Chelsi Ordaz MD 06/19/24 0756 Signed By: 06/19/24 0803[facility] Vital Signs Date TimeVital SignValuePerforming SkfudpsvvSwikvbtm73-92-2276 11:30-0400Body .4 cmWibrianna Neal DO Work Phone: [facility]08-13-2025 11:30-0400 Body mass index (BMI) [Ratio]22.3 kg/v2LsvyozyUriah Neal DO Work Phone: [phone]08-13-2025 11:30-0400 Body rreoan20.66 kgUriah Neal DO Work Phone: [facility]08-13-2025 11:30-0400 Diastolic blood gynpgrps31 mm[Hg]Uriah Neal DO Work Phone: [phone]08-13-2025 11:30-0400 Heart rate72 /minUriah Neal DO Work Phone: [facility]08-13-2025 11:30-0400 Systolic blood axbhjymg598 mm[Hg]Uriah Neal DO Work Phone: [facility]08-05-2025 14:50-0400 Body .4 Patricio Langford MD Work Phone: [phone] [place], [place] [address]Lumbhyqcip30-68-0637 14:50-0400Body mass index (BMI) [Ratio]21.64 kg/b6ClvwuZenia Langford MD Work Phone: [phone])[facility] [place], [place] [address]Wdojlghbvt66-25-1907 14:50-0400Body ydlpum68.39 kgZenia Langford MD Work Phone: [phone] [place], [place] [address]Wmgdkraypy73-71-6399 14:50-0400Heart rate80 /min Zenia Langford MD Work Phone: [phone])[facility] [place], [place] [address]Vmkjlyxcnn43-33-3241 14:50-0400Respiratory rate18 /minZenia Langford MD Work Phone: [phone] [place], [place] [address]008-05-2025 14:50-4071RiA2% (BldA) [Mass fraction]97 %Zenia Langford MD Work Phone: 1(161)[address] [place], [place] 9537005-05-2025 11:32-0400Body poxpjh553.4 Patricio Langford MD Work Phone: 1(034)[facility] [place], [place] [address]Glnsuvyznt02-03-5296 11:32-0400Diastolic blood tgakgncj17 mm[Hg]Zenia Langford MD Work Phone: 1(773)[facility] [place], [place] [address]Vjljwjsvwy92-37-1379 11:32-0400Heart rate79 /min Zenia Langford MD Work Phone: 1(280)[facility] [place], [place] [address]Olqynolljj13-12-7624 11:32-0400Respiratory rate18 /minZenia Langford MD Work Phone: 1(451)[facility] [place], [place] [address]Lpapxvwraf35-97-2921 11:32-3959MdY8% (BldA) [Mass fraction]96 %Zenia Langford MD Work Phone: 1(464)[address] [place], [place] 9537005-05-2025 11:32-0400Systolic blood iinflurc859 mm[Hg]Zenia Langford MD Work Phone: 1(474)[address] [place], [place] 9537004-10-2025 11:00-0400Diastolic blood zmgotlhq13 mm[Hg]Maris Ramos MD Work Phone: 1(975)[address]04-10-2025 11:00-0400 Heart rate74 /Boaz Ramos MD Work Phone: 1(285)[address]04-10-2025 11:00-0400 Respiratory rate22 /Boaz Ramos MD Work Phone: 1(898)[address]04-10-2025 11:00-0400 SaO2% (BldA) [Mass fraction]98 %Maris Ramos MD Work Phone: 1(389)[address]04-10-2025 11:00-0400 Systolic blood vwevrbba316 mm[Hg]Maris Ramos MD Work Phone: 1(104)[address]04-10-2025 10:53-0400 Body mass index (BMI) [Ratio]21.52 kg/m2Maris Ramos MD Work Phone: 1(785)[address]04-10-2025 10:53-0400 Body awvnuj20 kgMaris Ramos MD Work Phone: 1(550)[address]04-10-2025 08:00-0400 Body rjkjbrmboys36.5 [degF]Maris Ramos MD Work Phone: 1(291)[address]04-09-2025 12:00-0400 Diastolic blood heqlleha26 mm[Hg]Maris Ramos MD Work Phone: 1(042)[address]04-09-2025 12:00-0400 Heart rate86 /Boaz Ramos MD Work Phone: 1(017)[address]04-09-2025 12:00-0400 Respiratory rate24 /Boaz Ramos MD Work Phone: 1(424)[address]04-09-2025 12:00-0400 SaO2% (BldA) [Mass fraction]99 %Maris Ramos MD Work Phone: 1(122)[address]04-09-2025 12:00-0400 Systolic blood mm[Hg]Marsi Ramos MD Work Phone: 1(285)[address] [place], [place] 6878604-09-2025 10:45-0400 Body .4 cmMaris Ramos MD Work Phone: 1(217)[address]04-09-2025 10:45-0400 Body mass index (BMI) [Ratio]21.52 kg/m2Maris Ramos MD Work Phone: 1(234)[address]04-09-2025 10:45-0400 Body kgMaris Ramos MD Work Phone: 1(783)[address]04-09-2025 10:35-0400 Body tmixbifezld37.2 [degF]Maris Ramos MD Work Phone: 1(120)[address]02-17-2025 11:16-0500 Body pasmzw614.4 cmMaris Ramos MD Work Phone: 1(232)[address]02-17-2025 11:16-0500 Body mass index (BMI) [Ratio]21.22 kg/m2Maris Ramos MD Work Phone: 1(810)[address]02-17-2025 11:16-0500 Body nafsjl12.94 kgMaris Ramos MD Work Phone: 1(385)[address]02-17-2025 11:16-0500 Diastolic blood huevcbkz09 mm[Hg]Maris Ramos MD Work Phone: 1(392)[address]02-17-2025 11:16-0500 Heart rate79 /minMaris Ramos MD Work Phone: 1(081)[address]02-17-2025 11:16-0500 Systolic blood wvvpuoai158 mm[Hg]Maris Ramos MD Work Phone: 1(941)[address]02-12-2025 11:28-0500 Body ildmif279.4 cmUriah Neal DO Work Phone: 1(111)[address] [place], [place] 5055602-12-2025 11:28-0500 Body mass index (BMI) [Ratio]21.11 kg/o9BrxcuztUriah Neal DO Work Phone: [facility]02-12-2025 11:28-0500 Body unwzro79.58 kgWibrianna Neal DO Work Phone: [facility]02-12-2025 11:28-0500 Diastolic blood wfpvciza87 mm[Hg]Uriah Neal DO Work Phone: [facility]02-12-2025 11:28-0500 Heart rate84 /minUriah Neal DO Work Phone: [facility]02-12-2025 11:28-0500 Systolic blood dxfzjodj787 mm[Hg]Uriah Neal DO Work Phone: [facility]02-05-2025 10:15-0500 Body bagccc333.4 Patricio Langford MD Work Phone: 1(191)464-[address] [place], [place] [address]Adcysdkrby89-33-5524 10:15-0500Body mass index (BMI) [Ratio]20.58 kg/j5GqpwrZenia Langford MD Work Phone: 1(923)332-[address] [place], [place] [address]Wzgwmgomev11-68-3410 10:15-0500Body .76 kgZenia Langford MD Work Phone: 1(201)080-[address] [place], [place] [address]Txshvwrmhx12-40-5725 10:15-0500Diastolic blood rzsxqqeo10 mm[Hg]Zenia Langford MD Work Phone: 1(213)885-[address] [place], [place] [address]Xbpxriuycu31-62-5091 10:15-0500Heart rate95 /min Zenia Langford MD Work Phone: [address] [place], [place] [address]Faktmawtgd49-07-9687 10:15-0500Respiratory rate18 /minZenia Langford MD Work Phone: 1(960)415-[address] [place], [place] [address]Yezaudiszr65-98-8920 10:15-8377EvJ2% (BldA) [Mass fraction]97 %Zenia Langford MD Work Phone: 1(568)117-[address] [place], [place] [address]Yoofowlqlc27-54-2375 10:15-0500Systolic blood dwftolns448 mm[Hg]Zenia Langford MD Work Phone: [facility] CenterSufzijysdf00-31-8209 10:37-0500Body bbbaak435.4 cmWibrianna Neal DO Work Phone: [facility]11-13-2024 10:37-0500 Body mass index (BMI) [Ratio]19.39 kg/x7WafsmoqUriah Neal DO Work Phone: 1(938)996-[address] [place], [place] 5055611-13-2024 10:37-0500 Body dttyax48.68 kgWibrianna Neal DO Work Phone: 1(973)429-[address] [place], [place] 5055611-13-2024 10:37-0500 Diastolic blood cqttmaeu93 mm[Hg]Uriah Neal DO Work Phone: 0(363)869-[address] [place], [place] 5055611-13-2024 10:37-0500 Heart rate72 /minUriah Neal DO Work Phone: 4(084)241-[address] [place], [place] 5055611-13-2024 10:37-0500 Systolic blood qtowuemo510 mm[Hg]Uriah eNal DO Work Phone: [facility]10-31-2024 16:15-0400 Diastolic blood nsuldioc11 mm[Hg]MD Katlin Salvador Work Phone: [facility]10-31-2024 16:15-0400 Heart rate80 /minMD Katlin Salvador Work Phone: [facility]10-31-2024 16:15-0400 Respiratory rate20 /minMD Katlin Salvador Work Phone: [facility]10-31-2024 16:15-0400 SaO2% (BldA) [Mass fraction]95 %MD Katlin Salvador Work Phone: [facility]10-31-2024 16:15-0400 Systolic blood cpniofkt297 mm[Hg]MD Katlin Salvador Work Phone: [facility]10-31-2024 15:08-0400 Body .42 cmMD Katlin Salvador Work Phone: [facility]10-31-2024 12:00-0400 Body fhaukyoiowu51.3 [degF]MD Katlin Salvador Work Phone: [facility]10-31-2024 06:00-0400 Body itqjvy05.1 kgMD Katlin Salvador Work Phone: [facility] Encounters Encounter DateEncounter TypeCare ProviderFacilityStart: 2025 End: 05-58-1223rrrjgxpludEBLQK[facility] Start: 2025 End: 94-18-8067Ffbzmihefp hospital visit by physicianEly Device General acute hospitalComment on above:Presence of automatic cardioverter/defibrillator (AICD); Non-ischemic cardiomyopathy (Multi)Start: 04-02-2025 End: 71-61-3439Uuicuq outpatient visit 25 minutesPhaneuf Hospital Work Phone: [facility] campusComment on above:Coronary artery disease involving redding coronary artery of redding heart without angina pectoris; Cardiomyopathy, unspecified type (Multi); S/P PTCA (percutaneous transluminal coronary angioplasty); ST elevation myocardial infarction (STEMI), unspecified artery (Multi); History of placement of stent in LAD coronary artery; AICD (automatic cardioverter/defibrillator) present; Type 2 diabetes mellitus without complication, with long-term current use of insulin; Dyspnea on exertion; Congestive heart failure, NYHA class 2, unspecified congestive heart failure type; BMI 22.0-22.9, adult; Former smokerStart: 04-02-2025 End: 21-48-3266qvbcgjreklUSPONFFEm[facility] AmbulatoryStart: 03-25-2025 End: 58-63-5332Drbjzf outpatient visit 25 minutesZenia Langford MD Work Phone: NONM [place] EndocrinologyComment on above:Primary hypertension (Primary Dx); Poor control type I diabetes mellitus (HCC); Encounter for dietary consultation; Vitamin D deficiency; Hyperlipemia, mixed ; Insulin long-term use (HCC); Insulin pump status; Encounter for fitting and adjustment of insulin pumpStart: 03-25-2025 End: 26-88-3161Mqynkvberry Langford MD Work Phone: [facility] [place] EndocrinologyStart: 03-25-2025 End: 17-49-6964Vvwcgnroberto Langford MD Work Phone: [facility] [place] EndocrinologyStart: 01-07-2025 End: 66-37-5401oiwffatgacJRGSCleveland Clinic [facility] Hospital Start: 01-07-2025 End: 01-64-1765Wquwseefms hospital visit by physicianEly Device General acute hospitalComment on above:Presence of automatic cardioverter/defibrillator (AICD); Non-ischemic cardiomyopathy (Multi)Start: 32-44-8970ufzmzftmmpUYDVBUS [facility] AmbulatoryStart: 12-23-2024 End: 33-55-7384Pkxslfberry Langford MD Work Phone: [facility] ENDOCRINOLOGYStart: 12-23-2024 End: 76-27-1729Jlkrxvroberto Langford MD Work Phone: [facility] ENDOCRINOLOGYStart: 12-23-2024 End: 54-43-4381rwbnayptqyBCMWODavid Magaña AvailableStart: 12-23-2024 End: 17-01-0493Mufyda outpatient visit 40 minutesZenia Langford MD Work Phone: noms ENDOCRINOLOGYComment on above:Poor control type I diabetes mellitus (CMS/HCC) (Primary Dx); Primary hypertension (CMS/HCC); Encounter for dietary consultation; Vitamin D deficiency; Hyperlipemia, mixed (CMS/HCC); Insulin long-term use (CMS/HCC); Insulin pump status; Encounter for fitting and adjustment of insulin pumpStart: 12-04-2024 End: 37-44-7743kvslmkgveeYHNIGIE [facility] Start: 11-27-2024 End: 75-10-5181Xicgopqvsk hospital visit by Priya Ramos MD Work Phone: [facility] Medical Intensive CareComment on above:Cardiomyopathy, ischemic (Primary Dx)Cardiomyopathy, ischemic (Primary Dx); Post-op painStart: 11-21-2024 End: 61-43-1881Wmrrbbroberto Langford MD Work Phone: [facility] ENDOCRINOLOGYStart: 11-21-2024 End: 88-19-4135Mhcaymroberto Langford MD Work Phone: [facility] ENDOCRINOLOGYStart: 11-21-2024 End: 64-71-2378bzhfafpuxkSUCCH F SABBAGHNot AvailableStart: 11-21-2024 End: 94-31-2043Htvvqr outpatient visit 40 Cait Langford MD Work Phone: noms ENDOCRINOLOGYComment on above:Poor control type I diabetes mellitus (CMS/HCC) (Primary Dx); Primary hypertension (CMS/HCC); Encounter for dietary consultation; Vitamin D deficiency; Hyperlipemia, mixed (CMS/HCC); Insulin long-term use (CMS/HCC); Insulin pump status; Encounter for fitting and adjustment of insulin pumpStart: 88-10-3255ittvgxgqobFirelands Regional Medical Centertart: 10-07-2024 End: 86-20-8612gidvhmdyfeAXPGNortheast [facility] AmbulatoryStart: 10-07-2024 End: 21-83-0392Omknra consultation new/estab patient 80 Boaz Ramos MD Work Phone: [facility] DrComment on above:Cardiomyopathy, ischemic (Primary Dx); Coronary artery disease involving redding coronary artery of redding heart without angina pectoris; History of placement of stent in LAD coronary artery; Mixed hyperlipidemia; S/P PTCA (percutaneous transluminal coronary angioplasty); ST elevation myocardial infarction (STEMI), unspecified artery (Multi); BMI 21.0-21.9, adult; Former smoker; Encounter for medication review and counseling; Encounter to discuss treatment options; Encounter to establish care with new doctorStart: 10-02-2024 End: 05-90-3862dfbopuqpclRDROOCHEmory Decatur Hospital AmbulatoryStart: 10-02-2024 End: 91-27-7170Cmkwxl outpatient visit 40 minutesMichaelbrianna Mcallisterdon DO Work Phone: [facility] CenterComasc[facility] on above:Coronary artery disease involving redding coronary artery of redding heart without angina pectoris; ST elevation myocardial infarction (STEMI), unspecified artery (Multi); S/P PTCA (percutaneous transluminal coronary angioplasty); History of placement of stent in LAD coronary artery; Cardiomyopathy, ischemic; Former smoker; BMI 21.0-21.9, adultStart: 09-25-2024 End: 44-13-4072Pcnqberoberto Langford MD Work Phone: [facility] ENDOCRINOLOGYStart: 09-25-2024 End: 35-35-2801Tmdtbtroberto Langford MD Work Phone: [facility] ENDOCRINOLOGYStart: 09-25-2024 End: 86-90-5144Wghyhe outpatient new 45 Cait Langford MD Work Phone: noms ENDOCRINOLOGYComment on above:Poor control type I diabetes mellitus (CMS/HCC) (Primary Dx); Primary hypertension (CMS/HCC); Encounter for dietary consultation; Vitamin D deficiency; Hyperlipemia, mixed (CMS/HCC); Insulin long-term use (CMS/HCC)Start: 09-25-2024 End: 27-81-6020tkjcbnpmmcGEMPPDavid Magaña AvailableStart: 07-30-2024 End: 63-19-2739Ozkgbbgwfe hospital visit by Qiana Love Admin Room [address] [place] [address] on above:Coronary artery disease involving redding coronary artery of redding heart without angina pectoris; Cardiomyopathy, ischemic; S/P PTCA (percutaneous transluminal coronary angioplasty); ST elevation myocardial infarction (STEMI), unspecified artery (Multi)Start: 07-30-2024 End: 84-05-8805jxvuwoujsmBPGVHAVOhioHealth Van Wert Hospital CenterStart: 07-03-2024 End: 62-29-2583Readnkxewtgm care manage srvc 14 day [facility]Add[facility] Cinthya [facility] Work Phone: FirelandsComment on above:Coronary artery disease involving redding coronary artery of redding heart without angina pectoris; Cardiomyopathy, ischemic; S/P PTCA (percutaneous transluminal coronary angioplasty); ST elevation myocardial infarction (STEMI), unspecified artery (Multi); Type 2 diabetes mellitus without complication, with long-term current use of insulin (Multi); Mixed hyperlipidemia; Former smoker; Body mass index (BMI) 19.9 or less, adultStart: 07-03-2024 End: 39-11-8668fhpreuukhgLTVZJADEmory Decatur Hospital AmbulatoryStart: 21-83-0166Hko-patient / Non-visitMD Phihao Salvador Work Phone: [facility] Work Phone: Start: 06-19-2024 End: 23-74-7367Enjyouiuyu and management of inpatientMD Leanderfanta Salvador Work Phone: [facility] Work Phone: Start: 10-58-1421ozsappnwqwKF EDUARD HOYFacility:H1 Procedures DateProcedureProcedure DetailPerforming ClinicianStart: 94-73-9527Odvg bld gluc mntr dev cleared fda spec home useZenia Langford MD Work Phone: Start: 87-81-8707Jwha bld gluc mntr dev cleared fda spec home useZenia Langford MD Work Phone: Start: 23-18-6502Fjaodqg dev eval implantable in persn 1 ld dfbMichtosha Duratn ECHOCARDIOGRAPHY RADIOLOGY TECHNOLOGIST-INJECTION MOULDING MACHINE OPERATOR Work Phone: Start: 45-12-1771Svwyo metabolic panel calcium total Anu Durant ECHOCARDIOGRAPHY RADIOLOGY TECHNOLOGIST-INJECTION MOULDING MACHINE OPERATOR Work Phone: Start: 67-55-7710Doogzzk quantitative blood xcpt reagent stripMatthew T [employer] Work Phone: Start: 64-89-9150Kazzlqviam exam chest single view Priya Lopez MD Work Phone: Start: 55-31-9962Kpesipk quantitative blood xcpt reagent stripMatthew T [employer] Work Phone: Start: 92-58-7764Kgq routine ecg w/least 12 lds trcg only w/o i&Ghassan Carias ECHOCARDIOGRAPHY RADIOLOGY TECHNOLOGIST-INJECTION MOULDING MACHINE OPERATOR Work Phone: Start: 69-12-5422Xqevyijtxbxaxqhxg Sulaiman Ramos MD Work Phone: Start: 61-03-7677Eoe routine ecg w/least 12 lds trcg only w/o i&Ghassan Torres ECHOCARDIOGRAPHY RADIOLOGY TECHNOLOGIST-INJECTION MOULDING MACHINE OPERATOR Work Phone: Start: 12-37-1498LXEGP/VERIFY ABORHMaris Ramos MD Work Phone: Start: 27-82-8937Hzhxm metabolic panel calcium total Georgia Torres ECHOCARDIOGRAPHY RADIOLOGY TECHNOLOGIST-INJECTION MOULDING MACHINE OPERATOR Work Phone: Start: 35-12-0006Gnvua typing serologic rh (d)Georgia Torres ECHOCARDIOGRAPHY RADIOLOGY TECHNOLOGIST-INJECTION MOULDING MACHINE OPERATOR Work Phone: Start: 75-30-5451PVIBVON RBCGeorgia Torres ECHOCARDIOGRAPHY RADIOLOGY TECHNOLOGIST-INJECTION MOULDING MACHINE OPERATOR Work Phone: Start: 96-58-5792Ixsb bld gluc mntr dev cleared fda spec home useZenia Langford MD Work Phone: Start: 41-68-5956Dcceqme of placement of stent in anterior descending branch of left coronary arteryHistory of placement of stent in LAD coronary arteryUriah Mendes Ángel DO Work Phone: Start: 00-54-7287Cnuif 1996 panel - Serum or Plasma Uriah Ángel DO Work Phone: Start: 36-48-4419Sdhv bld gluc mntr dev cleared fda spec home useZenia Langford MD Work Phone: Start: 33-19-8245Ziql blood pool gated planar 1 study rest/stressWillshelli Neal DO Work Phone: Start: 81-09-7098FM Coronary Thrombolysis IVMD Katlin Salvador Work Phone: Start: 00-10-7335JI Ivus Initial VesselMD Katlin Salvador Work Phone: Start: 34-38-1325IA LHC & COR AngioMD Katlin Salvador Work Phone: Start: 19-88-8617KX PCI AMI 1st Vessel LAD DESMD Katlin Salvador Work Phone: Start: 87-68-8874RT Katlin Salvador Work Phone: Start: 36-47-7949Stpvd chest X-rayMD Katlin Salvador Work Phone: History of placement of stent in anterior descending branch of left coronary arteryHistory of placement of stent in LAD coronary arteryMaris Ramos MD Work Phone: History of placement of stent in anterior descending branch of left coronary arteryHistory of placement of stent in LAD coronary arteryWiandrewshelli Neal DO Work Phone: Plan of Treatment DateCare ActivityDetailAuthorStart: 15-17-7167CYxU/Tdap/Td Vaccines (2 - Td or Tdap)DTaP/Tdap/Td Vaccines (2 - Td or Tdap)[facility] Start: 65-68-6707Evitngndyi measurementCreatinine LevelUnAshtabula County Medical CenterStart: 90-30-7962Foxzpbwbj measurementPotassium LevelUnAshtabula County Medical CenterStart: 26-29-2397Ltwoyiexzx measurementCreatinine Level [facility] HospitalStart: 20-29-7115Uqksrdvue measurementPotassium LevelUnUniversity Hospitals Elyria Medical [facility]: 19-79-6203Kfljh panelLipid Panel [facility]: 70-17-0140Zdbzj screening for protein Diabetes: Urine Protein ScreeningCleveland Clinic Luther[facility] Hospital: 07-14-2025 End: 00-28-8076Yycegeh encounter htgibhgyc54/24/2025 2:00 PM EST Office Visit [place] [address] [facility] [address] [place] [address] Nisreen Wilcox, ECHOCARDIOGRAPHY RADIOLOGY TECHNOLOGIST-INJECTION MOULDING MACHINE OPERATOR [address] [facility] [address] [place] [address] [facility]: 75-92-2607Kziqfz Adult PhysicalYearly Adult PhysicalUnUniversity Hospitals Elyria Medical Center: 07-03-2025 End: 68-68-1198Hjthh metabolic 2000 panel - Serum or PlasmaBasic Metabolic Panel Lab Routine Coronary artery disease involving redding coronary artery of redding heart without angina pectoris Cardiomyopathy, unspecified type (Multi) S/P PTCA (percutaneous transluminal coronary angioplasty) History of placement of stent in LAD coronary artery Expected: 07/03/2025, Expires: 10/01/2025[facility] Service Area Work Phone: Comment on above:Expected: 07/03/2025, Expires: 10/01/2025Start: 07-03-2025 End: 00-45-2989Aiotaspjwaw peptide B [Mass/volume] in BloodB-Type Natriuretic Peptide Lab Routine Cardiomyopathy, unspecified type (Multi) Expected: 07/03/2025, Expires: 10/01/2025[facility] Work Phone: Comment on above:Expected: 07/03/2025, Expires: 10/01/2025Start: 06-24-2025 End: 62-04-3412Guzcixh encounter pbfqadbzo62/04/2025 10:00 AM EST Office Visit [facility] [address] [place] [address] Zenia Langford MD [address] [place] [address] [facility] [place]ocrinologyStche[place]: 68-40-4134RrprhwmbvdnzwtxhIibemjxgqmulruNtsrdvlvez [facility] ClevelandStart: 38-22-2982XOJJQ-19 Vaccine ( season)COVID-19 Vaccine ( season)[facility]: 42-46-8834Omsztyyqo vaccination [facility]: 04-02-2025 End: 49-09-9222Ybwwknx encounter xyiwcwogn71/13/2025 11:20 AM EDT Office Visit [place] [address] [facility] [address] [place] [address] Uriah Neal DO [address] [facility] [place] [address] [facility]: 03-25-2025 End: 77-50-1303Svrcxud encounter /05/2025 9:50 AM EDT Office Visit [facility] END[facility] [address] [place] [phone] Zenia Langford MD [address] [place] [address] [facility] ENDOCRINOLOGYMartinton: 03-24-2025 End: 08-34-2429Gwsvloz encounter wsarypwyj33/04/2025 9:50 AM EDT Office Visit [facility] ENDOCRINOLOGY [address] [place] [phone] Zenia Langford MD [address] [place] [address] [facility] ENDOCRINOLOGYMartinton: 28-06-4582Dsvkymoew vaccinationInfluenza Vaccine (#1)[facility]: 03-07-2025 End: 77-43-0274Dvxxmyk Device Check - In ClinicCardiac Device Check - In Clinic Implantable Cardiac Device Routine Cardiomyopathy, ischemic Expected: 03/07/2025 (Approximate), Expires: 11/27/2025[facility] Service Area Work Phone: Comment on above:Expected: 03/07/2025 (Approximate), Expires: 11/27/2025Start: 03-07-2025 End: 10-12-5162Iehhyra encounter procedurePioneers Medical Centertart: 12-23-2024 End: 20-81-9625Pjduwil encounter ddsmsuvbm82/05/2025 11:20 AM EDT Office Visit [facility] ENDOCRINOLOGY [address] [place] [address] Zenia Langford MD [address] [place] [address] [facility] ENDOCRINOLOGYStart: 12-04-2024 End: 41-74-3770Zoytvwoq Veqaupc1612/04/2024 2:00 PM EDT Clinical Support [facility] [address] [facility] [address] [place] [address] YDGrisell Memorial Hospitaltart: 10-07-2024 End: 39-08-8163Kbgzuki encounter btjcloqpd88/17/2025 11:00 AM EST Office Visit [facility] [address] [facility] [address] [place] [address] Maris Ramos MD [address] [facility] [address] [place] [address] [facility] DrStart: 10-02-2024 End: 54-08-5854Knfbbcy encounter quxtcqeur04/12/2025 10:40 AM EST Office Visit [facility] [address] [facility] [address] [place] [address] Uriah Neal DO [address] [facility] [address] [place] [address] [facility] CenterStart: 09-25-2024 End: 80-67-486604810359-nwhpbzxiuwgdbb D3 [Mass/volume] in Serum or PlasmaVitamin D 25 hydroxy Total Lab Routine Poor control type I diabetes mellitus ([facility]) Expected: 09/25/2024 (Approximate), Expires: 09/25/2025[facility] HealthcareComment on above:Expected: 09/25/2024 (Approximate), Expires: 09/25/2025Start: 09-25-2024 End: 87-01-3675C-peptideC-peptide Lab Routine Poor control type I diabetes mellitus ([facility]) Expected: 09/25/2024 (Approximate), Expires: 09/25/2025[facility] Healthcare Work Phone: Comment on above:Expected: 09/25/2024 (Approximate), Expires: 09/25/2025Start: 09-25-2024 End: 59-51-5490Jtyjd 1996 panel - Serum or PlasmaLipid panel Lab Routine Poor control type I diabetes mellitus ([facility]) Expected: 09/25/2024 (Approximate), Expires: 09/25/2025[facility] HealthcareComment on above:Expected: 09/25/2024 (Approximate), Expires: 09/25/2025Start: 09-25-2024 End: 49-21-3974Vukhfuynindg/Creatinine panel in random UrineMicroalbumin / creatinine urine ratio Lab Routine Poor control type I diabetes mellitus ([facility]) Expected: 09/25/2024 (Approximate), Expires: 09/25/2025[facility] Healthcare Comment on above:Expected: 09/25/2024 (Approximate), Expires: 09/25/2025Start: 09-25-2024 End: 03-76-7978Mxluw function panelRenal function panel Lab Routine Poor control type I diabetes mellitus ([facility]) Expected: 09/25/2024 (Approximate), Expires: 09/25/2025[facility] HealthcareComment on above:Expected: 09/25/2024 (Approximate), Expires: 09/25/2025Start: 09-25-2024 End: 51-07-0978Xpwipqy encounter lmvcfjevd08/05/2025 10:00 AM EST Office Visit [facility] [address] [place] [phone] Zenia Langford MD [address] [place] [address] Type 2 diabetes mellitus with hyperglycemia, with long-term current use of insulin (CMS/HCC)[facility] ENDOCRINOLOGYComment on above: Type 2 diabetes mellitus with hyperglycemia, with long-term current use of insulin (CMS/HCC)Start: 08-02-2024 End: 69-56-0387IK Heart Wall motion and Ejection fractionNM heart blood pool ejection fraction wall motion (MUGA) Imaging Routine Coronary artery disease inv olving redding coronary artery of redding heart without angina pectoris Cardiomyopathy, ischemic S/P PTCA (percutaneous transluminal coronary angioplasty) ST elevation myocardial infarction (STEMI), unspecified artery (Multi) Expected: 08/02/2024, Expires: 07/03/2025[facility] Service Area Work Phone: Comment on above:Expected: 08/02/2024, Expires: 07/03/2025Start: 33-94-6349MzjofvvvcPremier Healthtart: 06-19-2024 ConsultationPremier Healthtart: 60-09-7927Eyyicras admission [facility]: 81-06-6373Cxiczirc to cardiac rehabilitation programPremier Healthtart: 45-70-7066Bdobsypw to cardiologistPremier Healthtart: 63-21-8788Wkfdfcaj admissionPremier Healthtart: 21-80-3709AANPC-19 Vaccine ( season)COVID-19 Vaccine ( season)[facility]: 25-26-9000ZETOM-19 Vaccine ( season)COVID-19 Vaccine ( season)[facility]: 18-20-7955Tpcudhmwh vaccinationInfluenza Vaccine (#1)[facility]: 63-50-2213Rwhjurem specific antigen measurementPSA Prostate Cancer Screening [facility]: 66-45-0857Pjtesa Vaccines (1 of 2)Zoster Vaccines (1 of 2)[facility]: 85-83-2692PCxH/Tdap/Td Vaccines (1 - Tdap)DTaP/Tdap/Td Vaccines (1 - Tdap)[facility]: 62-01-8215Jyrlcdezr B Vaccines (1 of 3 - 19+ 3-dose series) Hepatitis B Vaccines (1 of 3 - 19+ 3-dose series)[facility]: 75-60-4389Ngcmhzcdncmj vaccinationPneumococcal Vaccine (1 of 2 - PCV)[facility]: 32-23-4466Zgkin screening for proteinDiabetes: Urine Protein ScreeningUnUniversity Hospitals [facility]: 36-25-1104Skeypcgb mellitus screeningDiabetes ScreeningUnUniversity Hospitals Elyria Medical Center: 52-14-1547Yjpcbqdnc C screeningHepatitis C ScreeningUnUniversity Hospitals Elyria Medical Center: 27-87-0779Tgqldqor screeningDiabetes: Retinopathy ScreeningUnUniversity Hospitals Elyria Medical Center: 69-21-0126Docdgbzhtxkc Vaccine: Pediatrics (0 to 5 Years) and At-Risk Patients (6 to 64 Years) (1 of 2 - PCV) Pneumococcal Vaccine: Pediatrics (0 to 5 Years) and At-Risk Patients (6 to 64 Years) (1 of 2 - PCV)[facility]: 76-73-5420PBL Vaccines (1 of 1 - Standard series)MMR Vaccines (1 of 1 - Standard series) [facility]: 94-04-4657Jadgpcdylh measurement Creatinine LevelUnUniversity Hospitals Ely[facility] Medical [facility]: 66-65-7684Tukbgjcrqchplu vitamin b-12Vitamin B-12UnUniversity Hospitals Ely[facility]: 1970 Diabetes: Celiac Disease ScreeningDiabetes: Celiac Disease ScreeningUnUniversity Hospitals [facility]: 41-21-4869Kvjgfxvgio A1c measurementDiabetes: Hemoglobin M5UHsvgcscqiuUniversity Hospitals Elyria Medical Center: 69-83-4843DPK screeningHIV ScreeningUnUniversity Hospitals [facility]: 56-02-1277Ltrad panelLipid PanelUnUniversity Hospitals Ely[facility]: 78-60-0247Osweajggq measurement Potassium LevelUnUniversity Hospitals [facility]: 76-55-1965Ktnaeoagn for malignant neoplasm of colonC[facility]: 1970 Thyroid stimulating hormone measurementCincinnati [facility]: 80-93-1256Poqyoo Adult PhysicalYearly Adult PhysicalLima City Hospital End: 39-50-8302Spvmd metabolic 2000 panel - Serum or PlasmaBasic Metabolic Panel Lab Routine Cardiomyopathy, ischemic 1 Occurrences starting 10/07/2024 until 0 10/07/2025[facility] Work Phone: Comment on above:1 Occurrences starting 10/07/2024 until 10/07/2025 End: 43-50-5335Gmbcs metabolic 2000 panel - Serum or PlasmaBasic Metabolic Panel Lab Routine Morning draw (Lab) for 1 Occurrences starting 11/28/2024 until 05/2025[facility] Work Phone: Comment on above:Morning draw (Lab) for 1 Occurrences starting 11/28/2024 until 11/28/2024 End: 68-01-7672Qmwvfqv device check - InpatientCardiac device check - Inpatient Implantable Cardiac Device Routine Cardiomyopathy, ischemic Once for 1 Occurrences starting 11/28/2024 until 11/28/2024[facility] Work Phone: Comment on above:Once for 1 Occurrences starting 11/28/2024 until 11/28/2024ardiac device check - InpatientCardiac device check - Inpatient Implantable Cardiac Device Routine Cardiomyopathy, ischemic 025 8:02 AM [facility] Work Phone: End: 44-84-1191Wtnbbtg Device Check - RemoteNORTHERN [facility]AVA[facility] Service Area Work Phone: Comment on above:Once for 1 Occurrences starting 01/07/2025 until 01/07/2025 End: 34-48-8739Hygxpfu Device Check - RemoteNORTHERN [facility]AVAJO [facility] Service Area Work Phone: Comment on above:Once for 1 Occurrences starting 2025 until 2025 End: 21-89-6794XDZ panel - Blood by Automated countCBC Lab Routine Cardiomyopathy, ischemic 1 Occurrences starting 10/07/2024 until 10/07/2025 [facility] Work Phone: Comment on above:1 Occurrences starting 10/07/2024 until 10/07/2025 End: 53-28-3361PMA panel - Blood by Automated countCBC Lab Routine Morning draw (Lab) for 1 Occurrences starting 11/28/2024 until 11/28/2024[facility] Work Phone: Comment on above:Morning draw (Lab) for 1 Occurrences starting 11/28/2024 until 11/28/2024 End: 20-13-1550Ueomwiz Line RemovalCentral Line Removal Procedures Routine Once for 1 Occurrences starting 11/27/2024 until 11/27/2024[facility] Work Phone: Comment on above:Once for 1 Occurrences starting 11/27/2024 until 11/27/2024ECG 12 lead STATECG 12 lead STAT ECG STAT 11/27/2024 7:19 AM [facility] Work Phone: ECG 12 lead STATECG 12 lead STAT ECG STAT 11/27/2024 10:45 AM [facility] Work Phone: End: 93-48-6184Oensgzjqaoqloukwg [facility] Work Phone: Comyzca on above:Once for 1 Occurrences starting 10/07/2024 until 10/07/2024Glucose [Mass/volume] in Serum or PlasmaLima City Hospital Work Phone: Comment on above:4 times daily before meals and at bedtime until discontinued starting times daily before meals and at bedtime until discontinued starting 11/27/2024, 3 completedICD SUBQ IMPLANTICD SUBQ IMPLANT Cardiomyopathy, ischemicUnAshtabula County Medical Center Work Phone: Patient EducationSmoking: Not Just Harmful to Your Lungs and Heart Heart Failure, Adult (DC) Heart Attack (DC) Coronary Stenting (DC) Angina (DC) Chest Pain (DC) Quitting smoking Drug Eluting Stents Know your [facility] Work Phone: Patient referralMount [facility]. [facility] Work Phone: End: 33-80-5975Lvipbpb Platelets: 1 UnitsPrepare Platelets: 1 Units Blood Bank STAT Once for 1 Occurrences starting 11/27/2024 until 11/27/2024[facility] Service Area Work Phone: Comment on above:Once for 1 Occurrences starting 11/27/2024 until 11/27/2024 End: 60-41-1551Aygjvaufpxq time (PT)Protime-INR Lab Routine Cardiomyopathy, ischemic 1 Occurrences starting 10/07/2024 until 10/07/2025[facility] Service Area Work Phone: Comment on above:1 Occurrences starting 10/07/2024 until 10/07/2025Referral [facility]St[facility] Immunizations Immunization DateImmunizationNotesCare QzsbymobFafrrhwa66-55-6542rkxnrpm toxoid, reduced diphtheria toxoid, and acellular pertussis vaccine, adsorbedWilliam Ángel DO Work Phone: [facility] Work Phone: Payers DatePayer CategoryPayerPolicy [id number] Health [id number] Care (Private) [id number] Care HMO (unspecified)[id number] Health [id number] [id number] 2..840.1.300956.3.57[id number] 2.16.840.1.771780.3.57[id number] 2.0.1.703044.3.57[id number] 2.840.1.565223.3.57[id number] 2.0.1.716648.3.579.[id number] 2.0.1.961822.3.579.[id number] 2..1.433863.3.57[id number] 2..1.154224.3.579.[id number] 2..1.832651.3.579.[id number] 2..1.791367.3.57[id number] 2..1.677107.3.579.[id number] 2..1.766026.3.579.2.[id number] 2..1.869857.3.579.2.541[id number] 2..1.998313.3.579.2.044071-97-7923Gzthell12021650 2.840.1.872175.3.579.2.502930-68-8019Xypa-[id number] 2.0.1.871757.3.579.2.531 Social History DateTypeDetailFacilityStart: 06-19-2024 End: 25-25-4431Jylhbwc smoking status NHISSmoker (finding)[facility]: 73-69-5054Ohv Assigned At BirthC[facility] Rehabilitationtart: 07-03-2024 End: 31-58-6151Lhxtgps smoking status NHISEx-smokerUnAshtabula County Medical Center Work Phone: End: 39-03-5042Asdbroq of tobacco useCigarette SmokerUnAshtabula County Medical Center Work Phone: Start: 07-03-2024 End: 48-10-6802Yhubiau use and exposureSmokeless tobacco non-userUnAshtabula County Medical Center Work Phone: Start: 07-03-2024 End: 10-57-8072Wnflijawl beverage intakeCurrent drinker of alcohol (finding) [facility] Work Phone: Start: 82-49-4862Jgmekyz CommentsocialUnAshtabula County Medical Center Work Phone: Start: 21-64-9210Vir assigned at birthNot on file [facility] Work Phone: Start: 07-03-2024 End: 57-63-0133Vqopgp identityNot on fileLima City HospitalStart: 06-23-2024 End: 98-62-4249Uhiqbikn to SARS-CoV-2 (event)Not sureUnAshtabula County Medical CenterStart: 07-03-2024 End: 12-14-1472Wumlxqa of Social functionUnAshtabula County Medical Center Tobacco smoking status NHISTobacco smoking consumption unknownNOMS HealthcareHas the electric, gas, oil, or water company threatened to shut off services in your home in past 12MoNoUnAshtabula County Medical CenterHow often to you have a drink containing alcohol?4 or more times a weekLima City Hospital Work Phone: How many standard drinks containing alcohol do you have on a typical day?1 or 2UnAshtabula County Medical Center Work Phone: How often do you have 6 or more drinks on 1 occasion? Less than monthlyLima City Hospital Work Phone: How hard is it for you to pay for the very basics like food, housing, medical care, and heatingNot very hardLima City Hospital Work Phone: (I/We) worried whether (my/our) food would run out before (I/we) got money to buy more.Never trueUnAshtabula County Medical Center Work Phone: Start: 99-54-1367Fu the past 12 months, has lack of transportation kept you from medical appointments or from getting medications?No [facility] Work Phone: Start: 09-29-6908NikTffo (finding)[facility] Medical Equipment Procedure CodeEquipment CodeEquipment Original TextEquipment IdentifierDatesCL STENT BRUCE FRONTIER 3.5 X 15FDAStart: 54-05-8733Yuddis, Ev-Icd, Ricarda - [id number] - [id number]: 11-27-2024 Goals DatePatient GoalDesired Activity/State Functional Status QngmFehmpqnorwHzvjeuYfbghjxc61-99-9777Lvxyhsinkp statusPatient at Baseline [facility] Work Phone: Mental Status CdpfThedlgtjnwLzcuzjAxndjoou61-01-8111Mkzclcakd functionCognitive Status Patient at BaselineMount St. Mary Hospital Work Phone: Clinical Notes 06-19-2024 to 04-02-2025 Note Date & EalsPqmyJvzlcoal19-63-1184 History of Present illness Narrative* Uriah Neal, DO - 04/02/2025 11:20 AM EDT Chief Complaint Patient presents with Follow-up 6 month follow up for Coronary artery disease involving redding coronary artery of redding heart without angina pectoris Subjective Wing Alejandro is a 54 y.o. male 54-year-old gentleman returns for 6-month cardiovascular follow-up, following external AICD implantwith external leads performed by Dr. Lopez and Dr. Ramos in November 2024. He has done well otherwise, and has followed up with cardiac rehab has had a couple episodes of hypotension; details of his medications have been reviewed, operative reports reviewed; and previous [place] and interventions also reviewed Patient is status post large anterior ST elevation [place] as an inpatient at [facility] on June 19, 2024 with primary revascularization of the LAD at the time with severe LV dysfunction, follow-up MUGA scan on July 30 revealed persistent low ejection fraction of 33%. We have been trying to titrate GDMT including carvedilol and ARB however he is generally hypotensive to begin with, and while it cardiac rehab had symptomatic hypotension. He has persistent severe LV dysfunction with ejection fraction of 33%, clinical heart failure classification II/stage C currently not on NEDRA or ARB. Systolic blood pressure up to 112 today. He has completed cardiac rehab. 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 Recommendations: Will try to initiate low-dose lisinopril 2.5 mg daily, follow- up with nurse practitioner for reevaluation in 3 months, obtain labs thereafterwards, I will see him again within the next 6 months Review of Systems Respiratory: Positive for shortness of breath. With exertion Neurological: Positive for dizziness. All other systems reviewed and are negative. Vitals: 04/02/25 1130 BP: 112/82 BP Location: Left arm Patient Position: Sitting Pulse: 72 Weight: 76.7 kg (169 lb) Height: 1.854 m (6' 1 ) [...] Thought content normal. Judgment: Judgment normal. Allergies Iodinated contrast media Current Medications Current Outpatient Medications Medication Instructions acetaminophen (TYLENOL) 650 mg, oral, Every 6 hours aspirin 81 mg, Daily atorvastatin (LIPITOR) 80 mg, oral, Daily carvedilol (COREG) 3.125 mg, 2 times daily Dexcom G6 Transmitter device USE 1 DEVICE EVERY 3 MONTHS FOR CONTINUOUS GLUCOSE MONITORING Farxiga 10 mg, oral, Daily (0630) HumaLOG KwikPen Insulin 100 unit/mL injection nitroglycerin (NITROSTAT) 0.4 mg, Every 5 min PRN spironolactone (ALDACTONE) 12.5 mg, oral, Daily ticagrelor (BRILINTA) 90 mg, oral, 2 times daily Assessment/Plan 1. Coronary artery disease involving redding coronary artery of redding heart without angina pectorisFollow Up In Cardiology 2. Cardiomyopathy, unspecified type (Multi) 3. S/P PTCA (percutaneous transluminal coronary angioplasty) 4. ST elevation myocardial infarction (STEMI), unspecified artery (Multi) 5. History of placement of stent in LAD coronary artery 6. AICD (automatic cardioverter/defibrillator) present 7. Type 2 diabetes mellitus without complication, with long-term current use of insulin 8. Dyspnea on exertion 9. Congestive heart failure, NYHA class 2, unspecified congestive heart failure type 10. BMI 22.0-22.9, adult 11. Former smoker Scribe Attestation By signing my name below, IDebbie LPN, Scribe attest that this documentation has been prepared under the direction and in the presence of Toyin Neal DO. Provider Attestation - Scribe documentation All medical record entries made by the Scribe were at my direction and personally dictated by me. Ihave reviewed the chart and agree that the record accurately reflects my personal performance of the history, physical exam, discussion and plan. documented in this encounterLima City Hospital Work Phone: 1(925) 567-105908-13-2025 Instructions* Patient Instructions* Yumi Torrez LPN - 04/02/2025 11:20 AM EDT Please bring all medicines, vitamins, and herbal supplements with you when you come to the office. Prescriptions will not be filled unless you are compliant with your follow up appointments or have a follow up appointment scheduled as per instruction of your physician. Refills should be requested at the time of your visit. * Attachments The following attachments cannot be sent through Care Everywhere. * Heart Healthy Diet ([place]) documented in this [facility] Work Phone: 1(594) 568-317108-05-2025 History of Present illness Narrative* Zenia Langford MD - 03/25/2025 2:40 PM EDT Wing Alejandro is a 54 y.o. male No ref. provider found presents with chief complaint of Diabetes and Follow-up HPI: IM : 03/2025 Follow up visit on 03/25/2025, he is on T slim with Dexcom 6, A1c 7.7 blood sugar 202, 2% in low range, 63 in good range, 35 in high range, average 173, basal rate 12:00 a.m. 1.1, 4:00 a.m. 1.2, 8:00 a.m. 1.3, 6:00 p.m. 1.4, 10:00 p.m. 1.2, insulin carb ratio 1:10., insulin sensitivity factor 1:35. IM : 12/2024 Follow up visit on 12/23/2024, he is on T slim with Dexcom 6, A1c 7.3 blood sugar 153, 2% in low range, 69 in good range, 29 in high range, average 152, basal rate 12:00 a.m. 1.1, 4:00 a.m. 1.2, 8:00 a.m. 1.3, 6:00 p.m. 1.4, 10:00 p.m. 1.2, insulin carb ratio 1:10., insulin sensitivity factor 1:35. IM : 11/2024 Follow up visit on 11/21/2024, he is on T slim with Dexcom 6, A1c 9.6 blood sugar 363, 2% in low range, 75 in good range, 23 in high range, average 147, basal rate 12:00 a.m. 1.1, 4:00 a.m. 1.2, 8:00a.m. 1.3, 6:00 p.m. 1.4, 10:00 p.m. 1.2, insulin carb ratio 1:10., insulin sensitivity factor 1:35. HPI: 09/2024 New patient sent from Dr. Eduard Myers for uncontrolled diabetes, he has it since 2002, currently heis on Lantus 34 units at bedtime, Humalog sliding scale only A1c in our office 9.6, blood sugar 112, he has coronary artery disease status post stent, denies kidney problems, he is on Farxiga recently since 05/2024. SUBJECTIVE: MEDICATIONS: Current Outpatient Medications Medication Instructions aspirin 81 mg, Daily atorvastatin (LIPITOR) 80 mg, Daily Continuous Glucose Audio Narrator (Dexcom G6 client services coordinator) device 1 Device, As needed Continuous Glucose Sensor (Dexcom G6 Sensor) misc No dose, route, or frequency recorded. Continuous Glucose Transmitter (Dexcom G6 transmitter) misc As needed HumaLOG KWIKPEN 100 UNIT/ML injection INJECT SUBCUTANEOUSLY 60 UNITS DAILY DIRECTED insulin glargine (SEMGLEE) 34 Units, Nightly sildenafil (VIAGRA) 100 mg, Daily PRN spironolactone (ALDACTONE) 25 mg, Daily ticagrelor (BRILINTA) 90 mg, 2 times daily ALLERGIES: No Known Allergies Past Medical History: Diagnosis Date CAD (coronary artery disease) Cardiomyopathy (HCC) Cervical disc disease 05/2024 Controlled type 2 diabetes mellitus with diabetic polyneuropathy ([facility]) Crushing injury of left foot, initial encounter Hyperkalemia Hypertension Impotence Kidney injury Nondisplaced fracture of proximal phalanx of left great toe, initial encounter for closed fracture Pain in left foot Sinus tachycardia STEMI (ST elevation myocardial infarction) ([facility]) Type 2 diabetes mellitus ([facility]) Past Surgical History: Procedure Laterality Date CORONARY [...] recent change. No heart burn, liver or gallbladderdisease; no rectal bleeding or pain : No urinary pain , frequency or odor. MUSCULOSKELETAL: No muscle pain or cramps; no extremity weakness.No joint pain, stiffness, swellingor limitation of movement NEUROLOGY: No H/O seizures, stroke or fainting. No weakness, tremors. Hematology: No bleeding problems or excessive bruising ENDOCRINE: No increase in hunger, thirst or urination; admits compliance to medical management plan Feet: numbness tingling yes , ulcers or skin break no Lab Results Component Value Date HGBA1C 7.7 03/25/2025 HGBA1C 7.3 12/23/2024 HGBA1C 9.6 09/25/2024 Lab Results Component Value Date GLU 208 03/25/2025 GLU 153 12/23/2024 GLU 123 (H) 11/28/2024 09/25/2024 10:15 AM 12/23/2024 11:32 AM 03/25/2025 2:50 PM Vitals BMI 20.58 kg/m2 20.58 kg/m2 21.64 kg/m2 BSA (m2) 1.91 m2 1.91 m2 1.96 m2 Systolic 100 100 Diastolic 70 70 Heart Rate 95 79 80 SpO2 97 % 96 % 97 % Resp 18 18 18 Height (in) 6' 1 6' 1 6' 1 Weight (lb) 156 164 Visit Report Report Report Report ASSESSMENT AND PLAN: Assessment/Plan Diagnoses and all orders for this visit: Primary hypertension Poor control type I diabetes mellitus (HCC) - POCT glucose manually resulted - POCT glycosylated hemoglobin (Hb A1C) docked device - Insulin Lispro (HumaLOG) 100 UNIT/ML solution; Inject 70 Units as directed Daily C/o the Same basal, same carb ratio, change sensitivity to 1:30. Encounter for dietary consultation Vitamin D deficiency Hyperlipemia, mixed Insulin long-term use (HCC) Insulin pump status Encounter for fitting and adjustment of insulin pump Follow up 3 months documented in this encounterSaint Joseph Health CenterWyjksoznuf80-24-7066 History of Present illness Narrative* Zenia Langford MD - 12/23/2024 11:20 AM EDT Wing Alejandro is a 54 y.o. male No ref. provider found presents with chief complaint of Diabetes and Follow-up HPI: IM : 12/2024 Follow up visit on 12/23/2024, he is on T slim with Dexcom 6, A1c 7.7 blood sugar 153, 2% in low range, 69 in good range, 29 in high range, average 152, basal rate 12:00 a.m. 1.1, 4:00 a.m. 1.2, 8:00 a.m. 1.3, 6:00 p.m. 1.4, 10:00 p.m. 1.2, insulin carb ratio 1:10., insulin sensitivity factor 1:35. IM : 11/2024 Follow up visit on 11/21/2024, he is on T slim with Dexcom 6, A1c 9.6 blood sugar 363, 2% in low range, 75 in good range, 23 in high range, average 147, basal rate 12:00 a.m. 1.1, 4:00 a.m. 1.2, 8:00a.m. 1.3, 6:00 p.m. 1.4, 10:00 p.m. 1.2, insulin carb ratio 1:10., insulin sensitivity factor 1:35. HPI: 09/2024 New patient sent from Dr. Eduard Myers for uncontrolled diabetes, he has it since 2002, currently heis on Lantus 34 units at bedtime, Humalog sliding scale only A1c in our office 9.6, blood sugar 112, he has coronary artery disease status post stent, denies kidney problems, he is on Farxiga recently since 05/2024. SUBJECTIVE: MEDICATIONS: Current Outpatient Medications Medication Instructions aspirin 81 mg, Daily atorvastatin (LIPITOR) 80 mg, Daily Continuous Glucose Audio Narrator (Dexcom G6 client services coordinator) device 1 Device, As needed Continuous Glucose Sensor (Dexcom G6 Sensor) misc No dose, route, or frequency recorded. Continuous Glucose Transmitter (Dexcom G6 transmitter) misc As needed insulin glargine (SEMGLEE) 34 Units, Nightly Insulin Lispro 60 Units, Injection, Daily sildenafil (VIAGRA) 100 mg, Daily PRN spironolactone (ALDACTONE) 25 mg, Daily ticagrelor (BRILINTA) 90 mg, 2 times daily ALLERGIES: No Known Allergies Past Medical History: Diagnosis Date CAD (coronary artery disease) ([facility]) Cardiomyopathy ([facility]) Cervical disc disease 05/2024 Controlled type 2 diabetes mellitus with diabetic polyneuropathy ([facility]) Crushing injury of left foot, initial encounter Hyperkalemia Hypertension ([facility]) Impotence Kidney injury Nondisplaced fracture of proximal phalanx of left great toe, initial encounter for closed fracture Pain in left foot Sinus tachycardia STEMI (ST elevation myocardial infarction) ([facility]) ([facility]) Type 2 diabetes mellitus ([facility]) Past Surgical History: Procedure Laterality Date CORONARY [...] recent change. No heart burn, liver or gallbladderdisease; no rectal bleeding or pain : No urinary pain , frequency or odor. MUSCULOSKELETAL: No muscle pain or cramps; no extremity weakness.No joint pain, stiffness, swellingor limitation of movement NEUROLOGY: No H/O seizures, stroke or fainting. No weakness, tremors. Hematology: No bleeding problems or excessive bruising ENDOCRINE: No increase in hunger, thirst or urination; admits compliance to medical management plan Feet: numbness tingling yes , ulcers or skin break no Lab Results Component Value Date HGBA1C 7.3 12/23/2024 HGBA1C 9.6 09/25/2024 Lab Results Component Value Date GLU 153 12/23/2024 GLU 123 (H) 11/28/2024 GLU 125 (H) 11/27/2024 09/25/2024 10:15 AM 12/23/2024 11:32 AM Vitals BMI 20.58 kg/m2 20.58 kg/m2 BSA (m2) 1.91 m2 1.91 m2 Systolic 100 100 Diastolic 70 70 Heart Rate 95 79 SpO2 97 % 96 % Resp 18 18 Height (in) 6' 1 6' 1 Weight (lb) 156 Visit Report Report Report ASSESSMENT AND PLAN: Assessment/Plan Diagnoses and all orders for this visit: Poor control type I diabetes mellitus ([facility]) - POCT glucose manually resulted - POCT glycosylated hemoglobin (Hb A1C) docked device - Insulin Lispro 100 UNIT/ML solution; Inject 60 Units as directed Daily Continue the same settings. Primary hypertension ([facility]) Encounter for dietary consultation Vitamin D deficiency Hyperlipemia, mixed ([facility]) Insulin long-term use ([facility]) Insulin pump status Encounter for fitting and adjustment of insulin pump Follow up 3 months documented in this encounterSaint [facility] [id number] Plan of care note* Care Plan - Lo Franklin RN - 11/28/2024 10:16 AM EDT The patient's goals for the shift include The clinical goals for the shift include Patient will remain hemodynamically stable through end of shift [facility]04-10-2025 Miscellaneous Notes* Care Plan - Lo Franklin RN - 11/28/2024 10:16 AM EDT The patient's goals for the shift include The clinical goals for the shift include Patient will remain hemodynamically stable through end of shift * Care Plan - Juliet Topete RN - 11/27/2024 7:33 PM EDT Problem: Pain - Adult Goal: Verbalizes/displays adequate comfort level or baseline comfort level Outcome: Progressing Problem: Safety - Adult Goal: Free from fall injury Outcome: Progressing The patient's goals for the shift include The clinical goals for the shift include pt will remain hds throughout shift * Care Plan - Pablito Trujillo RN - 11/27/2024 3:41 PM EDT Problem: Pain - Adult Goal: Verbalizes/displays adequate comfort level or baseline comfort level Outcome: Progressing Problem: Safety - Adult Goal: Free from fall injury Outcome: Progressing Problem: Discharge Planning Goal: Discharge to home or other facility with appropriate resources Outcome: Progressing Problem: Chronic Conditions and Co-morbidities Goal: Patient's chronic conditions and co-morbidity symptoms are monitored and maintained or improved Outcome: Progressing Problem: Nutrition Goal: Nutrient intake appropriate for maintaining nutritional needs Outcome: Progressing The patient's goals for the shift include The clinical goals for the shift include * Op Note - Priya Lopez MD - 11/27/2024 8:10 AM EDT ICD SUBQ Implant (L) Operative Note Date: 11/27/2024 OR Location: [facility] Cardiac Case Supervisor Name: Wing Alejandro, : 1970, Age: 54 y.o., , Sex: male Diagnosis Pre-op Diagnosis * Cardiomyopathy, ischemic [I25.5] Post-op Diagnosis * Cardiomyopathy, ischemic [I25.5] Procedures Anterior mediastinal exploration (mediastinoscopy with Arthrex Sandra Needle scope 250 mm)(SN:[id number]) Placement of anterior mediastinal extra vascular lead (Medtronic EV 2401 63 cm)(SN: [id number]) Placement of Ricarda EV-ICD (Medtronic [id number])(SN: [id number]) Testing of lead Initiation and termination of ventricular fibrillation Surgeons * Maris Ramos - Primary * Priya Lopez - Primary Drs. Ramos and Jessica should be considered co-surgeons. Dr. Ramos is responsible for testing of lead, implantation of AICD generator, initiation and termination of ventricular fibrillation. Dr. Lopez is responsible for mediastinal exploration (mediastinoscopy), and placement of anterior mediastinal lead. Resident/Fellow/Other Farm Operations Manager: Americo Schumacher SA Staff: Infection Control Nurse: Stephanie Infection Control Nurse: Faith Nava Person: Shala Infection Control Nurse: Fatimah Anesthesia Staff: Anesthesiologist: Denae Carreon MD SCHOOL GUARD: Shady Fernandez APRN-SCHOOL GUARD Procedure Summary Anesthesia: General ASA: III Estimated Blood Loss: minimal mL Intra-op Medications: Administrations occurring from 0810 to 1026 on 11/27/24: Medication Name Total Dose lidocaine PF (Xylocaine) 10 mg/mL (1 %) injection 15 mL lidocaine PF (Xylocaine) 10 mg/mL (1 %) injection 3 mL bupivacaine PF 0.25 % (Marcaine) 0.25 % (2.5 mg/mL) injection 15 mL dexAMETHasone (Decadron) 4 mg/mL 4 mg etomidate (Amidate) injection 14 mg fentaNYL PF 0.05 mg/mL 100 mcg LR infusion Cannot be calculated lidocaine (Xylocaine) injection 2 % 60 mg ondansetron 2 mg/mL 4 mg phenylephrine 100 mcg/mL syringe 10 mL (prefilled) 500 mcg propofol (Diprivan) injection 10 mg/mL 50 mg rocuronium (ZeMuron) 50 mg/5 mL injection 100 mg NaCl 0.9 % infusion 78.64 mL Anesthesia Record Intraprocedure I/O Totals Intake LR infusion 250.00 mL NaCl 0.9 % infusion 100.00 mL Total Intake 350 mL Output Urine 500 mL Total Output 500 mL Net Net Volume -150 mL Specimen: No specimens collected Drains and/or Catheters: * None in log * Tourniquet Times: N/A Implants: Implants Type Name Action Serial No. ICD DEVICE, EV-ICD, RICARDA - [id number] - [id number] Implanted [id number] Findings: The anterior mediastinal space was free of any significant adhesions. There was a nice loose areolar tissue noted upon entry into the anterior mediastinal space. Placement of the extravascular ICD lead was in great position, to the left of the sternal border with the distal tip at the level of the santosh. The testing of the lead revealed excellent waveforms with an R wave of 2.2 - 2.8, and testing of the generator initiated ventricular fibrillation and terminated ventricular fibrillation with 2 shock delivery at 30 joules (type II termination). Indications: Wing Alejandro is an 54 y.o. male who is having surgery for ischemic cardiomyopathy. His ejection fraction is 33% after 40 days post large anterior STEMI. He is here to discuss defibrillator. 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 The patient was seen in the preoperative area. The risks, benefits, complications, treatment options, non-operative alternatives, expected recovery and outcomes were discussed with the patient. The possibilities of reaction to medication, pulmonary aspiration, injury to surrounding structures, bleeding, recurrent infection, the need for additional procedures, failure to diagnose a condition, and creating a complication requiring transfusion or operation were discussed with the patient. The patient concurred with the proposed plan, giving informed consent. The site of surgery was properly noted/marked if necessary per policy. The patient has been actively warmed in preoperative area. Preopera tive antibiotics have been ordered and given within 1 hours of incision. Venous thrombosis prophylaxis have been ordered including bilateral sequential compression devices Procedure Details: After informed consent was obtained, and all questions asked and answered the patient satisfaction, after positive indication, he was brought to the electrophysiology laboratory. Prior to coming into the EP lab, he had right internal jugular central venous line as well as right radial arterial line placed for monitoring. He had induction of anesthesia, and orotracheal intubation without event. He was connected to the anesthesia circuit, and monitoring lines were connected as well. He was then prepped and draped in a standard sterile surgical fashion. A surgical timeout was performed with the correct patient, the correct procedure, laterality, timing and dosage of antibiotics, availability of blood products, fire risk, and all available equipment was verified as being present prior to beginning the case. Topographic markings along the sternum at each rib space was performed, as well as the suprasternalnotch and the xiphoid process. Bilateral costophrenic angles were also marked. Using fluoroscopy, placement of the generator was predicted using fluoroscopy vectors. The santosh was identified using fluoroscopy and topographic measurement was performed using a hemostat. A 2 cm transverse incision was made just to the left of the xiphoid process. Bovie electrocautery was used to dissect down through the subcutaneous tissue and the anterior rectus sheath fascia was incised using Bovie electrocautery. The posterior fascia was identified, and blunt finger dissection was performed to enter into theanterior mediastinal space. Concomitantly Dr. Ramos using Bovie electrocautery incised and created the generator pocket on the left lateral chest wall. The Arthrex Sandra needle scope was inserted along the posterior rectus fascia and into the anterior mediastinal space. This was then used to perform anterior mediastinal anoscopy to ensure that we were in the correct tissue plane. Using fluoroscopic guidance in anterior posterior as well as 90 degree vectors the tunneling tool was advanced along the posterior table of the sternum up to the santosh. The 9 Ugand[place] sheath had been prefilled with saline, and connected to a 10 cc syringe of saline using a stopcock. Once the tunnel path was created the tunneling tool was removed ensuring no air was entrained in the system. The Arthrex Sandra needle scope was again inserted into the sheath and through to the loose areolar anterior mediastinal space. The EV ICD lead was placed through the 9 Ugand[place] sheath using direct fluoroscopic guidance. The sheath was then pulled back over the wire allowing the EV ICD lead to return to nativesigmoid form, just over the heart in the anterior mediastinal space. The lead was then sutured to the anterior rectus fascia, with three 2-0 sutures. Testing of the lead was performed. The lead was then tunneled laterally to the generator pocket. This was connected to the AV ICD generator and carefully placed in the generator pocket. The fascia was closed over the generator, as well as the fascia over the lead. Testing of the generator lead was once again performed, and an initiation of ventricular fibrillation as well as termination of ventricular fibrillation was performed with two shocks at 30 J. The lead incision as well as the generator pocket incision subcutaneous tissue were closed with 2-0Polysorb suture in a running fashion, the subcuticular layer was closed with a 3-0 Polysorb suture in a running fashion, and the dermal layer was closed with a 4-0 Monocryl suture in a running fashion. Biologic glue as well as Steri-Strips were placed as dressings. The needle instrument sponge count were correct x 2, the patient tolerated this procedure well, he was then emerged from anesthetic, extubated, and brought to the intensive care unit in stable condition. Complications: None; patient tolerated the procedure well. Disposition: ICU - extubated and stable. Condition: stable Tasks performed by Center Hole Reamer: Placement of crowley bladder catheter. Surgical prep and draping of patient Assistance with sub-xiphoid incision Performed surgical site closure Monitoring and transport of patient to ICU Attending Attestation: I was present and scrubbed for the entire procedure. Priya Lopez MD * Pre-Sedation Documentation - Maris Ramos MD - 11/27/2024 7:42 AM EDT Sedation Plan ASA 2 Mallampati class: II. Risks, benefits, and alternatives discussed with patient. documented in this [facility] Work Phone: [phone]) 190-306904-10-2025 Hospital Discharge instructions* Discharge Instructions* Georgia Carias APRN-INJECTION MOULDING MACHINE OPERATOR - 11/28/2024 9:37 AM EDT Images from the original note were not included. Home going instructions after a Pacemaker/ Defibrillator Implant After a procedure using sedation You should return home and rest for the remainder of the day and evening. It is recommended a responsible adult be with you for the first 24 hours after the procedure. Do not make any legal decisions for 24 hours after your procedure. Do not drink alcoholic beverages for 24 hours after your procedure. Wound care Leave the surgical dressing in place for 7 days post implant The dressing will be removed at the 1 week follow up appointment. Please keep your incision dry, the dressing is water resistant. You may shower avoid water directly hitting the dressing. Inspect your incisional site/ dressing each day Apply ice to the site 3-4 times per day in 20 minute intervals for at least 2 days after surgery It is normal for the area around the incision to be tender for a few weeks following surgery. Pain relievers such as Tylenol or Motrin are usually sufficient for pain relief. You may be prescribed Tramadol in addition. Take as prescribed alternating with Tylenol or Motrin. Activity Avoid driving for 1 week. If you have had passing out spells or previously restricted from driving, discuss driving restrictions with your doctor. Do not pick and shovel man items that weigh greater than 10 lbs with the device arm for 4 weeks. No exercise equipment for 1 month after implant Report to your provider Increased redness, swelling, drainage or gaping of your incisional site. Increased pain at site unrelieved by pain medication. Fever or chills prior to the 1 week appointment. Bright red bleeding from the incisional site or complete saturation of the dressing. Dizziness, lightheadedness, passing out, or defibrillator shocks. Remote monitoring/ Device ID card You have been instructed by the device company registered representative regarding remote home monitoring. There are multiple types of home monitoring units, please follow the instructions given If you have questions please contact the device clinic for further instruction After implant you will receive a temporary card. Permanent card will come in the mail in the next few weeks. It is important that you carry your pacemaker ID card with you at all times. Inform all doctors and healthcare providers that you have a pacemaker. Electromagnetic Interference: Microwave ovens are safe to use. Please inform any physicians of your pacemaker implant prior to MRI for appropriate scheduling. You should be prepared to show your pacemaker identification card to the security guards at metal detectors. Hand wand detector should be kept away from the pacemaker. Read the patient booklet for more information. Follow up appointments Incision (wound) check in 1 week. Appointment for device check, and provider in 3 months. These appointments will be scheduled and appear on your After Visit Summary. [facility] Work Phone: 1(225) 951-714804-10-2025 Hospital course Narrative* Matthew Feldman DO - 11/28/2024 7:32 AM EDT Discharge Diagnosis Cardiomyopathy, ischemic Test Results Pending At Discharge Pending Labs No current pending labs. Hospital Course Wing Alejandro is a 54 y.o. year old male patient with Past Medical History of ischemic cardiomyopathy, HFrEF (EF 33%), CAD s/p PCI LAD, anterior wall STEMI 2019, uncontrolled type 1 diabetes (09/2024; A1c 9.6), HTN, and former smoker who presented to [facility] for placement Ricarda EV-ICD. Interval ICU Events: 11/27: Admitted to the ICU for post procedure EV-ICD management. Arrived to the unit HDS with arterial line and right internal jugular single lumen introducer in place on supplemental O2 via face mask. 11/28: Patient seen and examined this morning. Pain controlled. Feeling well. Slept well. Seen by EP. Device interrogated. Case discussed and patient cleared for discharge home. Pertinent Physical Exam At Time of Discharge Physical Exam Constitutional: Appearance: Normal appearance. HENT: Head: Normocephalic and atraumatic. Right Ear: Tympanic membrane normal. Left Ear: Tympanic membrane normal. Nose: Nose normal. Mouth/Throat: Mouth: Mucous membranes are moist. Pharynx: No oropharyngeal exudate or posterior oropharyngeal erythema. Eyes: Extraocular Movements: Extraocular movements intact. Conjunctiva/sclera: Conjunctivae normal. Cardiovascular: Rate and Rhythm: Normal rate and regular rhythm. Pulmonary: Effort: Pulmonary effort is normal. No respiratory distress. Abdominal: General: There is no distension. Palpations: Abdomen is soft. Musculoskeletal: General: No swelling or deformity. Normal range of motion. Cervical back: Normal range of motion. Skin: General: Skin is warm and dry. Neurological: General: No focal deficit present. Mental Status: He is alert and oriented to person, place, and time. Gait: Gait normal. Psychiatric: Mood and Affect: Mood normal. Home Medications Medication List CONTINUE taking these medications Dexcom G6 Transmitter device; Generic drug: blood-glucose transmitter device ASK your doctor about these medications aspirin 81 mg EC tablet atorvastatin 80 mg tablet; Commonly known as: Lipitor; Take 1 tablet (80 mg) by mouth once daily. carvedilol 3.125 mg tablet; Commonly known as: Coreg; Take 1 tablet (3.125 mg) by mouth 2 times daily (morning and late afternoon). Farxiga 10 mg tablet; Generic drug: dapagliflozin propanediol; Take 1 tablet (10 mg) by mouth early in the morning.. HumaLOG KwikPen Insulin 100 unit/mL pen; Generic drug: insulin lispro nitroglycerin 0.4 mg SL tablet; Commonly known as: Nitrostat Semglee(insulin glarg-yfgn)Pen 100 unit/mL (3 mL) pen; Generic drug: insulin glargine-yfgn spironolactone 25 mg tablet; Commonly known as: Aldactone; Take 0.5 tablets (12.5 mg) by mouth once daily. ticagrelor 90 mg tablet; Commonly known as: Brilinta; Take 1 tablet (90 mg) by mouth 2 times a day. Outpatient Follow-Up Future Appointments Date Time Provider Department Center 12/04/2024 2:00 PM [facility] ADMINISTRATOR 1 [id number] [place] 03/07/2025 11:20 AM [facility] 3 [id number] [place] 03/07/2025 12:00 PM Maris Ramos MD [id number] [place] 04/02/2025 11:20 AM Uriah Neal DO [id number] [place] Matthew Feldman DO documented in this [facility] Work Phone: [phone]) 931-262004-09-2025 Plan of care note* Care Plan - Juliet Topete RN - 11/27/2024 7:33 PM EDT Problem: Pain - Adult Goal: Verbalizes/displays adequate comfort level or baseline comfort level Outcome: Progressing Problem: Safety - Adult Goal: Free from fall injury Outcome: Progressing The patient's goals for the shift include The clinical goals for the shift include pt will remain hds throughout shift [facility]04-09-2025 History of Present illness Narrative * Priya Lopez MD - 11/27/2024 4:36 PM EDT Cardiac Surgery Mr. Patel is doing well after his procedure. He has some minimal complaints of soreness and no nausea, emesis or post anesthetic issues. On examination he s awake, alert, oriented three. His rhythm is normal on telemetry, his incisionsincisions are all clean, dry and intact. His post procedure chest x-ray shows a normal lead placement with reference to his cardiac silhouette. The right and left heart borders are clear. The right and left costophrenic angles are sharp. There s no evidence of efusion or pneumothorax. He s doing well after his AICD placement. I would anticipate him to be able to be discharged tomorrow without event. [facility] Work Phone: [phone]) 994-602204-09-2025 Plan of care note* Care Plan - Pablito Trujillo RN - 11/27/2024 3:41 PM EDT Problem: Pain - Adult Goal: Verbalizes/displays adequate comfort level or baseline comfort level Outcome: Progressing Problem: Safety - Adult Goal: Free from fall injury Outcome: Progressing Problem: Discharge Planning Goal: Discharge to home or other facility with appropriate resources Outcome: Progressing Problem: Chronic Conditions and Co-morbidities Goal: Patient's chronic conditions and co-morbidity symptoms are monitored and maintained or improved Outcome: Progressing Problem: Nutrition Goal: Nutrient intake appropriate for maintaining nutritional needs Outcome: Progressing The patient's goals for the shift include The clinical goals for the shift include [facility] Work Phone: [phone]) 978-717504-09-2025 NoteSubsternal implantable cardioverter defibrillator implantation Procedures: Substernal defibrillator implant; Defibrillator testing Patient history: Please refer to the detailed history and physical on the patient's medical chart. Procedure narrative: Risks, benefits, and alternatives were explained to the patient. Informed consent was obtained. Patient was in a fasting state. A grounding pad was placed. Self-adhesive posterior scapular and apical defibrillator pads were used for monitoring and defibrillator was set to biphasic mode. Patient was set up for continuous monitoring of surface 12-lead EKG and pulse oximetry. Blood pressure was monitored. The procedure was performed under general anesthesia (administered and monitored by incident response specialist and SCHOOL GUARD). The optimal position of subcutaneous ICD generator and nonthoracotomy lead was determined by fluoroscopy. The sites were marked. Then the upper and lateral chest was prepped draped in usual sterile fashion. Local anesthesia with Lidocaine 1% with Bupivacaine 0.25%. A #15 scalpel was used to make the incision. Hemostasis was achieved with Bovie cautery. A left mid axillary pocket was fashioned. The pocket was created between the muscle layers. Sub xyphoid incision was made by CT surgery. Under mediastinoscopic guidance the sheath was advanced. Fluoroscopy in AP and lateral views confirmed position. See additional operative note. The lead was advanced to the demarcated site. Measurements were obtained and were appropriate. The sheath was removed. Suture ties were placed in the fascia. The lead was secured with 2 ties of 0-Ethibond around the lead sleeve. See additional operative note. A tunneling tool was used to create a tunnel from this pocket to the left mid axillary pocket. The subcutaneous lead was then tunneled to the mid axillary pocket. The tunneling tool was removed. A single-chamber cardioverter defibrillator ( Medtronic [id number] # [id number] ) was attached to the lead and implanted. The header of the device was secured to the fascia with 2 ties of #2 Ethibond Device was interrogated and its parameters recorded. Telemetry electrograms were measured. DFT was performed to assess safety margins for sensing and defibrillation. The device appropriately sensed and detected the episode of ventricular fibrillation. Device-based arrhythmia conversion testing was performed. The minimal effective energy was 40J. This energy terminated the induced fibrillation with a type II termination. The maximal programmable output was 40J. The energy safety margin was noted to be satisfactory. Each pocket was flushed with Irricept solution. Wound hemostasis was achieved with cautery. Midaxillary pocket was closed in 3 layers. The xiphoid pocket was closed in 3 layers. Dermabond and Steri-Strips were placed on each incision. Manual pressure was applied. Aquacel dressing was placed at each site. Final position of pulse generator and lead were recorded with CINE imaging. Final adjustments to device programming were made. Summary: Successful implantation of a Medtronic EV ICD Recommendations: A PA-lateral chest X-ray should be performed and telemetry monitoring continued overnight. The patient should continue with the present medications. Discharge home tomorrow from EP standpoint pending clinical course. Discharge: The patient left the EP laboratory in stable condition. Follow up: Tentatively patient will be discharged Tomorrow after PA-lateral chest xray and device interrogation are done and provided the recovery parameters are appropriate. The patient should be alert for bleeding, swelling, or signs of infection. The patient should call the repairer evaporator immediately if symptoms recur, or for any problems. The patient and family ( with HIPAA consent) have been instructed accordingly. Follow up in Clinic in 1 week for wound check. Follow up in 12 weeks for routine device check and reprogramming if necessary. Remote monitoring will be instituted. May consider exercise stress testing in 3 months to assess heart rate See complete procedural log and parameters. Maris Ramos MD Please also see Dr. Lopez's note.[id number] History and physical note* Anu Durant, ECHOCARDIOGRAPHY RADIOLOGY TECHNOLOGIST-INJECTION MOULDING MACHINE OPERATOR - 11/27/2024 10:53 AM EDT [facility] Critical Care Medicine Date: 11/27/2024 Patient: Wing Alejandro Date of : 1970 Admit Date: 11/27/2024 No chief complaint on file. History of Present Illness: Wing Alejandro is a 54 y.o. year old male patient with Past Medical History of ischemic cardiomyopathy, HFrEF (EF 33%), CAD s/p PCI LAD, anterior wall STEMI 2019, uncontrolled type 1 diabetes (09/2024; A1c 9.6), HTN, and former smoker who presented to [facility] for placement Ricarda EV-ICD. Interval ICU Events: 11/27: Admitted to the ICU for post procedure EV-ICD management. Arrived to the unit HDS with arterial line and right internal jugular single lumen introducer in place on supplemental O2 via face mask. Medical History: Past Medical History: Diagnosis Date Coronary artery disease Diabetes mellitus (Multi) Hyperlipidemia Ischemic cardiomyopathy Past Surgical History: Procedure Laterality Date CORONARY ANGIOPLASTY Medications Prior to Admission Medication Sig Dispense Refill Last Dose/Taking aspirin 81 mg EC tablet Take 1 tablet (81 mg) by mouth once daily. 11/27/2024 Morning atorvastatin (Lipitor) 80 mg tablet Take 1 tablet (80 mg) by mouth once daily. 90 tablet 3 11/26/2024 carvedilol (Coreg) 3.125 mg tablet Take 1 tablet (3.125 mg) by mouth 2 times daily (morning and late afternoon). 180 tablet 3 11/27/2024 Morning Dexcom G6 Transmitter device USE 1 DEVICE EVERY 3 MONTHS FOR CONTINUOUS GLUCOSE MONITORING 11/27/2024Morning Farxiga 10 mg Take 1 tablet (10 mg) by mouth early in the morning.. 90 tablet 3 11/26/2024 Morning HumaLOG KwikPen Insulin 100 unit/mL injection 11/27/2024 Morning Semglee,insulin glarg-yfgn,Pen 100 unit/mL (3 mL) Pen Inject under the skin once daily in the morning. 11/27/2024 Morning spironolactone (Aldactone) 25 mg tablet Take 0.5 tablets (12.5 mg) by mouth once daily. 45 tablet ticagrelor (Brilinta) 90 mg tablet Take 1 tablet (90 mg) by mouth 2 times a day. 180 tablet 3 Past Week nitroglycerin (Nitrostat) 0.[address] 1 tablet (0.4 mg) under the tongue every 5 minutesif needed. Iodinated contrast media Social History Tobacco Use Smoking status: Former Types: Cigarettes Smokeless tobacco: Never Substance Use Topics Alcohol use: Yes Comment: social Drug use: Never Family History Problem Relation Name Age of Onset Heart attack Maternal Grandfather Review of Systems: 14 point review of systems was completed and negative except for those specially mention in my HPI Physical Exam: Heart Rate: [69-77] Temp: [36.2 C (97.2 F)-36.6 C (97.9 F)] Resp: [10-18] BP: (112-138)/(75-86) Height: [185.4 cm (6' 1 )] Weight: [74.1 kg (163 lb 5.8 oz)] SpO2: [98 %-100 %] Physical Exam HENT: Mouth/Throat: Mouth: Mucous membranes are moist. Eyes: Extraocular Movements: Extraocular movements intact. Conjunctiva/sclera: Conjunctivae normal. Cardiovascular: Rate and Rhythm: Normal rate and regular rhythm. Pulses: Normal pulses. Heart sounds: Normal heart sounds. Pulmonary: Effort: Pulmonary effort is normal. Breath sounds: Normal breath sounds. Abdominal: General: Bowel sounds are normal. Palpations: Abdomen is soft. Skin: General: Skin is warm. Capillary Refill: Capillary refill takes less than 2 seconds. Comments: Left chest aquacel dressing CDI Lower midsternal aquacel dressing CDI Neurological: General: No focal deficit present. Mental Status: He is alert. Psychiatric: Mood and Affect: Mood normal. Behavior: Behavior normal. Objective: I have reviewed all medications, laboratory results, and imaging pertinent for today's encounter Assessment/Plan: I am currently managing this critically ill patient for the following problems: Neuro/Psych/Pain Ctrl/Sedation: Acute post op pain CAM-ICU Delirium precautions Multi modal pain management Respiratory/ENT: Post op respiratory insufficiency Arrived to the ICU on oxygen via face mask Wean oxygen therapy to maintain SPO2 greater than 92% Pulmonary hygiene Cardiovascular: Ischemic cardiomyopathy s/p EVICD placement HFrEF, EF 33% CAD s/p PCI LAD HTN Aspirin, statin, coreg, spironolactone, brilinta Device check EP following GI: Cardiac/ diabetic diet Renal/Volume Status (Intra & Extravascular): Strict I&Os Discontinue crowley Trend BMP Endocrine Type 1 diabetes Accu check with SSI May use home insulin pump Infectious Disease: No s/s of infection Trend CBC Monitor SIRS Heme/Onc: Monitor for s/s of bleeding Trend CBC OBGYN/MSK: OOB Ethics/Code Status: FULL Nursing Home Manager: DVT Prophylaxis: per EP, hold for now post procedure GI Prophylaxis: no indication Bowel Regimen: as needed Diet: cardiac/ diabetic CVC: yes, discontinue Rosetta: yes, discontinue Crowley: yes, discontinue Restraints: none Dispo: ICU Critical Care Time: 40 minutes spent in preparing to see patient (I.e. review of medical records), evaluation of diagnostics (I.e. labs, imaging, etc.), documentation, discussing plan of care with patient/ family/ caregiver, and/ or coordination of care with multidisciplinary team. Time does not include completion of procedure time. TYRA Lei rand [facility] Work Phone: [phone]) 912-588304-09-2025 History and physical note* TYRA Lei - 11/27/2024 10:53 AM EDT [facility] Critical Care Medicine Date: 11/27/2024 Patient: Wing Alejandro Date of : 1970 Admit Date: 11/27/2024 No chief complaint on file. History of Present Illness: Wing Alejandro is a 54 y.o. year old male patient with Past Medical History of ischemic cardiomyopathy, HFrEF (EF 33%), CAD s/p PCI LAD, anterior wall STEMI 2019, uncontrolled type 1 diabetes (09/2024; A1c 9.6), HTN, and former smoker who presented to [facility] for placement Ricarda EV-ICD. Interval ICU Events: 11/27: Admitted to the ICU for post procedure EV-ICD management. Arrived to the unit HDS with arterial line and right internal jugular single lumen introducer in place on supplemental O2 via face mask. Medical History: Past Medical History: Diagnosis Date Coronary artery disease Diabetes mellitus (Multi) Hyperlipidemia Ischemic cardiomyopathy Past Surgical History: Procedure Laterality Date CORONARY ANGIOPLASTY Medications Prior to Admission Medication Sig Dispense Refill Last Dose/Taking aspirin 81 mg EC tablet Take 1 tablet (81 mg) by mouth once daily. 11/27/2024 Morning atorvastatin (Lipitor) 80 mg tablet Take 1 tablet (80 mg) by mouth once daily. 90 tablet 3 11/26/2024 carvedilol (Coreg) 3.125 mg tablet Take 1 tablet (3.125 mg) by mouth 2 times daily (morning and late afternoon). 180 tablet 3 11/27/2024 Morning Adallom G6 Transmitter device USE 1 DEVICE EVERY 3 MONTHS FOR CONTINUOUS GLUCOSE MONITORING 11/27/2024Morning Farxiga 10 mg Take 1 tablet (10 mg) by mouth early in the morning.. 90 tablet 3 11/26/2024 Morning HumaLOG KwikPen Insulin 100 unit/mL injection 11/27/2024 Morning Semglee,insulin glarg-yfgn,Pen 100 unit/mL (3 mL) Pen Inject under the skin once daily in the morning. 11/27/2024 Morning spironolactone (Aldactone) 25 mg tablet Take 0.5 tablets (12.5 mg) by mouth once daily. 45 tablet ticagrelor (Brilinta) 90 mg tablet Take 1 tablet (90 mg) by mouth 2 times a day. 180 tablet 3 Past Week nitroglycerin (Nitrostat) 0.[address] 1 tablet (0.4 mg) under the tongue every 5 minutesif needed. Iodinated contrast media Social History Tobacco Use Smoking status: Former Types: Cigarettes Smokeless tobacco: Never Substance Use Topics Alcohol use: Yes Comment: social Drug use: Never Family History Problem Relation Name Age of Onset Heart attack Maternal Grandfather Review of Systems: 14 point review of systems was completed and negative except for those specially mention in my HPI Physical Exam: Heart Rate: [69-77] Temp: [36.2 C (97.2 F)-36.6 C (97.9 F)] Resp: [10-18] BP: (112-138)/(75-86) Height: [185.4 cm (6' 1 )] Weight: [74.1 kg (163 lb 5.8 oz)] SpO2: [98 %-100 %] Physical Exam HENT: Mouth/Throat: Mouth: Mucous membranes are moist. Eyes: Extraocular Movements: Extraocular movements intact. Conjunctiva/sclera: Conjunctivae normal. Cardiovascular: Rate and Rhythm: Normal rate and regular rhythm. Pulses: Normal pulses. Heart sounds: Normal heart sounds. Pulmonary: Effort: Pulmonary effort is normal. Breath sounds: Normal breath sounds. Abdominal: General: Bowel sounds are normal. Palpations: Abdomen is soft. Skin: General: Skin is warm. Capillary Refill: Capillary refill takes less than 2 seconds. Comments: Left chest aquacel dressing CDI Lower midsternal aquacel dressing CDI Neurological: General: No focal deficit present. Mental Status: He is alert. Psychiatric: Mood and Affect: Mood normal. Behavior: Behavior normal. Objective: I have reviewed all medications, laboratory results, and imaging pertinent for today's encounter Assessment/Plan: I am currently managing this critically ill patient for the following problems: Neuro/Psych/Pain Ctrl/Sedation: Acute post op pain CAM-ICU Delirium precautions Multi modal pain management Respiratory/ENT: Post op respiratory insufficiency Arrived to the ICU on oxygen via face mask Wean oxygen therapy to maintain SPO2 greater than 92% Pulmonary hygiene Cardiovascular: Ischemic cardiomyopathy s/p EVICD placement HFrEF, EF 33% CAD s/p PCI LAD HTN Aspirin, statin, coreg, spironolactone, brilinta Device check EP following GI: Cardiac/ diabetic diet Renal/Volume Status (Intra & Extravascular): Strict I&Os Discontinue crowley Trend BMP Endocrine Type 1 diabetes Accu check with SSI May use home insulin pump Infectious Disease: No s/s of infection Trend CBC Monitor SIRS Heme/Onc: Monitor for s/s of bleeding Trend CBC OBGYN/MSK: OOB Ethics/Code Status: FULL Nursing Home Manager: DVT Prophylaxis: per EP, hold for now post procedure GI Prophylaxis: no indication Bowel Regimen: as needed Diet: cardiac/ diabetic CVC: yes, discontinue Rosetta: yes, discontinue Crowley: yes, discontinue Restraints: none Dispo: ICU Critical Care Time: 40 minutes spent in preparing to see patient (I.e. review of medical records), evaluation of diagnostics (I.e. labs, imaging, etc.), documentation, discussing plan of care with patient/ family/ caregiver, and/ or coordination of care with multidisciplinary team. Time does not include completion of procedure time. TYRA Lei * Maris Ramos MD - 11/27/2024 7:42 AM EDT H&P reviewed. The patient was examined and there are no changes to the H&P, except as below. In addition, Pt now has insulin pump. VS noted General Anxious HEENT EOMI Neck Trachea midline Cardiovascular Inspection: JVD: none with patient lying at 30 degrees Precordial bulge: none Palpation: Quality: normal Precordium: normal impulses Auscultation: Quality of auscultation:normal S1: normal intensity and splitting S2: normal intensity and splitting Clicks: none Gallops: none Rub: none Systolic murmurs: none Diastolic murmurs: none Pulses: 2+= radial, brachial, carotid Lungs No wheezing Abd BS + Ext No edema Neuro O x 3 Normal gait Lab Results Component Value Date WBC 7.2 11/27/2024 HGB 12.8 (L) 11/27/2024 HCT 38.9 (L) 11/27/2024 MCV 93 11/27/2024 PLT 215 11/27/2024 Lab Results Component Value Date GLUCOSE 125 (H) 11/27/2024 CALCIUM 8.9 11/27/2024 NA 138 11/27/2024 K 4.2 11/27/2024 CO2 26 11/27/2024 CL 105 11/27/2024 BUN 16 11/27/2024 CREATININE 0.75 11/27/2024 Lab Results Component Value Date INR 1.0 11/27/2024 PROTIME 11.0 11/27/2024 Ischemic cardiomyopathy on optimal heart failure medications. Status post large anterior wall [id number] for. LVEF 33%. For EVICE. Preop cardiac evaluation performed. Consent confirmed. Other medical issues diabetes mellitus, former smoker, and coronary disease status post PCI LAD noted. Will monitor blood sugar intrasoperatively. Counseling over 50% visit performed. The patient and I discussed bloodwork, diabetes appointment, preop cardiac evaluation, consent for procedure, shared decision making, [place] decision tool, treatment options, risks, benefits, and imponderables. All questions answered. Pt appreciative of care. Total, 55 inclusive of review of imaging and office notes Source Note - Zenia Langford MD - 11/21/2024 9:00 AM EDT Wing Alejandro is a 54 y.o. male Zenia Langford MD presents with chief complaint of Diabetes and Follow-up (Lab pump follow up) HPI: IM : 11/2024 Follow up visit on 11/21/2024, he is on T slim with Dexcom 6, A1c 9.6 blood sugar 363, 2% in low range, 75 in good range, 23 in high range, average 147, basal rate 12:00 a.m. 1.1, 4:00 a.m. 1.2, 8:00a.m. 1.3, 6:00 p.m. 1.4, 10:00 p.m. 1.2, insulin carb ratio 1:10., insulin sensitivity factor 1:35. HPI: 09/2024 New patient sent from Dr. Eduard Myers for uncontrolled diabetes, he has it since 2002, currently heis on Lantus 34 units at bedtime, Humalog sliding scale only A1c in our office 9.6, blood sugar 112, he has coronary artery disease status post stent, denies kidney problems, he is on Farxiga recently since 05/2024. SUBJECTIVE: MEDICATIONS: Current Outpatient Medications Medication Instructions aspirin 81 mg, Daily atorvastatin (LIPITOR) 80 mg, Daily Continuous Glucose Audio Narrator (Dexcom G6 client services coordinator) device 1 Device, As needed Continuous Glucose Sensor (Dexcom G6 Sensor) misc No dose, route, or frequency recorded. Continuous Glucose Transmitter (Dexcom G6 transmitter) misc As needed insulin glargine (SEMGLEE) 34 Units, Nightly Insulin Lispro 60 Units, Injection, Daily sildenafil (VIAGRA) 100 mg, Daily PRN spironolactone (ALDACTONE) 25 mg, Daily ticagrelor (BRILINTA) 90 mg, 2 times daily ALLERGIES: No Known Allergies Past Medical History: Diagnosis Date CAD (coronary artery disease) ([facility]) Cardiomyopathy ([facility]) Cervical disc disease 05/2024 Controlled type 2 diabetes mellitus with diabetic polyneuropathy ([facility]) Crushing injury of left foot, initial encounter Hyperkalemia Hypertension ([facility]) Impotence Kidney injury Nondisplaced fracture of proximal phalanx of left great toe, initial encounter for closed fracture Pain in left foot Sinus tachycardia STEMI (ST elevation myocardial infarction) ([facility]) ([facility]) Type 2 diabetes mellitus ([facility]) Past Surgical History: Procedure Laterality Date CORONARY [...] recent change. No heart burn, liver or gallbladderdisease; no rectal bleeding or pain : No urinary pain , frequency or odor. MUSCULOSKELETAL: No muscle pain or cramps; no extremity weakness.No joint pain, stiffness, swellingor limitation of movement NEUROLOGY: No H/O seizures, stroke or fainting. No weakness, tremors. Hematology: No bleeding problems or excessive bruising ENDOCRINE: No increase in hunger, thirst or urination; admits compliance to medical management plan Feet: numbness tingling yes , ulcers or skin break no Lab Results Component Value Date HGBA1C 9.6 09/25/2024 Lab Results Component Value Date GLU 363 11/21/2024 GLU 112 09/25/2024 There were no vitals taken for this visit. ASSESSMENT AND PLAN: Assessment/Plan Diagnoses and all orders for this visit: Poor control type I diabetes mellitus ([facility]/HCC) - POCT glucose manually resulted We will continue with the same insulin pump settings, we will send him lispro vial for insulin pump Primary hypertension (CMS/HCC) Encounter for dietary consultation Vitamin D deficiency Hyperlipemia, mixed (CMS/HCC) Insulin long-term use (CMS/HCC) Insulin pump status Encounter for fitting and adjustment of insulin pump Follow up in about 3 months (around 02/20/2025). [facility]: [phone]) 527-598704-09-2025 History and physical note* Anu Durant APRN-INJECTION MOULDING MACHINE OPERATOR - 11/27/2024 10:53 AM EDT [facility] Critical Care Medicine Date: 11/27/2024 Patient: Wing Alejandro Date of : 1970 Admit Date: 11/27/2024 No chief complaint on file. History of Present Illness: Wing Alejandro is a 54 y.o. year old male patient with Past Medical History of ischemic cardiomyopathy, HFrEF (EF 33%), CAD s/p PCI LAD, anterior wall STEMI 2019, uncontrolled type 1 diabetes (09/2024; A1c 9.6), HTN, and former smoker who presented to [facility] for placement Ricarda EV-ICD. Interval ICU Events: 11/27: Admitted to the ICU for post procedure EV-ICD management. Arrived to the unit HDS with arterial line and right internal jugular single lumen introducer in place on supplemental O2 via face mask. Medical History: Past Medical History: Diagnosis Date Coronary artery disease Diabetes mellitus (Multi) Hyperlipidemia Ischemic cardiomyopathy Past Surgical History: Procedure Laterality Date CORONARY ANGIOPLASTY Medications Prior to Admission Medication Sig Dispense Refill Last Dose/Taking aspirin 81 mg EC tablet Take 1 tablet (81 mg) by mouth once daily. 11/27/2024 Morning atorvastatin (Lipitor) 80 mg tablet Take 1 tablet (80 mg) by mouth once daily. 90 tablet 3 11/26/2024 carvedilol (Coreg) 3.125 mg tablet Take 1 tablet (3.125 mg) by mouth 2 times daily (morning and late afternoon). 180 tablet 3 11/27/2024 Morning Dexcom G6 Transmitter device USE 1 DEVICE EVERY 3 MONTHS FOR CONTINUOUS GLUCOSE MONITORING 11/27/2024Morning Farxiga 10 mg Take 1 tablet (10 mg) by mouth early in the morning.. 90 tablet 3 11/26/2024 Morning HumaLOG KwikPen Insulin 100 unit/mL injection 11/27/2024 Morning Semglee,insulin glarg-yfgn,Pen 100 unit/mL (3 mL) Pen Inject under the skin once daily in the morning. 11/27/2024 Morning spironolactone (Aldactone) 25 mg tablet Take 0.5 tablets (12.5 mg) by mouth once daily. 45 tablet ticagrelor (Brilinta) 90 mg tablet Take 1 tablet (90 mg) by mouth 2 times a day. 180 tablet 3 Past Week nitroglycerin (Nitrostat) 0.[address] 1 tablet (0.4 mg) under the tongue every 5 minutesif needed. Iodinated contrast media Social History Tobacco Use Smoking status: Former Types: Cigarettes Smokeless tobacco: Never Substance Use Topics Alcohol use: Yes Comment: social Drug use: Never Family History Problem Relation Name Age of Onset Heart attack Maternal Grandfather Review of Systems: 14 point review of systems was completed and negative except for those specially mention in my HPI Physical Exam: Heart Rate: [69-77] Temp: [36.2 C (97.2 F)-36.6 C (97.9 F)] Resp: [10-18] BP: (112-138)/(75-86) Height: [185.4 cm (6' 1 )] Weight: [74.1 kg (163 lb 5.8 oz)] SpO2: [98 %-100 %] Physical Exam HENT: Mouth/Throat: Mouth: Mucous membranes are moist. Eyes: Extraocular Movements: Extraocular movements intact. Conjunctiva/sclera: Conjunctivae normal. Cardiovascular: Rate and Rhythm: Normal rate and regular rhythm. Pulses: Normal pulses. Heart sounds: Normal heart sounds. Pulmonary: Effort: Pulmonary effort is normal. Breath sounds: Normal breath sounds. Abdominal: General: Bowel sounds are normal. Palpations: Abdomen is soft. Skin: General: Skin is warm. Capillary Refill: Capillary refill takes less than 2 seconds. Comments: Left chest aquacel dressing CDI Lower midsternal aquacel dressing CDI Neurological: General: No focal deficit present. Mental Status: He is alert. Psychiatric: Mood and Affect: Mood normal. Behavior: Behavior normal. Objective: I have reviewed all medications, laboratory results, and imaging pertinent for today's encounter Assessment/Plan: I am currently managing this critically ill patient for the following problems: Neuro/Psych/Pain Ctrl/Sedation: Acute post op pain CAM-ICU Delirium precautions Multi modal pain management Respiratory/ENT: Post op respiratory insufficiency Arrived to the ICU on oxygen via face mask Wean oxygen therapy to maintain SPO2 greater than 92% Pulmonary hygiene Cardiovascular: Ischemic cardiomyopathy s/p EVICD placement HFrEF, EF 33% CAD s/p PCI LAD HTN Aspirin, statin, coreg, spironolactone, brilinta Device check EP following GI: Cardiac/ diabetic diet Renal/Volume Status (Intra & Extravascular): Strict I&Os Discontinue crowley Trend BMP Endocrine Type 1 diabetes Accu check with SSI May use home insulin pump Infectious Disease: No s/s of infection Trend CBC Monitor SIRS Heme/Onc: Monitor for s/s of bleeding Trend CBC OBGYN/MSK: OOB Ethics/Code Status: FULL Nursing Home Manager: DVT Prophylaxis: per EP, hold for now post procedure GI Prophylaxis: no indication Bowel Regimen: as needed Diet: cardiac/ diabetic CVC: yes, discontinue Carrabelle: yes, discontinue Crowley: yes, discontinue Restraints: none Dispo: ICU Critical Care Time: 40 minutes spent in preparing to see patient (I.e. review of medical records), evaluation of diagnostics (I.e. labs, imaging, etc.), documentation, discussing plan of care with patient/ family/ caregiver, and/ or coordination of care with multidisciplinary team. Time does not include completion of procedure time. TYRA Lei * Maris Ramos MD - 11/27/2024 7:42 AM EDT H&P reviewed. The patient was examined and there are no changes to the H&P, except as below. In addition, Pt now has insulin pump. VS noted General Anxious HEENT EOMI Neck Trachea midline Cardiovascular Inspection: JVD: none with patient lying at 30 degrees Precordial bulge: none Palpation: Quality: normal Precordium: normal impulses Auscultation: Quality of auscultation:normal S1: normal intensity and splitting S2: normal intensity and splitting Clicks: none Gallops: none Rub: none Systolic murmurs: none Diastolic murmurs: none Pulses: 2+= radial, brachial, carotid Lungs No wheezing Abd BS + Ext No edema Neuro O x 3 Normal gait Lab Results Component Value Date WBC 7.2 11/27/2024 HGB 12.8 (L) 11/27/2024 HCT 38.9 (L) 11/27/2024 MCV 93 11/27/2024 PLT 215 11/27/2024 Lab Results Component Value Date GLUCOSE 125 (H) 11/27/2024 CALCIUM 8.9 11/27/2024 NA 138 11/27/2024 K 4.2 11/27/2024 CO2 26 11/27/2024 CL 105 11/27/2024 BUN 16 11/27/2024 CREATININE 0.75 11/27/2024 Lab Results Component Value Date INR 1.0 11/27/2024 PROTIME 11.0 11/27/2024 Ischemic cardiomyopathy on optimal heart failure medications. Status post large anterior wall [id number] for. LVEF 33%. For EVICE. Preop cardiac evaluation performed. Consent confirmed. Other medical issues diabetes mellitus, former smoker, and coronary disease status post PCI LAD noted. Will monitor blood sugar intrasoperatively. Counseling over 50% visit performed. The patient and I discussed bloodwork, diabetes appointment, preop cardiac evaluation, consent for procedure, shared decision making, [place] decision tool, treatment options, risks, benefits, and imponderables. All questions answered. Pt appreciative of care. Total, 55 inclusive of review of imaging and office notes Source Note - Zenia Langford MD - 11/21/2024 9:00 AM EDT Wing Alejandro is a 54 y.o. male Zenia Langford MD presents with chief complaint of Diabetes and Follow-up (Lab pump follow up) HPI: IM : 11/2024 Follow up visit on 11/21/2024, he is on T slim with Dexcom 6, A1c 9.6 blood sugar 363, 2% in low range, 75 in good range, 23 in high range, average 147, basal rate 12:00 a.m. 1.1, 4:00 a.m. 1.2, 8:00a.m. 1.3, 6:00 p.m. 1.4, 10:00 p.m. 1.2, insulin carb ratio 1:10., insulin sensitivity factor 1:35. HPI: 09/2024 New patient sent from Dr. Eduard Myers for uncontrolled diabetes, he has it since 2002, currently heis on Lantus 34 units at bedtime, Humalog sliding scale only A1c in our office 9.6, blood sugar 112, he has coronary artery disease status post stent, denies kidney problems, he is on Farxiga recently since 05/2024. SUBJECTIVE: MEDICATIONS: Current Outpatient Medications Medication Instructions aspirin 81 mg, Daily atorvastatin (LIPITOR) 80 mg, Daily Continuous Glucose Audio Narrator (Dexcom G6 client services coordinator) device 1 Device, As needed Continuous Glucose Sensor (Dexcom G6 Sensor) misc No dose, route, or frequency recorded. Continuous Glucose Transmitter (Dexcom G6 transmitter) misc As needed insulin glargine (SEMGLEE) 34 Units, Nightly Insulin Lispro 60 Units, Injection, Daily sildenafil (VIAGRA) 100 mg, Daily PRN spironolactone (ALDACTONE) 25 mg, Daily ticagrelor (BRILINTA) 90 mg, 2 times daily ALLERGIES: No Known Allergies Past Medical History: Diagnosis Date CAD (coronary artery disease) ([facility]) Cardiomyopathy ([facility]) Cervical disc disease 05/2024 Controlled type 2 diabetes mellitus with diabetic polyneuropathy ([facility]) Crushing injury of left foot, initial encounter Hyperkalemia Hypertension ([facility]) Impotence Kidney injury Nondisplaced fracture of proximal phalanx of left great toe, initial encounter for closed fracture Pain in left foot Sinus tachycardia STEMI (ST elevation myocardial infarction) ([facility]) ([facility]) Type 2 diabetes mellitus ([facility]) Past Surgical History: Procedure Laterality Date CORONARY [...] recent change. No heart burn, liver or gallbladderdisease; no rectal bleeding or pain : No urinary pain , frequency or odor. MUSCULOSKELETAL: No muscle pain or cramps; no extremity weakness.No joint pain, stiffness, swellingor limitation of movement NEUROLOGY: No H/O seizures, stroke or fainting. No weakness, tremors. Hematology: No bleeding problems or excessive bruising ENDOCRINE: No increase in hunger, thirst or urination; admits compliance to medical management plan Feet: numbness tingling yes , ulcers or skin break no Lab Results Component Value Date HGBA1C 9.6 09/25/2024 Lab Results Component Value Date GLU 363 11/21/2024 GLU 112 09/25/2024 There were no vitals taken for this visit. ASSESSMENT AND PLAN: Assessment/Plan Diagnoses and all orders for this visit: Poor control type I diabetes mellitus ([facility]) - POCT glucose manually resulted We will continue with the same insulin pump settings, we will send him lispro vial for insulin pump Primary hypertension ([facility]) Encounter for dietary consultation Vitamin D deficiency Hyperlipemia, mixed ([facility]) Insulin long-term use ([facility]) Insulin pump status Encounter for fitting and adjustment of insulin pump Follow up in about 3 months (around 02/20/2025). [facility] Work Phone: 1(971) 891-228304-09-2025 Nurse Note* Maryanne Irvin RN - 11/27/2024 10:35 AM EDT Pt arrived to micu 8 attached to icu monitors. Anu RAMÍREZ at bedside. [facility]04-09-2025 Nurse Note* Maryanne Irvin RN - 11/27/2024 10:35 AM EDT Pt arrived to micu 8 attached to icu monitors. Anu RAMÍREZ at bedside. * Sudheer Flanagan RN - 11/27/2024 6:57 AM EDT Report called to Holding Room and EP Lab. Pt placed into transport for Holding Room. Messaged Georgia Carias CNP regarding Vancomycin order. Pt has been hospitalized overnight in the last year. [facility] Work Phone: 1([phone]) 591-242304-09-2025 Nurse Note* Maryanne Irvin RN - 11/27/2024 10:35 AM EDT Pt arrived to micu 8 attached to icu monitors. Anu RAMÍREZ at bedside. * Sudheer Flanagan RN - 11/27/2024 6:57 AM EDT Report called to Holding Room and EP Lab. Pt placed into transport for Holding Room. Messaged Georgia Carias CNP regarding Vancomycin order. Pt has been hospitalized overnight in the last year. [facility] Work Phone: [phone]) 725-395304-09-2025 Surgery Surgical operation note* Op Note - Priya Lopez MD - 11/27/2024 8:10 AM EDT ICD SUBQ Implant (L) Operative Note Date: 11/27/2024 OR Location: [facility] Cardiac Case Supervisor Name: Wing Alejandro, : 1970, Age: 54 y.o., , Sex: male Diagnosis Pre-op Diagnosis * Cardiomyopathy, ischemic [I25.5] Post-op Diagnosis * Cardiomyopathy, ischemic [I25.5] Procedures Anterior mediastinal exploration (mediastinoscopy with Arthrex Sandra Needle scope 250 mm)(SN:[id number]) Placement of anterior mediastinal extra vascular lead (Medtronic EV 2401 63 cm)(SN: [id number]) Placement of Ricarda EV-ICD (Medtronic [id number])(SN: [id number]) Testing of lead Initiation and termination of ventricular fibrillation Surgeons * Maris Ramos - Primary * Priya Lopez - Primary Drs. Ramos and Jessica should be considered co-surgeons. Dr. Ramos is responsible for testing of lead, implantation of AICD generator, initiation and termination of ventricular fibrillation. Dr. Lopez is responsible for mediastinal exploration (mediastinoscopy), and placement of anterior mediastinal lead. Resident/Fellow/Other Farm Operations Manager: Americo Schumacher SA Staff: Infection Control Nurse: Stephanie Infection Control Nurse: Faith Mcmanusub Person: Shala Infection Control Nurse: Fatimah Anesthesia Staff: Anesthesiologist: Denae Carreon MD SCHOOL GUARD: Shady Fernandez APRN-GARRETT Procedure Summary Anesthesia: General ASA: III Estimated Blood Loss: minimal mL Intra-op Medications: Administrations occurring from 0810 to 1026 on 11/27/24: Medication Name Total Dose lidocaine PF (Xylocaine) 10 mg/mL (1 %) injection 15 mL lidocaine PF (Xylocaine) 10 mg/mL (1 %) injection 3 mL bupivacaine PF 0.25 % (Marcaine) 0.25 % (2.5 mg/mL) injection 15 mL dexAMETHasone (Decadron) 4 mg/mL 4 mg etomidate (Amidate) injection 14 mg fentaNYL PF 0.05 mg/mL 100 mcg LR infusion Cannot be calculated lidocaine (Xylocaine) injection 2 % 60 mg ondansetron 2 mg/mL 4 mg phenylephrine 100 mcg/mL syringe 10 mL (prefilled) 500 mcg propofol (Diprivan) injection 10 mg/mL 50 mg rocuronium (ZeMuron) 50 mg/5 mL injection 100 mg NaCl 0.9 % infusion 78.64 mL Anesthesia Record Intraprocedure I/O Totals Intake LR infusion 250.00 mL NaCl 0.9 % infusion 100.00 mL Total Intake 350 mL Output Urine 500 mL Total Output 500 mL Net Net Volume -150 mL Specimen: No specimens collected Drains and/or Catheters: * None in log * Tourniquet Times: N/A Implants: Implants Type Name Action Serial No. ICD DEVICE, EV-ICD, RICARDA - [id number] - [id number] Implanted [id number] Findings: The anterior mediastinal space was free of any significant adhesions. There was a nice loose areolar tissue noted upon entry into the anterior mediastinal space. Placement of the extravascular ICD lead was in great position, to the left of the sternal border with the distal tip at the level of the santosh. The testing of the lead revealed excellent waveforms with an R wave of 2.2 - 2.8, and testing of the generator initiated ventricular fibrillation and terminated ventricular fibrillation with 2 shock delivery at 30 joules (type II termination). Indications: Wing Alejandro is an 54 y.o. male who is having surgery for ischemic cardiomyopathy. His ejection fraction is 33% after 40 days post large anterior STEMI. He is here to discuss defibrillator. 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 The patient was seen in the preoperative area. The risks, benefits, complications, treatment options, non-operative alternatives, expected recovery and outcomes were discussed with the patient. The possibilities of reaction to medication, pulmonary aspiration, injury to surrounding structures, bleeding, recurrent infection, the need for additional procedures, failure to diagnose a condition, and creating a complication requiring transfusion or operation were discussed with the patient. The patient concurred with the proposed plan, giving informed consent. The site of surgery was properly noted/marked if necessary per policy. The patient has been actively warmed in preoperative area. Preopera tive antibiotics have been ordered and given within 1 hours of incision. Venous thrombosis prophylaxis have been ordered including bilateral sequential compression devices Procedure Details: After informed consent was obtained, and all questions asked and answered the patient satisfaction, after positive indication, he was brought to the electrophysiology laboratory. Prior to coming into the EP lab, he had right internal jugular central venous line as well as right radial arterial line placed for monitoring. He had induction of anesthesia, and orotracheal intubation without event. He was connected to the anesthesia circuit, and monitoring lines were connected as well. He was then prepped and draped in a standard sterile surgical fashion. A surgical timeout was performed with the correct patient, the correct procedure, laterality, timing and dosage of antibiotics, availability of blood products, fire risk, and all available equipment was verified as being present prior to beginning the case. Topographic markings along the sternum at each rib space was performed, as well as the suprasternalnotch and the xiphoid process. Bilateral costophrenic angles were also marked. Using fluoroscopy, placement of the generator was predicted using fluoroscopy vectors. The santosh was identified using fluoroscopy and topographic measurement was performed using a hemostat. A 2 cm transverse incision was made just to the left of the xiphoid process. Bovie electrocautery was used to dissect down through the subcutaneous tissue and the anterior rectus sheath fascia was incised using Bovie electrocautery. The posterior fascia was identified, and blunt finger dissection was performed to enter into theanterior mediastinal space. Concomitantly Dr. Ramos using Bovie electrocautery incised and created the generator pocket on the left lateral chest wall. The Arthrex Sandra needle scope was inserted along the posterior rectus fascia and into the anterior mediastinal space. This was then used to perform anterior mediastinal anoscopy to ensure that we were in the correct tissue plane. Using fluoroscopic guidance in anterior posterior as well as 90 degree vectors the tunneling tool was advanced along the posterior table of the sternum up to the santosh. The 9 [place] sheath had been prefilled with saline, and connected to a 10 cc syringe of saline using a stopcock. Once the tunnel path was created the tunneling tool was removed ensuring no air was entrained in the system. The Arthrex Sandra needle scope was again inserted into the sheath and through to the loose areolar anterior mediastinal space. The EV ICD lead was placed through the 9 Ug[place] sheath using direct fluoroscopic guidance. The sheath was then pulled back over the wire allowing the EV ICD lead to return to nativesigmoid form, just over the heart in the anterior mediastinal space. The lead was then sutured to the anterior rectus fascia, with three 2-0 sutures. Testing of the lead was performed. The lead was then tunneled laterally to the generator pocket. This was connected to the AV ICD generator and carefully placed in the generator pocket. The fascia was closed over the generator, as well as the fascia over the lead. Testing of the generator lead was once again performed, and an initiation of ventricular fibrillation as well as termination of ventricular fibrillation was performed with two shocks at 30 J. The lead incision as well as the generator pocket incision subcutaneous tissue were closed with 2-0Polysorb suture in a running fashion, the subcuticular layer was closed with a 3-0 Polysorb suture in a running fashion, and the dermal layer was closed with a 4-0 Monocryl suture in a running fashion. Biologic glue as well as Steri-Strips were placed as dressings. The needle instrument sponge count were correct x 2, the patient tolerated this procedure well, he was then emerged from anesthetic, extubated, and brought to the intensive care unit in stable condition. Complications: None; patient tolerated the procedure well. Disposition: ICU - extubated and stable. Condition: stable Tasks performed by Center Hole Reamer: Placement of crowley bladder catheter. Surgical prep and draping of patient Assistance with sub-xiphoid incision Performed surgical site closure Monitoring and transport of patient to ICU Attending Attestation: I was present and scrubbed for the entire procedure. Priya Lopez MD [facility] Work Phone: 1([phone]) 192-150904-09-2025 Miscellaneous Notes* Op Note - Priya Lopez MD - 11/27/2024 8:10 AM EDT ICD SUBQ Implant (L) Operative Note Date: 11/27/2024 OR Location: [facility] Cardiac Case Supervisor Name: Wing Alejandro, : 1970, Age: 54 y.o., , Sex: male Diagnosis Pre-op Diagnosis * Cardiomyopathy, ischemic [I25.5] Post-op Diagnosis * Cardiomyopathy, ischemic [I25.5] Procedures Anterior mediastinal exploration (mediastinoscopy with Arthrex Sandra Needle scope 250 mm)(SN:[id number]) Placement of anterior mediastinal extra vascular lead (Medtronic EV 2401 63 cm)(SN: [id number]) Placement of Ricarad EV-ICD (Medtronic [id number])(SN: [id number]) Testing of lead Initiation and termination of ventricular fibrillation Surgeons * Maris Ramos - Primary * Priya Lopez - Primary Drs. Ramos and Jessica should be considered co-surgeons. Dr. Ramos is responsible for testing of lead, implantation of AICD generator, initiation and termination of ventricular fibrillation. Dr. Lopez is responsible for mediastinal exploration (mediastinoscopy), and placement of anterior mediastinal lead. Resident/Fellow/Other Farm Operations Manager: Americo Schumacher SA Staff: Infection Control Nurse: Stephanie Infection Control Nurse: Faith Scrub Person: Shala Infection Control Nurse: Fatimah Anesthesia Staff: Anesthesiologist: Denae Carreon MD SCHOOL GUARD: Shady Fernandez APRN-GARRETT Procedure Summary Anesthesia: General ASA: III Estimated Blood Loss: minimal mL Intra-op Medications: Administrations occurring from 0810 to 1026 on 11/27/24: Medication Name Total Dose lidocaine PF (Xylocaine) 10 mg/mL (1 %) injection 15 mL lidocaine PF (Xylocaine) 10 mg/mL (1 %) injection 3 mL bupivacaine PF 0.25 % (Marcaine) 0.25 % (2.5 mg/mL) injection 15 mL dexAMETHasone (Decadron) 4 mg/mL 4 mg etomidate (Amidate) injection 14 mg fentaNYL PF 0.05 mg/mL 100 mcg LR infusion Cannot be calculated lidocaine (Xylocaine) injection 2 % 60 mg ondansetron 2 mg/mL 4 mg phenylephrine 100 mcg/mL syringe 10 mL (prefilled) 500 mcg propofol (Diprivan) injection 10 mg/mL 50 mg rocuronium (ZeMuron) 50 mg/5 mL injection 100 mg NaCl 0.9 % infusion 78.64 mL Anesthesia Record Intraprocedure I/O Totals Intake LR infusion 250.00 mL NaCl 0.9 % infusion 100.00 mL Total Intake 350 mL Output Urine 500 mL Total Output 500 mL Net Net Volume -150 mL Specimen: No specimens collected Drains and/or Catheters: * None in log * Tourniquet Times: N/A Implants: Implants Type Name Action Serial No. ICD DEVICE, EV-ICD, RICARDA - [id number] - [id number] Implanted [id number] Findings: The anterior mediastinal space was free of any significant adhesions. There was a nice loose areolar tissue noted upon entry into the anterior mediastinal space. Placement of the extravascular ICD lead was in great position, to the left of the sternal border with the distal tip at the level of the santosh. The testing of the lead revealed excellent waveforms with an R wave of 2.2 - 2.8, and testing of the generator initiated ventricular fibrillation and terminated ventricular fibrillation with 2 shock delivery at 30 joules (type II termination). Indications: Wing Alejandro is an 54 y.o. male who is having surgery for ischemic cardiomyopathy. His ejection fraction is 33% after 40 days post large anterior STEMI. He is here to discuss defibrillator. 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 The patient was seen in the preoperative area. The risks, benefits, complications, treatment options, non-operative alternatives, expected recovery and outcomes were discussed with the patient. The possibilities of reaction to medication, pulmonary aspiration, injury to surrounding structures, bleeding, recurrent infection, the need for additional procedures, failure to diagnose a condition, and creating a complication requiring transfusion or operation were discussed with the patient. The patient concurred with the proposed plan, giving informed consent. The site of surgery was properly noted/marked if necessary per policy. The patient has been actively warmed in preoperative area. Preopera tive antibiotics have been ordered and given within 1 hours of incision. Venous thrombosis prophylaxis have been ordered including bilateral sequential compression devices Procedure Details: After informed consent was obtained, and all questions asked and answered the patient satisfaction, after positive indication, he was brought to the electrophysiology laboratory. Prior to coming into the EP lab, he had right internal jugular central venous line as well as right radial arterial line placed for monitoring. He had induction of anesthesia, and orotracheal intubation without event. He was connected to the anesthesia circuit, and monitoring lines were connected as well. He was then prepped and draped in a standard sterile surgical fashion. A surgical timeout was performed with the correct patient, the correct procedure, laterality, timing and dosage of antibiotics, availability of blood products, fire risk, and all available equipment was verified as being present prior to beginning the case. Topographic markings along the sternum at each rib space was performed, as well as the suprasternalnotch and the xiphoid process. Bilateral costophrenic angles were also marked. Using fluoroscopy, placement of the generator was predicted using fluoroscopy vectors. The santosh was identified using fluoroscopy and topographic measurement was performed using a hemostat. A 2 cm transverse incision was made just to the left of the xiphoid process. Bovie electrocautery was used to dissect down through the subcutaneous tissue and the anterior rectus sheath fascia was incised using Bovie electrocautery. The posterior fascia was identified, and blunt finger dissection was performed to enter into theanterior mediastinal space. Concomitantly Dr. Ramos using Bovie electrocautery incised and created the generator pocket on the left lateral chest wall. The Arthrex Sandra needle scope was inserted along the posterior rectus fascia and into the anterior mediastinal space. This was then used to perform anterior mediastinal anoscopy to ensure that we were in the correct tissue plane. Using fluoroscopic guidance in anterior posterior as well as 90 degree vectors the tunneling tool was advanced along the posterior table of the sternum up to the santosh. The 9 Ugandan sheath had been prefilled with saline, and connected to a 10 cc syringe of saline using a stopcock. Once the tunnel path was created the tunneling tool was removed ensuring no air was entrained in the system. The Arthrex Sandra needle scope was again inserted into the sheath and through to the loose areolar anterior mediastinal space. The EV ICD lead was placed through the 9 Ugandan sheath using direct fluoroscopic guidance. The sheath was then pulled back over the wire allowing the EV ICD lead to return to nativesigmoid form, just over the heart in the anterior mediastinal space. The lead was then sutured to the anterior rectus fascia, with three 2-0 sutures. Testing of the lead was performed. The lead was then tunneled laterally to the generator pocket. This was connected to the AV ICD generator and carefully placed in the generator pocket. The fascia was closed over the generator, as well as the fascia over the lead. Testing of the generator lead was once again performed, and an initiation of ventricular fibrillation as well as termination of ventricular fibrillation was performed with two shocks at 30 J. The lead incision as well as the generator pocket incision subcutaneous tissue were closed with 2-0Polysorb suture in a running fashion, the subcuticular layer was closed with a 3-0 Polysorb suture in a running fashion, and the dermal layer was closed with a 4-0 Monocryl suture in a running fashion. Biologic glue as well as Steri-Strips were placed as dressings. The needle instrument sponge count were correct x 2, the patient tolerated this procedure well, he was then emerged from anesthetic, extubated, and brought to the intensive care unit in stable condition. Complications: None; patient tolerated the procedure well. Disposition: ICU - extubated and stable. Condition: stable Tasks performed by Center Hole Reamer: Placement of crowley bladder catheter. Surgical prep and draping of patient Assistance with sub-xiphoid incision Performed surgical site closure Monitoring and transport of patient to ICU Attending Attestation: I was present and scrubbed for the entire procedure. Priya Lopez MD * Pre-Sedation Documentation - Maris Ramos MD - 11/27/2024 7:42 AM EDT Sedation Plan ASA 2 Mallampati class: II. Risks, benefits, and alternatives discussed with patient. documented in this [facility] Work Phone: 1(448) 981-897504-09-2025 Attending History and physical note* Maris Ramos MD - 11/27/2024 7:42 AM EDT H&P reviewed. The patient was examined and there are no changes to the H&P, except as below. In addition, Pt now has insulin pump. VS noted General Anxious HEENT EOMI Neck Trachea midline Cardiovascular Inspection: JVD: none with patient lying at 30 degrees Precordial bulge: none Palpation: Quality: normal Precordium: normal impulses Auscultation: Quality of auscultation:normal S1: normal intensity and splitting S2: normal intensity and splitting Clicks: none Gallops: none Rub: none Systolic murmurs: none Diastolic murmurs: none Pulses: 2+= radial, brachial, carotid Lungs No wheezing Abd BS + Ext No edema Neuro O x 3 Normal gait Lab Results Component Value Date WBC 7.2 11/27/2024 HGB 12.8 (L) 11/27/2024 HCT 38.9 (L) 11/27/2024 MCV 93 11/27/2024 PLT 215 11/27/2024 Lab Results Component Value Date GLUCOSE 125 (H) 11/27/2024 CALCIUM 8.9 11/27/2024 NA 138 11/27/2024 K 4.2 11/27/2024 CO2 26 11/27/2024 CL 105 11/27/2024 BUN 16 11/27/2024 CREATININE 0.75 11/27/2024 Lab Results Component Value Date INR 1.0 11/27/2024 PROTIME 11.0 11/27/2024 Ischemic cardiomyopathy on optimal heart failure medications. Status post large anterior wall [id number] for. LVEF 33%. For EVICE. Preop cardiac evaluation performed. Consent confirmed. Other medical issues diabetes mellitus, former smoker, and coronary disease status post PCI LAD noted. Will monitor blood sugar intrasoperatively. Counseling over 50% visit performed. The patient and I discussed bloodwork, diabetes appointment, preop cardiac evaluation, consent for procedure, shared decision making, [place] decision tool, treatment options, risks, benefits, and imponderables. All questions answered. Pt appreciative of care. Total, 55 inclusive of review of imaging and office notes Source Note - Zenia Langford MD - 11/21/2024 9:00 AM EDT Wing Alejandro is a 54 y.o. male Zenia Langford MD presents with chief complaint of Diabetes and Follow-up (Lab pump follow up) HPI: IM : 11/2024 Follow up visit on 11/21/2024, he is on T slim with Dexcom 6, A1c 9.6 blood sugar 363, 2% in low range, 75 in good range, 23 in high range, average 147, basal rate 12:00 a.m. 1.1, 4:00 a.m. 1.2, 8:00a.m. 1.3, 6:00 p.m. 1.4, 10:00 p.m. 1.2, insulin carb ratio 1:10., insulin sensitivity factor 1:35. HPI: 09/2024 New patient sent from Dr. Eduard Myers for uncontrolled diabetes, he has it since 2002, currently heis on Lantus 34 units at bedtime, Humalog sliding scale only A1c in our office 9.6, blood sugar 112, he has coronary artery disease status post stent, denies kidney problems, he is on Farxiga recently since 05/2024. SUBJECTIVE: MEDICATIONS: Current Outpatient Medications Medication Instructions aspirin 81 mg, Daily atorvastatin (LIPITOR) 80 mg, Daily Continuous Glucose Audio Narrator (Dexcom G6 client services coordinator) device 1 Device, As needed Continuous Glucose Sensor (Dexcom G6 Sensor) misc No dose, route, or frequency recorded. Continuous Glucose Transmitter (Dexcom G6 transmitter) misc As needed insulin glargine (SEMGLEE) 34 Units, Nightly Insulin Lispro 60 Units, Injection, Daily sildenafil (VIAGRA) 100 mg, Daily PRN spironolactone (ALDACTONE) 25 mg, Daily ticagrelor (BRILINTA) 90 mg, 2 times daily ALLERGIES: No Known Allergies Past Medical History: Diagnosis Date CAD (coronary artery disease) ([facility]) Cardiomyopathy ([facility]) Cervical disc disease 05/2024 Controlled type 2 diabetes mellitus with diabetic polyneuropathy ([facility]) Crushing injury of left foot, initial encounter Hyperkalemia Hypertension ([facility]) Impotence Kidney injury Nondisplaced fracture of proximal phalanx of left great toe, initial encounter for closed fracture Pain in left foot Sinus tachycardia STEMI (ST elevation myocardial infarction) ([facility]) ([facility]) Type 2 diabetes mellitus ([facility]) Past Surgical History: Procedure Laterality Date CORONARY [...] recent change. No heart burn, liver or gallbladderdisease; no rectal bleeding or pain : No urinary pain , frequency or odor. MUSCULOSKELETAL: No muscle pain or cramps; no extremity weakness.No joint pain, stiffness, swellingor limitation of movement NEUROLOGY: No H/O seizures, stroke or fainting. No weakness, tremors. Hematology: No bleeding problems or excessive bruising ENDOCRINE: No increase in hunger, thirst or urination; admits compliance to medical management plan Feet: numbness tingling yes , ulcers or skin break no Lab Results Component Value Date HGBA1C 9.6 09/25/2024 Lab Results Component Value Date GLU 363 11/21/2024 GLU 112 09/25/2024 There were no vitals taken for this visit. ASSESSMENT AND PLAN: Assessment/Plan Diagnoses and all orders for this visit: Poor control type I diabetes mellitus ([facility]) - POCT glucose manually resulted We will continue with the same insulin pump settings, we will send him lispro vial for insulin pump Primary hypertension ([facility]) Encounter for dietary consultation Vitamin D deficiency Hyperlipemia, mixed ([facility]) Insulin long-term use ([facility]) Insulin pump status Encounter for fitting and adjustment of insulin pump Follow up in about 3 months (around 02/20/2025). [facility] Work Phone: 1(681) 397-431304-09-2025 Nurse procedure note* Pre-Sedation Documentation - Maris Ramos MD - 11/27/2024 7:42 AM EDT Sedation Plan ASA 2 Mallampati class: II. Risks, benefits, and alternatives discussed with patient. [facility] Work Phone: [phone]) 211-425804-09-2025 Nurse Note* Sudheer Flanagan RN - 11/27/2024 6:57 AM EDT Report called to Holding Room and EP Lab. Pt placed into transport for Holding Room. Fredid Georgia Carias CNP regarding Vancomycin order. Pt has been hospitalized overnight in the last year. [facility] Work Phone: [phone]) 374-483904-03-2025 History of Present illness Narrative* Zenia Langford MD - 11/21/2024 9:00 AM EDT Wing Alejandro is a 54 y.o. male Zenia Langford MD presents with chief complaint of Diabetes and Follow-up (Lab pump follow up) HPI: IM : 11/2024 Follow up visit on 11/21/2024, he is on T slim with Dexcom 6, A1c 9.6 blood sugar 363, 2% in low range, 75 in good range, 23 in high range, average 147, basal rate 12:00 a.m. 1.1, 4:00 a.m. 1.2, 8:00a.m. 1.3, 6:00 p.m. 1.4, 10:00 p.m. 1.2, insulin carb ratio 1:10., insulin sensitivity factor 1:35. HPI: 09/2024 New patient sent from Dr. Eduard Myers for uncontrolled diabetes, he has it since 2002, currently heis on Lantus 34 units at bedtime, Humalog sliding scale only A1c in our office 9.6, blood sugar 112, he has coronary artery disease status post stent, denies kidney problems, he is on Farxiga recently since 05/2024. SUBJECTIVE: MEDICATIONS: Current Outpatient Medications Medication Instructions aspirin 81 mg, Daily atorvastatin (LIPITOR) 80 mg, Daily Continuous Glucose Audio Narrator (Dexcom G6 client services coordinator) device 1 Device, As needed Continuous Glucose Sensor (Dexcom G6 Sensor) misc No dose, route, or frequency recorded. Continuous Glucose Transmitter (Dexcom G6 transmitter) misc As needed insulin glargine (SEMGLEE) 34 Units, Nightly Insulin Lispro 60 Units, Injection, Daily sildenafil (VIAGRA) 100 mg, Daily PRN spironolactone (ALDACTONE) 25 mg, Daily ticagrelor (BRILINTA) 90 mg, 2 times daily ALLERGIES: No Known Allergies Past Medical History: Diagnosis Date CAD (coronary artery disease) ([facility]) Cardiomyopathy ([facility]) Cervical disc disease 05/2024 Controlled type 2 diabetes mellitus with diabetic polyneuropathy ([facility]) Crushing injury of left foot, initial encounter Hyperkalemia Hypertension (CMS/HCC) Impotence Kidney injury Nondisplaced fracture of proximal phalanx of left great toe, initial encounter for closed fracture Pain in left foot Sinus tachycardia STEMI (ST elevation myocardial infarction) (HCC) (CMS/HCC) Type 2 diabetes mellitus (CMS/HCC) Past Surgical History: Procedure Laterality Date CORONARY [...] recent change. No heart burn, liver or gallbladderdisease; no rectal bleeding or pain : No urinary pain , frequency or odor. MUSCULOSKELETAL: No muscle pain or cramps; no extremity weakness.No joint pain, stiffness, swellingor limitation of movement NEUROLOGY: No H/O seizures, stroke or fainting. No weakness, tremors. Hematology: No bleeding problems or excessive bruising ENDOCRINE: No increase in hunger, thirst or urination; admits compliance to medical management plan Feet: numbness tingling yes , ulcers or skin break no Lab Results Component Value Date HGBA1C 9.6 09/25/2024 Lab Results Component Value Date GLU 363 11/21/2024 GLU 112 09/25/2024 There were no vitals taken for this visit. ASSESSMENT AND PLAN: Assessment/Plan Diagnoses and all orders for this visit: Poor control type I diabetes mellitus ([facility]) - POCT glucose manually resulted We will continue with the same insulin pump settings, we will send him lispro vial for insulin pump Primary hypertension ([facility]) Encounter for dietary consultation Vitamin D deficiency Hyperlipemia, mixed ([facility]) Insulin long-term use ([facility]) Insulin pump status Encounter for fitting and adjustment of insulin pump Follow up in about 3 months (around 02/20/2025). documented in this encounterSaint [facility] [id number] History of Present illness Narrative* Maris Ramos MD - 10/07/2024 11:00 AM EST Referred by Dr. Neal for Consult and Coronary Artery Disease History Of Present Illness: Wing Alejandro is a 54 y.o. male presenting with cardiomyopathy. He is accompanied by his . His ejection fraction is 33% after 40 days post large anterior STEMI. He is here to discuss defibrillator. He works with [employer] for [employer]. 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 He plans to submit for disability for his diabetes and cardiomyopathy. Past Medical History: See List Past Surgical History: See List Social History: He reports that he has quit smoking. His smoking use included cigarettes. He has never used smokeless tobacco. He reports current alcohol use. He reports that he does not use drugs. Family History: Family History Problem Relation Name Age of Onset Heart attack Maternal Grandfather Allergies: Iodinated contrast media Outpatient Medications: Current Outpatient Medications Medication Instructions aspirin 81 mg, Daily atorvastatin (LIPITOR) 80 mg, oral, Daily carvedilol (COREG) 3.125 mg, oral, 2 times daily (morning and late afternoon) [employer] G6 Transmitter device USE 1 DEVICE EVERY 3 MONTHS FOR CONTINUOUS GLUCOSE MONITORING Farxiga 10 mg, oral, Daily (0630) HumaLOG KwikPen Insulin 100 unit/mL injection nitroglycerin (NITROSTAT) 0.4 mg, Every 5 min PRN Semglee,insulin glarg-yfgn,Pen 100 unit/mL (3 mL) Pen Every morning spironolactone (ALDACTONE) 12.5 mg, oral, Daily ticagrelor (BRILINTA) 90 mg, oral, 2 times daily Last Recorded Vitals: Vitals: 10/07/24 1116 BP: 128/66 BP Location: Left arm Patient Position: Sitting Pulse: 79 Weight: 72.9 kg (160 lb 12.8 oz) Height: 1.854 m (6' 1 ) Review of Systems Cardiovascular: Negative for chest pain, dyspnea on exertion and palpitations. All other systems reviewed and are negative. Physical Exam: Constitutional: General: Awake. Appearance: Normal and healthy appearance. Well-developed and not in distress. Neck: Vascular: No JVR. JVD normal. Pulmonary: Effort: Pulmonary effort is normal. Breath sounds: Normal breath sounds. No wheezing. No rhonchi. No rales. Chest: Chest wall: Not tender to palpatation. Cardiovascular: PMI at left midclavicular line. Normal rate. Regular rhythm. Normal S1. Normal S2. Murmurs: There is no murmur. No gallop. No click. No rub. Pulses: Intact distal pulses. Edema: Peripheral edema absent. Abdominal: Tenderness: There is no abdominal tenderness. Musculoskeletal: Normal range of motion. General: No tenderness. Skin: General: Skin is warm and dry. Neurological: General: No focal deficit present. Mental Status: Alert and oriented to person, place and time. Last Labs: CBC - No results found for: WBC , HGB , HCT , MCV , PLT CMP - No results found for: CALCIUM , PHOS , PROT , ALBUMIN , AST , ALT , ALKPHOS , BILITOT LIPID PANEL - No results found for: CHOL , TRIG , HDL , CHHDL , LDLF , VLDL , NHDL RENAL FUNCTION PANEL - No results found for: GLUCOSE , NA , K , CL , CO2 , ANIONGAP , BUN , CREATININE , GFRMALE , CALCIUM , PHOS , ALBUMIN No results found for: BNP , HGBA1C Last Cardiology Tests: ECG: Normal sinus rhythm. Normal axis. Corrected QT interval 500 ms. QRS duration is 92 ms LVEF 33% by MUGA scan Lab review: I have personally reviewed the laboratory result(s) see above Assessment/Plan Diagnoses and all orders for this visit: Cardiomyopathy, ischemic Coronary artery disease involving redding coronary artery of redding heart without angina pectoris History of placement of stent in LAD coronary artery Mixed hyperlipidemia S/P PTCA (percutaneous transluminal coronary angioplasty) ST elevation myocardial infarction (STEMI), unspecified artery (Multi) BMI 21.0-21.9, adult Former smoker Encounter for medication review and counseling Encounter to discuss treatment options Encounter to establish care with new doctor Zandra Velsaco RN Ischemic cardiomyopathy on optimal heart failure medications. Status post large anterior wall [id number] for. LVEF remains below 35% after 40 days post WV. Will order limited echo to re-evaluate LVEFater 90 days post revascularization. Decision making performed. Huntington decision tool used. Treatment options, risk, benefits, and imponderables discussed. Plan for primary prevention ICD. To allow for less restrictions on arm activity and history of prior bilateral clavicular fractures, plan for EV ICD. Procedures, risk, benefits, and imponderables discussed. E consent obtained. Other medical issues upcoming cataract surgery, use of LifeVest declined, diabetes mellitus, formersmoker, and coronary disease status post PCI LAD noted. Counseling greater than 50% of the visit performed. Patient, , and I discussed previous WV, cardiomyopathy, LVEF, what indications for defibrillator, types of defibrillator, arc welding defibrillator, provided patient brochure on defibrillator and environmental interaction and patient letter from [employer], Huntington decision tool, shared decision making, informed consent, treatment options, risk, benefits, and imponderables. All questions answered in detail. Patient and very appreciative care documented in this [facility] Work Phone: 1([phone]) 126-296002-17-2025 Instructions* Patient Instructions* Zandra Velasco RN - 10/07/2024 11:00 AM EST Images from the original note were not included. Pre-Procedure Patient Information You have been scheduled for: Extravascular ICD At: [facility] With: Dr. Ramos and Dr. Lopez Date of procedure: 1. Please have transportation to and from the hospital. While you should plan for same-day discharge there is a possibility you will need to stay overnight. 2. You will receive a call from the hospital 24 - 72 hours before your procedure providing you withfasting instructions, procedure location detail, and time of arrival. If you have not received a call from the hospital by 6 pm the day before your scheduled procedure, please call [phone]. 3. Please bring a current list of medications with you to the hospital. 4. Medications to hold: - If you are on aspirin, Plavix (Clopidogrel), Effient (Prasugrel), or Brilinta (Ticagrelor), Please hold Brilinta for 5 days prior to procedure. DO NOT hold your aspirin prior to the procedure. Thiswas Ok'd by Dr. Neal given your recent stent. - If you are diabetic on oral pills: please hold your morning oral diabetes medications (that includes metformin, glipizide). - If you are diabetic on insulin: take half dose of your long acting insulin the night before and hold your short acting insulin and oral diabetes medications on the morning of. HOLD Farxiga for 3 days prior to procedure. - Otherwise, you may continue your medications in the morning with sips of water. 5. Nothing to eat after midnight before the procedure. OK to take morning medications, with above exceptions, the day of the procedure with a small sip of water. 6. Please bring to our attention if you have any contrast, latex or metal allergies. 7. Please have your blood work as instructed completed at least a day before your procedure. 8. If you have any questions, please contact the office at [phone]. SCHEDULE EVICD implant. Obtain labs 1 week prior to procedure. Orders are in the system. Follow up 7 days after procedure for wound check. HOLD Brilinta for 5 days prior to procedure. HOLD Farxiga for 3 days prior to procedure. CONTINUE ASPIRIN THROUGH YOUR PROCEDURE GIVEN RECENT STENT. Please let us know if you start any new medications prior to your procedure. IZANDRA RN, AM SCRIBING FOR AND IN THE PRESENCE OF DR. MARIS RAMOS MD, FACC, FACP, FHRS documented in this [facility] Work Phone: [phone] History of Present illness Narrative* Uriah Neal, DO - 10/02/2024 10:40 AM EST Subjective Wing Alejandro is a 54 y.o. male Chief Complaint Follow-up 54-year-old gentleman added on to the office today for new findings on cardiac imaging. Patient is status post large anterior ST elevation [place] as an inpatient at [facility] on June 19, 2024 with primary revascularization of the LAD at the time with severe LV dysfunction, follow-up MUGA scan on July 30 revealed persistent low ejection fraction of 33%. We have been trying to titrate GDMT including carvedilol and ARB however he is generally hypotensive to begin with, and while it cardiac rehab had symptomatic hypotension. His primary care physician discontinued his olmesartan, cut his carvedilol down to 3.125 mg, he wasstill symptomatic and then cut out his beta-jaime altogether. At this juncture he is only on spironolactone and Farxiga in addition to high intensity statin and DAPT. 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 He is now a candidate for AICD, risks, benefits, alternatives and informed decision-making process performed with the patient and his for 30 minutes this morning in regards to appropriate GDMT as well as AICD placement as well as arc welding being a contraindication going forward. I have askedhim to consult with his repairer evaporator further in regards to his occupation and possibility ofAICD implant. Recommendations: Reinitiate carvedilol 3.125 mg twice daily (blood pressures at cardiac rehab are actually running higher at 1 20-132 systolic) proceed with electrophysiology consultation with possible AICD implant, and follow-up in 4 to 6 months Review of Systems Constitutional: Positive for malaise/fatigue. Respiratory: Positive for shortness of breath. Vitals: 10/02/24 1128 BP: 102/66 BP Location: Right arm Patient Position: Sitting Pulse: 84 Weight: 72.6 kg (160 lb) Height: 1.854 m (6' 1 ) [...] (80 mg) by mouth once daily., Disp: 90 tablet, Rfl: 3 Farxiga 10 mg, Take 1 tablet (10 mg) by mouth early in the morning.., Disp: 90 tablet, Rfl: 3 HumaLOG KwikPen Insulin 100 unit/mL injection, , Disp: , Rfl: nitroglycerin (Nitrostat) 0.4 mg SL tablet, Place 1 tablet (0.4 mg) under the tongue every 5 minutes if needed., Disp: , Rfl: Semglee,insulin glarg-yfgn,Pen 100 unit/mL (3 mL) Pen, Inject under the skin once daily in the morning., Disp: , Rfl: spironolactone (Aldactone) 25 mg tablet, Take 0.5 tablets (12.5 mg) by mouth once daily., Disp: 45 tablet, Rfl: 3 ticagrelor (Brilinta) 90 mg tablet, Take 1 tablet (90 mg) by mouth 2 times a day., Disp: 180 tablet, Rfl: 3 Assessment/Plan 1. Coronary artery disease involving redding coronary artery of redding heart without angina pectorisFollow Up In Cardiology 2. ST elevation myocardial infarction (STEMI), unspecified artery (Multi) 3. S/P PTCA (percutaneous transluminal coronary angioplasty) 4. History of placement of stent in LAD coronary artery 5. Cardiomyopathy, ischemic 6. Former smoker 7. BMI 21.0-21.9, adult Scribe Attestation By signing my name below, IYumi LPN, Scribe attest that this documentation has been prepared under the direction and in the presence of Toyin Neal DO. Provider Attestation - Scribe documentation All medical record entries made by the Scribe were at my direction and personally dictated by me. Ihave reviewed the chart and agree that the record accurately reflects my personal performance of the history, physical exam, discussion and plan. documented in this [facility] Work Phone: 1(686) 284-862802-12-2025 Instructions* Patient Instructions* Yumi Torrez LPN - 10/02/2024 10:40 AM EST Please bring all medicines, vitamins, and herbal supplements with you when you come to the office. Prescriptions will not be filled unless you are compliant with your follow up appointments or have a follow up appointment scheduled as per instruction of your physician. Refills should be requested at the time of your visit. BMI normal documented in this [facility] Work Phone: 1([phone]) 122-521702-05-2025 History of Present illness Narrative* Zenia Langford MD - 09/25/2024 10:00 AM EST Wing Alejandro is a 54 y.o. male Eduard Myers MD presents with chief complaint of Diabetes (NEW REF) HPI: HPI 09/2024 New patient sent from Dr. Eduard Myers for uncontrolled diabetes, he has it since 2002, currently heis on Lantus 34 units at bedtime, Humalog sliding scale only A1c in our office 9.6, blood sugar 112, he has coronary artery disease status post stent, denies kidney problems, he is on Farxiga recently since 05/2024. SUBJECTIVE: MEDICATIONS: Current Outpatient Medications Medication Instructions aspirin 81 mg, Daily atorvastatin (LIPITOR) 80 mg, Daily Continuous Glucose Audio Narrator (Dexcom G6 client services coordinator) device 1 Device, As needed Continuous Glucose [...] History: Diagnosis Date CAD (coronary artery disease) (CMS/HCC) Cardiomyopathy (CMS/HCC) Cervical disc disease 05/2024 Controlled type 2 diabetes mellitus with diabetic polyneuropathy (CMS/HCC) Crushing injury of left foot, initial encounter Hyperkalemia Hypertension (CMS/HCC) Impotence Kidney injury Nondisplaced fracture of proximal phalanx of left great toe, initial encounter for closed fracture Pain in left foot Sinus tachycardia STEMI (ST elevation myocardial infarction) (HCC) ([facility]) Type 2 diabetes mellitus ([facility]) Past Surgical History: Procedure Laterality Date CORONARY [...] recent change. No heart burn, liver or gallbladderdisease; no rectal bleeding or pain : No urinary pain , frequency or odor. MUSCULOSKELETAL: No muscle pain or cramps; no extremity weakness.No joint pain, stiffness, swellingor limitation of movement NEUROLOGY: No H/O seizures, [...] visit: Poor control type I diabetes mellitus ([facility]) - POCT glucose manually resulted - POCT [...] on T slim insulin pump. Primary hypertension (CMS/HCC) Encounter for dietary consultation Diet and exercise reviewed with the patient Vitamin D deficiency Hyperlipemia, mixed (CMS/HCC) Insulin long-term use (CMS/HCC) Follow up in about 3 months (around 12/23/2024). documented in this encounterSaint [facility] [id number] History of Present illness Narrative* Uriah Neal, DO - 07/03/2024 10:30 AM EST Subjective Wing Alejandro is a 54 y.o. male Chief Complaint Follow-up 54-year-old gentleman here for TCM follow-up visit following recent in-house anterior STEMI (probably late presenting), with primary revascularization of the distal left main and ostial/proximal LAD with drug-eluting stent with IVUS guidance. LV function was severely impaired with ejection fractionof 25 to 35%. Interestingly the remainder of his coronary arteries were completely normal. He has had no cardiac symptoms or repeat hospitalizations since discharge, denies shortness of breath, angina, syncope or edema. He has quit smoking altogether, he remains compliant with GDMT as reviewed He does have underlying diabetes that is under good control from what he tells me currently insulinrequiring. 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 Coronary artery disease involving redding coronary artery of redding heart without angina pectoris 2. Cardiomyopathy, ischemic 3. S/P PTCA (percutaneous transluminal coronary angioplasty) 4. ST elevation myocardial infarction (STEMI), unspecified artery (Multi) 5. Type 2 diabetes mellitus without complication, with long-term current use of insulin (Multi) 6. Former smoker 7. Body mass index (BMI) 19.9 or less, adult Scribe Attestation By signing my name below, I, Rekha RosarioSerean VICKERS , Scribe attest that this documentation has been prepared under the direction and in the presence of Toyin Neal DO. Provider Attestation - Scribe documentation All medical record entries made by the Scribe were at my direction and personally dictated by me. Ihave reviewed the chart and agree that the record accurately reflects my personal performance of the history, physical exam, discussion and plan. [facility] Work Phone: [phone]) 960-688711-13-2024 Instructions* Patient Instructions* Martha Mckeon RN - 07/03/2024 10:30 AM [...] time of your visit. documented in [facility] Work Phone: 1([phone]) 699-589410-31-2024 Procedure [facility]10-31-2024 Hospital Discharge instructions Additional Instructions DISCHARGE INSTRUCTIONS FOR ANGIOPLASTY/CORONARY/PERIPHERAL/STENT IMPLANT FOR ADULT ANTICOAGULATION -Since the greatest [...] doctor or pharmacist, without first calling the crew boss who implanted the stent. If you require [...] weight lifting, stair steppers, etc. until the crew boss approves these activities. Check with the crew boss on your first follow-up visit. CALL YOUR CAN PUSHER: -If bleeding should occur from the catheter insertion site- apply pressure to the site then immediately call us. -Report any fever, redness, drainage, increased swelling, or firmness at the catheter insertion site. Some bruising or slight swelling may be present at the time of discharge. -Should arm or leg become cold, numb, white, or blue, contact the crew boss immediately. -IF you should experience episodes of [...] Cardiopulmonary Rehabilitation program is recommended. The attending crew boss or a nurse clinician should provide you with specific instructions regarding activity, diet, medications, and further follow up for you. Follow the medication instructions provided on your discharge. If the dosages and instructions on this sheet differ from the dosage and instructions on the bottle, follow the instructions on the bottle. [facility] is not responsible for incorrect prescription information provided by the patient during their visit. Do not stop your medications without consulting your health care provider. Please take the list with you to your next doctor's appointment.[facility] Work Phone: 1(658) 999-636310-30-2024 Consult note Author Amy Lozoya [facility] June 19, 2024 12:38pmNote Date/TimeOct2023 12:28pm[place] [address] Pulmonology Consult Note Signed Patient: Wing Alejandro MR#: [id number] : 1970 Acct:[id number] Age/Sex: 54 / M Adm Date: 4 Loc: Room: [address] [place] [address] Type: ADM IN Attending Dr: Mekhi Powers MD Copies to: NON STAFF MD Amy Soliz MD~ HPI Date/Time of Consultation: Date of Service: 06/19/2024 Time of Service: 12:21 Consulting Provider: Amy Lozoya Requesting Provider: Mekhi Powers History of Present Illness History of present illness: Mr. Alejandro is a 54 year old male smoker 1PPD, type I diabetes, presents to [facility] with chest pain that has been ongoing for 2 weeks. Subsequent ECGs showed he evolved into an anterior STEMI and was transferred emegently this AM to [facility] for emergent cath with Dr. Kirk. PCI was performed at 0822; 72 minutes after recognition and review of in-house ECG, with Primary PCI distal left main?ostial/proximal LAD with 4 x 15 mm Bruce stent (per cardiology notes). CT chest at [facility] reviewed, bilateral effusions and likely cardiogenic pulmonary edema with underlying emphysema. Patient denies productive cough or fevers, just PERDOMO. EF reported reduced 30%. Currently stable post cath in ICU. Review of Systems Review of Systems Review of systems: see HPI [facility] Social History Smoking Status: Current every day smoker Tobacco Type: cigarettes Substance Use Type: None Meds Medications and Allergies Allergies Gadolinium-Containing Contrast Medi [From Contrast Media] Allergy (Verified 06/19/24 09:25) Hives Iodinated Contrast Media [From Contrast Media] Allergy (Verified 06/19/24 09:25) Hives Home Medications insulin glargine 100 unit/mL (3 mL) subcutaneous pen (Lantus Solostar U-100 Insulin) 34 unit subcutQPM 06/19/24 [History Confirmed 06/19/24] Exam Physical Exam [...] signed by Amy Lozoya MD> 06/19/[address] [facility] Work Phone: 1([phone]) 543-326010-30-2024 Progress note Author Mekhi Powers [facility] June 19, 2024 9:46amNote Date/TimeOctober 2023 9:44[place] [address] Hospitalist Progress Note Signed Patient: Wing Alejandro MR#: [id number] : 1970 Acct:[id number] Age/Sex: 54 / M Adm Date: 4 Loc: Room: [address] [place] [address] Type: ADM IN Attending Dr: Mekhi Powers [...] morning indicated ST elevation in anteroseptal leads. [id number] ultrasound shows moderate to severe LV dysfunction. Interventional cardiology service contacted, patient taken to the Case Supervisor this morning,and he was found to have a distal [...] Dose Route Start Last Admin Trade Name Freq PRN Reason Stop Dose Admin Acetaminophen 1,000 mg 06/19/24 09:23 Acetaminophen 500 Mg Tablet PO 06/19/25 09:22 Q6H PRN Fever or Pain Aspirin 81 mg 06/19/24 09:00 Aspirin 81 Mg Tablet.Dr PO 06/19/25 08:59 DAILY [facility] Atorvastatin Calcium 80 mg 06/19/24 21:00 Atorvastatin [...] Mg/0.4 Ml Syringe SUBCUT 06/19/25 09:59 DAILY@10 [facility] Glucose 0 gm 06/19/24 06:05 Dextrose 40% Gel 15 Gm Tube PO 06/19/25 06:04 PRN PRN Hypoglycemia Dextrose/Sodium Chloride 1,000 mls @ 100 mls/hr 06/19/24 09:00 5 % Dextrose-0.45 % Nacl IV 06/19/24 18:59 .Q10H [facility] Sodium Chloride 250 mls @ 999 mls/hr [...] troponin in the setting of type II WV versus non-STEMI History of type 1 diabetes on insulin -Patient presented with above HPI, physical exam findings lab and imaging results as well as ED course at [facility] -Pt has been chest pain free [...] on-call, patient will be taken to the Case Supervisor and I will give Brilinta 180 mg p.o. once, pt is already NPO as discussed earlier. With the help of my colleague, a bedside echo was done showing an EF of approximately 15-20%. Documented By: Mekhi Powers MD 06/19/24 0941 Signed By: <Electronically signed by Mekhi Powers MD> 06/19/249[address] [facility] Work Phone: 1(430) 899-940010-30-2024 Consult note Author Nuria Neal [facility] June 19, 2024 9:23amNote Date/TimeOct2023 9:24[place] [id number] Cardiology Consult Note Signed Patient: Wing Alejandro MR#: [id number] : 1970 Acct:[id number] Age/Sex: 54 / M Adm Date: 4 Loc: 4 Room: [address] [place] [address] Type: ADM IN Attending Dr: Mekhi Powers MD Copies to: NON STAFF Mekhi Powers MD W Julián Neal, DO~ Cardiology HPI History of Present Illness Consult Date: 06/19/24 Reason for Consult: Anterior STEMI HPI: Mr. Alejandro is a 54 year old male seen in emergent interventional cardiology consultation at request of hospitalist earlier this morning and patient was transferred from [facility] ER with acute coronarysyndrome; initial ECGs from [facility] did not reveal STEMI criteria. Patient arrived at 0531, and in clinically and hemodynamically stable condition. Subsequent ECGs on the progressive unit performed revealing evolving anterior STEMI performed at 0648, hospitalist contacted interventional cardiologyimmediately at 0700; Case Supervisor team was activated; PCI was performed at [...] care time were devoted to the hospitalist, Cath Labstaff, nursing staff, patient and family both pre and postprocedurally Review of Systems Review of Systems All other systems reviewed & are negative unless noted below or in HPI Cardiovascular Cardiovascular: Reports as per HPI and Reports chest pain at rest [facility] Social History Smoking Status: Current every day smoker Tobacco Type: cigarettes Substance Use Type: None Meds Medications and Allergies Allergies No Known Allergies Allergy (Verified 06/19/24 06:23) Home Medications insulin glargine 100 unit/mL (3 mL) subcutaneous pen (Lantus Solostar U-100 Insulin) 34 unit subcutQPM 06/19/24 [History Confirmed 06/19/24] Exam Physical Exam [...] Interpretations EKG EKG results cardiology: sinus rhythm WV, pacemaker, normal Myocardial infarction: anterior WV (acute or recent) A&P - Cardiology (1) ST elevation myocardial infarction (STEMI) of anterior wall: Assessment/Problem Details: Initially presented with ACS at [facility] and converted to anterior STEMI after arrival at [facility] Code(s): I21.09 - ST elevation (STEMI) myocardial infarction involving other coronary artery of anterior wall (2) CHF exacerbation: Code(s): I50.9 - Heart failure, unspecified (3) Ischemic cardiomyopathy: Code(s): I25.5 - Ischemic cardiomyopathy (4) Tobacco abuse: Code(s): Z72.0 - Tobacco use (5) Type 1 diabetes: Code(s): E10.9 - Type 1 diabetes mellitus without complications Plan Emergent cath and revascularization Documented By: Nuria Neal DO 06/19/2417 Signed By: <Electronically signed by Nuria Neal DO> 06/19/[address] [facility] Work Phone: 1(151) 841-775010-30-2024 History and physical note Author Katlin Salvador [facility] June 19, 2024 7:20amNote Date/TimeOct2023 6:08[place] [address] Hospitalist H&P Signed Patient: Wing Alejandro MR#: [id number] : 1970 Acct:[id number] Age/Sex: 54 / M Adm Date: 4 Loc: Room: [address] [place] [address] Type: ADM IN Attending Dr: Mekhi Powers MD Copies to: NON STAFF MD Katlin Soliz MD~ HPI DATE OF EXAMINATION: 06/19/24 CHIEF COMPLAINT: Chest pain and SOB of 2 weeks duration HISTORY OF PRESENT ILLNESS: This is a 54-year-old male with past medical history of type I diabetes, tobaccouse, presented initially to [facility] complaining of chest pain of 2 weeks duration. History obtained from the patient at bedside as well as from the ED physician at [facility] as well as from his chart from his ED stay. 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 2 [...] night he came to the ED at [facility] for further workup and management. He denies having this pain before. He denies any fever orchills, he denies any cough. He denies any PND orthopnea orleg swelling. At [facility] ED, he had a heart rate of 94 with respiratory of 22 and a blood pressure of 105/63 with a pulse of 94-98 on room air and patient didnot require any oxygen. He was not in acute distress. His labs showed a CBC signif icant for white blood cell count of 5.8, [...] edema and small bilateral pleural effusion. Given hiselevated D-dimer a CTA chest was done which was negative for pulmonary embolism but did endorse again interstitial edema in the lungs concerning for possible infection versus pulmonary edema and vascular congestion. In the ED at [facility] patient received IV Lasix once, and patient [...] pen (Lantus Solostar U-100 Insulin) 34 unit subcutQPM 06/19/24 [History Confirmed 06/19/24] Exam Physical Exam [...] no JVD no thyromegaly, head is atraumatic andnormocephalic Chest: Bilateral decreased air entry however no [...] troponin in the setting of type II WV versus non-STEMI History of type 1 diabetes on insulin -Patient presented with above HPI, physical exam findings lab and imaging results as well as ED course at [facility] -Pt has been chest pain free [...] on-call, patient will be taken to the Case Supervisor and I will give Brilinta 180 mg [...] setting as: INPATIENT because of an expectation ofan over 2 midnight stay. Estimated length of stay (# of days): 3 Time Spent With Patient (min): 55 Documented By: Katlin Salvador MD 06/19/24 0546 Signed By: <Electronically signed by Katlin Salvador MD> 06/19/[address] [facility] Work Phone: 1([phone]) 449-825210-30-2024 [facility] note[facility] HospitalEvaluation [facility] * Diagnosis Onset Date Resolution Status CHF exacerbation acuteIschemic cardiomyopathyacuteST elevation myocardial infarction (STEMI) of anterior wallacuteTobacco abuseacuteType [address] [facility] Work Phone: Evaluation note* Diagnosis Coronary artery disease involving redding coronary artery of redding heart without angina pectoris Cardiomyopathy, ischemic Other [...] or less, adult documented in this encounter [facility] Work Phone: Evaluation note* Diagnosis Coronary artery disease involving redding coronary artery of redding heart without angina pectoris Cardiomyopathy, ischemic Other specified forms of chronic ischemic heart disease S/P PTCA (percutaneous transluminal coronary angioplasty) Postsurgical percutaneous transluminal coronary angioplasty status ST elevation myocardial infarction (STEMI), unspecified artery (Multi) documented in this encounter [facility] Work Phone: Evaluation note* Diagnosis Poor control type I diabetes mellitus (CMS/HCC)- Primary Type I (juvenile type) diabetes mellitus without mention of complication, uncontrolled Primary hypertension ([facility]) Unspecified essential hypertension Encounter for dietary consultation Vitamin D deficiency Hyperlipemia, mixed ([facility]) Mixed hyperlipidemia Insulin long-term use ([facility]) Encounter for long-term (current) use of insulin documented in this encounter [facility]* Diagnosis Coronary artery disease involving redding coronary artery of redding heart without angina pectoris ST elevation myocardial infarction (STEMI), unspecified artery (Multi) S/P PTCA (percutaneous transluminal coronary angioplasty) Postsurgical percutaneous transluminal coronary angioplasty status History of placement of stent in LAD coronary artery Cardiomyopathy, ischemic Other specified forms of chronic ischemic heart disease Former smoker Personal history of tobacco use, presenting hazards to health BMI 21.0-21.9, adult documented in this encounter [facility] Work Phone: Evaluation note* Diagnosis Cardiomyopathy, ischemic- Primary Other specified forms of chronic ischemic heart disease Coronary artery disease involving redding coronary artery of redding heart without angina pectoris History of placement of stent in LAD coronary artery Mixed hyperlipidemia S/P PTCA (percutaneous transluminal coronary angioplasty) Postsurgical percutaneous transluminal coronary angioplasty status ST elevation myocardial infarction (STEMI), unspecified artery (Multi) BMI 21.0-21.9, adult Former smoker Personal history of tobacco use, presenting hazards to health Encounter for medication review and counseling Encounter to discuss treatment options Encounter to establish care with new doctor documented in this encounter [facility] Work Phone: Evaluation note* Diagnosis Poor control type I diabetes mellitus ([facility])- Primary Type I (juvenile type) diabetes mellitus without mention of complication, uncontrolled Primary hypertension ([facility]) Unspecified essential hypertension Encounter for dietary consultation Vitamin D deficiency Hyperlipemia, mixed ([facility]) Mixed hyperlipidemia Insulin long-term use ([facility]) Encounter for long-term (current) use of insulin Insulin pump status Encounter for fitting and adjustment of insulin pump documented in this encounter [facility] HealthcareEvaluation note* Diagnosis Cardiomyopathy, ischemic- Primary Other specified forms of chronic ischemic heart disease Cardiomyopathy Other primary cardiomyopathies documented in this encounter [facility] Work Phone: Evaluation note* Diagnosis Cardiomyopathy, ischemic- Primary Other specified forms of chronic ischemic heart disease Cardiomyopathy, ischemic Other specified forms of chronic ischemic heart disease Post-op pain Other acute postoperative pain Cardiomyopathy Other primary cardiomyopathies Cardiomyopathy, ischemic Other specified forms of chronic ischemic heart disease documented in this encounter [facility] Work Phone: Evaluation note* Diagnosis Poor control type I diabetes mellitus (CMS/HCC)- Primary Type I (juvenile type) diabetes mellitus without mention of complication, uncontrolled Primary hypertension (CMS/HCC) Unspecified essential hypertension Encounter for dietary consultation Vitamin D deficiency Hyperlipemia, mixed (CMS/HCC) Mixed hyperlipidemia Insulin long-term use (CMS/HCC) Encounter for long-term (current) use of insulin Insulin pump status Encounter for fitting and adjustment of insulin pump documented in this encounter [facility]* Diagnosis Presence of automatic cardioverter/defibrillator (AICD) Automatic implantable cardiac defibrillator in situ Non-ischemic cardiomyopathy (Multi) Other primary cardiomyopathies documented in this encounter [facility] Work Phone: Evaluation note* Diagnosis Primary hypertension- Primary Unspecified essential hypertension Poor control type I diabetes mellitus (HCC) Type I (juvenile type) diabetes mellitus without mention of complication, uncontrolled Encounter for dietary consultation Vitamin D deficiency Hyperlipemia, mixed Mixed hyperlipidemia Insulin long-term use (HCC) Encounter for long-term (current) use of insulin Insulin pump status Encounter for fitting and adjustment of insulin pump documented in this encounter [facility]* Diagnosis Coronary artery disease involving redding coronary artery of redding heart without angina pectoris Cardiomyopathy, unspecified type (Multi) S/P PTCA (percutaneous transluminal coronary angioplasty) Postsurgical percutaneous transluminal coronary angioplasty status ST elevation myocardial infarction (STEMI), unspecified artery (Multi) History of placement of stent in LAD coronary artery AICD (automatic cardioverter/defibrillator) present Automatic implantable cardiac defibrillator in situ Type 2 diabetes mellitus without complication, with long-term current use of insulin Dyspnea on exertion Other dyspnea and respiratory abnormality Congestive heart failure, NYHA class 2, unspecified congestive heart failure type BMI 22.0-22.9, adult Former smoker Personal history of tobacco use, presenting hazards to health documented in this encounter [facility] Work Phone: Evaluation note* Diagnosis Presence of automatic cardioverter/defibrillator (AICD) Automatic implantable cardiac defibrillator in situ Non-ischemic cardiomyopathy (Multi) Other primary cardiomyopathies documented in this encounter [facility] Work Phone: Progress note Author Nuria Neal [facility] June 20, 2024 4:44pmNote Date/TimeOct2023 4:44pmKenn[place] [id number] Cardiology Progress Note Signed Patient: Wing Alejandro MR#: [id number] : 1970 Acct:[id number] Age/Sex: 54 / M Adm Date: 4 Loc: Room: [address] [place] [address] Type: ADM IN Attending Dr: Mekhi Powers MD Copies to: ~ Date of Service: 06/20/2024 Subjective Principal diagnosis: Anterior STEMI Interval history: Mr. Alejandro is a 54 year old male seen in emergent interventional cardiology consultation at request of hospitalist earlier this morning and patient was transferred from [facility] ER with acute coronarysyndrome; initial ECGs from [facility] did not reveal STEMI criteria. Patient arrived at 0531, and in clinically and hemodynamically stable condition. Subsequent ECGs on the progressive unit performed revealing evolving anterior STEMI performed at 0648, hospitalist contacted interventional cardiologyimmediately at 0700; Case Supervisor team was activated; PCI was performed at [...] care time were devoted to the hospitalist, Cath Labstaff, nursing staff, patient and family both pre [...] 2 weeks patient is clinically stable, hemodynamically stable,ECG stable Exam Physical Exam Vital Signs: Temp [...] % (Auto) 68.1 Lymph % (Auto) 19.8 [place] % (Auto) 10.6 Eos % (Auto) 0.8 Baso % (Auto) 0.7 Nucleat RBC Rel Count 0.1 Neut # (Auto) 6.0 Lymph # (Auto) 1.8 [place] # (Auto) 0.9 H Eos # (Auto) [...] MPV Neut % (Auto) Lymph % (Auto) Pi[place] % (Auto) Eos % (Auto) Baso % (Auto) Nucleat RBC Rel Count Neut # (Auto) Lymph # (Auto) Piute # (Auto) Eos # (Auto) Baso # [...] Assessment/Problem Details: Initially presented with ACS at [facility] and converted to anterior STEMI after arrival [facility] Code(s): I21.09 - ST elevation (STEMI) myocardial infarction involving other coronary artery of anterior wall (2) CHF exacerbation: Code(s): I50.9 - Heart failure, unspecified (3) Ischemic cardiomyopathy: Code(s): I25.5 - Ischemic cardiomyopathy (4) Tobacco abuse: Code(s): Z72.0 - Tobacco use (5) Type 1 diabetes: Code(s): E10.9 - Type 1 diabetes mellitus without complications Plan Emergent cath and revascularization Documented By: Nuria Neal DO 06/20/24 1641 Signed By: <Electronically signed by Nuria Neal DO> 06/20/[address] [facility] Work Phone: Reason for visit Narrative* Imaging (Routine) - AuthorizedSpecialtyDiagnoses / ProceduresReferred By ContactReferred To ContactRadiology Diagnoses Coronary artery disease involving redding coronary artery of redding heart without angina pectoris Cardiomyopathy, ischemic S/P PTCA (percutaneous transluminal coronary angioplasty) ST elevation myocardial infarction (STEMI), unspecified artery (Multi) Procedures NM heart blood pool ejection fraction wall motion (MUGA) Uriah Neal, DO [address] [facility] [address] [place] [address] Phone: tel: fax: Referral IDStatusReasonStart DateExpiration DateVisits RequestedVisits [id number] Perform Procedure [facility] Work Phone: reason for visit Narrative* Imaging (Routine) - AuthorizedSpecialtyDiagnoses / ProceduresReferred By ContactReferred To ContactRadiology Diagnoses Coronary artery disease involving redding coronary artery of redding heart without angina pectoris Cardiomyopathy, ischemic S/P PTCA (percutaneous transluminal coronary angioplasty) ST elevation myocardial infarction (STEMI), unspecified artery (Multi) Procedures NM heart blood pool ejection fraction wall motion (MUGA) Uriah Neal, DO [address] [facility] [address] [place] [address] Phone: tel: fax: Referral IDStatusReasonStart DateExpiration DateVisits RequestedVisits [id number] Perform Procedure [facility] Work Phone: reason for visit Narrative* Auth/CertSpecialty Diagnoses / ProceduresReferred By ContactReferred To Contact Diagnoses Cardiomyopathy, ischemic Procedures TX INS/RPLCMNT PERM SUBQ IMPLTBL DFB W/SUBQ ELTRD ICD SUBQ Implant Maris Ramos MD [address] [facility] [place] [address] Phone: tel: fax: [facility] [address] [place] [address] Phone: tel: fax: Referral IDStatusReasonStart DateExpiration DateVisits RequestedVisits [id number] [facility] Work Phone: Reason for visit Narrative* Imaging (Routine) - Pending ReviewSpecialtyDiagnoses / ProceduresReferred By ContactReferred To ContactCardiology Diagnoses Presence of automatic cardioverter/defibrillator (AICD) Non-ischemic cardiomyopathy (Multi) Procedures Cardiac [place] [address] [facility] [address] [place] [address] Phone: tel: fax: Referral IDStatusReasonStart DateExpiration DateVisits RequestedVisits [id number] Perform Procedure [facility] Work Phone: Summary Purpose Family History No Family History Records FoundNo Family History Records FoundNo Family History Records FoundNo Family History Records FoundNo Family History Records FoundNo Family History Records Found Advance Directives No Advanced Directives Records Found Advance Directive Response Recorded Date/ Time Advance Directives No June 19, 2024 3:44am Date ActivatedDate InactivatedComments11/27/2024 6:16 AMQuestionAnswerCommentsPlan of Care:* Code Status Discussion Not Completed Decision Maker:* Provider Rationale:* Patient condition does not warrant discussion Chief Complaint and Reason for Visit Chief Complaint n-stemi, chs n-stemi, chsReason for VisitCHF exacerbation Ischemic cardiomyopathy ST elevation myocardial infarction (STEMI) of anterior wall Tobacco abuse Type 1 diabetes Additional Source Comments (unrecognized sect ion and content) No Status Records FoundNo Status Records FoundNo Status Records FoundNo Status Records FoundNo Status Records FoundNo Status Records Found INFORMATION SOURCE (unrecogn ized section and content) DATE CREATED AUTHOR 02/12/2022 [facility] DATE CREATED AUTHOR AUTHOR'S ORGANIZ ATION 07/18/2024 [facility] DATE CREATED AUTHOR AUTHOR'S ORGANIZ ATION 12/26/2024 [facility] EPIC DATE CREATED AUTHOR AUTHOR'S ORGANIZ ATION 05/03/2025 [facility] DATE CREATED AUTHOR AUTHOR'S ORGANIZ ATION 06/13/2025 [facility] DATE CREATED AUTHOR AUTHOR'S ORGANIZ ATION 06/14/2025 [facility] Care Teams (unrecognized sec tion and content) Team Status: Active Member Role Status Dates Eduard Myers MD Primary Care Provider Active Team Status: Inactive Member Role Status Dates Katlin Salvador MD Admit Provider Active Start: O ctober 2023 End: June 20ndCurly Servinending ProviderActiveStart: June 19, 2024 End: June 20, 2024Gabriela Long RNOther ProviderActiveStart: June 19, 2024 End: June 20, 2024W Julián Neal DOOther ProviderActiveStart: June 19, 2024 End: June 20, 2024Ric Nicole MDOther ProviderActiveStart: June 19, 2024 End: June 20, 2024Uriah Davidson MDOther ProviderActiveStart: June 19, 2024 End: June 20, 2024Ruba Teran MDOther ProviderActiveStart: June 19, 2024 End: June 20angelique Rainey MDOther ProviderActiveStart: June 19, 2024 End: June 20Bill Matsonher ProviderActiveStart: June 19, 2024 End: June 20, 2024Irish Verdugo MDOther ProviderActiveStart: June 19, 2024 End: June 20, 2024Molew Parker MDOther ProviderActiveStart: June 19, 2024 End: June 20, 2024Renee Newberry MDOther ProviderActiveStart: June 19, 2024 End: June 20PATRICIA Pardo-KIMMYOther ProviderActiveStart: June 19, 2024 End: June 20, 2024Amy Lozoya MDOther ProviderActiveStart: June 19, 2024 End: June 20Yazmin Kelley Care ProviderActiveStart: June 19, 2024 End: June 20, 2024 Team Status: Active Member Role Status Dates Katlin Salvador MD Admit Provider Active Start: O ctober 2023 NON STAFFPrimary Care ProviderActiveStart: June 19, 2024 Mekhi Powers MDOther ProviderActiveStart: June 19, 2024 Gabriela Long RNOther ProviderActiveStart: June 19, 2024 Nuria Neal DOOther ProviderActiveStart: June 19, 2024 Ric Nicole MDOther ProviderActiveStart: June 19, 2024 Uriah Davidson MDOther ProviderActiveStart: June 19, 2024 Ruba Teran MDOther ProviderActiveStart: June 19, 2024 Andrew Rainey MDOther ProviderActiveStart: June 19, 2024 Nisreen Wilcox APRNOther ProviderActiveStart: June 19, 2024 Irish Verdugo MDOther ProviderActiveStart: June 19, 2024 Ascencion Parker MDOther ProviderActiveStart: June 19, 2024 Renee Newberry MDOther ProviderActiveStart: June 19, 2024 NICHELLE BernardP-Other ProviderActiveStart: June 19, 2024 Amy Lozoya , MDAttending Provider, Other ProviderActiveStart: June 19, 2024 Team MemberRelationshipSpecialtyStart DateEnd Date Eduard Myers MD [address] [place] [address] PCP - GeneralFamily Detdmadz35/13/24 Maru Vazquez RN Care ManagerCase Eiwlswvazl19/31/24 Uriah Neal DO [address] [place] [address] 2, [facility] [address] [place] [address] Consulting NscpqjtbePaafywbnoc35/13/24Team MemberRelationshipSpecialtyStart Date End Date Eduard Myers MD [address] [place] [address] PCP - GeneralFamily Nlqgeswl95/13/24 Brown, Maru, RN Care ManagerCase Zgfobffcgu56/31/24 Uriah Neal DO [address] [facility] 2, [address] [place] [address] Consulting EnwmyybodRvcllpremz88/13/24Team MemberRelationshipSpecialtyStart Date End Date Eduard Myers MD [address] [facility] [place] [address] PCP - GeneralFamily Qbvrzaiw96/13/24 Maru Vazquez RN Care ManagerCase Gdmoqgxfxx81/31/24 Uriah Neal DO [address] [facility] 2, [address] [place] [address] Consulting QhdavmqgxCcrpgmqyfb17/13/24Team MemberRelationshipSpecialtyStart Date End Date Eduard Myers MD [address] [place] [address] PCP - GeneralFamily Medicine09/02/24Team MemberRelationshipSpecialtyStart DateEnd Date Eduard Myers MD [address] [place] [address] PCP - GeneralFamily Medicine09/02/24Team MemberRelationshipSpecialtyStart DateEnd Date Eduard Myers MD [address] [facility] [place] [address] PCP - GeneralFamily Vwdzvpln59/13/24 Uriah Neal DO [address] [facility] 2, [address] [place] [address] Consulting ZbfnufjrcWvxhtifpca54/13/24Team MemberRelationshipSpecialtyStart Date End Date Eduard Myers MD [address] [facility] [place] [address] PCP - GeneralFamily Ciglvewx89/13/24 Uriah Neal DO [address] [facility] 2, [address] [place] [address] Consulting TjeefkabwIeieunrvkx57/13/24Team MemberRelationshipSpecialtyStart Date End Date Eduard Myers MD [facility] [place] [address] PCP - GeneralFamily Medicine09/02/24Team MemberRelationshipSpecialtyStart DateEnd Date Eduard Myers MD [address] [place] [address], [place] [address] PCP - GeneralFamily Medicine09/02/24Team MemberRelationshipSpecialtyStart DateEnd Date Eduard Myers MD [address] [facility] [place] [address] PCP - GeneralFamily Mtpwexrv38/13/24 Uriah Neal DO [address] [facility] 2, [address] [place] [address] Consulting SuqvlbxmoYjdjhjrnue89/13/24Team MemberRelationshipSpecialtyStart Date End Date Eduard Myers MD [address] [facility] [place] [address] PCP - GeneralFamily Upyenolg25/13/24 Uriah Neal DO [address] [facility] 2, [facility] [address] [place] [address] Consulting QhgfvxzeqYyijpewigx53/13/24Team MemberRelationshipSpecialtyStart Date End Date Eduard Myers MD [address] [place] [address] PCP - GeneralFamily Lqfisbfa98/13/24 Uriah Neal DO [address] [place] [address] 2, [facility] [address] [place] [address] Consulting BolbxwrzuOrgmhbbehr52/13/24 [place] [address] [address] CardiologistElectrophysiology10/07/24Team MemberRelationshipSpecialtyStart Date End Date Eduard Myers MD PCP - GeneralFamily Medicine09/02/24Team MemberRelationshipSpecialtyStart DateEnd Date Eduard Myers MD PCP - GeneralFamily Medicine09/02/24Team MemberRelationshipSpecialtyStart DateEnd Date Eduard Myers MD [address] [place] [address] PCP - GeneralFamily Eooffvko16/13/24 Uriah Neal DO [address] [place] [address] 2, [facility] [address] [place] [address] Consulting KgtowxwnsHicbewjipf24/13/24 Maris Ramos MD [address] [facility] Office [facility], [facility] [address] [place] [address] CardiologistCardiology-Clinical Cardiac Electrophysiology03/05/25Team Member RelationshipSpecialtyStart DateEnd Date Eduard Myers MD [address] [facility] [place] [id number] PCP - GeneralFamily Ziohtmcq39/13/24 Uriah Neal DO [address] [facility] 2, [address] [place] [address] Consulting GsuaqrlonRjjtsfzrdw40/13/24 Maris Ramos MD [address] [facility] Office [facility], [facility] [address] [place] [address] CardiologistCardiology-Clinical Cardiac Electrophysiology03/05/25 Reason for Visit (unrecogniz ed section and content) ReasonCommentsFollow-upTCM VisitReasonCommentsDiabetesNEW REFSpecialtyDiagnoses / ProceduresReferred By ContactReferred To ContactEndocrinology Diagnoses Type 2 diabetes mellitus without complications (CMS/[facility]) Procedures TX OFFICE/OUTPATIENT NEW LOW MDM 30 MINUTES Eduard Myers MD [address] [place] [address] Phone: tel: fax: Zenia Langford MD [address] [place] [address] Phone: tel: fax: Referral IDStatusReasonStart DateExpiration DateVisits RequestedVisits [id number] [id number] month SpecialtyDiagnoses / ProceduresReferred By ContactReferred To ContactCardiology Diagnoses Coronary artery disease involving redding coronary artery of redding heart without angina pectoris Procedures Follow Up In Cardiology Uriah Neal, [address] [place] [address] 2, [place] [phone] Phone: tel: fax: Uriah Neal, [address] [facility] 2, [address] [place] [id number] Phone: tel: fax: Referral IDStatusReasonStart DateExpiration DateVisits RequestedVisits [id number] Coronary Artery DiseaseSpecialtyDiagnoses / ProceduresReferred By Contact Referred To ContactCardiology Diagnoses Cardiomyopathy, ischemic Uriah Neal, [address] [facility] 2, [address] [place] [phone] Phone: tel: fax: Maris Ramos MD [address] [facility], [address] [address] Phone: tel: fax: Referral IDStatusReasonStart DateExpiration DateVisits RequestedVisits [id number] Review Specialty Services Required [id number]vorr-bbRlz pump follow upReason GnyshpwyOayaligjIldifv-dkDtngdsKauokzgjBtcaqx-vn4 month follow up for Coronary artery disease involving redding coronary artery of redding heart without angina pectorisReferral IDStatusReasonStart DateExpiration DateVisits RequestedVisits [id number]/12/[id number]/ Scheduled Active and Recently Administ ered Medications (unrecognized section and content) Medication Order//04/2025 acetaminophen (Tylenol) tablet 650 mg 650 mg, oral, Every 6 hours, First dose on Mon11/27/24 at 1230, If ordered PRN for pain, nurse is permitted to administer this medication for higher pain scores based on patient preference? Yes * 1230 (Due) * 1830 (Due) aspirin EC tablet 81 mg 81 mg, oral, Daily, First dose on Mon11/28/24 at 0900, Do not crush, chew, or split. atorvastatin (Lipitor) tablet 80 mg 80 mg, oral, Nightly, First dose on Mon11/27/24 at 2100 * 2100 (Due) carvedilol (Coreg) tablet 3.125 mg 3.125 mg, oral, 2 times daily (morning and late afternoon), First dose on Mon11/27/24 at 1700 * 1700 (Due) chlorhexidine (Hibiclens) 4 % liquid (COMPLETED) Topical, Once, On Mon11/27/24 at 0645, For 1 dose, Preprocedure, For pre-op skin preparation * 0646 (Given - Provider: Sudheer Flanagan RN) ketorolac (Toradol) injection 30 mg 30 mg, intravenous, Every 6 hours, First dose on Mon11/27/24 at 1100, For 4 doses * 1059 (Given - Provider: Maryanne Irvin RN) * 1700 (Due) * 2300 (Due) methocarbamol (Robaxin) tablet 500 mg 500 mg, oral, Every 6 hours scheduled, First dose on Mon11/27/24 at 1230 * 1230 (Due) * 1800 (Due) mupirocin (Bactroban) 2 % ointment 1 Application (COMPLETED) 1 Application, Topical, Once, On Mon11/27/24 at 0645, For 1 dose, Preprocedure, Apply topically to both nares prior to procedure. Do not initiate until staph screening obtained first. * 0645 (Given - Provider: Sudheer Flanagan RN) spironolactone (Aldactone) tablet 12.5 mg 12.5 mg, oral, Daily, First dose on Mon11/28/24 at 0900 ticagrelor (Brilinta) tablet 90 mg 90 mg, oral, 2 times daily, First dose on Mon11/28/24 at 0900 vancomycin (Vancocin) 1 g in dextrose 5% IV 200 mL 1 g, intravenous, at 200 mL/hr, Administer over 60 Minutes, Every 12 hours, First dose on Mon11/27/24 at 0800, For 2 doses, car body designer to EP lab premix bag, Dosing of this medication varies based on severity of illness. Does this patient have sepsis or concern for sepsis (probable or documented infection plus systemic manifestations of infection)? No, Suspected Indication (Select all that apply): Surgical Prophylaxis, Indications: Surgical Prophylaxis * 0752 (Given - Provider: Shady Fernandez, ECHOCARDIOGRAPHY RADIOLOGY TECHNOLOGIST-SCHOOL GUARD) * 08 (Due) * 1999 (Due) Medication Order//04/2025 bupivacaine PF 0.25 % (Marcaine) 0.25 % (2.5 mg/mL) injection (CANCELED) As needed, Starting on Mon11/27/24 at 0951, Intraprocedure * 0951 (Given - Provider: Maris Ramos MD - Comment: left flank) * 1007 (Given - Provider: Maris Ramos MD - Comment: left flank area) lidocaine PF (Xylocaine) 10 mg/mL (1 %) injection (CANCELED) As needed, Starting on Mon11/27/24 at 0911, Intraprocedure * 0911 (Given - Provider: Maris Ramos MD - Comment: Left Flank) lidocaine PF (Xylocaine) 10 mg/mL (1 %) injection (CANCELED) As needed, Starting on Mon11/27/24 at 0912, Intraprocedure * 0912 (Given - Provider: Priya Lopez MD) morphine injection 2 mg 2 mg, intravenous, Every 4 hours PRN, pain severe (7-10), second line, Starting on Mon11/27/24 at 1032, For 2 doses, If ordered PRN for pain, nurse is permitted to administer this medication for higher pain scores based on patient preference? Yes ondansetron (Zofran) injection 4 mg(Linked Group 1) 4 mg, intravenous, Every 8 hours PRN, nausea/vomiting, first line, Starting on Mon11/27/24 at 1031, 1st Line. Give IV if patient is unable to take orally. If inadequate response within 60 minutes, proceed to next-line agent for same PRN reason or contact provider if no further options ordered. When administering via IV Push, administer over 3-5 minutes. ondansetron (Zofran) tablet 4 mg(Linked Group 1) 4 mg, oral, Every 8 hours PRN, nausea/vomiting, first line, Starting on Mon11/27/24 at 1031, 1st Line. Use oral route first, if possible. If inadequate response within 60 minutes, proceed to next-lineagent for same PRN reason or contact provider if no further options ordered. traMADol (Ultram) tablet 50 mg 50 mg, oral, Every 6 hours PRN, pain moderate (4-6), second line, pain severe (7-10), second line, Starting on Mon11/27/24 at 1031, If ordered PRN for pain, nurse is permitted to administer this medication for higher pain scores based on patient preference? Yes Order Group 1: ondansetron (Zofran) tablet 4 mgJump to med 4 mg, oral, Every 8 hours PRN, nausea/vomiting, first line, Starting on Mon11/27/24 at 1031, 1st Line. Use oral route first, if possible. If inadequate response within 60 minutes, proceed to next-lineagent for same PRN reason or contact provider if no further options ordered. Or ondansetron (Zofran) injection 4 mgJump to med 4 mg, intravenous, Every 8 hours PRN, nausea/vomiting, first line, Starting on Mon11/27/24 at 1031, 1st Line. Give IV if patient is unable to take orally. If inadequate response within 60 minutes, proceed to next-line agent for same PRN reason or contact provider if no further options ordered. When administering via IV Push, administer over 3-5 minutes. Medication Order//05/2025 acetaminophen (Tylenol) tablet 650 mg 650 mg, oral, Every 6 hours, First dose on Mon11/27/24 at 1230, If ordered PRN for pain, nurse is permitted to administer this medication for higher pain scores based on patient preference? Yes * 1302 (Given - Provider: Pablito Trujillo RN) * 1758 (Given - Provider: Pablito Trujillo RN) * 2330 (Given - Provider: Juliet Topete RN) * 0538 (Given - Provider: Juliet Topete RN) * 1230 (Due) * 1830 (Due) aspirin EC tablet 81 mg 81 mg, oral, Daily, First dose on Mon11/28/24 at 0900, Do not crush, chew, or split. * 0823 (Given - Provider: Lo Franklin, MADI) atorvastatin (Lipitor) tablet 80 mg 80 mg, oral, Nightly, First dose on Mon11/27/24 at 2100 * 2000 (Given - Provider: Juliet Topete RN) * 2100 (Due) carvedilol (Coreg) tablet 3.125 mg 3.125 mg, oral, 2 times daily (morning and late afternoon), First dose on Mon11/27/24 at 1700 * 1719 (Given - Provider: Pablito Trujillo RN) * 0824 (Given - Provider: Lo Franklin, MADI) * 1700 (Due) chlorhexidine (Hibiclens) 4 % liquid (COMPLETED) Topical, Once, On Mon11/27/24 at 0645, For 1 dose, Preprocedure, For pre-op skin preparation * 0646 (Given - Provider: Sudheer Flanagan RN) ketorolac (Toradol) injection 30 mg (COMPLETED) 30 mg, intravenous, Every 6 hours, First dose on Mon11/27/24 at 1100, For 4 doses * 1059 (Given - Provider: Maryanne Irvin RN) * 1719 (Given - Provider: Pablito Trujillo RN) * 2311 (Given - Provider: Juliet Topete RN) * 0519 (Given - Provider: Juliet Topete RN) methocarbamol (Robaxin) tablet 500 mg 500 mg, oral, Every 6 hours scheduled, First dose on Mon11/27/24 at 1230 * 1302 (Given - Provider: Pablito Trujillo RN) * 1719 (Given - Provider: Pablito Trujillo RN) * 2311 (Given - Provider: Juliet Topete RN) * 0519 (Given - Provider: Juliet Topete RN) * 1200 (Due) * 1800 (Due) mupirocin (Bactroban) 2 % ointment 1 Application (COMPLETED) 1 Application, Topical, Once, On Mon11/27/24 at 0645, For 1 dose, Preprocedure, Apply topically to both nares prior to procedure. Do not initiate until staph screening obtained first. * 0645 (Given - Provider: Sudheer Flanagan RN) spironolactone (Aldactone) tablet 12.5 mg 12.5 mg, oral, Daily, First dose on Sunshine 11/28/24 at 0900 * 0824 (Given - Provider: Lo Franklin, MADI) ticagrelor (Brilinta) tablet 90 mg 90 mg, oral, 2 times daily, First dose on Sunshine 11/28/24 at 0900 * 0824 (Given - Provider: Lo Franklin, MADI) * 2100 (Due) vancomycin (Vancocin) 1 g in dextrose 5% IV 200 mL (COMPLETED) 1 g, intravenous, at 200 mL/hr, Administer over 60 Minutes, Every 12 hours, First dose on Mon11/27/24 at 0800, For 2 doses, car body designer to EP lab premix bag, Dosing of this medication varies based on severity of illness. Does this patient have sepsis or concern for sepsis (probable or documented infection plus systemic manifestations of infection)? No, Suspected Indication (Select all that apply): Surgical Prophylaxis, Indications: Surgical Prophylaxis * 0752 (Given - Provider: Shady Fernandez APRN-SCHOOL GUARD) * 08 (Due) * 1999 (New Bag - Provider: Juliet Topete RN) * 2114 (Stopped - Provider: Juliet Topete RN) Medication Order//05/2025 bupivacaine PF 0.25 % (Marcaine) 0.25 % (2.5 mg/mL) injection (CANCELED) As needed, Starting on Mon11/27/24 at 0951, Intraprocedure * 0951 (Given - Provider: Maris Ramos MD - Comment: left flank) * 1007 (Given - Provider: Maris Ramos MD - Comment: left flank area) lidocaine PF (Xylocaine) 10 mg/mL (1 %) injection (CANCELED) As needed, Starting on Mon11/27/24 at 0911, Intraprocedure * 0911 (Given - Provider: Maris Ramos MD - Comment: Left Flank) lidocaine PF (Xylocaine) 10 mg/mL (1 %) injection (CANCELED) As needed, Starting on Mon11/27/24 at 0912, Intraprocedure * 0912 (Given - Provider: Priya Lopez MD) morphine injection 2 mg 2 mg, intravenous, Every 4 hours PRN, pain severe (7-10), second line, Starting on Mon11/27/24 at 1032, For 2 doses, If ordered PRN for pain, nurse is permitted to administer this medication for higher pain scores based on patient preference? Yes ondansetron (Zofran) injection 4 mg(Linked Group 1) 4 mg, intravenous, Every 8 hours PRN, nausea/vomiting, first line, Starting on Mon11/27/24 at 1031, 1st Line. Give IV if patient is unable to take orally. If inadequate response within 60 minutes, proceed to next-line agent for same PRN reason or contact provider if no further options ordered. When administering via IV Push, administer over 3-5 minutes. ondansetron (Zofran) tablet 4 mg(Linked Group 1) 4 mg, oral, Every 8 hours PRN, nausea/vomiting, first line, Starting on Mon11/27/24 at 1031, 1st Line. Use oral route first, if possible. If inadequate response within 60 minutes, proceed to next-lineagent for same PRN reason or contact provider if no further options ordered. traMADol (Ultram) tablet 50 mg 50 mg, oral, Every 6 hours PRN, pain moderate (4-6), second line, pain severe (7-10), second line, Starting on Mon11/27/24 at 1031, If ordered PRN for pain, nurse is permitted to administer this medication for higher pain scores based on patient preference? Yes Order Group 1: ondansetron (Zofran) tablet 4 mgJump to med 4 mg, oral, Every 8 hours PRN, nausea/vomiting, first line, Starting on Mon11/27/24 at 1031, 1st Line. Use oral route first, if possible. If inadequate response within 60 minutes, proceed to next-lineagent for same PRN reason or contact provider if no further options ordered. Or ondansetron (Zofran) injection 4 mgJump to med 4 mg, intravenous, Every 8 hours PRN, nausea/vomiting, first line, Starting on Mon11/27/24 at 1031, 1st Line. Give IV if patient is unable to take orally. If inadequate response within 60 minutes, proceed to next-line agent for same PRN reason or contact provider if no further options ordered. When administering via IV Push, administer over 3-5 minutes. FOR RECORDS PERTAINING TO PATIENTS WHO ARE [...] BE BASED ON THE PRIMARY CLINICAL RECORDS. [facility]. provides no warranty or guarantee of the accuracy or completeness of information in this document.
--- OUTSIDE RECORDS SUMMARY | 2025-06-19 22:45 | XMS_ITS | Clinical Summary ---
Author Organization [facility] Healthcare Address [address] [address] Care Team Providers Care Choirmaster Name Role Phone Eduard Shoemaker MD Primary Care Provider [phone] Allergies No known active allergies Medications MedicationSigDispense QuantityRefillsLast FilledStart DateEnd DateStatus Continuous Glucose Transmitter (Dexcom G6 transmitter) misc Inject under the skin if needed Use as instructedActive Continuous Glucose Sensor (Dexcom G6 Sensor) misc Active Continuous Glucose Jail Keeper (Dexcom G6 plasterer foreman) device Inject 1 Device under the skin if needed Use as instructedActive ticagrelor (Brilinta) 90 MG tablet Take 90 mg by mouth in the morning and 90 mg before bedtime.Active atorvastatin (Lipitor) 80 MG tablet Take 80 mg by mouth DailyActive aspirin 81 MG EC tablet Take 81 mg by mouth DailyActive spironolactone (Aldactone) 25 MG tablet Take 25 mg by mouth DailyActive sildenafil (Viagra) 100 MG tablet Take 100 mg by mouth Daily as needed for erectile dysfunctionActive insulin glargine (Semglee) 100 UNIT/ML injection Inject 34 Units under the skin at bedtimeActive HumaLOG KWIKPEN 100 UNIT/ML injection Indications:Poor control type I diabetes mellitus (HCC)INJECT SUBCUTANEOUSLY 60 UNITS DAILY DIRECTED 60 mL 5Active Insulin Lispro (HumaLOG) 100 UNIT/ML solution Indications:Poor control type I diabetes mellitus (HCC)Inject 70 Units as directed Daily 40 mL 515Active Encounters DateTypeDepartmentCare CajoVlyvcgwxjka48/05/2025 2:40 PM EDTOffice Visit [facility] [address] [place] [address] Zenia Langford MD Primary hypertension (Primary Dx); Poor control type I diabetes mellitus (HCC); Encounter for dietary consultation; Vitamin D deficiency; Hyperlipemia, mixed ; Insulin long-term use (HCC); Insulin pump status; Encounter for fitting and adjustment of insulin pump03/25/2025amboo flowsheet [facility] [address] [place] [address] Zenia Langford MD from Last 3 Months Family History Medical HistoryRelationNameCommentsDiabetesBrother 1DiabetesDaughterRelationName StatusCommentsBrother 1AliveBrother 2AliveDaughterFatherAliveMotherAlive Social History Tobacco UseTypesPacks/DayYears UsedDateSmoking Tobacco: Never AssessedSex and Gender InformationValueDate RecordedSex Assigned at BirthNot on fileLegal Sex Male09/02/2024 2:03 PM ESTGender IdentityNot on fileSexual OrientationNot on file Last Filed Vital Signs Vital SignReadingTime TakenCommentsBlood Bfxwugjz229/7005 11:32 AM EDT Bjywp3654/05/2025 2:50 PM EDTTemperature--Respiratory Msif868803/25/2025 2:50 PM EDTOxygen Cdwwxqhtre53%03/25/2025 2:50 PM EDTInhaled Oxygen Concentration-- Sywcmm84.4 kg (164 lb)03/25/2025 2:50 PM JSZFcrcjn175.4 cm (6' 1 )03/25/2025 2:50 PM EDTBody Mass Index21.6408 2:50 PM EDT Plan of Treatment DateTypeDepartmentCare Team (Latest Contact Info)Ayiggdjffsf88/04/2025 10:00 AM ESTOffice Visit [facility] [address] [place] [id number] Zenia Langford MD [address] [place] [address] Health MaintenanceDue DateLast DoneCommentsCT Bhnfnoaghfbf1971Colonoscopy 1971Colorectal Cancer Bqhhngfsy1971FIT-DNA1971FIT1971 FOBT1971 6616Wihtgljtxkthd1971MMR Vaccines (1 of 1 - Standard series) 1972DTaP/Tdap/Td Vaccines (1 - Tdap)1978Hepatitis B Vaccines (1 of 3 - 19+ 3-dose series)1990COVID-19 Vaccine (3 - 2024- season)2025 07/02/2021, 06/11/2021Influenza Vaccine (#1)2025HIB VaccinesAged OutNo longer eligible based on patient's age to complete this topicHPV VaccinesAged OutNo longer eligible based on patient's age to complete this topicHepatitis A VaccinesAged OutNo longer eligible based on patient's age to complete this topic IPV VaccinesAged OutNo longer eligible based on patient's age to complete this topicMeningococcal B VaccineAged OutNo longer eligible based on patient's age to complete this topicMeningococcal VaccineAged OutNo longer eligible based on patient's age to complete this topicPneumococcal Vaccine: Pediatrics (0 to 5 Years) and At-Risk Patients (6 to 64 Years)Aged OutNo longer eligible based on patient's age to complete this topicRotavirus VaccinesAged OutNo longer eligible based on patient's age to complete this topic Procedures Procedure NamePriorityDate/TimeAssociated DiagnosisCommentsPOCT GLYCOSYLATED HEMOGLOBIN (HGB A1C)Sscingv3003/25/2025 2:54 PM EDT Poor control type I diabetes mellitus (HCC) POCT RGBFWGXAfngzek90/05/2025 2:54 PM EDT Poor control type I diabetes mellitus (HCC) from Last 3 Months Results * POCT glycosylated hemoglobin (Hb A1C) docked device (03/25/2025 2:54 PM EDT) ComponentValueRef RangeTest MethodAnalysis TimePerformed AtPathologist SignatureHemoglobin A1C7.7Specimen (Source)Anatomical Location / Laterality Collection Method / VolumeCollection TimeReceived TimeBloodVenous blood specimen / Slhysud7303/25/2025 2:54 PM EDT Narrative Authorizing ProviderResult TypeResult StatusZenia Langford MDPOINT OF CARE TEST ENTER/EDIT ORDERABLESFinal Result * POCT glucose manually resulted (03/25/2025 2:54 PM EDT)ComponentValueRef Range Test MethodAnalysis TimePerformed AtPathologist SignatureGlucose Blood, QYC588 mg/dLSpecimen (Source)Anatomical Location / LateralityCollection Method / VolumeCollection TimeReceived TimeBloodCapillary blood specimen / Unknown 03/25/2025 2:54 PM EDT Narrative Authorizing ProviderResult TypeResult StatusAhjane Leia Anastasiya MDPOINT OF CARE TEST ENTER/EDIT ORDERABLESFinal Result from Last 3 Months Insurance Care Teams Team MemberRelationshipSpecialtyStart Date Eduard Shoemaker MD [address] [place] [address] PCP - GeneralFamily Medicine09/02/24
--- OUTSIDE RECORDS SUMMARY | 2025-06-19 22:45 | XMS_ITS | Patient Health Record ---
Author Organization [facility] [place] Address [address] [place] [address] Care Team Providers Care Body Builder Name Role Phone Fidel Shoemaker Primary Care Provider Allergies No Known Allergies Results Component Value Reference Range Notes MICROALB CREAT RATIO RANDOM Reviewed date:09/26/2024 12:48:49 PM Interpretation: Performing Lab: Notes/Report: , Microalbumin Urine Random 8.4 <=30.0 mg/dL Creatinine Urine Embybg903.0220.00-300.00 mg/dLMicroalbum Creatinine Ratio Ur 83.10.0-29.9 mg/g NO MICROALBUMINURIA 0-29 MG/G MACROALBUMINURIA >300 MG/G CLINICAL MICROALBUMINURIA 30-300 MG/G Performing Lab:see noteML - LBITP Reviewed date:11/17/2024 03:40:20 PM Interpretation: Performing Lab: Notes/Report: Source Facility: [place] [address] Cardiac Rehab Report Signed Patient: WING ALEJANDRO MR#: [id number] : 1970 Acct:[id number] Age/Sex: 54 / M ADM Date: 11/08/24 Loc: CR Attending Dr: ADIEL TOBIN Ordering Physician: Roe Shoemaker M.D. Date of Service: 11/05/24 Procedure(s): ITP Accession Number(s): [id number] cc: Test Date: 2024-11-05 Pat Name: WING ALEJANDRO Department: Room: - Gender: Male Cad Manager: : 1970 Requested By: ROE SHOEMAKER Order Number: [id number] Arthur MD: KENNETH HOLLINGSWORTH Interpretive Statements Session Date: Electronically Signed On 11-16-2024 14:29:28 EDT by KENNETH HOLLINGSWORTH Dictated By: Kenneth Hollingsworth D.O. Signed By: 11/16/24 1429 11/16/24 1429 DD/ 0756 TD/TT: Loading Dock Helper:CBC AUTO DIFF Reviewed date:11/24/2024 03:15:56 PM Interpretation: Performing Lab: Notes/Report: [facility] ,White Blood Count7.84.0-11.0 10 3/uLRed Blood Count4.244.70-6.10 10 6/uL Vatkuwiwps95.914.0-18.0 g/cMAmcqdkgmkx48.442.0-54.0 %Mean Corpuscular Iqrtdi13.9 80.0-94.0 fLMean Corpuscular Aeissyinzr50.425.9-34.0 pgMean Corpuscular HGB Conc 32.729.9-35.2 g/dLRed Cell Distribution Width12.811.0-15.0 %Platelet Wygbm472 150-450 10 3/uLMean Platelet Volume8.79.5-13.5 fLNeutrophils Percent Auto52.3 43.0-75.0 %Lymphocytes Percent Auto30.420.5-60.0 %Monocytes Percent Auto9.41.7- 12.0 %Eosinophils Percent Auto6.20.9-7.0 %Basophils Percent Auto1.30.2-2.0 % Immature Granulocytes Pct Auto0.40.0-0.5 %Neutrophils Absolute Auto4.11.4-6.5 10 3/uLLymphocytes Absolute Auto2.41.2-3.8 10 3/uLMonocytes Absolute Auto0.70.3-0.8 10 3/uLEosinophils Absolute Auto0.50.0-0.7 10 3/uLBasophils Absolute Auto0.10.0- 0.1 10 3/uLImmature Granulocytes Abs Auto0.030.00-0.03 10 3/uLPerforming Lab:see noteML - LBProthrombin Time INR Reviewed date:11/24/2024 03:15:56 PM Interpretation: Performing Lab: Notes/Report: [facility] ,Prothrombin Time10.99.0-11.6 secINR1.03 2.5-3.5 FOR PROSTHETIC HEART VALVE REPLACEMENT DESIRED INR: 2.5-3.5 RECURRENT THROMBOSIS 2.0-3.0 CONDITIONS NOT LISTED BELOW Performing Lab:see noteML - LBPROF CHEM 8 (BAS METB) Reviewed date:11/24/2024 03:15:56 PM Interpretation: Performing Lab: Notes/Report: [facility] ,Nkcgml156638-601 mmol/LPotassium4.53.5-5.1 mmol/JAwrilbeg49959-628 mmol/LCarbon Ebnppji68.621.0-32.0 mmol/LAnion Gap12.6Wvesvvj65498-395 mg/dLBlood Urea Dexpdmhd85.07.0-18.0 mg/dLCreatinine0.970.70-1.30 mg/dLEstimated GFR ( Kim>60>=60 mL/min/1.73m 2Estimated GFR (Non- Reshma>60>=60 mL/min/1.73m 2BUN Creatinine Ratio22.7Gxsholp3.08.5-10.1 mg/dLPerforming Lab:see note - LBITP Reviewed date:10/08/2024 08:31:08 PM Interpretation: Performing Lab: Notes/Report: Source Facility: [facility]-[address] [place] [address] [place] [address] Cardiac Rehab Report Signed Patient: WING ALEJANDRO MR#: [id number] : 1970 Acct:[id number] Age/Sex: 54 / M ADM Date: 10/07/24 Loc: CR Attending Dr: ADIEL TOBIN Ordering Physician: Roe Shoemaker M.D. Date of Service: 10/07/24 Procedure(s): ITP Accession Number(s): [id number] cc: [facility] Test Date: 2024-10-07 Pat Name: WING ALEJANDRO Department: Room: - Gender: Male Cad Manager: : 1970 Requested By: ROE SHOEMAKER Order Number: [id number] Arthur MD: KENNETH HOLLINGSWORTH Interpretive Statements Session Date: Electronically Signed On 10-08-2024 6:55:42 EST by KENNETH HOLLINGSWORTH Dictated By: Kenneth Hollingsworth D.O. Signed By: 10/08/2465410/08/24654 DD/ 135 TD/TT: Loading Dock Helper:C-Peptide, Serum Reviewed date:09/29/2024 11:05:30 AM Interpretation: Performing Lab: Notes/Report: [facility] ,C-Peptide, Serum<0.11.1-4.4 ng/mL Performed at: [facility] C-Peptide reference interval is for fasting patients. Internet Ecommerce Specialist: Oli Perez PhD, Phone: [phone] [address], [place] [phone] Performing Lab:see noteLC - [facility] LBVITAMIN D 25 [place] Reviewed date:09/26/2024 12:48:49 PM Interpretation: Performing Lab: Notes/Report: [facility] ,Vitamin D21.4 <20 ng/mL Vit D deficient 20-<30 ng/mL Vit D insufficient 30-100 ng/mL Vit D sufficient >100 ng/mL Potential Toxicity Performing Lab:see noteML - [facility] LBRENAL FUNCTION PANEL Reviewed date:09/26/2024 12:48:49 PM Interpretation: Performing Lab: Notes/Report: [facility] ,Ogyqts912238-583 mmol/LPotassium4.33.5-5.1 mmol/VCgqwdujv72188-567 mmol/LCarbon Pvoayuj25.921.0-32.0 mmol/LAnion Gap12.1Elvfsyb0929-835 mg/dLBlood Urea Nitrogen 21.07.0-18.0 mg/dLCreatinine1.030.70-1.30 mg/dLEstimated GFR ( Kim>60 >=60 mL/min/1.73m 2Estimated GFR (Non- Reshma>60>=60 mL/min/1.73m 2BUN Creatinine Ratio20.3Zaatgju3.08.5-10.1 mg/dLPhosphorus4.62.6-4.7 mg/dLAlbumin Level3.83.4-5.0 g/dLPerforming Lab:see noteML - LBLIPID PROFILE Reviewed date:09/26/2024 12:48:49 PM Interpretation: Performing Lab: Notes/Report: [facility] ,Takopywjtjkwe33<=150 mg/xKSvunoiejqwi518<=200 mg/dLHDL Urlpwiqmkpv5317-13 mg/dL <40 mg/dl - HIGH CARDIOVASCULAR RISK > or =60 mg/dl - LOW CARDIOVASCULAR RISK LDL Cholesterol Wrrjttfirj49.0 >190 mg/dl VERY HIGH 100-129 mg/dl NEAR OR ABOVE OPTIMAL 130-159 mg/dl BORDERLINE HIGH 160-189 mg/dl HIGH <100 mg/dl OPTIMAL VLDL BHXLFSYZGWH84.6Chol HDL Ratio1.8 >11.0 HIGH RISK 4.4 - 7.1 AVERAGE RISK 7.1 - 11.0 MODERATE RISK 3.3 - 4.4 LOW RISK Performing Lab:see noteML - LBITP Reviewed date:09/06/2024 10:39:37 AM Interpretation: Performing Lab: Notes/Report: Source Facility: [facility]-[address] [place] [address] Cardiac Rehab Report Signed Patient: WING ALEJANDRO MR#: [id number] : 1970 Acct:[id number] Age/Sex: 54 / M ADM Date: 09/04/24 Loc: CR Attending Dr: ADIEL TOBIN Ordering Physician: Roe Shoemaker M.D. Date of Service: 09/05/24 Procedure(s): ITP Accession Number(s): [id number] cc: Test Date: 2024-09-05 Pat Name: WING ALEJANDRO Department: Room: - Gender: Male Cad Manager: : 1970 Requested By: ROE SHOEMAKER Order Number: [id number] Reading MD: KENNETH HOLLINGSWORTH Interpretive Statements Session Date: Electronically Signed On 09-05-2024 21:32:53 EST by KENNETH HOLLINGSWORTH Dictated By: Kenneth Hollingsworth D.O. Signed By: 09/05/24213109/05/242131 DD/ 2 TD/TT: Loading Dock Helper:DEANA Reviewed date:08/07/2024 03:51:57 PM Interpretation: Performing Lab: Notes/Report: Source Facility: [place] [address] [place] [address] Cardiac Rehab Report Signed Patient: WING ALEJANDRO MR#: [id number] : 1970 Acct:[id number] Age/Sex: 54 / M ADM Date: 08/05/24 Loc: CR Attending Dr: ADIEL TOBIN Ordering Physician: Roe Shoemaker M.D. Date of Service: 08/06/24 Procedure(s): ITP Accession Number(s): [id number] cc: [facility] Test Date: 2024-08-06 Pat Name: WING ALEJANDRO Department: Room: - Gender: Male Cad Manager: : 1970 Requested By: ROE SHOEMAKER Order Number: [id number] Reading MD: KENNETH HOLLINGSWORTH Interpretive Statements Session Date: Electronically Signed On 08-06-2024 20:11:27 EST by KENNETH HOLLINGSWORTH Dictated By: Kenneth Hollingsworth D.O. Signed By: 08/06/24201008/06/242010 DD/ 1 TD/TT: Loading Dock Helper:DEANA Reviewed date:07/11/2024 01:28:34 PM Interpretation: Performing Lab: Notes/Report: Source Facility: [place] [address] [place] [address] Cardiac Rehab Report Signed Patient: WING ALEJANDRO MR#: [id number] : 1970 Acct:[id number] Age/Sex: 54 / M ADM Date: 07/10/24 Loc: CR Attending Dr: ADIEL TOBIN Ordering Physician: Kenneth Hollingsworth D.O. Date of Service: 07/10/24 Procedure(s): ITP Accession Number(s): [id number] cc: [facility] Test Date: 2024-07-10 Pat Name: WING ALEJANDRO Department: Room: - Gender: Male Cad Manager: : 1970 Requested By: KENNETH HOLLINGSWORTH Order Number: [id number] Arthur MD: KENNETH HOLLINGSWORTH Interpretive Statements Session Date: Electronically Signed On 07-10-2024 22:54:05 EST by KENNETH HOLLINGSWORTH Dictated By: Kenneth Hollingsworth D.O. Signed By: 07/10/24225307/10/242253 DD/ 1127 TD/TT: Loading Dock Helper:ITP Reviewed date:07/10/2024 07:53:19 AM Interpretation: Performing Lab: Notes/Report: Source Facility: [place] [address] [place] [address] Cardiac Rehab Report Signed Patient: WING ALEJANDRO MR#: [id number] : 1970 Acct:[id number] Age/Sex: 54 / M ADM Date: 07/09/24 Loc: CR Attending Dr: ADIEL TOBIN Ordering Physician: Kenneth Hollingsworth D.O. Date of Service: 07/09/24 Procedure(s): ITP Accession Number(s): [id number] cc: Test Date: 2024-07-09 Pat Name: WING ALEJANDRO Department: Room: - Gender: Male Cad Manager: : 1970 Requested By: KENNETH HOLLINGSWORTH Order Number: [id number] Arthur MD: KENNETH HOLLINGSWORTH Interpretive Statements Session Date: Electronically Signed On 07-09-2024 23:11:38 EST by KENNETH HOLLINGSWORTH Dictated By: Kenneth Hollingsworth D.O. Signed By: 07/09/24231007/09/24 231 DD/ 1348 TD/TT: Loading Dock Helper:CT angio chest Reviewed date:06/19/2024 06:28:07 PM Interpretation: Performing Lab: Notes/Report: Source Facility: [place] [address] [place] [address] CT Scan Report Signed Patient: WING ALEJANDRO MR#: [id number] : 1970 Acct:[id number] Age/Sex: 54 / M ADM Date: 06/18/24 Loc: ER Attending Dr: Ordering Physician: Jules Escobar Date of Service: 06/18/24 Procedure(s): CT angio chest Accession Number(s): [id number] cc: Roe Shoemaker M.D. [address] [address] Patient Name: WING ALEJANDRO MRN: [id number] date: 1970 Sex: M Assigned Patient Location: ER Current Patient Location: ER Accession/Order Number: [id number] Exam Date: 06/18/2024 23:35 Report Date: 06/19/2024 01:51 At the request of: JULES ESCOBAR Procedure: CT angio chest EXAMINATION:CT angio chest INDICATION:chest pain COMPARISON:05/24/2023 TECHNIQUE:Thin section transaxial slices were acquired through the chest with intravenous contrast per PE protocol. Coronal and sagittal reconstructed images were reviewed. FINDINGS: PULMONARY ARTERIES: There is excellent opacification of the pulmonary vasculature. No suspicious pulmonary arterial filling defects are identified to suggest pulmonary embolus. LUNGS: Severe bullous emphysematous changes are present in the lungs with chronic interstitial lung disease. There are multiple scattered subsolid groundglass densities in the right upper lobe extending into the lower lobes. There is also diffuse interstitial edema in the chest. The airspace disease is concerning for multifocal infection. Superimposed alveolar edema cannot be excluded, either. PLEURAL CAVITY: There are small to moderate bilateral pleural effusions, right greater than left. MEDIASTINUM: Trachea and central airways are patent. HEART: No pericardial effusion.There is no evidence of right heart strain. VASCULAR:No aneurysm or dissection of the thoracic aorta. LYMPH NODES:Small mediastinal lymph nodes are present likely reactive. CHEST WALL/AXILLA: Chest wall and axilla are unremarkable. BONES: Osseous structures are unremarkable. VISUALIZED UPPER ABDOMEN: Severe diffuse hepatic steatosis is present. Calcified granulomas are present in the spleen. CT/CT angio chest IMPRESSION: 1. No evidence of pulmonary embolus. 2. Interstitial edema in the lungs. Diffuse hazy airspace disease in each upper lobe and each lower lobe concerning for multifocal infection. Superimposed alveolar edema cannot entirely be excluded, either. 3. Small to moderate bilateral pleural effusions. Electronically authenticated by: LO JOE Date: 06/19/2024 01:51 Dictated By: Lo Joe M.D. Signed By: 06/19/24153 DD/ 0 TD/TT: Loading Dock Helper:XR chest 1V Reviewed date:06/19/2024 06:28:07 PM Interpretation: Performing Lab: Notes/Report: Source Facility: [place] [address] XRay Report Signed Patient: WING ALEJANDRO MR#: [id number] : 1970 Acct:[id number] Age/Sex: 54 / M ADM Date: 06/18/24 Loc: ER Attending Dr: Ordering Physician: Jules Escobar Date of Service: 06/18/24 Procedure(s): XR chest 1V Accession Number(s): [id number] cc: Jules Escobar; Roe Shoemaker M.D. [place] [address] Patient Name: WING ALEJANDRO MRN: [id number] date: 1970 Sex: M Assigned Patient Location: ER Current Patient Location: ER Accession/Order Number: [id number] Exam Date: 06/18/2024 23:13 Report Date: 06/19/2024 01:00 At the request of: JULES ESCOBAR Procedure: XR chest 1V EXAM: XR chest 1V HISTORY: pain-chest COMPARISON: Chest CT 05/24/2023 TECHNIQUE: Single frontal view of the chest FINDINGS: Hazy airspace opacities of the right and left lower lung with bronchial wall thickening. Left retrocardiac opacity. No pneumothorax. Blunting of the bilateral costophrenic angles. Unremarkable cardiomediastinal contours. No acute osseous abnormality. XR/XR chest 1V IMPRESSION: Findings suggest pulmonary interstitial edema and small bilateral pleural effusions. Multifocal pneumonia is possible in the appropriate clinical setting. Electronically authenticated by: HOMER LEWIS Date: 06/19/2024 01:00 Dictated By: Homer Lewis M.D. Signed By: 06/19/24102 DD/ TD/TT: Loading Dock Helper:Troponin I High Sensitivity Reviewed date:06/19/2024 06:28:07 PM Interpretation: Performing Lab: Notes/Report: [facility] ,Troponin I High Iklpdpgzytb337.14.0-76.1 pg/mL DIAGNOSIS. NOTE: HIGH-SENSITIVITY TROPONIN ASSAY IS NOT INTENDED TO BE CUT-OFF POINTS HAVE BEEN ESTABLISHED BASED ON THE FOURTH WITH OTHER DIAGNOSTIC AND CLINICAL INFORMATION. 99TH PERCENTILE = 76.2 PG/ML PERCENTILE OF cTnI DISTRIBUTION IN A REFERENCE POPULATION, UNIVERSAL DEFINITION OF MYOCARDIAL INFARCTION. THE UPPER REFERENCE LIMIT (URL) OF TROPONIN, DEFINED THE 99TH HAS BEEN CONFIRMED THE DECISION THRESHOLD FOR ME Peggy at 0144 USED IN ISOLATION BUT SHOULD BE INTERPRETED IN CONJUNCTION RESULTS CALLED TO SANTIAGO REYNA RN @BY Aleena Grider Performing Lab:see noteML - LBITP Reviewed date:12/11/2024 10:55:40 AM Interpretation: Performing Lab: Notes/Report: Source Facility: [facility]-[address] [place] [address] [place] [address] Cardiac Rehab Report Signed Patient: WING ALEJANDRO MR#: [id number] : 1970 Acct:[id number] Age/Sex: 54 / M ADM Date: 11/08/24 Loc: CR Attending Dr: ADIEL TOBIN Ordering Physician: Sukhdev Calderon D.O. Date of Service: 12/04/24 Procedure(s): ITP Accession Number(s): [id number] cc: Test Date: 2024-12-04 Pat Name: WING ALEJANDRO Department: Room: - Gender: Male Cad Manager: : 1970 Requested By: Sukhdev Calderon Order Number: [id number] Arthur MD: Sukhdev Calderon Interpretive Statements Session Date: 12/04/2024 Patient quit cardiac rehabilitation due to pacemaker placement. Patient is encouraged to re-enroll after recovering from surgery and cleared by cardiology. Electronically Signed On 12-11-2024 10:47:43 EDT by Sukhdev Calderon Dictated By: Sukhdev Calderon D.O. Signed By: 12/11/24 1048 12/11/24 1048 DD/ 1434 TD/TT: Loading Dock Helper: Reason For Referral Reason Interested in Omnipo ds Diagnosis 1 Type 2 diabetes venkat itus without complications (E11.9) Referral Organization [facility] Referring Provider First Name Fidel Referring Provider Last Name Navid Referring Provider Speciality [facility] dwight Referred Provider Zenia Langford Referred Provider Specialty Endocrinolog y Referral Priority Routine Medications Medication SIG (Take, Route, Frequency, Duration) Notes Start Date End Date Status Dexcom G6 Administrative Underwriter ActiveHumaLOG KwikPen 100 UNIT/MLas directed Subcutaneous with meals- less than 150 no units; 151-200 2 units; 201-250 4 units; 251-300 6 units; 301-350 8 units; 351-400 10 units; Duration: 90 daysActiveAtorvastatin Calcium 80 MG1 tablet Orally Once a day; Duration: 30 day(s)07/04/2024ctiveBrilinta 90 MG1 tablet Orally Twice a day; Duration: 30 day(s)07/04/2024ctiveSpironolactone 25 MG1 tablet Orally; Duration: 30 day(s)07/04/2024ctiveSemglee (yfgn) 100 UNIT/ML inject 44 units Subcutaneous at bedtime; Duration: 90 daysActiveSildenafil Citrate 100 mgTAKE 1 TABLET 30 MINUTES BEFORE INTERCOURSE, MAXIMUM 1 TABLET EVERY 72 HOURS (NEED AN APPOINTMENT FOR FURTHER FILLS)ActiveDexcom G6 Sensor - APPLY 1 SENSOR TO SKIN, CHANGE EVERY 10 DAYS; Duration: 90ActiveFarxiga 10 MG1 tablet Orally Once a day; Duration: 30 day(s)07/04/2024ctiveAspirin 81 81 MG1 tablet Orally Once a day; Duration: ctiveDexcom G6 Transmitter -USE 1 DEVICE EVERY 3 MONTHS FOR CONTINUOUS GLUCOSE MONITORING; Duration: 90Active Social History Tobacco Use: Social History Observation Description Date Details (start date - stop date) Former Smoker 07/02/1986 - 05/21/2024 Alcohol Screen (Audit-C) Question Answer Notes Did you have a drink containing alcohol in the p ast year? Yes How many drinks did you have on a typical day when you were drinking in the past year?5 or 6 drinks (2 points)How often did you have a drink containing alcohol in the past year?Weekly (3 points)Nfasue8CgzjhxijdbyrgtCtstmwcbQrarjfa Control (Standard) Question Answer Notes Tobacco use: Former smoker When did you start smoking?07/02/1986When did you stop smoking?4AUDIT-C (Standard) Question Answer Notes Did you have a drink containing alcohol in the p ast year? Yes How often did you have six or more drinks on one occasion in the past year?Never (0 point)How many drinks did you have on a typical day when you were drinking in the past year?3 or 4 drinks (1 point)How often did you have a drink containing alcohol in the past year?2 to 3 times a week (3 points)Hiswpy2Gdnvqqdckdbhod Positive Problems Problem Type SNOMED Code ICD Code Onset Dates Problem Status W/U Status Risk Notes Problem Type II diabetes zane litus without complication (887970803) Type 2 diabetes mellitus without complications (E11.9) ActiveconfirmedProblemPolyneuropathy due to type 2 diabetes mellitus (158070587) Type 2 diabetes mellitus with diabetic polyneuropathy (E11.42)Activeconfirmed ProblemPain in left foot (397505362685557)Pain in left foot (M79.672)Active confirmedProblemClosed fracture of phalanx of foot (44504990)Nondisplaced fracture of proximal phalanx of left great toe, initial encounter for closed fracture (S92.415A)ActiveconfirmedProblemCrushing injury of foot (36608239) Crushing injury of left foot, initial encounter (S97.82XA)ActiveconfirmedProblem Cardiomyopathy (30467340)Cardiomyopathy (I42.9)ActiveconfirmedProblemCoronary artery disease (97329238)CAD (coronary artery disease) (I25.10)Activeconfirmed ProblemWell adult (143996880)Well adult (Z00.00)ActiveconfirmedProblemErectile dysfunction (disorder) (359054578)Impotence (N52.9)ActiveconfirmedProblemSTEMI - ST elevation myocardial infarction (889077965)STEMI (ST elevation myocardial infarction) (I21.3)ActiveconfirmedProblemImaging result abnormal (904585098) Abnormal findings on diagnostic imaging of other specified body structures (R93.89)Activeconfirmed Vital Signs Blood pressure diastolic 80 mm Hg 09/09/2024 Csozvf88 in09/09/2024lood pressure zlvumwno278 mm Hg09/09/20247461Ozzvmi282.4 lbs 09/02/2024BMI20.63 kg/m209/02/2024 Encounters Encounter Location Date Provider Diagnosis [facility] [address] [place] [address] 07/05/2024 Fidel Shoemaker Well adult Z00.00 [facility] [address] [place] [address] 09/02/2024 Fidel Navid Type 2 diabetes venkat itus without complications E11.9 ; CAD (coronary artery disease) I25.10 and Cardiomyopathy I42.9 [facility] [address] [place] [address] 09/09/2024 Fidel Shoemaker [facility] [place] [address] 10/23/2024[facility] [place] [address] [place] [address] [place] [address]/[facility] [place] [address]/[facility] Jamelmarcial Assessments Encounter Date Diagnosis (ICD Code) Assessment Notes Treatment Notes Treatment Clinical Notes Section Notes 07/05/2024 Well adult (ICD-10 - Z00.00) 09/02/2024Type 2 diabetes mellitus without complications (ICD-10 - E11.9)if better - ty metoprolol succinate 25 mg po Q day09/02/2024AD (coronary artery disease) (ICD-10 - I25.10)5Cardiomyopathy (ICD-10 - I42.9) Plan Of Treatment Pending Test Test Name Order Date CMP (COMPLETE METABOLIC PANEL) 3 CMP (COMPLETE METABOLIC PANEL) 4 HEMOGLOBIN A1C (GLYCO) 05/12/2023 LIPID PANEL (CHOL/TRIG/HDL/LDL) 05/12/20 23 CBC WITH DIFF 05/12/2023 PSA, PROSTATE-SPECIFIC ANTIGEN 3 T3 FREE, T4 FREE and TSH 02/29/2024 FECAL OCCULT BLOOD 02/29/2024 CT Chest Low Dose for Screening* 023 STOOL OCCULT BLOOD 05/12/2023 CBC AUTO DIFF 02/29/2024 GLYCOHEMOGLOBIN A1C 02/29/2024 LIPID PROFILE 02/29/2024 THYROID PANEL (T4/TSH/FREE T3) 3 Free PSA 02/29/2024 CT chest wo con 05/25/2023 Insurance Providers Payer Name Payer Address Payer Phone Subscriber Number Group Number Insured Name Patient Relationship to Insured Coverage Start Date Coverage End Date [employer] [place] [address] [place] [address] [id number] Mariana Alejandroelf - patient is the insured Medical (General) History Medical History History ICD Code Kidney injury S37.009A Hyperkalemia E87.5 Hyponatremia E87.1 Hypertension I10 Sinus tachycardia R00.0 Cervical disc disease M50.90 Impotence N52.9 Diabetes mellitus E11.9 Surgical History Surgery Date(Month/Year) ICD Implant 11/2024 PTCA 06/13 Hospitalization History Reason Date(Month/Year) Diabetes MI06/13
--- OUTSIDE RECORDS SUMMARY | 2025-06-19 22:45 | XMS_ITS | Clinical Summary ---
Author Organization [facility] Address [address] [place] [address] Phone Care Team Providers Care Director Of Intercollegiate Athletics Name Role Phone Eduard Shoemaker MD Primary Care Provider [phone] Uriah Neal DO Unavailable [phone] Maris White MD Unavailable Allergies Active AllergyReactionsCriticalityNoted DateCommentsIodinated Contrast Media Hives06/19/2024 Medications MedicationSigDispense QuantityRefillsLast FilledStart DateEnd DateStatus aspirin 81 mg EC tablet Take 1 tablet (81 mg) by mouth once daily.Active nitroglycerin (Nitrostat) 0.[address] 1 tablet (0.4 mg) under the tongue every 5 minutes if needed.06/20/2024 Active HumaLOG KwikPen Insulin 100 unit/mL injection 4Active Dexcom G6 Transmitter device USE 1 DEVICE EVERY 3 MONTHS FOR CONTINUOUS GLUCOSE DODWKUGSYR74/03/2025Active acetaminophen (Tylenol) 325 mg tablet Indications:Post-op painTake 2 tablets (650 mg) by mouth every 6 hours. 5Active carvedilol (Coreg) 3.125 mg tablet Take 1 tablet (3.125 mg) by mouth 2 times a day.Active lisinopril 2.5 mg tablet Indications:Coronary artery disease involving chickahominy indian tribe coronary artery of chickahominy indian tribe heart without angina pectoris,Cardiomyopathy, unspecified type (Multi),S/P PTCA (percutaneous transluminal coronary angioplasty),ST elevation myocardial infarction (STEMI), unspecified artery (Multi),History of placement of stent in LAD coronary arteryTake 1 tablet (2.5 mg) by mouth once daily. 90 tablet /13/2026Active Farxiga 10 mg tablet Indications:Coronary artery disease involving chickahominy indian tribe coronary artery of chickahominy indian tribe heart without angina pectoris,Cardiomyopathy, ischemic,Type 2 diabetes mellitus without complication, with long-term current use of insulin (Multi)Take 1 tablet (10 mg) by mouth once daily. 90 tablet 5Active ticagrelor (Brilinta) 90 mg tablet Indications:Coronary artery disease involving chickahominy indian tribe coronary artery of chickahominy indian tribe heart without angina pectoris,S/P PTCA (percutaneous transluminal coronary angioplasty),ST elevation myocardial infarction (STEMI), unspecified artery (Multi)TAKE 1 TABLET BY MOUTH TWICE A DAY 180 tablet 5Active atorvastatin (Lipitor) 80 mg tablet Indications:Coronary artery disease involving chickahominy indian tribe coronary artery of chickahominy indian tribe heart without angina pectorisTAKE 1 TABLET BY MOUTH ONCE DAILY 90 tablet 5Active spironolactone (Aldactone) 25 mg tablet Indications:Coronary artery disease involving chickahominy indian tribe coronary artery of chickahominy indian tribe heart without angina pectoris,Cardiomyopathy, ischemicTAKE ONE-HALF (1/2) TABLET BY MOUTH DAILY 45 tablet 5Active Active Problems ProblemNoted DateDiagnosed DateAICD (automatic cardioverter/defibrillator) xujrkar7804/02/2025Dyspnea on ilwuphnh47/13/8369Cmcyfcbdtvddyf56/09/2025Encounter for medication review and xuygohhrtv76/17/2025Encounter to discuss treatment eelypxq3910/07/2024Encounter to establish care with new ziyvsw8210/07/2024MI 22.0- 22.9, adult10/02/2024ardiac LV ejection fraction 30-35%10/02/2024History of placement of stent in LAD coronary wunnrd7210/02/2024S/P PTCA (percutaneous transluminal coronary angioplasty)07/03/2024STEMI (ST elevation myocardial infarction)07/03/2024AD (coronary artery disease)07/03/2024Former smoker 07/03/2024ardiomyopathy, hmkomuix76/13/2024Type 2 diabetes mellitus without complication, with long-term current use of ipvvbdv8007/03/2024Mixed etdagkazzefqpc47/13/2024ongestive heart failure, NYHA class 210 Resolved Problems ProblemNoted DateDiagnosed DateResolved DateBody mass index (BMI) 19.9 or less, adult/07/2025 Encounters DateTypeDepartmentCare LlbiYuktdywqjfu95/21/2025 11:10 AM EDT - 2025 11:59 PM EDTHospital Encounter [facility] [address] [place] [facility] [place] [address] Presence of automatic cardioverter/defibrillator (AICD); Non-ischemic cardiomyopathy (Multi) Discharge Disposition: Home05/15/2025Refill [address] [phone] Uriah Neal DO Coronary artery disease involving chickahominy indian tribe coronary artery of chickahominy indian tribe heart without angina pectoris; Cardiomyopathy, ischemic; Type 2 diabetes mellitus without complication, with long-term current use of insulin (Multi); S/P PTCA (percutaneous transluminal coronary angioplasty); ST elevation myocardial infarction (STEMI), unspecified artery (Multi)04/28/[address] [phone] Debbie Wallace LPN 04/02/2025 11:20 AM EDTOffice Visit [address] [phone] Uriah Neal DO Coronary artery disease involving chickahominy indian tribe coronary artery of chickahominy indian tribe heart without angina pectoris; Cardiomyopathy, unspecified type (Multi); S/P PTCA (percutaneous transluminal coronary angioplasty); ST elevation myocardial infarction (STEMI), unspecified artery (Multi); History of placement of stent in LAD coronary artery; AICD (automatic cardioverter/defibrillator) present; Type 2 diabetes mellitus without complication, with long-term current use of insulin (Multi); Dyspnea on exertion; Congestive heart failure, NYHA class 2, unspecified congestive heart failure type (Multi); BMI 22.0-22.9, adult; Former smoker Discharge Disposition: Home04/02/2025Travelfrom Last 3 Months Immunizations ImmunizationAdministration DatesNext DueTdap vaccine, age 7 year and older (BOOSTRIX, ADACEL)05/01/2023 Family History Medical HistoryRelationNameCommentsHeart attackMaternal GrandfatherRelationName StatusCommentsMaternal Grandfather Social History Tobacco UseTypesPacks/DayYears UsedDateSmoking Tobacco: FormerCigarettesQuit: 04/02/2024Smokeless Tobacco: NeverAlcohol UseStandard Drinks/WeekCommentsYes0 (1 standard drink = 0.6 oz pure alcohol)[facility] UtilitiesAnswerDate RecordedIn the past 12 months has the [employer], gas, oil, or water company threatened to [...] or more drinks on one occasion?Less than vrxpjqq6611/27/2024Overall Financial Resource Strain (CARDIA)AnswerDate RecordedHow hard is it for you to pay for the very basics like food, housing, medical care, and heating?Not very hard11/27/2024PHQ-2AnswerDate RecordedPatient Health Questionnaire-2 Yjjtn841Exercise Vital SignAnswerDate RecordedOn average, how many days [...] were you homeless or living in a long term (including now)?No11/27/2024Sex and Gender InformationValueDate RecordedSex Assigned at BirthNot on fileLegal TsxUdsy28/30/2024 8:42 AM EDT Gender IdentityNot on fileSexual OrientationNot on file Last Filed Vital Signs Vital SignReadingTime TakenCommentsBlood Qvzzmvzw746/8208 11:30 AM EDT Ncjgq9027 11:30 AM ACDIccmwiryvlx68.4 ??C (97.5 ??F)11/28/2024 8:00 AM EDTRespiratory Kqgp9699 11:00 AM EDTOxygen Jcvpihsekn10%11/28/2024 11:00 AM EDTInhaled Oxygen Concentration--Dzdsby96.7 kg (169 lb)04/02/2025 11:30 AM UFDIkpnlw119.4 cm (6' 1 )04/02/2025 11:30 AM EDTBody Mass Index22.308 11:30 AM EDT Plan of Treatment DateTypeDepartmentCare Team (Latest Contact Info)Lewemdakrgh65/24/2025 2:00 PM ESTOffice Visit [facility] [address] [phone] Nisreen Wilcox, MATERIAL CLERK-COLLEGE PROFESSOR [address] [facility] [address] [place] [address] 09/15/2025 10:00 AM ESTAppointment [facility] [address] [facility] [place] [address] Health MaintenanceDue DateLast DoneCommentsCT Djwsrxcvmhfn1971Colonoscopy 1971Colorectal Cancer Kdrxyxxuk1971Diabetes: Celiac Disease Zdfkgsjmj1971Diabetes: Hemoglobin A1C1971FIT-DNA (Cologuard) 1971FIT1971HIV Xfbfwrvlk86/21/8809Ctqtlietncjim1971TSH Level 1971Vitamin B-121MMR Vaccines (1 of 1 - Standard series) 1972Diabetes: Retinopathy Dzblmfpjy39/21/1981Hepatitis C Screening 1989Hepatitis B Vaccines (1 of 3 - 19+ 3-dose series)1990 Pneumococcal Vaccine (1 of 2 - PCV)1990PSA Prostate Cancer Screening 2021Zoster Vaccines (1 of 2)2021Influenza Vaccine (#1)2025 COVID-19 Vaccine ( - season)04/21/20259688Xlxdgplfqcssjq60/31/2025 06/20/2024Yearly Adult Soafkwjl53, 07/05/2024, 05/12/2023 Diabetes: Urine Protein Zsjggpkxm53/01/2025Lipid Panel09/26/2025 5Creatinine Level/05/2025, 11/27/2024Potassium Level /05/2025, 11/27/2024DTaP/Tdap/Td Vaccines (2 - Td or Tdap)05/01/2033 05/01/2023HIB VaccinesAged OutNo longer eligible based on patient's age to complete this topicHPV VaccinesAged OutNo longer eligible based on patient's age to complete this topicHepatitis A VaccinesAged OutNo longer eligible based on patient's age to complete this topicIPV VaccinesAged OutNo longer eligible based on patient's age to complete this topicMeningococcal VaccineAged OutNo longer eligible based on patient's age to complete this topicRotavirus VaccinesAged Out No longer eligible based on patient's age to complete this topic Medical Devices ImplantedTypeAreaManufacturerDevice IdentifierShelf Expiration DateModel / Serial / LotDevice, Ev-Icd, Ricarda - [id number] - [id number] Implanted:Qty: 1 on 11/27/2024 by Maris White MD at [facility] ICDLeft: ChestMEDTRONIC [id number] / [id number] / [id number] Procedures Procedure NamePriorityDate/TimeAssociated DiagnosisCommentsCARDIAC DEVICE CHECK - REMOTE - VRVBafqzwq11/21/2025 11:30 AM EDT Presence of automatic cardioverter/defibrillator (AICD) Non-ischemic cardiomyopathy (Multi) BASIC METABOLIC XQUCYAhnnngb35/10/2025 4:18 AM EDT SPSALBULWDFAJR12/31/2024 from Last 3 Months or Most Recently Relevant to Health Maintenance Results * CARDIAC DEVICE CHECK - REMOTE - ICD (2025 11:30 AM EDT)Anatomical Region LateralityModalityMonitor/DeviceSpecimen (Source)Anatomical Location / LateralityCollection Method / VolumeCollection TimeReceived Time2025 3:33 AM EDT Narrative Authorizing ProviderResult TypeResult StatusMaris White [facility] [place] CARDIAC DEVICE PROCEDURESFinal Result * (ABNORMAL) Basic Metabolic Panel (11/28/2024 4:18 AM EDT)ComponentValueRef RangeTest MethodAnalysis TimePerformed AtPathologist JkuvvnwgoDrfriws354(H)74 - 99 mg/dL LAB CHEMISTRY METHOD 11/28/2024 5:08 AM [facility] YDYZucabs718323 - 145 mmol/L LAB CHEMISTRY METHOD 11/28/2024 5:08 AM [facility] LABPotassium4.03.5 - 5.3 mmol/L LAB CHEMISTRY METHOD 11/28/2024 5:08 AM [facility] LSTVybhxqts35045 - 107 mmol/L LAB CHEMISTRY METHOD 11/28/2024 5:08 AM [facility] ZIQIssmkaxonnr0748 - 32 mmol/L LAB CHEMISTRY METHOD 11/28/2024 5:08 AM [facility] LABAnion Eee2185 - 20 mmol/L LAB CHEMISTRY METHOD 11/28/2024 5:08 AM [facility] LABUrea Rsjdspsd01(H)6 - 23 mg/dL LAB CHEMISTRY METHOD 11/28/2024 5:08 AM [facility] LABCreatinine1.040.50 - 1.30 mg/dL LAB CHEMISTRY METHOD 11/28/2024 5:08 AM [facility] TVYrQWW65>60 mL/min/1.73m*2 LAB CHEMISTRY METHOD 11/28/2024 5:08 AM [facility] LABComment: Calculations of estimated GFR are performed using the 2020 CKD-EPI Study Refit equation without therace variable for the IDMS-Traceable creatinine methods. https://jasn.asnjournals.org/content//ASN.2161846999 Calcium8.68.6 - 10.3 mg/dL LAB CHEMISTRY METHOD 11/28/2024 5:08 AM [facility] LABSpecimen (Source)Anatomical Location / LateralityCollection Method / VolumeCollection TimeReceived TimeBlood Venous blood specimen / UnknownVenipuncture / Kcmejsp8011/28/2024 4:18 AM EDT 11/28/2024 4:40 AM EDT Narrative Authorizing ProviderResult TypeResult StatusMiclilly Durant MATERIAL CLERK-CNPLAB BLOOD ORDERABLESFinal ResultPerforming OrganizationAddressCity/State/ZIP Code Phone Number [facility] [address] [place] [phone] * Echocardiogram (06/20/2024) Narrative 06/20/2024 Ordered by an unspecified provider. Authorizing ProviderResult TypeResult StatusGeneric Provider ScanningCV ECHO PROCEDURESFinal Result from Last 3 Months or Most Recently Relevant to Health Maintenance Insurance on file on file Advance Directives For more information, please contact: [phone] (Available ) * Full Code (Latest Code Status on File) Date ActivatedDate InactivatedComments11/27/2024 6:16 AMQuestionAnswerCommentsPlan of Care:* Code Status Discussion Not Completed Decision Maker:* Provider Rationale:* Patient condition does not warrant discussion Care Teams Team MemberRelationshipSpecialtyStart DateEnd Date Eduard Shoemaker MD [address] [facility] [place] [address] PCP - GeneralFamily Tfwnugli21/13/24 Uriah Neal DO [address] [facility] [address] [place] [address] Consulting HvbobopyrSbbtnebuve09/13/24 Maris White MD [address] [facility] [place] [address] CardiologistCardiology-Clinical Cardiac Electrophysiology03/05/25
[2025-06-19 22:50] LABS: Hematocrit 41.5 % (42.0-54.0); Hemoglobin 13.3 g/dL (14.0-18.0); Immature Granulocytes Abs Auto 0.08 10^3/uL (0.00-0.03); Immature Granulocytes Pct Auto 0.5 % (0.0-0.5); Lymphocytes Absolute Auto 1.4 10^3/uL (1.2-3.8); Mean Corpuscular HGB Conc 32.0 g/dL (29.9-35.2); Mean Corpuscular Hemoglobin 30.3 pg (25.9-34.0); Mean Corpuscular Volume 94.5 fL (80.0-94.0); Platelet Count 303 10^3/uL (150-450); Red Blood Count 4.39 10^6/uL (4.70-6.10); White Blood Count 16.2 10^3/uL (4.0-11.0)
[2025-06-19 23:09] LABS: Alanine Aminotransferase 44 U/L (16-63); Albumin Globulin Ratio 1.1; Albumin Level 4.0 g/dL (3.4-5.0); Alkaline Phosphatase 113 U/L (46-116); Anion Gap 31.4; Aspartate Amino Transferase 28 U/L (15-37); Blood Urea Nitrogen 30.0 mg/dL (7.0-18.0); Calcium 9.7 mg/dL (8.5-10.1); Carbon Dioxide 11.7 mmol/L (21.0-32.0); Chloride 96 mmol/L (98-107); Estimated GFR (African America 57 (>=60 mL/min/1.73m^2); Estimated GFR (Non-African Ame 47 (>=60 mL/min/1.73m^2); Globulin 3.7 g/dL; Glucose 434 mg/dL (74-106); Lipase 14.0 U/L (16.0-77.0); NT Pro B Type Natriuretic Pept 680.0 pg/mL (<=900.0); Potassium 5.1 mmol/L (3.5-5.1); Sodium 134 mmol/L (136-145); Total Protein 7.7 g/dL (6.4-8.2)
[2025-06-19] MEDS: NITROGLYCERIN 0.4 MG BOTTLE SL (23:10)
[2025-06-19] MEDS: INSULIN ASPART 300 UNIT/3 ML PEN 8 UNIT SUBQ (23:42)
[2025-06-20] VITALS (91 sets, daily range): BP systolic 113–129; BP diastolic 65–70; PULSE 0–154; TEMP 36.6–36.8; O2SAT 95–99; BMI 22.3
[2025-06-20] MEDS: lidocaine HCL 15 ML, MAG HYDROX/ALUMINUM HYD/SIMETH 30 ML, HYOSCYAMINE SULFATE 0.25 MG PO (00:01)
[2025-06-20] MEDS: PANTOPRAZOLE SODIUM 40 MG VIAL IV (01:12)
[2025-06-20] MEDS: INSULIN REGULAR IN 0.9 % NACL 100 UNIT/100 ML PLAST..BAG IV (03:02)
[2025-06-20] MEDS: 0.9 % SODIUM CHLORIDE 1,000 ML 200 ML IV (03:03)
--- OUTSIDE RECORDS SUMMARY | 2025-06-20 06:24 | XMS_ITS | CCD ---
Author Organization [facility] Care Team Providers Care Food Service Assistant Name Role Phone DR EDUARD MYERS Admitting [...] Provider MD Renee Newberry Other Provider [facility] Brianda Zelaya Other Provider MD Amy Lozoya [...] 3 Eduard Myers MD Primary Care Provider [phone] Uriah Neal DO S Unavailable ZENIA LANGFORD Attending Unavailable EDUARD MYERS Referring Unavailable ZENIA LANGFORD Attending Unavailable ZENIA LANGFORD Referring Unavailable ZENIA LANGFORD Attending Unavailable Maris Ramos MD Unavailable Eduard Myers MD Primary Care Provider [phone] Maris Ramos MD Unavailable URIAH NEAL [...] Unavailable EDUARD MYERS Primary Care Unavailable MARIS RAMOS Admitting Unavailable MARIS RAMOS Attending Unavailable FRANK MYERSLAS JAYNA Primary Care Unavailable MARIS RAMOS Referring Unavailable LOUIS, EDUARD JAYNA Primary Care Unavailable MARIS RAMOS Referring Unavailable EDUARD MYERS Primary Care Unavailable Allergies Allergy ClassificationReported Allergen(s)Allergy TypeDate of OnsetReaction(s) Facility (2 sources)Gadolinium-Containing Contrast Medi; Translations: [Gadolinium- Containing Contrast Medi]Allergy to eziwllqnn21-05-1199OcadyUhklmtrjuOhioHealth [facility] (10 sources)Iodinated Contrast Media; Translations: [Iodinated Contrast Media] Allergy to dhdinrdph10-13-7719VpziqEsmegnrwvOhioHealth Pickerington [facility] Hospital Medications Current Medications MedicationDrug Class(es)DatesSig (Normalized)Sig (Original)acetaminophen 325 mg oral tablet (6 sources)Start: 11-97-0900sufh 2 tablets by mouth every six hoursacetaminophen (Tylenol) 325 mg tablet Indications: Post-op pain Take 2 tablets (650 mg) by mouth every 6 hours. 11/28/2024 ActiveStart: 34-58-1717wwre 1 tablet by mouth every six lofir852 mg, oral, Every 6 hours, First dose on Mon11/27/24 at 1230, If ordered PRN for pain, nurse is permitted to administer this medication for higher pain scores based on patient preference? Yesaspirin 81 mg delayed release oral tablet (20 sources)Platelet Aggregation Inhibitor, Nonsteroidal Anti-inflammatory Drug Start: 90-33-9525cxjl 81 mg by mouth once daily81 mg, oral, Daily, First dose on Mon11/28/24 at 0900, Do not crush, chew, or split.atorvastatin 80 mg oral tablet (20 sources)HMG-CoA Reductase InhibitorStart: 06-20-2024 End: 14-25-2532hujk 1 tablet by mouth once dailyatorvastatin (Lipitor) 80 mg tablet Indications: Coronary artery disease involving [place] coronary artery of [place] heart without angina pectoris TAKE 1 TABLET BY MOUTH ONCE DAILY 90 tablet 05/15/2025 Activecarvedilol 3.125 mg oral tablet (16 sources)alpha-Adrenergic Jaime, beta-Adrenergic BlockerStart: 10-02-2024 End: 63-98-3092zthq 1 tablet by mouth twice dailycarvedilol (Coreg) 3.125 mg tablet Indications: Coronary artery disease involving [place] coronary artery of [place] heart without angina pectoris , ST elevation myocardial infarction (STEMI), unspecified artery (Multi) , S/P PTCA (percutaneous transluminal coronary angioplasty) , History of placement of stent in LAD coronary artery , Cardiomyopathy, ischemic Take 1 tablet (3.125 mg) by mouth 2 times daily (morning and late afternoon). 180 tablet 3 10/02/2024 04/02/2025 Discontinued (Therapy completed)Start: 06-20-2024 End: 51-79-0723zkdt 1 tablet by mouth twice dailycarvedilol (Coreg) 6.25 mg tablet Indications: Coronary artery disease involving [place] coronary artery of [place] heart without angina pectoris , Cardiomyopathy, ischemic Take 1 tablet (6.25 mg) by mouth 2 times a day. 180 tablet 3 07/03/2024 07/03/2025 Active Continuous Glucose Varnish Maker Helper (Dexcom G6 exhibitor sales) device (12 sources)Continuous Glucose Varnish Maker Helper (Dexcom G6 exhibitor sales) device Inject 1 Device under the skin if needed Use as instructed ActiveContinuous Glucose Sensor (Dexcom G6 Sensor) misc (12 sources)Continuous Glucose Sensor (Dexcom G6 Sensor) misc ActiveContinuous Glucose Transmitter (Dexcom G6 transmitter) misc (12 sources)Continuous Glucose Transmitter (Dexcom G6 transmitter) misc Inject under the skin if needed Use as instructed Activedapagliflozin 10 mg oral tablet (15 sources)Sodium-Glucose Cotransporter 2 InhibitorStart: 06-20-2024 End: 41-73-8791txbd 1 tablet by mouth once dailyFarxiga 10 mg tablet Indications: Coronary artery disease involving [place] coronary artery of [place] heart without angina pectoris , Cardiomyopathy, ischemic , Type 2 diabetes mellitus without complication, with long-term current use of insulin (Multi) Take 1 tablet (10 mg) by mouth once daily. 90 tablet 05/15/2025 ActiveDexcom G6 Transmitter device (6 sources)Start: 46-46-3656Ynvbuh G6 Transmitter device USE 1 DEVICE EVERY 3 MONTHS FOR CONTINUOUS GLUCOSE MONITORING 09/23/2024 Active3 ml insulin glargine 100 unt/ml pen injector (17 sources)Insulin AnalogStart: 06-19-2024 End: 90-43-7650wmclsn 34 [IU] by subcutaneous injection once daily [...] injectable solution (20 sources)Insulin AnalogStart: 03-25-2025 End: 49-43-0046Xcrwswp Lispro (HumaLOG) 100 UNIT/ML solution Indications: Poor control type I diabetes mellitus (HCC) Inject 70 Units as directed Daily 40 mL 1 03/25/2025 06/23/2025 ActiveStart: 25-86-3453AlphWDW KWIKPEN 100 UNIT/ML injection Indications: Poor control type I diabetes mellitus (HCC) INJECT SUBCUTANEOUSLY 60 UNITS DAILY DIRECTED 60 mL 3 03/07/2025 ActiveStart: 11-21-2024 End: 28-58-1673Izfqwlm Lispro 100 UNIT/ML solution Indications: Poor control type I diabetes mellitus (CMS/HCC) Inject 60 Units as directed Daily 54 mL 1 12/23/2024 03/23/2025 ActiveStart: 87-58-4371KftoIUD KwikPen Insulin 100 unit/mL injection 07/08/2024 Active End: 31-30-3909Ovyiudf Lispro (HUMALOG KWIKPEN SC) Inject under the skin Per sliding scale. 11/21/2024 Discontinued (Formulary change)Insulin Lispro (HUMALOG KWIKPEN SC) Inject under the skin Per sliding scale. Activelisinopril 2.5 mg oral tablet (2 sources)Angiotensin Converting Enzyme InhibitorStart: 04-02-2025 End: 28-40-3833xvkh 1 tablet by mouth once dailylisinopril 2.5 mg tablet Indications: Coronary artery disease involving [place] coronary artery of [place] heart without angina pectoris , Cardiomyopathy, unspecified type (Multi) , S/P PTCA (percutaneous transluminal coronary angioplasty) , ST elevation myocardial infarction (STEMI), unspecified artery (Multi) , History of placement of stent in LAD coronary artery Take 1 tablet (2.5 mg) by mouth once daily. 90 tablet 3 04/02/2025 04/02/2026 Activemethocarbamol 500 mg oral tablet (2 sources)Muscle RelaxantStart: 09-06-1676bcmp 500 mg by mouth every six hours 500 mg, oral, Every 6 hours scheduled, First dose [place] Mon11/27/24 [place] [address] ml morphine sulfate 4 mg/ml prefilled syringe (2 sources)Opioid AgonistStart: 06-77-5945qpgk 2 mg intravenously every four hours as needed2 mg, intravenous, Every 4 hours PRN, pain severe (7-10), second line, Starting on Mon11/27/24 at 1032, For 2 doses, If ordered PRN for pain, nurse is permitted to administer this medication for higher pain scores based on patient preference? Yesnitroglycerin 0.4 mg sublingual tablet (11 sources)Nitrate VasodilatorStart: 87-00-8078psursnchqfysc (Nitrostat) 0.[address] 1 tablet (0.4 mg) under the tongue every 5 minutesif needed. 06/20/2024 Activeolmesartan medoxomil 5 mg oral tablet (3 sources)Angiotensin 2 Receptor BlockerStart: 06-20-2024 End: 98-44-6132ppgy 1 tablet by mouth once dailyolmesartan (BENIcar) 5 mg tablet Indications: Coronary artery disease involving [place] coronary artery of [place] heart without angina pectoris , Cardiomyopathy, ischemic Take 1 tablet (5 mg) by mouthonce daily. 90 tablet 3 07/03/2024 07/03/2025 ActiveOndansetron (2 sources)Serotonin-3 Receptor AntagonistStart: 49-99-8011bfoc 1 tablet by mouth every eight hours as neededondansetron (Zofran) tablet 4 mgSemglee,insulin glarg-yfgn,Pen 100 unit/mL (3 mL) Pen (9 sources)Start: 02-29-2024 End: 42-13-5759Qqonyqu,insulin glarg-yfgn,Pen 100 unit/mL (3 mL) Pen Inject under the skin once daily in the morning. 02/29/2024 04/02/2025 Discontinued (Therapy completed)Start: 74-67-5232Twcyoue,insulin glarg-yfgn,Pen 100 unit/mL (3 mL) Pen Inject under the skin once daily in the morning. 02/29/2024 Active sildenafil 100 mg oral tablet (12 sources)Phosphodiesterase 5 Inhibitortake 1 tablet by mouth every twenty- four hours as neededsildenafil (Viagra) 100 MG tablet Take 100 mg by mouth Daily as needed for erectile dysfunction Activespironolactone 25 mg oral tablet (20 sources)Aldosterone AntagonistStart: 90-34-1065dqvo 12.5 mg by mouth once daily12.5 mg, oral, Daily, First dose on Sunshine 11/28/24 at 0900Start: 06-20-2024 End: 44-60-6670qdse 0.5 tablet by mouth once dailyspironolactone (Aldactone) 25 mg tablet Indications: Coronary artery disease involving [place] coronary artery of [place] heart without angina pectoris , Cardiomyopathy, ischemic TAKE ONE-HALF (1/2) TABLET BY MOUTH DAILY 45 tablet 05/15/2025 ActiveStart: 34-51-4685meli 12.5 mg by mouth once dailySpironolactone Active 12.5 MG PO Daily 45 90 June 20, 2024 12:00amtake 1 tablet by mouth once dailyspironolactone (Aldactone) 25 MG tablet Take 25 mg by mouth Daily Activeticagrelor 90 mg oral tablet (20 sources)Start: 06-20-2024 End: 96-03-4362nrlv 1 tablet by mouth twice dailyticagrelor (Brilinta) 90 mg tablet Indications: Coronary artery disease involving [place] coronary artery of [place] heart without angina pectoris , S/P PTCA (percutaneous transluminal coronary angioplasty) , ST elevation myocardial infarction (STEMI), unspecified artery (Multi) TAKE 1 TABLET BY MOUTH TWICE A DAY 180 tablet 05/15/2025 Active traMADol hydrochloride 50 mg oral tablet (5 sources)Opioid AgonistStart: 11-28-2024 End: 16-25-1452nzxKCHra (Ultram) 50 mg tablet Indications: Post-op pain Take 1 tablet (50 mg) by mouth every 8 hours if needed for moderate pain (4 - 6) or severe pain (7 - 10). If no relief from tylenol then alternate tylenol with Tramadol 15 tablet 11/28/2024 04/02/2025 Discontinued (Therapy completed)Start: 74-37-5320zrqw 1 tablet by mouth every six hours as oqzbhk43 mg, oral, Every 6 hours PRN, pain moderate (4-6), second line, pain severe (7-10), second line, S tarting on Mon11/27/24 at 1031, If ordered PRN for pain, nurse is permitted to administer this medication for higher pain scores based on patient preference? Yes Completed/Discontinued Medications MedicationDrug Class(es)DatesSig (Normalized)Sig (Original)chlorhexidine gluconate 40 mg/ml medicated liquid soap (2 sources)Start: 11-27-2024 End: 98-58-5225hfsbo 1 dose topically onceTopical, Once, On Mon11/27/24 at 0645, For 1 dose, Preprocedure, For pre-op skin preparation1 ml ketorolac tromethamine 30 mg/ml injection (2 sources)Nonsteroidal Anti-inflammatory Drug, Cyclooxygenase InhibitorStart: 11-27-2024 End: 73-63-0920lety 30 mg intravenously every six hours30 mg, intravenous, Every 6 hours, First dose on Mon11/27/24 at 1100, For 4 dosesmupirocin 0.02 mg/mg topical ointment (2 sources)RNA Synthetase Inhibitor AntibacterialStart: 11-27-2024 End: Application, Topical, Once, On Mon11/27/24 at 0645, For 1 dose, Preprocedure, Apply topically to both nares prior to procedure. Do not initiate until staph screening obtained first.Tf-01s-pwcxnok RBCs (Ultratag) injection 25 millicurie (1 source)Start: 07-30-2024 End: millicurie, intravenous, Once in imaging, Starting on Mon07/30/24 at 1512, For 1 dose, Administer immediately and up to 24 hours prior to imaging unless otherwise iuhjlatbk759 ml vancomycin 5 mg/ml injection (2 sources)Glycopeptide AntibacterialStart: 11-27-2024 End: 19-54-4044cmwu 1 g intravenously every twelve hours1 g, intravenous, at 200 mL/hr, Administer over 60 Minutes, Every 12 hours, First dose on Mon11/27/24 at 0800, For 2 doses, call center representative to EP lab premix bag, Dosing of this medication varies based on severity of illness. Does this patient have sepsis or concern for sepsis (probable or documented infection plus systemic manifestations of infection)? No, Suspected Indication (Select all that apply): Surgical Prophylaxis, Indications: Surgical Prophylaxis Problems Active Problems Problem ClassificationProblemDateDocumented DateEpisodic/ChronicAcute myocardial infarction (20 sources)Myocardial infarction; Translations: [Non-ST elevation (NSTEMI) myocardial infarction]Onset: 727019-54-3463InaxplzCiasoydlsa disorders (11 sources)Automatic implantable cardiac defibrillator in situ; Translations: [Presence of automatic (implantable) cardiac defibrillator]Onset: 01-07-2025 53-10-1476PqlyqgzImerlkjwos heart failure; nonhypertensive (12 sources)Acute exacerbation of chronic congestive heart failure; Translations: [Heart failure, unspecified]Onset: 271490-90-6071Ocsdfrj Coronary atherosclerosis and other heart disease (20 sources)Ischemic myocardial dysfunction; Translations: [Ischemic cardiomyopathy]Onset: 781194-93-5169QzzjiqcPtttfxeq mellitus with complications (8 sources)Type 1 diabetes mellitus uncontrolled; Translations: [Type 1 diabetes mellitus with hyperglycemia]19-04-2700BuaypytEmdnucrc mellitus without complication (20 sources)Type 1 diabetes mellitus; Translations: [Type 1 diabetes mellitus without complications]Onset: 245582-08-4762VwxjjahSteuvgol mellitus without complication (6 sources)Insulin pump present; Translations: [Presence of insulin pump (external) (internal)]56-91-2646HyzsbvfeFxasihiwa of lipid metabolism (20 sources)Mixed hyperlipidemia; Translations: [Mixed hyperlipidemia]Onset: 120643-63-1268VpttauuJmuxayrek hypertension (8 sources)Essential hypertension; Translations: [Essential (primary) hypertension]56-40-5808YjkgekdAjralyzqrog deficiencies (8 sources)Vitamin D deficiency; Translations: [Vitamin D deficiency, unspecified]89-14-1968DwogpuzMiqzt aftercare (8 sources)Long-term current use of insulin; Translations: [long term care pharmacist (current) use of insulin]20-45-3754WuxbtlpuReqxu aftercare (2 sources)long term care pharmacist (current) use of insulin; Translations: [prison (current) use of insulin (Multi)]Onset: 54-70-6870BloikjmpZavvy lower respiratory disease (3 sources)Dyspnea on exertion; Translations: [Other forms of dyspnea]Onset: 487605-21-6588IclknpogRbroa lower respiratory disease (2 sources)Other forms of dyspnea; Translations: [Other forms of dyspnea]Onset: 08-97-6349UntwmaknQuxnl nervous system disorders (1 source)Postoperative pain ; Translations: [Other acute postprocedural pain] 03-48-9919BtpuziwqOhxq-; endo-; and myocarditis; cardiomyopathy (except that caused by tuberculosis or sexually transmitted disease) (19 sources)Cardiomyopathy; Translations: [Cardiomyopathy, unspecified]Onset: 476337-22-8468YuzqvtiYdvsxsah codes; unclassified (1 source)Tobacco user; Translations: [Tobacco use]02-31-6865GnjnzworJzzwafdp codes; unclassified (2 sources)Tobacco use; Translations: [Tobacco use disorder]Onset: 06-19-2024 48-26-0881SywzitbnSuadmxww codes; unclassified (2 sources)Body mass index (BMI) 22.0-22.9, adult; Translations: [Body mass index (BMI) 22.0-22.9, adult]Onset: 10-30-9775Bpdilppx Past or Other Problems Problem ClassificationProblemDateDocumented DateEpisodic/Chronic Administrative/social admission (20 sources)Patient encounter status; Translations: [Dietary counseling and surveillance]Onset: 510412-57-5080CdmjoesvIojhgyey atherosclerosis and other heart disease (20 sources)Patient post percutaneous transluminal coronary angioplasty; Translations: [Coronary angioplasty status]Onset: 835887-17-1206Lalcfhmw Other nutritional; endocrine; and metabolic disorders (12 sources)Decreased body mass index; Translations: [Body mass index (BMI) 19.9 or less, adult]Onset: 07-03-2024 Resolved: 220659-05-9828DmzokegdYdubx nutritional; endocrine; and metabolic disorders (1 source)Body mass index (BMI) 19.9 or less, adult; Translations: [Body mass index (BMI) 19.9 or less, adult]Onset: 23-02-7978TeyluzzqBduso screening for suspected conditions (not mental disorders or infectious disease) (7 sources)Depression of left ventricular systolic function; Translations: [Abnormal result of cardiovascular function study, unspecified]Onset: 10-02-2024 00-80-8789QmkeitdmYjrciuum codes; unclassified (10 sources)Body mass index 20-24 - normal; Translations: [Body mass index (BMI) 21.0-21.9, adult]Onset: 842726-53-2933HqqykdxiJwgjmscb codes; unclassified (2 sources)Body mass index (BMI) 21.0-21.9, adult; Translations: [Body mass index (BMI) 21.0-21.9, adult]Onset: 79-24-7495HqehmnflEywgrzswt and history of mental health and substance abuse codes (16 sources)Ex-smoker; Translations: [Personal history of nicotine dependence] Onset: 810535-11-7515NufwrouoGctbtrfqoeaz (6 sources)Onset: Results Test NameValueInterpretationReference RangeFacilityGlucose (Bld) [Mass/Vol]on 53-04-8798Ylnvnrh Blood, KHA140 mg/dLNOMS HealthcareLaboratory - Hematology and Cell countson 02-22-7605CmD6b (Bld) [Mass fraction]7.7 %[facility] SpringsNo Panel Informationon 49-29-6466GXWZ HealthcareGlucose (Bld) [Mass/Vol]Ordered By: Jo Nunez on 22-55-7799Xnwvxpi Blood, OIC187 mg/dLNOMS HealthcareLaboratory - Hematology and Cell countson 56-75-8976RiS1k (Bld) [Mass fraction]7.3 %[facility] SpringsNo Panel InformationOrdered By: Jo Nunez on 05-04-0483TLLI HealthcareBasic metabolic 2000 panelon 57-98-5656Rmkka gap [Moles/Vol]10 mmol/L 10 - 20 mmol/[facility] CincinnatiCalcium [Mass/Vol]8.6 mg/dL8.6 - 10.3 mg/dLSamaritan North Health CenterChloride [Moles/Vol]104 mmol/L98 - 107 mmol/[facility] CincinnatiCO2 [Moles/Vol]27 mmol/L21 - 32 mmol/[facility] CincinnatiCreatinine [Mass/Vol]1.04 mg/dL0.50 - 1.30 mg/dLUnTriHealth Bethesda North HospitalGFR/1.73 sq M.predicted among non- blacks MDRD (S/P/Bld) [Vol rate/Area]86 mL/min/{1.73_m2}- PINFUniversity Hospitals of ClevelandComment on above:Calculations of estimated GFR are performed using the 2020 CKD-EPI Study Refit equation without therace variable for the IDMS-Traceable creatinine methods. https://jasn.asnjournals.org/content/early/ASN.7585916324 Glucose [Mass/Vol]123 mg/iIDtmg36 - 99 mg/dLUnTriHealth Bethesda North Hospital Interpretation and review of laboratory resultsAbnormalUniWVUMedicine Barnesville HospitalPotassium [Moles/Vol]4 mmol/L3.5 - 5.3 mmol/[facility] CincinnatiSodium [Moles/Vol]137 mmol/L136 - 145 mmol/[facility] CincinnatiUrea nitrogen [Mass/Vol]29 mg/dLHigh6 - 23 mg/dLUnTriHealth Bethesda North HospitalUnTriHealth Bethesda North HospitalAnion gap [Moles/Vol]10 mmol/LNormal 10-20UnWilson [address] HospitalComment on above:Performed By: #### 91276-9 #### ALAYNA JULIAN ([id number]) [facility] ([facility]) [address], [place] [address]Kwcdjxa [Mass/Vol]8.6 mg/dLNormal8.6-10.3UnWilson [address] HospitalComment on above:Performed By: #### 08046-9 #### ALAYNA JULIAN ([id number]) [facility] ([facility]) [address], [place] [address]Lgpmnbcz [Moles/Vol]104 mmol/PPgfmeu14-262AnhrekkbfjWilson [address] HospitalComment on above:Performed By: #### 96083-5 #### ALAYNA JULIAN ([id number]) [facility] ([facility]) [address] [place] [address]012WJ0 [Moles/Vol]27 mmol/PYccgnh69-67MrctxlddyuWilson [address] HospitalComment on above:Performed By: #### 10545-1 #### ALAYNA JULIAN ([id number]) [facility] ([facility]) [address] [place] [address] 66071Oghlhakqor [Mass/Vol]1.04 mg/dLNormal0.50-1.30St. [facility] HospitalComment on above:Performed By: #### 32485-8 #### ALAYNA JULIAN ([id number]) [facility] ([facility]) [address] [place] [address] 69[address]Oftqswvzsu filtration rate/1.73 sq M.jwsfllybb13 mL/min/1.73m*2 Normal>[address] HospitalComment on above:Result Comment: Calculations of estimated GFR are performed using the 2020 CKD-EPI Study Refit equation without the race variable for the IDMS-Traceable creatinine methods. https://jasn.asnjournals.org/content/early//ASN.8233069972Cqbprjndt By: #### [id number] #### ALAYNA JULIAN ([id number]) [facility] ([facility]) [address] [place] [address] 94396Jfoeboy [Mass/Vol]123 mg/vNHcen10-73CdunmedkamSt. Anthony'S HospitalComment on above:Performed By: #### 31138-8 #### ALAYNA JULIAN ([id number]) [facility] ([facility]) [address] [place] [address] 70788Vbfaamlkq [Moles/Vol]4.0 mmol/LNormal3.5-5.3St. [facility] HospitalComment on above:Performed By: #### 41424-9 #### ALAYNA JULIAN ([id number]) [facility] ([facility]) [address] [place] [address] 46883Tlqvrl [Moles/Vol]137 mmol/SReasjd454-763EtfmxcchdiWilson [address] HospitalComment on above:Performed By: #### 37121-2 #### ALAYNA JULIAN ([id number]) [facility] ([facility]) [address] [place] [address] 56248Kqjx nitrogen [Mass/Vol]29 mg/dLHigh6-23St. [facility]'S HospitalComment on above:Performed By: #### 97888-6 #### ALAYNA JULIAN ([id number]) [facility] ([facility]) [address] [place] [address] 94478WTS panel Auto (Bld)on 26-14-0469Hhnuywrverx distribution width (RBC) [Ratio]12.8 %11.5 - 14.5 %[facility] Health CenterHematocrit (Bld) [Volume fraction]34.7 %Low41.0 - 52.0 %[facility] Hemoglobin (Bld) [Mass/Vol]11.6 g/dLLow13.5 - 17.5 g/dLSamaritan North Health CenterInterpretation and review of laboratory resultsAbnoSelect Medical [facility] [place] (RBC) [Entitic mass]30.9 pg26.0 - 34.0 pgOhioHealth Grove City Methodist HospitalHC (RBC) [Mass/Vol]33.4 g/dL32.0 - 36.0 g/dLOhioHealth Grove City Methodist HospitalV (RBC) [Entitic vol]93 fL80 - 100 [facility] HospitalNucleated RBC/100 WBC (Bld) [Ratio]0 %[facility] Health CenterPlatelets (Bld) [#/Vol]194 10*3/[facility] RBC (Bld) [#/Vol]3.75 10*6/[facility] HospitalWBC (Bld) [#/Vol]12.1 10*3/[facility] TownshipUnTriHealth Bethesda North HospitalErythrocyte distribution width (RBC) [Ratio]12.8 %Tujocj85.5-14.5 [facility] [facility]S HospitalComment on above:Performed By: #### 22572-5 #### ALAYNA JULIAN ([id number]) [facility] ([facility]) [address] [place] [address] 63[address]Plbzwkmtfl (Bld) [Volume fraction]34.7 %Low41.0-52.0Un[address] HospitalComment on above:Performed By: #### 14760-6 #### ALAYNA JULIAN ([id number]) [facility] ([facility]) [address] [place] [address] 06363Zpjvtuecdi (Bld) [Mass/Vol]11.6 g/dLLow13.5-17.5St. Anthony'S HospitalComment on above:Performed By: #### 61120-0 #### ALAYNA JULIAN ([id number]) [facility] ([facility]) [address] [place] [address] 45272ZSY (RBC) [Entitic mass]30.[address]gggy70[address]0-34.0Un[address] HospitalComment on above:Performed By: #### 59637-1 #### ALAYNA JULIAN ([id number]) [facility] ([facility]) [address] [place] [address] 08748KLFP (RBC) [Mass/Vol]33.4 g/aZPhoiys98.0-36.0Un[address] HospitalComment on above:Performed By: #### 44833-2 #### ALAYNA JULIAN ([id number]) [facility] ([facility]) [address] [place] [address] 40042AMT (RBC) [Entitic vol]93 yRJkrinl15-451Jfr[address]vabiskWilson [address] HospitalComment on above:Performed By: #### 36346-3 #### ALAYNA JULIAN ([id number]) [facility] ([facility]) [address] [place] [address] 67344Sqlddtkrm RBC/100 WBC (Bld) [Ratio]0.0 /[address]sNormal0.0-[address] [facility]S HospitalComment on above:Performed By: #### 42011-8 #### ALAYNA JULIAN ([id number]) [facility] ([facility]) [address] [place] [address] 94207Zlzwclwuy (Bld) [#/Vol]194 x10*3/zYWllmiu433-293VqdwbqyfuwWilson Street HospitalComment on above:Performed By: #### 87299-1 #### ALAYNA JULIAN ([id number]) [facility] ([facility]) [address] [place] [address] 19957ZGX (Bld) [#/Vol]3.75 x10*6/uLLow4.50-5.90UnWilson [address] HospitalComment on above:Performed By: #### [id number] #### ALAYNA JULIAN ([id number]) [facility] ([facility]) [address] [place] [address] 27368PNR (Bld) [#/Vol]12.1 x10*3/uLHigh4.4-11.3UnWilson [address] HospitalComment on above:Performed By: #### 34799-7 #### ALAYNA JULIAN ([id number]) [facility] ([facility]) [address] [place] [address] 08563Ivuzf metabolic 2000 panelon 73-96-3218Vcerl gap [Moles/Vol]11 mmol/L10 - 20 mmol/[facility] CincinnatiCalcium [Mass/Vol]8.9 mg/dL 8.6 - 10.3 mg/dLUnTriHealth Bethesda North HospitalChloride [Moles/Vol]105 mmol/L 98 - 107 mmol/[facility] - CincinnatiCO2 [Moles/Vol]26 mmol/L21 - 32 mmol/[facility] CincinnatiCreatinine [Mass/Vol]0.75 mg/dL0.50 - 1.30 mg/dLUnTriHealth Bethesda North HospitaleGFR- PINFUniWVUMedicine Barnesville HospitalComment on above:Calculations of estimated GFR are performed using the 2020 CKD-EPI Study Refit equation without therace variable for the IDMS- Traceable creatinine methods. https://jasn.asnjournals.org/content//ASN.6378763329 Glucose [Mass/Vol]125 mg/dJTixu99 - 99 mg/dLUnTriHealth Bethesda North Hospital Interpretation and review of laboratory resultsAbnormalUSt. Rita's HospitalPotassium [Moles/Vol]4.2 mmol/L3.5 - 5.3 mmol/[facility] CincinnatiSodium [Moles/Vol]138 mmol/L136 - 145 mmol/[facility] - CincinnatiUrea nitrogen [Mass/Vol]16 mg/dL6 - 23 mg/dLSamaritan North Health CenterUnTriHealth Bethesda North HospitalAnion gap [Moles/Vol]11 mmol/LNormal 10-20UnWilson [address] HospitalComment on above:Performed By: #### 79859-6 #### ALAYNA JULIAN ([id number]) [facility] ([facility]) [address] [place] [address] 86932Hikthje [Mass/Vol]8.9 mg/dLNormal8.6-10.3St. Anthony'S HospitalComment on above:Performed By: #### 48450-7 #### ALAYNA JULIAN ([id number]) [facility] ([facility]) [address] [place] [address] 06650Kztpvpqh [Moles/Vol]105 mmol/VEvcwwj22-827HxrrqsghnpWilson Street HospitalComment on above:Performed By: #### 72546-9 #### ALAYNA JULIAN ([id number]) [facility] ([facility]) [address] [place] [address] 23251QB4 [Moles/Vol]26 mmol/BGfdugv68-99VnxdixnqdkSt. Anthony'S HospitalComment on above:Performed By: #### 75159-2 #### ALAYNA JULIAN ([id number]) [facility] ([facility]) [address] [place] [address] 63505Rwfvsueiie [Mass/Vol]0.75 mg/dLNormal0.50-1.30St. Anthony'S HospitalComment on above:Performed By: #### 20901-0 #### ALAYNA JULIAN ([id number]) [facility] ([facility]) [address] [place] [address] 77671MUT/1.73 sq M.predicted MDRD (S/P/Bld) [Vol rate/Area] mL/min/{1.73_m2}Normal>60Un[address] HospitalComment on above:Result Comment: Calculations of estimated GFR are performed using the 2020 CKD-EPI Study Refit equation without the race variable for the IDMS-Traceable creatinine methods. https://jasn.asnjournals.org/content/early/ASN.7461764120Pqvhtswci By: #### 61634-9 #### ALAYNA JULIAN ([id number]) [facility] ([facility]) [address] [place] [address] 68683Upwyofh [Mass/Vol]125 mg/uMQsqx34-87CxkagpxykzWilson [address] HospitalComment on above:Performed By: #### 32601-0 #### ALAYNA JULIAN ([id number]) [facility] ([facility]) [address] [place] [address] 78598Catautzfn [Moles/Vol]4.2 mmol/LNormal3.5-5.3Un[address] HospitalComment on above:Performed By: #### 91595-5 #### JACQUELINEIBKT JULIAN ([id number]) [facility] ([facility]) [address] [place] [address] 28135Fmszby [Moles/Vol]138 mmol/XHeurls691-048AyrogfbxvsWilson Street HospitalComment on above:Performed By: #### 97866-3 #### ALAYNA JULIAN ([id number]) [facility] ([facility]) [address] [place] [address] 36888Hwmx nitrogen [Mass/Vol]16 mg/dLNormal6-23Un[address] HospitalComment on above:Performed By: #### 20782-4 #### ALAYNA JULIAN ([id number]) [facility] ([facility]) [address] [place] [address] 67630Vlqyf type and Indirect antibody screen panel (Bld)on 11-27-2024 ABO group Nom (Bld)OUniWVUMedicine Barnesville HospitalBlood group antibody screen QlNegativeUnCherrington Hospital Ag Ql (Bld)PositiveSamaritan North Health CenterUnTriHealth Bethesda North HospitalABO group Nom (Bld)O NormalSt. Anthony'S HospitalComment on above:Performed By: #### 28432-8 #### ANAIBELIUNIQUE HERACLIO SAMUELS ([id number]) [facility]) [address] [place] [address] USBlood group antibody screen QlNegativeNoKindred HealthcareComment on above:Performed By: #### 08834-4 #### ANAIBELIUNIQUE DIOMEDESTHREE [facility]IV[facility] ([id number]) [facility] ([facility]) [address] [place] [address] USD Ag Ql (Bld)PositiveNoKindred HealthcareComment on above:Performed By: #### 67057-1 #### ANAIBELIUNIQUE DIOMEDESTHREE [facility]IVERS [facility] ([id number]) [facility] ([facility]) [address] [place] [address] USCBC panel Auto (Bld)on 36-04-4879Nmzebudrxfq distribution width (RBC) [Ratio]12.9 %11.5 - 14.5 %[facility] Hematocrit (Bld) [Volume fraction]38.9 %Low41.0 - 52.0 %[facility] Health CenterHemoglobin (Bld) [Mass/Vol]12.8 g/dLLow13.5 - 17.5 g/dLUnTriHealth Bethesda North HospitalInterpretation and review of laboratory resultsAbnormal [facility] HospitalH (RBC) [Entitic mass]30.5 pg26.0 - 34.0 pg [facility] Health CenterMCHC (RBC) [Mass/Vol]32.9 g/dL32.0 - 36.0 g/dL [facility] Health CenterMCV (RBC) [Entitic vol]93 fL80 - 100 fL [facility] CenterNucleated RBC/100 WBC (Bld) [Ratio]0 % [facility] Health CenterPlatelets (Bld) [#/Vol]215 10*3/[facility]aug[facility] Medical CenterRBC (Bld) [#/Vol]4.19 10*6/[facility] HospitalWBC (Bld) [#/Vol]7.2 10*3/[facility]aug[facility] Medical CenterUnTriHealth Bethesda North HospitalErythrocyte distribution width (RBC) [Ratio]12.9 %Normal 11.5-14.5St. Anthony'S HospitalComment on above:Performed By: #### 90710-1 #### ALAYNA JULIAN ([id number]) [facility] ([facility]) [address] [place] [address] 22517Fpiqkkcfct (Bld) [Volume fraction]38.9 %Low41.0-52.0Un[address] HospitalComment on above:Performed By: #### 16625-8 #### ALAYNA JULIAN ([id number]) [facility] ([facility]) [address] [place] [address] 79371Hpqazjiawv (Bld) [Mass/Vol]12.8 g/dLLow13.5-17.5Un[address] HospitalComment on above:Performed By: #### 16691-9 #### ALAYNA JULIAN ([id number]) [facility] ([facility]) [address] [place] [address] 78822HYX (RBC) [Entitic mass]30.5 czWqeiic39.0-34.0Un[address] HospitalComment on above:Performed By: #### 44517-2 #### ALAYNA JULIAN ([id number]) [facility] ([facility]) [address] [place] [address] 10940WYRO (RBC) [Mass/Vol]32.9 g/kYQksqsj88.0-36.0Un[address] HospitalComment on above:Performed By: #### 27496-3 #### ALAYNA JULIAN ([id number]) [facility] ([facility]) [address] [place] [address] 47002KTX (RBC) [Entitic vol]93 sLIzxeka51-326S[address]oa[address]cj[address]Wilson [address] HospitalComment on above:Performed By: #### 80060-7 #### ALAYNA JULIAN ([id number]) [facility] ([facility]) [address] [place] [address] 24319Oxgsftfif RBC/100 WBC (Bld) [Ratio]0.0 /100 WBCsNormal0.0-0.0 [address] [facility]'S HospitalComment on above:Performed By: #### 32937-3 #### ALAYNA JULIAN ([id number]) [facility] ([facility]) [address] [place] [address] 29030Gttkneuzx (Bld) [#/Vol]215 x10*3/iSWwbigo166-373ZqbwosdukuWilson Street HospitalComment on above:Performed By: #### 53605-1 #### ALAYNA JULIAN ([id number]) [facility] ([facility]) [address] [place] [address] 98334FBR (Bld) [#/Vol]4.19 x10*6/uLLow4.50-5.90Un[address] HospitalComment on above:Performed By: #### 37254-8 #### ALAYNA JULIAN ([id number]) [facility] ([facility]) [address] [place] [address] 42114HDR (Bld) [#/Vol]7.2 x10*3/uLNormal4.4-11.3St. [facility]'S HospitalComment on above:Performed By: #### 76843-8 #### ALAYNA JULIAN ([id number]) [facility] ([facility]) [address] [place] [address] 17890QTK 12-LEADon 25-73-6978DIM 12-LEADVentricular Rate 68 Atrial Rate 68 P-R Interval 170 QRS Duration 92 Q-T Interval 416 QTC Calculation(Bazett) 442 P Salinas 65 R Salinas 13 T [place] 103 QRS Count 11 Q Onset 222 [...] by Jabier Arnett ([id number]) on 12/05/2024 7:01:22 [facility] HospitalECG 12-LEADVentricular Rate 78 Atrial Rate 78 P-R Interval 156 QRS Duration 92 Q-T Interval 388 QTC Calculation(Bazett) 442 P Sal[place] 70 R Sal[place] 26 T [place] 89 QRS Count 13 Q Onset 222 P Onset 144 P Offset 192 T Offset 416 QTC Fredericia 423 Diagnosis Normal sinus rhythm Septal infarct , age undetermined Abnormal ECG No previous ECGs available Confirmed by Jabier Arnett ([id number]) on 12/05/2024 6:43:06 [facility] HospitalElectrophysiology studyon 15-00-7900BwltavvgkgTriHealth Bethesda North Hospital Work Phone: Glucose Test strip manual (Bld) [Mass/Vol]on 82-11-4290Yodylcl [Mass/Vol]208 mg/gSAehf77 - 99 mg/dLUnTriHealth Bethesda North HospitalInterpretation and review of laboratory resultsAbnoSelect Medical Specialty Hospital - Boardman, IncUnTriHealth Bethesda North HospitalGlucose [Mass/Vol]208 mg/rDMidk28-51JzcxwrwoioWilson [address] HospitalComment on above: Performed By: #### 2341-6 #### ALAYNA JULIAN ([id number]) [facility] ([facility]) [address] [place] [address] 78187Zrtczak [Mass/Vol]340 mg/uTEsfe75 - 99 mg/dLUnTriHealth Bethesda North HospitalInterpretation and review of laboratory resultsAbnoSelect Medical Specialty Hospital - Boardman, IncUnTriHealth Bethesda North HospitalGlucose [Mass/Vol]340 mg/zLVejy63-60WbcohehvsfWilson [address] HospitalComment on above: Performed By: #### 2341-6 #### JACQUELINEIBKT JULIAN ([id number]) [facility] ([facility]) [address] [place] [address] 32983Uwyyrjyctl - Blood bankon 59-28-9995KZL group Nom (Bld)O [facility] Health CenterD Ag Ql (Bld)PositiveSamaritan North Health CenterNo Panel Informationon 39-60-5811Irfgc Expiration Date12/19/2024 11:59:00 PM EDTSamaritan North Health CenterDispense StatusXBarnesville HospitalPRODUC BLOOD MTNP3267FzhibfwigfSamaritan North Health CenterPRODUC CODE [id number] Lake Joint [facility] [id number] North Health CenterUn ABOOUnThe Jewish Hospital Number [id number]-REaabqkevowMansfield Hospital [id number]-V [facility] RHPositiveMarietta Osteopathic Clinic [id number] Hospital FMNTWX227VpkrhaeghxSamaritan North Health CenterX INTEPCOMPSamaritan North Health CenterUnTriHealth Bethesda North HospitalUnTriHealth Bethesda North HospitalPT and aPTT panel Coag (PPP)on 38-67-3021bJWT Coag (PPP) [Time]29 [facility] Medical CenterINR Coag (PPP) [Relative time]1 {INR}0.9 - 1.1[facility] Interpretation and review of laboratory resultsNormalUniWVUMedicine Barnesville HospitalPT Coag (PPP) [Time]11 [facility] Medical CenterThe APTT is no longer used for monitoring Unfractionated Heparin Therapy. For monitoring Heparin Therapy, use the Heparin Assay.[facility] HospitalaPTT Coag (PPP) [Time]29 uXeykap96-21SwxmppvxhyWilson [address] HospitalComment on above:Order Comment: The APTT is no longer used for monitoring Unfractionated Heparin Therapy. For monitoring Heparin Therapy, use the Heparin Assay.Performed By: #### 85193-6 #### ALAYNA JULIAN ([id number]) [facility] ([facility]) [address] [place] [address] 04730FFO Coag (PPP) [Relative time]1.1Xojikd2.9-1.1St. [facility]'S HospitalComment on above:Order Comment: The APTT is no longer used for monitoring Unfractionated Heparin Therapy. For monitoring Heparin Therapy, use the Heparin Assay.Performed By: #### 93261-0 #### JACQUELINEIBKT DIOMEDES ABRIL ([id number]) [facility] ([facility]) [address] [place] [address] 88177AL Coag (PPP) [Time]11.0 sNormal9.8-12.4St. [facility]'S HospitalComment on above:Order Comment: The APTT is no longer used for monitoring Unfractionated Heparin Therapy. For monitoring Heparin Therapy, use the Heparin Assay.Performed By: #### 36096-9 #### ALAYNA DIOMEDES ABRIL ([id number]) [facility] ([facility]) [address] [place] [address] 15740MISTE/VERIFY ABORHon 43-92-2012CHS group Nom (Bld)ONWhite HospitalComment on above:Order Comment: This is for confirming/verifying history of ABORh on file for transfusion of blood products. If this is not for transfusion, please order an ABO/RH [[id number]]. If you have any questions or unsure what to order, please call the blood bank. Performed By: #### VERAB #### ALAYNA [facility] ([id number]) [facility] ([facility]) [address] [place] [address] USD Ag Ql (Bld)PositiveNormalUniHarrison Community HospitalComment on above:Order Comment: This is for confirming/verifying history of ABORh on file for transfusion of bloodproducts. If this is not for transfusion, please order an ABO/RH [[id number]]. If you have any questions or unsure what to order, please call the blood bank.Performed By: #### VERAB #### JACQUELINEIBKT [facility] ([id number]) [facility] [address] [place] [address]88 USXR CHEST 1 VIEWon 16-65-6144JL CHEST 1 VIEWInterpreted By: Sammy Paul, STUDY: XR CHEST 1 VIEW; 11/27/2024 1:03 pm INDICATION: Signs/Symptoms:s/p AICD placement. COMPARISON: None ACCESSION NUMBER(S): [id number] ORDERING CLINICIAN: PRIYA LOPEZ TECHNIQUE: Single frontal [...] Sammy Paul 11/27/2024 2:04 PM Dictation workstation: [id number]th Nelsonville Health CenterXR Chest Single viewon 87-00-1639On above MACRO: None Signed by: Sammy Paul 11/27/2024 2:04 PM Dictation workstation: [id number] MMODALInterpreted By: Sammy Paul, STUDY: XR CHEST 1 VIEW; 11/27/2024 1:03 pm INDICATION: Signs/Symptoms:s/p AICD placement. COMPARISON: None ACCESSION NUMBER(S): [id number] ORDERING CLINICIAN: PRIYA LOPEZ TECHNIQUE: Single frontal [...] Signs/Symptoms:s/p AICD placement. COMPARISON: None ACCESSION NUMBER(S): [id number] ORDERING CLINICIAN: PRIYA LOPEZ TECHNIQUE: Single frontal [...] Sammy Paul 11/27/2024 2:04 PM Dictation workstation: [id number] [facility] Work Phone: Radiology Study observation (narrative)[facility] Work Phone: xr Chest Single viewOrdered By: Sammy Paul on 05-99-8690BxzvjphkesSamaritan North Health Center Work Phone: Glucose (Bld) [Mass/Vol]Ordered By: Jo Nunez on 74-39-2753Figggdo Blood, HZT126 mg/dLSaint Luke's Hospital HealthcareGlucose (Bld) [Mass/Vol]Ordered By: Jo Nunez on 39-22-7480Pvfgxwa Blood, KDI206 mg/dL [facility] HealthcareLaboratory - Hematology and Cell countson 12-35-1198GuY5u (Bld) [Mass fraction]9.6 %[facility] HealthcareNo Panel InformationOrdered By: Jo Nunez on 67-05-6226PCVCMosaic Life Care at St. [facility] HEART BLOOD POOL EJECTION FRACTION WALL MOTION (MUGA)on 82-44-9829SF HEART BLOOD POOL EJECTION FRACTION WALL MOTION (MUGA) Interpreted By: Ruba Teran and Giannuzzi Michael STUDY: MUGA Performing facility: [facility], [address] [place] [address], [address] Provider: Tae Neal DO, [facility] PCP: Dr. Rocky Myers Supervising provider: Ric Nicole MD, [facility] INDICATION: CAD; ICM STEMI Hx PTCA HISTORY: Gender: M; Age: 54 y/o ; Height: HT 185.4 cm cm; Weight: WT 66.679 kg kg. CAD; High Cholesterol; Diabetes; Previous VA;2023 Quit smoking unknown years ago. Cardiac catheterization on 2023. PTCA on 2023. COMPARISON: No comparison. Echo 2023 EF= 25-30% ACCESSION NUMBER(S): [id number] ORDERING CLINICIAN: URIAH NEAL TECHNIQUE: The patient's [...] Ruba Teran 07/30/2024 5:00 PM Dictation workstation: [id number]th Nelsonville Health Center NM Heart Wall motion and Ejection fractionon 66-78-3120Lecldm resting right ventricular function. Abnormalresting left ventricular function. Left ventricular ejection fraction is 33%. No previous study available for comparison Signed by: Ruba Teran 07/30/2024 5:00 PM Dictation workstation: [id number] By: Ruba Teran and Giannuzzi Michael STUDY: MUGA Performing facility: [facility], [address] [place] [address], [place] [id number] [facility] Provider: Tae Neal DO, FACC PCP: Dr. Rocky Myers Supervising provider: Ric Nicole MD, [facility] INDICATION: CAD; ICM STEMI Hx PTCA HISTORY: Gender: M; Age: 54 y/o ; Height: HT 185.4 cm cm; Weight: WT 66.679 kg kg. CAD; High Cholesterol; Diabetes; Previous VA;2023 Quit smoking unknown years ago. Cardiac catheterization on 2023. PTCA on 2023. COMPARISON: No comparison. Echo 2023 EF= 25-30% ACCESSION NUMBER(S): [id number] ORDERING CLINICIAN: URIAH NEAL TECHNIQUE: The patient's [...] and Giannuzzi Michael STUDY: MUGA Performing facility: [facility], [address] [place] [address], [address], [address] Provider: Tae Neal DO, [facility] PCP: Dr. Rocky Myers Supervising provider: Ric Nicole MD, [facility] INDICATION: CAD; ICM STEMI Hx PTCA HISTORY: Gender: M; Age: 54 y/o ; Height: HT 185.4 cm cm; Weight: WT 66.679 kg kg. CAD; High Cholesterol; Diabetes; Previous VA;2023 Quit smoking unknown years ago. Cardiac catheterization on 2023. PTCA on 2023. COMPARISON: No comparison. Echo 2023 EF= 25-30% ACCESSION NUMBER(S): [id number] ORDERING CLINICIAN: URIAH NEAL TECHNIQUE: The patient's [...] Ruba Teran 07/30/2024 5:00 PM Dictation workstation: [id number] [facility] Work Phone: Radiology Study observation (narrative)[facility] Work Phone: nm Heart Wall motion and Ejection fractionOrdered By: Ruba Teran on 37-41-8431OwcvoqpptdSamaritan North Health Center Work Phone: Automated basophil %Ordered By: Nuria Neal on 22-12-2003Ruhhlwfau/100 WBC (Bld)0.7 %Normal.[facility] Comment on above:Performed By: #### BMP, CBC, LIPID #### [facility] [address] [place] [address] USAAutomated basophil countOrdered By: Nuria Neal on 53-16-3938Goyjhfdwv (Bld) [#/Vol]0.1 10*3/uLNormal0.0-0.2Firelands Regional Medical CenterComment on above:Result Comment: PERFORMED BY: [place] [address] PATHOLOGIST WIG STYLIST MEL SCOTT M.D.Performed By: #### BMP, CBC, LIPID #### [place] [address] USAAutomated blood monocyte countOrdered By: W Ángel on 83-40-7786Yhobwtvoj (Bld) [#/Vol]0.9 10*3/uLHigh0.0-0.8[facility] HospitalComment on above:Performed By: #### BMP, CBC, LIPID #### [place] [address] USAAutomated eosinophil %Ordered By: W Ángel on 06-20-2024 Eosinophils/100 WBC (Bld)0.8 %Normal.[facility] HospitalComment on above:Performed By: #### BMP, CBC, LIPID #### [place] [address] USAAutomated eosinophil countOrdered By: W Ángel on 45-72-6381Hclvdmrvewe (Bld) [#/Vol]0.1 10*3/uLNormal0.0-0.45[facility] HospitalComment on above:Performed By: #### BMP, CBC, LIPID #### [place] [address] USAAutomated monocyte %Ordered By: Nuria Neal on 06-20-2024 Monocytes/100 WBC (Bld)10.6 %Normal.[facility] HospitalComment on above:Performed By: #### BMP, CBC, LIPID #### [place] [address] USAAutomated neutrophil %Ordered By: W Ángel on 06-20-2024 Neutrophils/100 WBC (Bld)68.1 %Normal.[facility] HospitalComment on above:Performed By: #### BMP, CBC, LIPID #### [place] [address] USABasic Metabolic Panelon 97-25-1568Spqhxnqxwj Clr Calc Sgokfmdj61.82NoFrye Regional Medical Center Physician GroupComment on above:Performed By: #### BMP, CBC, LIPID #### [facility] [address] [place] [address] USAGFR/1.73 sq M.predicted MDRD (S/P/Bld) [Vol rate/Area] mL/min/{1.73_m2}[facility] Physician GroupComment on above:Performed By: #### BMP, CBC, LIPID #### [facility] [address] [place] [address] USACalcium [Mass/volume] in Serum or PlasmaOrdered By: Nuria Neal on 20-03-8540Syzfigu [Mass/Vol]8.2 mg/dLLow8.6-10.3FFairfield Medical CenterComment on above:Performed By: #### BMP, CBC, LIPID #### [facility] [address] [place] [address] USACapillary blood glucose measurement by glucometer (mass/volume)Ordered By: Mekhi Powers on 02-45-5363Arqgioh [Mass/Vol]149 mg/dL [facility] Medical CenterComment on above:Random Glucose Reference Range is dependent [...] Serum or PlasmaOrdered By: Nuria Neal on 09-69-7124GM0 [Moles/Vol]29.7 mmol/IHrlmtp86.0-31.0[facility] HospitalComment on above:Performed By: #### BMP, CBC, LIPID #### [facility] [address] [place] [address] USAChloride [Moles/volume] in Serum or PlasmaOrdered By: Nuria Neal on 58-94-2765Zthtmplj [Moles/Vol]102 mmol/MRzgpiu07-937NbqmkyaysChillicothe HospitalComment on above:Performed By: #### BMP, CBC, LIPID #### [facility] [address] [place] [address] USACholesterol [Mass/volume] in Serum or PlasmaOrdered By: Nuria Neal on 01-92-8504Ambvfeqbmgn [Mass/Vol]97 mg/xYWbf392-644MfgpvqgsnChillicothe HospitalComment on above:Chol less than 200 mg/dl low riskChol 201-239 mg/dl borderline riskChol 240 mg/dl and greater high riskResult Comment: Chol less than 200 mg/dl low risk Chol 201-239 mg/dl borderline risk Chol 240 mg/dl and greater high riskPerformed By: #### BMP, CBC, LIPID #### [facility] [address] [place] [address] USACholesterol in LDL Calc [Mass/Vol]Ordered By: Nuria Neal on 30-99-7145Hdgtjhqwmpx in LDL [Mass/Vol]51 mg/dL0-100[facility] HospitalComment on above:LDL ATP III CLASSIFICATIONLDL less than 100 mg/dL OptimalLDL 100-129 mg/dL Near or above mtpguuhDCD590-261 mg/dL Borderline highLDL 160-189 mg/dL HighLDL greater than 189 mg/dL Very highCholesterol in VLDL Calc [Mass/Vol]Ordered By: Nuria Neal on 45-49-3239Efeydgztjtk in VLDL [Mass/Vol]13 mg/dLChillicothe HospitalComplete Blood Count Auto Diffon 21-50-7961Fkgm Corpuscular HGB Conc34.2 g/rQYxxibj53.5-35.6[facility] Physician GroupComment on above:Performed By: #### BMP, CBC, LIPID #### [facility] [address] [place] [address] USANRBC%0.1 /100{WBC}Normal0-0.5[facility] Physician Group Comment on above:Performed By: #### BMP, CBC, LIPID #### [facility] [address] [place] [address] USACreatinine [Mass/volume] in Serum or PlasmaOrdered By: Nuria Neal on 65-69-5571Utdhnxiwdg [Mass/Vol]0.85 mg/dLNormal0.70-1.30[facility] HospitalComment on above:Performed By: #### BMP, CBC, LIPID #### [place] [address] USAECG 12 lead ECGon 60-57-2120EBW 12 lead ECGSELECT [facility] [place] [address] Electrocardiograph Report Signed Patient: Wing Alejandro MR#: [id number] 5 : 1970 Acct:[id number] Age/Sex: 54 / M ADM Date: 06/19/24 Loc: Room: [address] [place] [address] Type: DIS IN Attending Dr: Mekhi Powers [...] Septal infarct present Confirmed by Jim Hinkle ([id number]) on 06/20/2024 8:56:34 PM Referred By: Electronically Signed By: Jim Hinkle Transcribed By: MUS Signed By Jim Hinkle MD 06/20/242055[facility] Physician GroupECH echo transthoracicon 57-33-4206JJJ echo transthoracicSELECT [facility]ICAL [facility] [address] [place] [id number] Echocardiogram Signed Patient: Wing Alejandro MR#: [id number] 5 : 1970 Acct:[id number] Age/Sex: 54 / M ADM Date: 06/19/24 Loc: Room: [address] [place] [address] Type: ADM IN Attending Dr: Mekhi Powers [...] 06/20/24908 Signed By: Jim Hinkle MD 06/20/[address] [place] [address] Physician GroupErythrocyte distribution width [Ratio] by Automated countOrdered By: Nuria Neal on [id number] distribution width (RBC) [Ratio]12.6 % Umokkz76.0-14.8[facility] HospitalComment on above:Performed By: #### BMP, CBC, LIPID #### [facility] [address] [place] [address] USAErythrocytes [#/volume] in Blood by Automated countOrdered By: Nuria Nael on [id number] (Bld) [#/Vol]3.41 10*6/uLLow3.90-5.60[facility] HospitalComment on above:Performed By: #### BMP, CBC, LIPID #### [place] [address] USAGlucose Poct Glucometerson 11-76-8107Krechlm2Kqp7: Cleaned MeterNoFrye Regional Medical Center Physician GroupComment on above:Result Comment: PERFORMED BY: [place] [address] PATHOLOGIST WIG STYLIST MEL SCOTT M.D.Performed By: #### GLULS #### Point of Care testing ,Pkrhqzh3Pcc9: Cleaned MeterNoFrye Regional Medical Center Physician GroupComment on above: Result Comment: PERFORMED BY: [place] [address] PATHOLOGIST WIG STYLIST MEL SCOTT M.D.Performed By: #### HS TROP #### [place] [address] USAGlucose [Mass/Vol]119 mg/dLNoFrye Regional Medical Center Physician GroupComment on above:Result Comment: Random Glucose Reference Range is dependent on time and content of last meal. Glucose of more than 200 mg/dL in a nonstressed, ambulatory subject supports the diagnosis of Diabetes Mellitus.Performed By: #### HS TROP #### [place] [address] USAGlucose [Mass/volume] in Serum or PlasmaOrdered By: Nuria Neal on 03-08-2952Whydqem [Mass/Vol]100 mg/yHKjrmpu89-456IkbyduyijChillicothe HospitalComment on above:ADA recommended reference rangeRandom Glucose [...] rangePerformed By: #### BMP, CBC, LIPID #### [facility] [address] [place] [address] USAHematocrit [Volume Fraction] of Blood by Automated count Ordered By: Nuria Neal on 18-66-6111Pnvjognifm (Bld) [Volume fraction]30.7 %Low 38.8-50.0Chillicothe HospitalComment on above:Performed By: #### BMP, CBC, LIPID #### [facility] [address] [place] [address] USAHemoglobin [Mass/volume] in BloodOrdered By: Nuria Neal on 46-44-8307Maqumdcety (Bld) [Mass/Vol]10.5 g/dLLow13.0-17.0Chillicothe HospitalComment on above:Performed By: #### BMP, CBC, LIPID #### [facility] [address] [place] [address] USALeukocytes [#/volume] corrected for nucleated erythrocytes in Blood by Automated counOrdered By: Nuria Neal on 25-73-0911FKX corrected for nucl RBC Auto (Bld) [#/Vol]8.8 10*3/uL4.1-10.5FFairfield Medical Center Leukocytes [#/volume] in Blood by Automated countOrdered By: Nuria Neal on 18-99-7364CTU (Bld) [#/Vol]8.8 10*3/uLNormal4.1-10.5FFairfield Medical CenterComment on above:Performed By: #### BMP, CBC, LIPID #### [facility] [address] [place] [address] USALipid Panelon 48-00-5276ZCE Cholesterol,Geuyijoirv32 mg/dL Normal0-100The [facility] Physician GroupComment on above:Result Comment: LDL ATP III CLASSIFICATION LDL less than 100 mg/dL Optimal LDL 100-129 mg/dL Near or above optimal LDL 130-159 mg/dL Borderline high LDL 160-189 mg/dL High LDL greater than 189 mg/dL Very highPerformed By: #### BMP, CBC, LIPID #### [facility] [address] [place] [address] USATriglyceride w/Ppzewm00 mg/dLNormal0-149The [facility] Physician GroupComment on above:Result Comment: TRIG ATP III CLASSIFICATION TRIG less than 150 mg/dL Normal TRIG 150-199 mg/dL Borderline high TRIG 200-500 mg/dL High TRIG greater than 500 mg/dL Very high Standard traceable to the Center for Disease Conrtrol and Prevention (CDC) test method.Performed By: #### BMP, CBC, LIPID #### [place] [address] USAVLDL RMYGAJQGBIZ81 mg/dLNormalThe [facility] Physician GroupComment on above:Performed By: #### BMP, CBC, LIPID #### [place] [address] USALymphocytes [#/volume] in Blood by Automated countOrdered By: Nuria Neal on 51-90-0342Fqlqqtkastr (Bld) [#/Vol]1.8 10*3/uLNormal1.00-4.8 Chillicothe HospitalComment on above:Performed By: #### BMP, CBC, LIPID #### [place] [address] USALymphocytes/100 leukocytes in Blood by Automated count Ordered By: Nuria Neal on 10-12-0201Wjxanvthoph/100 WBC (Bld)19.8 %Normal. Chillicothe HospitalComment on above:Performed By: #### BMP, CBC, LIPID #### [place] [id number] [facility] [Entitic mass] by Automated countOrdered By: Nuria Neal on 87-88-7756VEO (RBC) [Entitic mass]30.8 tkBtysor90.5-35.2FFairfield Medical CenterComment on above:Performed By: #### BMP, CBC, LIPID #### [place] [id number] USAMCHC Auto (RBC) [Mass/Vol]Ordered By: Nuria eNal on 73-15-6277BOUG (RBC) [Mass/Vol]34.2 g/dL32.5-35.6FFairfield Medical CenterMCV [Entitic volume] by Automated countOrdered By: Nuria Neal on 06-20-2024 MCV (RBC) [Entitic vol]90.0 qMSmnddk71.5-101[facility] Comment on above:Performed By: #### BMP, CBC, LIPID #### [facility] [address] [place] [address] USANeutrophils [#/volume] in Blood by Automated countOrdered By: Nuria Neal on 94-40-4413Lyswobrzybq (Bld) [#/Vol]6.0 10*3/uLNormal1.8-7.7 [facility]illicothe HospitalComment on above:Performed By: #### BMP, CBC, LIPID #### [facility] [address] [place] [address] USANo Panel InformationOrdered By: Mekhi Powers on 59-06-9092Tbxdfna Glucose CommentGlu2: cleaned [facility] HospitalNo Panel InformationOrdered By: Nuria Neal on 68-97-7404Jcmyixiqw GFR (CKD-EPI)> 60.0 mL/MinChillicothe HospitalPharmacy Creatinine Clearance (Chem94.82Chillicothe HospitalNucleated erythrocytes [Presence] in Blood by Automated countOrdered By: Nuria Neal on 06-20-2024 Nucleated RBC Auto Ql (Bld)0.1 /100{WBC}0-0.5FFairfield Medical Center Platelet mean volume [Entitic volume] in Blood by Automated countOrdered By: Nuria Neal on 05-51-1089Erefqned mean volume (Bld) [Entitic vol]7.5 fLNormal 6.6-10.1FFairfield Medical CenterComment on above:Performed By: #### BMP, CBC, LIPID #### [facility] [address] [place] [address] USAPlatelets [#/volume] in Blood by Automated countOrdered By: Nuria Neal on 68-75-5764Jracxajda (Bld) [#/Vol]407 10*3/gZCozybz885-658 [facility]icothe HospitalComment on above:Performed By: #### BMP, CBC, LIPID #### [facility] [address] [place] [address] USAPotassium [Moles/volume] in Serum or PlasmaOrdered By: Nuria Neal on 30-12-2705Vwegiokfr [Moles/Vol]3.6 mmol/LNormal3.5-5.1FFairfield Medical CenterComment on above:Performed By: #### BMP, CBC, LIPID #### [facility] [address] [place] [address] USASerum or plasma anion gap determinationOrdered By: Nuria Neal on 41-52-2586Tzrrk gap [Moles/Vol]9.9 mmol/LNormal6.0-15.0Chillicothe HospitalComment on above:Performed By: #### BMP, CBC, LIPID #### [facility] [address] [place] [address] USASerum or plasma high density lipoprotein (HDL) cholesterol measurementOrdered By: Nuria Neal on 84-97-9637Kkqeyfwaiip in HDL [Mass/Vol]33 mg/yLBllreo31-22AqerrjptjChillicothe HospitalComment on above:HDL CHOL ATP- III CLASSIFICATION Cardiovascular RiskHDL > or equal to 60 mg/dL LOWHDL < 40 mg/dL HIGHResult Comment: HDL CHOL ATP-III CLASSIFICATION Cardiovascular Risk HDL > or equal to 60 mg/dL LOW HDL < 40 mg/dL HIGHPerformed By: #### BMP, CBC, LIPID #### [facility] [address] [place] [address] USASerum or plasma total cholesterol/high density lipoprotein (HDL) cholesterol mass ratOrdered By: Nuria Neal on 06-20-2024 Cholesterol.total/Cholesterol in HDL [Mass ratio]2.9 {ratio}Normal<5.0Chillicothe HospitalComment on above:Result Comment: PERFORMED BY: [place] [id number] PATHOLOGIST WIG STYLIST MEL SCOTT M.D.Performed By: #### BMP, CBC, LIPID #### [facility] [address] [place] [address] USASodium [Moles/volume] in Serum or PlasmaOrdered By: Nuria Neal on 78-94-3513Brvkeh [Moles/Vol]138 mmol/TWtvbrk782-138JkiipiujmChillicothe HospitalComment on above:Performed By: #### BMP, CBC, LIPID #### [facility] [address] [place] [address] USATriglyceride [Mass/volume] in Serum or PlasmaOrdered By: Nuria Neal on 16-56-7278Lxjoxfkzznux [Mass/Vol]67 mg/dL0-149Chillicothe HospitalComment on above:TRIG ATP III CLASSIFICATIONTRIG less than 150 mg/dL NormalTRIG 150-199 mg/dL Borderline highTRIG 200-500 mg/dL High TRIG greater than 500 mg/dL Very highStandard traceable to the Center for Disease Co nrtrol and Prevention (CDC) test method.Troponin I High Sensitivityon 06-20-2024 Troponin I High Mmwvjpqlmfu428.6 pg/mLOff scale high0.0-20.0The [facility] Physician GroupComment on above:Result Comment: Critical Result : Called to and read back by: ZANDRA OJEDA at: 06/20/2024 05:31:19 by:[id number] PERFORMED BY: [place] [id number] PATHOLOGIST WIG STYLIST MEL SCOTT M.D.Performed By: #### HS TROP #### [place] [id number] USATroponin I.cardiac [Mass/volume] in Serum or Plasma by Detection limit <= 0.01 ng/Ordered By: Nuria Neal on 27-19-7337Ykzrjzyp I.cardiac DL <= 0.01 ng/mL [Mass/Vol]311.6 pg/mLHigh0.0-20.0Chillicothe HospitalComment on above:Critical Result : Called to and read back by: ZANDRA OJEDA at: 06/20/2024 05:31:19 by:[id number] nitrogen [Mass/volume] in Serum or PlasmaOrdered By: Nuria Neal on 26-79-9943Uegh nitrogen [Mass/Vol]19 mg/dLNormal 03-14Chillicothe HospitalComment on above:Performed By: #### BMP, CBC, LIPID #### [place] [address] USAA1C with Estimated Average Gluon 24-71-1716Eedqkqw [Mass/Vol]278 mg/dLNoFrye Regional Medical Center Physician GroupComment on above:Result Comment: PERFORMED BY: [place] [address] PATHOLOGIST WIG STYLIST MEL SCOTT M.D.Performed By: #### HS TROP #### [place] [address] USAAnti-Xa UF Heparinon 09-89-1980Mlij-Xa UF Heparin< 0.04Low 0.30-0.70The [facility] Physician [facility] HospitalComment on above:Result Comment: Use the aPTT protocol when triglycerides are > 800 mg/dL, total bilirubin is > 20 mg/dL and/or patient has received a DOAC, Fondaparinux or LMWH within 72 hours AND baseline anti-Xa level is > 0.7 units/mL PERFORMED BY: [place] [address] PATHOLOGIST WIG STYLIST MEL SCOTT M.D.Performed By: #### HS TROP #### [place] [address] USABNP ser/plasOrdered By: Katlin Salvador on 06-19-2024 Natriuretic peptide B (Bld) [Mass/Vol]1043.0 pg/mLMartha'S Vineyard HospitalChillicothe HospitalComment on above:Result Comment: PERFORMED BY: [place] [address] PATHOLOGIST WIG STYLIST MEL SCOTT M.D.Performed By: #### GLULS #### Point of Care testing ,ECG 12 lead ECGon 66-20-4859SIP 12 lead ECGSELECT [facility] Main [address] [address] Electrocardiograph Report Signed Patient: Wing Alejandro MR#: [id number] 5 : 1970 Acct:[id number] Age/Sex: 54 / M ADM Date: 06/19/24 Loc: Room: [address] [place] [address] Type: ADM IN Attending Dr: Mekhi Powers [...] for LVH, may be normal variant ( Hilger product ) Anterolateral infarct , age undetermined Prolonged QT Abnormal ECG No previous ECGs available Confirmed by Jim Hinkle ([id number]) on 06/19/2024 11:15:31 AM Referred By: Electronically Signed By: Jim Hinkle Transcribed By: MUS Signed By Jim Hinkle MD 06/19/24 1115NoFrye Regional Medical Center Physician GroupGlucose Poct Glucometerson 88-84-4215Qccpsyp9Mgp9: Cleaned MeterBaptist Health Mariners Hospital Physician GroupComment on above:Result Comment: PERFORMED BY: [place] [id number] PATHOLOGIST WIG STYLIST MEL SCOTT M.D.Performed By: #### GLULS #### Point of Care testing ,Glucose [Mass/Vol]355 mg/dLBaptist Health Mariners Hospital Physician GroupComment on above: Result Comment: Random Glucose Reference Range is dependent on time and content of last meal. Glucose of more than 200 mg/dL in a nonstressed, ambulatory subject supports the diagnosis of Diabetes Mellitus.Performed By: #### GLULS #### Point of Care testing ,Tjfgiuo3Drs1: Cleaned MeterNormNicklaus Children's Hospital at St. [facility] Physician GroupComment on above: Result Comment: PERFORMED BY: [place] [address] PATHOLOGIST WIG STYLIST MEL SCOTT M.D.Performed By: #### HS TROP #### [facility] [address] [place] [address] USAGlucose [Mass/Vol]282 mg/dLNoFrye Regional Medical Center Physician GroupComment on above:Result Comment: Random Glucose Reference Range is dependent on time and content of last meal. Glucose of more than 200 mg/dL in a nonstressed, ambulatory subject supports the diagnosis of Diabetes Mellitus.Performed By: #### HS TROP #### [facility] [address] [place] [address] USAGlucose [Mass/Vol]269 mg/dLNoFrye Regional Medical Center Physician GroupComment on above:Result Comment: Random Glucose Reference Range is dependent on time and content of last meal. Glucose of more than 200 mg/dL in a nonstressed, ambulatory subject supports the diagnosis of Diabetes Mellitus. PERFORMED BY: [place] [address] PATHOLOGIST WIG STYLIST MEL SCOTT M.D.Performed By: #### GLULS #### Point of Care testing ,Glucose [Mass/Vol]292 mg/dLNoFrye Regional Medical Center Physician GroupComment on above: Result Comment: Random Glucose Reference Range is dependent on time and content of last meal. Glucose of more than 200 mg/dL in a nonstressed, ambulatory subject supports the diagnosis of Diabetes Mellitus. PERFORMED BY: [place] [address] PATHOLOGIST WIG STYLIST MLE SCOTT M.D.Performed By: #### GLULS #### Point of Care testing ,Glucose mean value [Mass/volume] in Blood Estimated from glycated hemoglobin Ordered By: Katlin Salvador on 15-42-9643Qakpuqk glucose Estimated from glycated hemoglobin (Bld) [Mass/Vol]278 mg/dLChillicothe HospitalHemoglobin A1c percentageOrdered By: Katlin Salvador on 14-02-6425YdM6p (Bld) [Mass fraction] 11.3 %High4.3-5.6FFairfield Medical CenterComment on above:Increased risk for diabetes: 5.7 - 6.4diabetes: >6.4glycemic control for adults with diabetes: <7.0Result Comment: Increased risk for diabetes: 5.7 - 6.4 diabetes: >6.4 glycemic control for adults with diabetes: <7.0Performed By: #### HS TROP #### [facility] [address] [place] [address] USAHeparin anti-Xa unfractionatedOrdered By: Katlin Salvador on 18-67-9560Andmcto unfractionated Chromogenic method Qn (PPP)< 0.04 [IU]/mLLow 0.30-0.70Chillicothe HospitalComment on above:Use the aPTT protocol when triglycerides are > 800 mg/dL,total bilirubin is > 20 mg/dL and/orpatient has received aDOAC, Fondaparinux or LMWH within 72 hours AND baselineanti-Xa level is > 0.7 units/mLLipid Panelon 39-97-2719Dqssptyisjk [Mass/Vol]116 mg/dL Aba139-703Fmw [facility] Physician GroupComment on above:Result Comment: Chol less than 200 mg/dl low risk Chol 201-239 mg/dl borderline risk Chol 240 mg/dl and greater high riskPerformed By: #### HS TROP #### [facility] [address] [place] [address] USACholesterol in HDL [Mass/Vol]39 mg/hAUdmarf45-87Zet [facility] Physician GroupComment on above:Result Comment: HDL CHOL ATP-III CLASSIFICATION Cardiovascular Risk HDL > or equal to 60 mg/dL LOW HDL < 40 mg/dL HIGHPerformed By: #### HS TROP #### [facility] [address] [place] [address] USACholesterol.total/Cholesterol in HDL [Mass ratio]3.0 {ratio}Normal<5.0The [facility] Physician GroupComment on above:Result Comment: PERFORMED BY: [place] [address] [place] [address] PATHOLOGIST WIG STYLIST MEL SCOTT M.D.Performed By: #### HS TROP #### [place] [id number] USALDL Cholesterol,Yssyhdzhco29 mg/dLNormal0-100The [facility] Physician GroupComment on above:Result Comment: LDL ATP III CLASSIFICATION LDL less than 100 mg/dL Optimal LDL 100-129 mg/dL Near or above optimal LDL 130-159 mg/dL Borderline high LDL 160-189 mg/dL High LDL greater than 189 mg/dL Very highPerformed By: #### HS TROP #### [place] [address] USATriglyceride w/Vzifnf27 mg/dLNormal0-149The [facility] Physician GroupComment on above:Result Comment: TRIG ATP III CLASSIFICATION TRIG less than 150 mg/dL Normal TRIG 150-199 mg/dL Borderline high TRIG 200-500 mg/dL High TRIG greater than 500 mg/dL Very high Standard traceable to the Center for Disease Conrtrol and Prevention (CDC) test method.Performed By: #### HS TROP #### [place] [address] USAVLDL ZJADFFXZKXD32 mg/dLNormalThe [facility] Physician GroupComment on above:Performed By: #### HS TROP #### [place] [address] USATroponin I High Sensitivityon 77-21-9226Artqxnsv I High Ohvireqbjjt428.5 pg/mLOff scale high0.0-20.0The [facility] Physician [facility] HospitalComment on above:Result Comment: Critical Result : Called to and read back by: MONA ZARAGOZA at: 06/19/2024 15:36 by:MLG PERFORMED BY: [place] [address] PATHOLOGIST WIG STYLIST MEL SCOTT M.D.Performed By: #### HS TROP #### [place] [address] USATroponin I High Cyhficjxctw574.1 pg/mLOff scale high 0.0-20.0The [facility] Physician GroupComment on above:Result Comment: Critical Result : Called to and read back by: MARYANNE PATTON at: 06/19/2024 14:48:55 by:MLG PERFORMED BY: [place] [address] PATHOLOGIST WIG STYLIST MEL SCOTT M.D.Performed By: #### HS TROP #### [place] [id number] USATroponin I High Auiyklxigpm480.4 pg/mLOff scale high 0.0-20.0The [facility] Physician GroupComment on above:Result Comment: Critical Result : Called to and read back by: NERISSA LARRY at: 06/19/2024 11:50:46 by:MLG PERFORMED BY: [place] [address] PATHOLOGIST WIG STYLIST MEL SCOTT M.D.Performed By: #### HS TROP #### [place] [id number] USATroponin I High Ltbjmvyqfcn901.1 pg/mLOff scale high 0.0-20.0The [facility] Physician GroupComment on above:Result Comment: Critical Result : Called to and read back by: MONA LOMBARDI at: 06/19/2024 07:40:51 by:MLG PERFORMED BY: [place] [address] PATHOLOGIST WIG STYLIST MEL SCOTT M.D.Performed By: #### HS TROP #### [place] [id number] USAXR chest 1V portableon 13-72-6882JE chest 1V portable [facility] Main [place] [id number] XRay Report Signed Patient: Wing Alejandro MR#: [id number] 5 : 1970 Acct:[id number] Age/Sex: 54 / M ADM Date: 06/19/24 Loc: Room: [address] [place] [address] Type: ADM IN Attending Dr: Mekhi Powers [...] Chelsi Ordaz M.D.06/19/2024 8:03 AM Dictation Location: [facility]--23 Transcribed By: CHASE 06/19/24 0803 Dictated By: Chelsi Ordaz MD 06/19/24 0756 Signed By: 06/19/24 0803[facility] Vital Signs Date TimeVital SignValuePerforming SfbnpitvxSkhabpst07-43-9032 11:30-0400Body bfzfha734.4 cmWibrianna Neal DO Work Phone: [facility]08-13-2025 11:30-0400 Body mass index (BMI) [Ratio]22.3 kg/i9OgztjpiUriah Neal DO Work Phone: [phone]08-13-2025 11:30-0400 Body nqhutu64.66 kgUriah Neal DO Work Phone: [facility]08-13-2025 11:30-0400 Diastolic blood cltgawtt23 mm[Hg]Uriah Neal DO Work Phone: [phone]08-13-2025 11:30-0400 Heart rate72 /minUriah Neal DO Work Phone: [facility]08-13-2025 11:30-0400 Systolic blood pshyhvtg776 mm[Hg]Uriah Neal DO Work Phone: [facility]08-05-2025 14:50-0400 Body msbqmy763.4 Patricio Langford MD Work Phone: [phone] [place], [place] [address]Xvooucsxhm00-97-2584 14:50-0400Body mass index (BMI) [Ratio]21.64 kg/n6TezbfZenia Langford MD Work Phone: [phone])[facility] [place], [place] [address]Ubrdqhpxfr67-37-1051 14:50-0400Body .39 kgZenia Langford MD Work Phone: [phone])[facility] [place], [place] [address]Fepjfztomq29-91-0338 14:50-0400Heart rate80 /min Zenia Langford MD Work Phone: [phone])[facility] [place], [place] [address]Ayrnsyskjr69-38-3858 14:50-0400Respiratory rate18 /minZenia Langford MD Work Phone: [phone] [place], [place] 0467408-05-2025 14:50-1100OpZ8% (BldA) [Mass fraction]97 %Zenia Langford MD Work Phone: [phone])[address] [place], [place] 0467405-05-2025 11:32-0400Body .4 Patricio Langford MD Work Phone: 1(144)[facility] [place], [place] [address]Temjmpxuvm21-85-9505 11:32-0400Diastolic blood mm[Hg]Zenia Langford MD Work Phone: 1(840)[facility] [place], [place] [address]Jkjkykwjcb35-01-7378 11:32-0400Heart rate79 /min Zenia Langford MD Work Phone: 1([phone])[facility] [place], [place] [address]Qhtovggymq13-16-6163 11:32-0400Respiratory rate18 /minZenia Langford MD Work Phone: 1(659)[facility] [place], [place] [address]Cehfbilkjz89-36-3157 11:32-3106ZlL0% (BldA) [Mass fraction]96 %Zenia Langford MD Work Phone: [phone])[address] [place], [place] 0467405-05-2025 11:32-0400Systolic blood avrnabou305 mm[Hg]Zenia Langford MD Work Phone: [phone])[address] [place], [place] 0467404-10-2025 11:00-0400Diastolic blood iagkjmou97 mm[Hg]Maris Ramos MD Work Phone: 1(694)[address]04-10-2025 11:00-0400 Heart rate74 /Boaz Ramos MD Work Phone: 1(534)[address]04-10-2025 11:00-0400 Respiratory rate22 /Boaz Ramos MD Work Phone: 1(144)[address]04-10-2025 11:00-0400 SaO2% (BldA) [Mass fraction]98 %Maris Ramos MD Work Phone: [phone])[address]04-10-2025 11:00-0400 Systolic blood ujvylcfs433 mm[Hg]Maris Ramos MD Work Phone: 1(633)[address]04-10-2025 10:53-0400 Body mass index (BMI) [Ratio]21.52 kg/m2Maris Ramos MD Work Phone: 1(023)[address]04-10-2025 10:53-0400 Body ssecxg08 kgMaris Ramos MD Work Phone: 1(493)[address]04-10-2025 08:00-0400 Body hapncemugyg91.5 [degF]Maris Ramos MD Work Phone: 1(400)[address]04-09-2025 12:00-0400 Diastolic blood mm[Hg]Maris Ramos MD Work Phone: 1(217)[address]04-09-2025 12:00-0400 Heart rate86 /Boaz Ramos MD Work Phone: 1(608)[address]04-09-2025 12:00-0400 Respiratory rate24 /Boaz Ramos MD Work Phone: 1(419)[address]04-09-2025 12:00-0400 SaO2% (BldA) [Mass fraction]99 %Maris Ramos MD Work Phone: 1(343)[address]04-09-2025 12:00-0400 Systolic blood pbbpbdyr672 mm[Hg]Maris Ramos MD Work Phone: [phone] [place], [place] 02[address]404-09-2025 10:45-0400 Body dvoefj558.4 cmMaris Ramos MD Work Phone: 1(638)[address]04-09-2025 10:45-0400 Body mass index (BMI) [Ratio]21.52 kg/m2Maris Ramos MD Work Phone: 1(175)[address]04-09-2025 10:45-0400 Body hmebwc35 kgMaris Ramos MD Work Phone: 1(825)[address]04-09-2025 10:35-0400 Body .2 [degF]Maris Ramos MD Work Phone: 1(354)[address]02-17-2025 11:16-0500 Body .4 cmMaris Ramos MD Work Phone: 1(003)[address]02-17-2025 11:16-0500 Body mass index (BMI) [Ratio]21.22 kg/m2Maris Ramos MD Work Phone: 1(238)[address]02-17-2025 11:16-0500 Body oibdte58.94 kgMaris Ramos MD Work Phone: 1(342)[address]02-17-2025 11:16-0500 Diastolic blood jhalnzro43 mm[Hg]Maris Ramos MD Work Phone: 1(096)[address]02-17-2025 11:16-0500 Heart rate79 /minMaris Ramos MD Work Phone: 1(489)[address]02-17-2025 11:16-0500 Systolic blood obfqbirt796 mm[Hg]Maris Ramos MD Work Phone: 1(124)[address]02-12-2025 11:28-0500 Body wrywfg079.4 cmUriah Neal DO Work Phone: [phone] [place], [place] 42[address]402-12-2025 11:28-0500 Body mass index (BMI) [Ratio]21.11 kg/e6RbmpgdvUriah Neal DO Work Phone: [facility]02-12-2025 11:28-0500 Body agmuxp60.58 kgWibrianna Neal DO Work Phone: [facility]02-12-2025 11:28-0500 Diastolic blood ujxnlgyl17 mm[Hg]Uriah Neal DO Work Phone: [facility]02-12-2025 11:28-0500 Heart rate84 /minUriah Neal DO Work Phone: [facility]02-12-2025 11:28-0500 Systolic blood rlprxlao122 mm[Hg]Uriah Neal DO Work Phone: [facility]02-05-2025 10:15-0500 Body inmfrn251.4 Patricio Langford MD Work Phone: 1([phone])685-[address] [place], [place] [address]Gsomwsezci95-70-8893 10:15-0500Body mass index (BMI) [Ratio]20.58 kg/h5MiikcZenia Langford MD Work Phone: 1(482)252-[address] [place], [place] [address]Fltriazunt27-04-1070 10:15-0500Body dqwfyt53.76 kgZenia Langford MD Work Phone: 1(620)601-[address] [place], [place] [address]Fnhfzhzayw62-14-6468 10:15-0500Diastolic blood wytrpqbt91 mm[Hg]Zenia Langford MD Work Phone: 1(465)912-[address] [place], [place] [address]Vnktdvbmma22-55-2328 10:15-0500Heart rate95 /min Zenia Langford MD Work Phone: [address] [place], [place] [address]Juurfuplnn95-09-5541 10:15-0500Respiratory rate18 /minZenia Langford MD Work Phone: 1(476)516-[address] [place], [place] [address]Ssahsmktqf86-40-3267 10:15-6145CfC2% (BldA) [Mass fraction]97 %Zenia Langford MD Work Phone: 1(456)963-[address] [place], [place] [address]Fdiioochdw52-10-2489 10:15-0500Systolic blood zqfqmzlo187 mm[Hg]Zenia Langford MD Work Phone: [facility] SpringsDhmlbiilof55-29-9575 10:37-0500Body htizjw029.4 cmWibrianna Neal DO Work Phone: [facility] [facility]11-13-2024 10:37-0500 Body mass index (BMI) [Ratio]19.39 kg/h0UpnpaesUriah Neal DO Work Phone: 1([phone])750-[address] [place], [place] 4213411-13-2024 10:37-0500 Body neooxd16.68 kgWibrianna Neal DO Work Phone: 1(060)872-[address] [place], [place] 4213411-13-2024 10:37-0500 Diastolic blood imyoziej18 mm[Hg]Uriah Neal DO Work Phone: 1(178)387-[address] [place], [place] 4213411-13-2024 10:37-0500 Heart rate72 /minUriah Neal DO Work Phone: [phone])076-[address] [place], [place] 4213411-13-2024 10:37-0500 Systolic blood zlphucvz804 mm[Hg]Uriah Neal DO Work Phone: [facility]10-31-2024 16:15-0400 Diastolic blood uewqisis31 mm[Hg]MD Katlin Salvador Work Phone: [facility]10-31-2024 16:15-0400 Heart rate80 /minMD Katlin Salvador Work Phone: [facility]10-31-2024 16:15-0400 Respiratory rate20 /minMD Katlin Salvador Work Phone: [facility]10-31-2024 16:15-0400 SaO2% (BldA) [Mass fraction]95 %MD Katlin Salvador Work Phone: [facility]10-31-2024 16:15-0400 Systolic blood ewygehyt171 mm[Hg]MD Katlin Salvador Work Phone: [facility]10-31-2024 15:08-0400 Body tihjrx539.42 cmMD Katlin Salvador Work Phone: [facility]10-31-2024 12:00-0400 Body xyxsoblckbg02.3 [degF]MD Katlin Salvador Work Phone: [facility]10-31-2024 06:00-0400 Body giwsnd22.1 kgMD Katlin Salvador Work Phone: [facility] Encounters Encounter DateEncounter TypeCare ProviderFacilityStart: 2025 End: 89-62-0802ppsgaeweiwEDIEAultman Hospital Start: 2025 End: 42-52-8208Tsbwmmkwpy hospital visit by physicianEly Device [facility] HospitalComment on above:Presence of automatic cardioverter/defibrillator (AICD); Non-ischemic cardiomyopathy (Multi)Start: 04-02-2025 End: 41-54-9427Cufrws outpatient visit 25 minutes[facility] Work Phone: [facility]prov[facility] mary medical centerComment on above:Coronary artery disease involving [place] coronary artery of [place] heart without angina pectoris; Cardiomyopathy, unspecified type [...] BMI 22.0-22.9, adult; Former smokerStart: 04-02-2025 End: 12-06-0892wmqkqrdhyiHABCWNJCrisp Regional Hospital AmbulatoryStart: 03-25-2025 End: 97-46-2623Tzresr outpatient visit 25 minutesZenia Langford MD Work Phone: [facility] [place] EndocrinologyComment on above:Primary hypertension (Primary Dx); Poor control type I diabetes mellitus (HCC); Encounter for dietary consultation; Vitamin D deficiency; Hyperlipemia, mixed ; Insulin long-term use (HCC); Insulin pump status; Encounter for fitting and adjustment of insulin pumpStart: 03-25-2025 End: 93-39-2765Iwmvfiberry Langford MD Work Phone: [facility] [place] EndocrinologyStart: 03-25-2025 End: 73-43-5033Wcrjleroberto Langford MD Work Phone: [facility] [place] EndocrinologyStart: 01-07-2025 End: 29-83-6759uhudvddnzsSOKUMercy [facility] Start: 01-07-2025 End: 25-13-9360Abruqeiuok hospital visit by physicianEly Device [facility] HospitalComment on above:Presence of automatic cardioverter/defibrillator (AICD); Non-ischemic cardiomyopathy (Multi)Start: 56-61-2025tpacjoolcgRUGPFOY [facility] AmbulatoryStart: 12-23-2024 End: 22-07-5716Zlruiwberry Langford MD Work Phone: noms ENDOCRINOLOGYStart: 12-23-2024 End: 80-63-0108Bctsryroberto Langford MD Work Phone: noms ENDOCRINOLOGYStart: 12-23-2024 End: 80-74-6691oyfmxavrxoEKBBGDavid Magaña AvailableStart: 12-23-2024 End: 40-76-7167Ddzpay outpatient visit 40 minutesZenia Langford MD Work Phone: noms ENDOCRINOLOGYComment on above:Poor control type I diabetes mellitus (CMS/HCC) (Primary Dx); Primary hypertension (CMS/HCC); Encounter for dietary consultation; Vitamin D deficiency; Hyperlipemia, mixed (CMS/HCC); Insulin long-term use (CMS/HCC); Insulin pump status; Encounter for fitting and adjustment of insulin pumpStart: 12-04-2024 End: 92-07-5609xsiciqlglxDJXZFII [facility] Ambulatory Start: 11-27-2024 End: 71-29-5533Ecpcyjefze hospital visit by Priya Ramos MD Work Phone: [facility] Medical Intensive CareComment on above:Cardiomyopathy, ischemic (Primary Dx)Cardiomyopathy, ischemic (Primary Dx); Post-op painStart: 11-21-2024 End: 53-98-3298Ouoddjroberto Langford MD Work Phone: noms ENDOCRINOLOGYStart: 11-21-2024 End: 50-54-9052Gfhjzyroberto Langford MD Work Phone: [facility]oms ENDOCRINOLOGYStart: 11-21-2024 End: 85-89-3605fmxsyfagdyFPFGR F SABBAGHNot AvailableStart: 11-21-2024 End: 72-28-7181Fbdead outpatient visit 40 Cait Langford MD Work Phone: noms ENDOCRINOLOGYComment on above:Poor control type I diabetes mellitus (CMS/HCC) (Primary Dx); Primary hypertension (CMS/HCC); Encounter for dietary consultation; Vitamin D deficiency; Hyperlipemia, mixed (CMS/HCC); Insulin long-term use (CMS/HCC); Insulin pump status; Encounter for fitting and adjustment of insulin pumpStart: 16-22-0958jmjlzvkoupGlenbeigh Hospitaltart: 10-07-2024 End: 60-63-6569malcgwbubfNXUHAtrium Health [facility] AmbulatoryStart: 10-07-2024 End: 52-67-9207Dekcol consultation new/estab patient 80 Boaz Ramos MD Work Phone: [facility] DrComment on above:Cardiomyopathy, ischemic (Primary Dx); Coronary artery disease involving [place] coronary artery of [place] heart without angina pectoris; History of placement of stent in LAD coronary artery; Mixed hyperlipidemia; S/P PTCA (percutaneous transluminal coronary angioplasty); ST elevation myocardial infarction (STEMI), unspecified artery (Multi); BMI 21.0-21.9, adult; Former smoker; Encounter for medication review and counseling; Encounter to discuss treatment options; Encounter to establish care with new doctorStart: 10-02-2024 End: 89-69-8181krqaixnvlfOWYTNWFCrisp Regional Hospital AmbulatoryStart: 10-02-2024 End: 12-93-6749Ixaomm outpatient visit 40 minutesMichaelbrianna Mcallisterdon DO Work Phone: [facility]anComtr[facility] on above:Coronary artery disease involving [place] coronary artery of [place] heart without angina pectoris; ST elevation myocardial infarction (STEMI), unspecified artery (Multi); S/P PTCA (percutaneous transluminal coronary angioplasty); History of placement of stent in LAD coronary artery; Cardiomyopathy, ischemic; Former smoker; BMI 21.0-21.9, adultStart: 09-25-2024 End: 64-34-9930Qdonjqroberto Langford MD Work Phone: [facility]oms ENDOCRINOLOGYStart: 09-25-2024 End: 40-63-5414Nmszcyroberto Langford MD Work Phone: [facility]oms ENDOCRINOLOGYStart: 09-25-2024 End: 03-18-3465Cilgim outpatient new 45 Cait Langford MD Work Phone: noms ENDOCRINOLOGYComment on above:Poor control type I diabetes mellitus (CMS/HCC) (Primary Dx); Primary hypertension (CMS/HCC); Encounter for dietary consultation; Vitamin D deficiency; Hyperlipemia, mixed (CMS/HCC); Insulin long-term use (CMS/HCC)Start: 09-25-2024 End: 45-15-1081efkuacedxlSVOZRDavid Magaña AvailableStart: 07-30-2024 End: 60-55-1035Zwilrxyxew hospital visit by Qiana Love Admin Room [address] [place] [address] on above:Coronary artery disease involving [place] coronary artery of [place] heart without angina pectoris; Cardiomyopathy, ischemic; S/P PTCA (percutaneous transluminal coronary angioplasty); ST elevation myocardial infarction (STEMI), unspecified artery (Multi)Start: 07-30-2024 End: 31-79-4790czwimbckzcAAFBSHVOhioHealth Shelby Hospital CenterStart: 07-03-2024 End: 13-12-2076Loeogwnehlaz care manage srvc [facility] Work Phone: FirelandsComment on above:Coronary artery disease involving [place] coronary artery of [place] heart without angina pectoris; Cardiomyopathy, ischemic; S/P PTCA (percutaneous transluminal coronary angioplasty); ST elevation myocardial infarction (STEMI), unspecified artery (Multi); Type 2 diabetes mellitus without complication, with long-term current use of insulin (Multi); Mixed hyperlipidemia; Former smoker; Body mass index (BMI) 19.9 or less, adultStart: 07-03-2024 End: 66-43-8426ufhuzghufaKJJAXIPCrisp Regional Hospital AmbulatoryStart: 91-24-0201Ryb-patient / Non-visitMD Phihao Salvador Work Phone: [facility] Work Phone: Start: 06-19-2024 End: 42-45-8675Rzjsvyrvkm and management of inpatientMD Leanderfanta Salvador Work Phone: [facility] Work Phone: Start: 28-37-1325mnjzlizqufLQ EDUARD HOYFacility:H1 Procedures DateProcedureProcedure DetailPerforming ClinicianStart: 53-23-0888Zoqt bld gluc mntr dev cleared fda spec home useZenia Langford MD Work Phone: Start: 05-92-3355Dwlu bld gluc mntr dev cleared fda spec home useZenia Langfodr MD Work Phone: Start: 68-93-8031Hfgxoxy dev eval implantable in persn 1 ld dfbMichtosha Durant ASSEMBLING FABRICATOR-BRASS INSTRUMENT REPAIR TECHNICIAN Work Phone: Start: 85-72-9157Cgmif metabolic panel calcium total Anu Durant ASSEMBLING FABRICATOR-BRASS INSTRUMENT REPAIR TECHNICIAN Work Phone: Start: 60-95-0728Szslhdi quantitative blood xcpt reagent stripMatthew T MobPartner Work Phone: Start: 03-31-2392Joxxrybbwm exam chest single view Priya Lopez MD Work Phone: Start: 25-62-5054Lqkgayv quantitative blood xcpt reagent stripMatthew T MobPartner Work Phone: Start: 58-40-9035Bkz routine ecg w/least 12 lds trcg only w/o i&Ghassan Carias ASSEMBLING FABRICATOR-BRASS INSTRUMENT REPAIR TECHNICIAN Work Phone: Start: 09-10-1423Kuoaswlbjlmkyamdl Sulaiman Ramos MD Work Phone: Start: 26-59-6661Qhe routine ecg w/least 12 lds trcg only w/o i&Ghassan Torres ASSEMBLING FABRICATOR-BRASS INSTRUMENT REPAIR TECHNICIAN Work Phone: Start: 00-36-4870MZRHO/VERIFY ABORHMaris Ramos MD Work Phone: Start: 83-50-8871Fbgpp metabolic panel calcium total Georgia Torres ASSEMBLING FABRICATOR-BRASS INSTRUMENT REPAIR TECHNICIAN Work Phone: Start: 92-84-7226Drmsl typing serologic rh (d)Georgia Torres ASSEMBLING FABRICATOR-BRASS INSTRUMENT REPAIR TECHNICIAN Work Phone: Start: 19-40-9624XYIPKCS RBCGeorgia Torres ASSEMBLING FABRICATOR-BRASS INSTRUMENT REPAIR TECHNICIAN Work Phone: Start: 29-55-6321Gjxu bld gluc mntr dev cleared fda spec home useZenia aLngford MD Work Phone: Start: 98-39-5961Mdwemxu of placement of stent in anterior descending branch of left coronary arteryHistory of placement of stent in LAD coronary arteryUriah Mendes Ángel DO Work Phone: Start: 80-64-7764Cwyly 1996 panel - Serum or Plasma Uriah Ángel DO Work Phone: Start: 86-63-3077Bzik bld gluc mntr dev cleared fda spec home useZenia Langford MD Work Phone: Start: 74-10-9045Dsmt blood pool gated planar 1 study rest/stressWillshelli Neal DO Work Phone: Start: 35-36-3913PB Coronary Thrombolysis IVMD Katlin Salvador Work Phone: Start: 43-84-1080XO Ivus Initial VesselMD Katlin Salvador Work Phone: Start: 11-19-7842BW LHC & COR AngioMD Katlin Salvador Work Phone: Start: 53-91-5254DR PCI AMI 1st Vessel LAD DESMD Katlin Salvador Work Phone: Start: 79-99-0124SW Katlin Salvador Work Phone: Start: 16-12-3524Vhqss chest X-rayMD Katlin Salvador Work Phone: History of placement of stent in anterior descending branch of left coronary arteryHistory of placement of stent in LAD coronary arteryMaris Ramos MD Work Phone: History of placement of stent in anterior descending branch of left coronary arteryHistory of placement of stent in LAD coronary arteryWiandrewshelli Neal DO Work Phone: Plan of Treatment DateCare ActivityDetailAuthorStart: 00-57-4552GMyJ/Tdap/Td Vaccines (2 - Td or Tdap)DTaP/Tdap/Td Vaccines (2 - Td or Tdap)[facility] Start: 50-82-0019Efhgdftqeg measurementCreatinine LevelUnTriHealth Bethesda North HospitalStart: 04-32-8338Yxqtbqopa measurementPotassium LevelUnTriHealth Bethesda North HospitalStart: 61-72-9063Mztypwrmae measurementCreatinine Level [facility] CenterStart: 17-26-8252Ltqjylkau measurementPotassium LevelUnSelect [facility]: 58-85-7092Wzkcx panelLipid Panel [facility]: 85-91-6183Xrpmk screening for protein Diabetes: Urine Protein ScreeningMadison Health: 07-14-2025 End: 97-83-0805Akzmxyx encounter nnlqifbnn87/24/2025 2:00 PM EST Office Visit [place] [phone] [facility] [address] [place] [address] Nisreen Wilcox, ASSEMBLING FABRICATOR-BRASS INSTRUMENT REPAIR TECHNICIAN [address] [facility] [address] [place] [address] [facility]: 47-19-2670Lrgzte Adult PhysicalYearly Adult PhysicalUnSelect Medical Specialty [facility]: 07-03-2025 End: 04-64-3950Enccd metabolic 2000 panel - Serum or PlasmaBasic Metabolic Panel Lab Routine Coronary artery disease involving [place] coronary artery of [place] heart without angina pectoris Cardiomyopathy, unspecified type (Multi) S/P PTCA (percutaneous transluminal coronary angioplasty) History of placement of stent in LAD coronary artery Expected: 07/03/2025, Expires: 10/01/2025[facility] Service Area Work Phone: Comment on above:Expected: 07/03/2025, Expires: 10/01/2025Start: 07-03-2025 End: 37-53-9661Ebfzfdlpmoc peptide B [Mass/volume] in BloodB-Type Natriuretic Peptide Lab Routine Cardiomyopathy, unspecified type (Multi) Expected: 07/03/2025, Expires: 10/01/2025[facility] Work Phone: Comment on above:Expected: 07/03/2025, Expires: 10/01/2025Start: 06-24-2025 End: 41-72-2862Dsmkixy encounter oqthendhy39/04/2025 10:00 AM EST Office Visit [facility] [address] [place] [address] Zenia Langford MD [address] [place] [address] [facility] [place] EndocrinologyStmanville: 50-37-0847QkuehuoxmdlnvbwqPxvozictgtqhatJasphjqvsk [facility] ClevelandStart: 86-20-9693KHRTE-19 Vaccine ( season)COVID-19 Vaccine ( season)[facility]: 45-33-1279Dhqtvqjzx vaccination [facility]: 04-02-2025 End: 37-06-4456Ttyvkhl encounter afrfhegni09/13/2025 11:20 AM EDT Office Visit [place] [id number] [facility] [address] [place] [address] Uriah Neal DO [address] [facility] [place] [address] [facility]: 03-25-2025 End: 90-60-6348Ebekqwm encounter maexrwhqp29/05/2025 9:50 AM EDT Office Visit [facility] [address] [place] [phone] Zenia Langford MD [address] [place] [address] [facility]CR[facility]YR[facility]: 03-24-2025 End: 13-44-3611Ltprrlv encounter alrndgjjm84/04/2025 9:50 AM EDT Office Visit [facility] [address] [place] [phone] Zenia Langford MD [address] [place] [address] [facility]YR[facility]: 76-86-1813Rgkznwhvd vaccinationInfluenza Vaccine (#1)[facility]: 03-07-2025 End: 49-26-8410Hmbbvvr Device Check - In ClinicCardiac Device Check - In Clinic Implantable Cardiac Device Routine Cardiomyopathy, ischemic Expected: 03/07/2025 (Approximate), Expires: 11/27/2025[facility] Service Area Work Phone: Comment on above:Expected: 03/07/2025 (Approximate), Expires: 11/27/2025Start: 03-07-2025 End: 35-78-9127Uuxpnxu encounter procedureEating Recovery Center a [facility] and Adolescentstart: 12-23-2024 End: 56-16-3172Eebpyzc encounter eqfcmemqh48/05/2025 11:20 AM EDT Office Visit [facility] [address] [place] [address] Zenia Langford MD [address] [place] [address] [facility] ENDOCRINOLOGYStart: 12-04-2024 End: 49-67-3096Jmazemxx Xxwlnbz4012/04/2024 2:00 PM EDT Clinical Support [facility] [address] [facility] [address] [place] [address] QALafene Health Centertart: 10-07-2024 End: 11-29-5727Ocnwgam encounter bbyxmmrgi63/17/2025 11:00 AM EST Office Visit [facility] [address] [facility] [address] [place] [address] Maris Ramos MD [address] [facility] [address] [place] [address] [facility] DrStart: 10-02-2024 End: 90-87-0913Jdsdvjo encounter mewgqspkx64/12/2025 10:40 AM EST Office Visit [facility] [address] [facility] [address] [place] [address] Uriah Neal DO [address] [facility] [place] [address] [facility] DothanStart: 09-25-2024 End: 30-47-602300023051-ajmfkdeeeqjypb D3 [Mass/volume] in Serum or PlasmaVitamin D 25 hydroxy Total Lab Routine Poor control type I diabetes mellitus ([facility]) Expected: 09/25/2024 (Approximate), Expires: 09/25/2025[facility] HealthcareComment on above:Expected: 09/25/2024 (Approximate), Expires: 09/25/2025Start: 09-25-2024 End: 96-06-4643M-peptideC-peptide Lab Routine Poor control type I diabetes mellitus ([facility]) Expected: 09/25/2024 (Approximate), Expires: 09/25/2025[facility] Healthcare Work Phone: Comment on above:Expected: 09/25/2024 (Approximate), Expires: 09/25/2025Start: 09-25-2024 End: 34-71-0937Fnvft 1996 panel - Serum or PlasmaLipid panel Lab Routine Poor control type I diabetes mellitus ([facility]) Expected: 09/25/2024 (Approximate), Expires: 09/25/2025[facility] HealthcareComment on above:Expected: 09/25/2024 (Approximate), Expires: 09/25/2025Start: 09-25-2024 End: 73-98-4191Titmkwllfrwc/Creatinine panel in random UrineMicroalbumin / creatinine urine ratio Lab Routine Poor control type I diabetes mellitus ([facility]) Expected: 09/25/2024 (Approximate), Expires: 09/25/2025[facility] Healthcare Comment on above:Expected: 09/25/2024 (Approximate), Expires: 09/25/2025Start: 09-25-2024 End: 60-87-6256Yfetk function panelRenal function panel Lab Routine Poor control type I diabetes mellitus ([facility]) Expected: 09/25/2024 (Approximate), Expires: 09/25/2025[facility] HealthcareComment on above:Expected: 09/25/2024 (Approximate), Expires: 09/25/2025Start: 09-25-2024 End: 19-74-5688Tqphduu encounter kxlnkdinf65/05/2025 10:00 AM EST Office Visit [facility] [address] [place] [address] Zenia Langford MD [address] [place] [address] Type 2 diabetes mellitus with hyperglycemia, with long-term current use of insulin (CMS/HCC)[facility] ENDOCRINOLOGYComment on above: Type 2 diabetes mellitus with hyperglycemia, with long-term current use of insulin (CMS/HCC)Start: 08-02-2024 End: 68-72-1179GH Heart Wall motion and Ejection fractionNM heart blood pool ejection fraction wall motion (MUGA) Imaging Routine Coronary artery disease inv olving [place] coronary artery of [place] heart without angina pectoris Cardiomyopathy, ischemic S/P PTCA (percutaneous transluminal coronary angioplasty) ST elevation myocardial infarction (STEMI), unspecified artery (Multi) Expected: 08/02/2024, Expires: 07/03/2025[facility] Service Area Work Phone: Comment on above:Expected: 08/02/2024, Expires: 07/03/2025Start: 77-67-2165PqbjvcyzeAvita Health System Ontario Hospitaltart: 06-19-2024 ConsultationAvita Health System Ontario Hospitaltart: 89-91-7895Rqdxrpkj admission [facility] Hospitaltart: 62-32-1503Irqnemrm to cardiac rehabilitation programAvita Health System Ontario Hospitaltart: 57-05-7324Jhtukzzu to cardiologistAvita Health System Ontario Hospitaltart: 95-28-6445Pxadladz admissionAvita Health System Ontario Hospitaltart: 06-94-1432GNVMI-19 Vaccine ( season)COVID-19 Vaccine ( season)[facility]: 87-87-5419GPXST-19 Vaccine ( season)COVID-19 Vaccine ( season)[facility]: 61-24-0865Vnflevhzb vaccinationInfluenza Vaccine (#1)[facility]: 59-62-1010Qmwbstgn specific antigen measurementPSA Prostate Cancer Screening [facility]: 23-41-4085Mpwoea Vaccines (1 of 2)Zoster Vaccines (1 of 2)[facility]: 32-30-6010ZJgT/Tdap/Td Vaccines (1 - Tdap)DTaP/Tdap/Td Vaccines (1 - Tdap)[facility]: 46-25-4744Djjipzxdz B Vaccines (1 of 3 - 19+ 3-dose series) Hepatitis B Vaccines (1 of 3 - 19+ 3-dose series)[facility]: 55-06-3015Ffuskkpzuqkl vaccinationPneumococcal Vaccine (1 of 2 - PCV)[facility]: 63-66-3935Jojta screening for proteinDiabetes: Urine Protein ScreeningUnSelect [facility]: 72-08-4422Jzmxxwjf mellitus screeningDiabetes ScreeningUnSelect [facility]: 34-99-0711Bnjfpcosg C screeningHepatitis C ScreeningUnSelect [facility]: 30-58-8419Ijnpffie screeningDiabetes: Retinopathy ScreeningUnSelect Medical [facility]: 48-81-8350Adwyldotkmac Vaccine: Pediatrics (0 to 5 Years) and At-Risk Patients (6 to 64 Years) (1 of 2 - PCV) Pneumococcal Vaccine: Pediatrics (0 to 5 Years) and At-Risk Patients (6 to 64 Years) (1 of 2 - PCV)[facility]: 99-14-0051XNO Vaccines (1 of 1 - Standard series)MMR Vaccines (1 of 1 - Standard series) [facility]: 97-70-2861Uzykakzjyr measurement Creatinine LevelUnSelect Medical Specialty [facility]: 94-19-3296Qwxgompegelfuc vitamin b-12Vitamin B-12Un[facility]: 1970 Diabetes: Celiac Disease ScreeningDiabetes: Celiac Disease ScreeningUnSelect [facility]: 06-24-3220Drcuknauie A1c measurementDiabetes: Hemoglobin I3RAbuafcgllbSelect Medical Specialty Hospital - [facility]: 78-06-3690ZBG screeningHIV ScreeningUnSelect [facility]: 21-11-7611Jdhda panelLipid PanelUnSelect Medical [facility]: 08-67-3615Gquktibai measurement Potassium LevelUnSelect Medical Specialty [facility]: 24-95-3677Fxkqfgric for malignant neoplasm of colonMadison Health: 1971 Thyroid stimulating hormone measurementDiley Ridge Medical Center: 57-41-7366Vuksug Adult PhysicalYearly Adult PhysicalSamaritan North Health Center End: 31-02-6089Oiueh metabolic 2000 panel - Serum or PlasmaBasic Metabolic Panel Lab Routine Cardiomyopathy, ischemic 1 Occurrences starting 10/07/2024 until 0 10/07/2025[facility] Work Phone: Comment on above:1 Occurrences starting 10/07/2024 until 10/07/2025 End: 13-89-6635Jfrck metabolic 2000 panel - Serum or PlasmaBasic Metabolic Panel Lab Routine Morning draw (Lab) for 1 Occurrences starting 11/28/2024 until 05/2025[facility] Work Phone: Comment on above:Morning draw (Lab) for 1 Occurrences starting 11/28/2024 until 11/28/2024 End: 30-29-2563Sjqecjk device check - InpatientCardiac device check - Inpatient Implantable Cardiac Device Routine Cardiomyopathy, ischemic Once for 1 Occurrences starting 11/28/2024 until 11/28/2024[facility] Work Phone: Comment on above:Once for 1 Occurrences starting 11/28/2024 until 11/28/2024ardiac device check - InpatientCardiac device check - Inpatient Implantable Cardiac Device Routine Cardiomyopathy, ischemic 025 8:02 AM [facility] Work Phone: End: 81-85-5859Tzucfgz Device Check - RemoteUNM [facility] Service Area Work Phone: Comment on above:Once for 1 Occurrences starting 01/07/2025 until 01/07/2025 End: 50-57-3525Jrqnjor Device Check - RemoteUNM [facility]AL [facility] Service Area Work Phone: Comment on above:Once for 1 Occurrences starting 2025 until 2025 End: 02-97-9862GXK panel - Blood by Automated countCBC Lab Routine Cardiomyopathy, ischemic 1 Occurrences starting 10/07/2024 until 10/07/2025 [facility] Work Phone: Comment on above:1 Occurrences starting 10/07/2024 until 10/07/2025 End: 51-65-3378VSD panel - Blood by Automated countCBC Lab Routine Morning draw (Lab) for 1 Occurrences starting 11/28/2024 until 11/28/2024[facility] Work Phone: Comment on above:Morning draw (Lab) for 1 Occurrences starting 11/28/2024 until 11/28/2024 End: 70-38-2327Aziekqq Line RemovalCentral Line Removal Procedures Routine Once for 1 Occurrences starting 11/27/2024 until 11/27/2024[facility] Work Phone: Comment on above:Once for 1 Occurrences starting 11/27/2024 until 11/27/2024ECG 12 lead STATECG 12 lead STAT ECG STAT 11/27/2024 7:19 AM [facility] Work Phone: ECG 12 lead STATECG 12 lead STAT ECG STAT 11/27/2024 10:45 AM [facility] Work Phone: End: 43-50-0138Enfkstgbkxbmkdeuu [facility] Work Phone: Comgaiq on above:Once for 1 Occurrences starting 10/07/2024 until 10/07/2024Glucose [Mass/volume] in Serum or PlasmaSamaritan North Health Center Work Phone: Comment on above:4 times daily before meals and at bedtime until discontinued starting times daily before meals and at bedtime until discontinued starting 11/27/2024, 3 completedICD SUBQ IMPLANTICD SUBQ IMPLANT Cardiomyopathy, ischemicUnTriHealth Bethesda North Hospital Work Phone: Patient EducationSmoking: Not Just Harmful to Your Lungs and Heart Heart Failure, Adult (DC) Heart Attack (DC) Coronary Stenting (DC) Angina (DC) Chest Pain (DC) Quitting smoking Drug Eluting Stents Know your [place] Work Phone: [facility] referralK[facility]tering Health [facility] Work Phone: End: 95-40-4032Ardsppf Platelets: 1 UnitsPrepare Platelets: 1 Units Blood Bank STAT Once for 1 Occurrences starting 11/27/2024 until 11/27/2024[facility] Service Area Work Phone: Comment on above:Once for 1 Occurrences starting 11/27/2024 until 11/27/2024 End: 09-40-2300Jecrgxzoofj time (PT)Protime-INR Lab Routine Cardiomyopathy, ischemic 1 Occurrences starting 10/07/2024 until 10/07/2025[facility] Service Area Work Phone: Comment on above:1 Occurrences starting 10/07/2024 until 10/07/2025[facility] Immunizations Immunization DateImmunizationNotesCare VhfjvnxhNjjpdogs24-56-6512clhifge toxoid, reduced diphtheria toxoid, and acellular pertussis vaccine, adsorbedWilliam Ángel DO Work Phone: [facility] Work Phone: Payers DatePayer CategoryPayerPolicy [id number] Health [id number] Care (Private) [id number] Care HMO (unspecified)[id number] Health [id number] [id number] 2..840.1.704325.3.57[id number] 2.16.840.1.422503.3.57[id number] 2.0.1.950099.3.57[id number] 2.840.1.104244.3.57[id number] 2.0.1.540677.3.57[id number] 2.0.1.145190.3.57[id number] 2..1.435175.3.57[id number] 2..1.824993.3.57[id number] 2..1.652063.3.57[id number] 2..1.283585.3.57[id number] 2..1.330144.3.57[id number] 2..1.747497.3.57[id number] 2..1.486131.3.57[id number] 2..1.300141.3.57[id number] 2.840.1.887557.3.579.2.925520-16-2896Zmrt-[id number] 2.0.1.145403.3.579.2.531 Social History DateTypeDetailFacilityStart: 06-19-2024 End: 37-08-1837Wlphelu smoking status NHISSmoker (finding)[facility] Hospitaltart: 60-62-7826Bwq Assigned At BirthLakeHealth Beachwood Medical Centertart: 07-03-2024 End: 64-84-0786Rjaekep smoking status NHISEx-smokerUnTriHealth Bethesda North Hospital Work Phone: End: 83-43-2738Oewgsii of tobacco useCigarette SmokerUnTriHealth Bethesda North Hospital Work Phone: Start: 07-03-2024 End: 45-34-5477Ldltgsq use and exposureSmokeless tobacco non-userUnTriHealth Bethesda North Hospital Work Phone: Start: 07-03-2024 End: 10-01-4794Moxiaadjx beverage intakeCurrent drinker of alcohol (finding) [facility] Work Phone: Start: 17-59-9565Nytkfrf CommentsocialUnTriHealth Bethesda North Hospital Work Phone: Start: 64-41-2270Jgr assigned at birthNot on file [facility] Work Phone: Start: 07-03-2024 End: 97-37-3993Ieiyqa identityNot on fileSamaritan North Health CenterStart: 06-23-2024 End: 82-23-4801Ljhiqnxr to SARS-CoV-2 (event)Not sureUnTriHealth Bethesda North HospitalStart: 07-03-2024 End: 45-22-3236Agcdnxm of Social functionUnTriHealth Bethesda North Hospital Tobacco smoking status NHISTobacco smoking consumption unknownNOMS HealthcareHas the electric, gas, oil, or water company threatened to shut off services in your home in past 12MoNoUnTriHealth Bethesda North HospitalHow often to you have a drink containing alcohol?4 or more times a weekSamaritan North Health Center Work Phone: How many standard drinks containing alcohol do you have on a typical day?1 or 2UnTriHealth Bethes[facility] North Hospital Work Phone: How often do you have 6 or more drinks on 1 occasion? Less than monthlySamaritan North Health Center Work Phone: How hard is it for you to pay for the very basics like food, housing, medical care, and heatingNot very hardSamaritan North Health Center Work Phone: (I/We) worried whether (my/our) food would run out before (I/we) got money to buy more.Never trueUnTriHealth Bethesda North Hospital Work Phone: Start: 15-15-6531Is the past 12 months, has lack of transportation kept you from medical appointments or from getting medications?No [facility] Work Phone: Start: 75-17-4041GsxZsyq (finding)[facility] Medical Equipment Procedure CodeEquipment CodeEquipment Original TextEquipment IdentifierDatesCL STENT BRUCE FRONTIER 3.5 X 15FDAStart: 48-26-6551Nzkgar, Ev-Icd, Ricarda - [id number] - [id number]: 11-27-2024 Goals DatePatient GoalDesired Activity/State Functional Status TgykLjewkoxrlrZrrgvtBswdymwk63-58-1150Cxplalhoiu statusPatient at Baseline [facility] Work Phone: Mental Status DqckEntrptrmqqVtkjvkFvocupvm34-88-4913Tzhfssrjp functionCognitive Status Patient at BaselineKettering Health Hamilton Work Phone: Clinical Notes 06-19-2024 to 04-02-2025 Note Date & WtvpFghpYxwcdkdf75-44-1966 History of Present illness Narrative* Uriah Neal, DO - 04/02/2025 11:20 AM EDT Chief Complaint Patient presents with Follow-up 6 month follow up for Coronary artery disease involving [place] coronary artery of [place] heart without angina pectoris Subjective Wing Alejandro [...] been reviewed, operative reports reviewed; and previous VA and interventions also reviewed Patient is status post large anterior ST elevation VA as an inpatient at [facility] on June 19, 2024 with primary revascularization [...] 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 Coronary artery disease involving [place] coronary artery of [place] heart without angina pectorisFollow Up In Cardiology [...] exam, discussion and plan. documented in this encounterSamaritan North Health Center Work Phone: 1(268) 705-593608-13-2025 Instructions* Patient Instructions* Yumi Torrez LPN - [...] through Care Everywhere. * Heart Healthy Diet (Botswanan) documented in this [facility] Work Phone: 1(606) 228-973108-05-2025 History of Present illness Narrative* Zenia Langford [...] atorvastatin (LIPITOR) 80 mg, Daily Continuous Glucose Varnish Maker Helper (Dexcom G6 exhibitor sales) device 1 Device, As needed Continuous Glucose [...] type 2 diabetes mellitus with diabetic polyneuropathy ([facility]) Crushing injury of left foot, initial encounter Hyperkalemia Hypertension Impotence Kidney injury Nondisplaced fracture of proximal phalanx of left great toe, initial encounter for closed fracture Pain in left foot Sinus tachycardia STEMI (ST elevation myocardial infarction) ([facility]) Type 2 diabetes mellitus ([facility]) Past Surgical History: Procedure Laterality Date [...] up 3 months documented in this encounterSaint Mary's Hospital of Blue SpringsHvotxpxsls97-48-5796 History of Present illness Narrative* Zenia Langford [...] atorvastatin (LIPITOR) 80 mg, Daily Continuous Glucose Varnish Maker Helper ([employer] G6 exhibitor sales) device 1 Device, As needed Continuous Glucose [...] History: Diagnosis Date CAD (coronary artery disease) ([facility]) Cardiomyopathy ([facility]) Cervical disc disease 05/2024 Controlled type 2 diabetes mellitus with diabetic polyneuropathy ([facility]) Crushing injury of left foot, initial encounter Hyperkalemia Hypertension ([facility]) Impotence Kidney injury Nondisplaced fracture of proximal phalanx of left great toe, initial encounter for closed fracture Pain in left foot Sinus tachycardia STEMI (ST elevation myocardial infarction) ([facility]) ([facility]) Type 2 diabetes mellitus ([facility]) Past Surgical History: Procedure Laterality Date [...] visit: Poor control type I diabetes mellitus ([facility]) - POCT glucose manually resulted - POCT glycosylated hemoglobin (Hb A1C) docked device - Insulin Lispro 100 UNIT/ML solution; Inject 60 Units as directed Daily Continue the same settings. Primary hypertension ([facility]) Encounter for dietary consultation Vitamin D deficiency Hyperlipemia, mixed ([facility]) Insulin long-term use ([facility]) Insulin pump status Encounter for fitting and adjustment of insulin pump Follow up 3 months documented in this encounterSaint Mary's Hospital of Blue SpringsDrcmkrmitc66-34-5001 Plan of care note* Care Plan - Lo Franklin RN - 11/28/2024 10:16 AM EDT The patient's goals for the shift include The clinical goals for the shift include Patient will remain hemodynamically stable through end of shift [facility]04-10-2025 Miscellaneous Notes* Care Plan - Lo Franklin [...] (L) Operative Note Date: 11/27/2024 OR Location: [facility] Cardiac Evaporator Helper Name: Wing Alejandro, : 1970, Age: 54 y.o., , Sex: male Diagnosis Pre-op Diagnosis * Cardiomyopathy, ischemic [I25.5] Post-op Diagnosis * Cardiomyopathy, ischemic [I25.5] Procedures Anterior mediastinal exploration (mediastinoscopy with Arthrex Sandra Needle scope 250 mm)(SN:[id number]) Placement of anterior mediastinal extra vascular lead (Medtronic EV 2401 63 cm)(SN: [id number]) Placement of Ricarda EV-ICD (Medtronic [id number])(SN: [id number]) Testing of lead Initiation and termination of ventricular fibrillation Surgeons * Maris Ramos - Primary * Priya Lopez - Primary Drs. Ramos and Jessica should be considered co-surgeons. Dr. Ramos is responsible for testing of lead, implantation of AICD generator, initiation and termination of ventricular fibrillation. Dr. Lopez is responsible for mediastinal exploration (mediastinoscopy), and placement of anterior mediastinal lead. Resident/Fellow/Other Tube Heater: Americo Schumacher SA Staff: Production Team Leader: Stephanie Production Team Leader: Faith Nava Person: Shala Production Team Leader: Fatimah Anesthesia Staff: Anesthesiologist: Denae Carreon MD EQUIPMENT INSPECTOR: Shady Fernandez APRN-EQUIPMENT INSPECTOR Procedure Summary Anesthesia: General ASA: III Estimated [...] Serial No. ICD DEVICE, EV-ICD, RICARDA - [id number] - [id number] Implanted [id number] Findings: The anterior mediastinal space was free [...] sternum up to the santosh. The 9 Egyptian sheath had been prefilled with saline, and [...] ICD lead was placed through the 9 Egyptian sheath using direct fluoroscopic guidance. The sheath [...] and stable. Condition: stable Tasks performed by Water Fabricator Operator: Placement of crowley bladder catheter. Surgical prep [...] alternatives discussed with patient. documented in this [facility] Work Phone: 1(170) 545-687104-10-2025 Hospital Discharge instructions* Discharge Instructions* Georgia Carias APRN-BRASS INSTRUMENT REPAIR TECHNICIAN - 11/28/2024 9:37 AM EDT Images from [...] driving restrictions with your doctor. Do not forklift picker items that weigh greater than 10 lbs [...] have been instructed by the device company appliance service representative regarding remote home monitoring. There are [...] your After Visit Summary. documented in this encounterSamaritan North Health Center Work Phone: 1(910) 820-986504-10-2025 Hospital course Narrative* Matthew Feldman DO - [...] HTN, and former smoker who presented to [facility] for placement Ricarda EV-ICD. Interval ICU Events: [...] Time Provider Department Center 12/04/2024 2:00 PM [facility] YOCASTA RECORD PRESSMAN 1 [id number] [place] 03/07/2025 11:20 AM [facility] 3 [id number] [place] 03/07/2025 12:00 PM Maris Ramos MD [id number] [place] 04/02/2025 11:20 AM Uriah Neal DO [id number] [place] Matthew Feldman DO documented in this [facility] Work Phone: 1([phone]) 895-926904-09-2025 Plan of care note* Care Plan - Juliet Topete RN - 11/27/2024 7:33 PM EDT Problem: Pain - Adult Goal: Verbalizes/displays adequate comfort level or baseline comfort level Outcome: Progressing Problem: Safety - Adult Goal: Free from fall injury Outcome: Progressing The patient's goals for the shift include The clinical goals for the shift include pt will remain hds throughout shift [facility]04-09-2025 History of Present illness Narrative * Priya [...] discharged tomorrow without event. documented in this encounterSamaritan North Health Center Work Phone: [phone]) 355-568704-09-2025 Plan of care note* Care Plan - [...] The clinical goals for the shift include [facility] Work Phone: [phone] 621-951204-09-2025 NoteSubsternal implantable cardioverter defibrillator implantation Procedures: Substernal [...] under general anesthesia (administered and monitored by credit specialist and EQUIPMENT INSPECTOR). The optimal position of subcutaneous ICD generator [...] removed. A single-chamber cardioverter defibrillator ( Medtronic KTRL0Y3 # [id number] ) was attached to the lead and [...] of infection. The patient should call the transition manager immediately if symptoms recur, or for any [...] Ramos MD Please also see Dr. Lopez's note.[id number] History and physical note* Anu Durant, ASSEMBLING FABRICATOR-BRASS INSTRUMENT REPAIR TECHNICIAN - 11/27/2024 10:53 AM EDT [facility] Critical Care Medicine Date: 11/27/2024 Patient: Wing [...] HTN, and former smoker who presented to [facility] for placement Ricarda EV-ICD. Interval ICU Events: [...] Trend CBC OBGYN/MSK: OOB Ethics/Code Status: FULL Incident Engineer: DVT Prophylaxis: per EP, hold for now [...] include completion of procedure time. [facility]RA Lei [facility] Work Phone: 1([phone]) 605-621104-09-2025 History and physical note* TYRA Lei - 11/27/2024 10:53 AM EDT [facility] Critical Care Medicine Date: 11/27/2024 Patient: Wing [...] HTN, and former smoker who presented to [facility] for placement Ricarda EV-ICD. Interval ICU Events: [...] late afternoon). 180 tablet 3 11/27/2024 Morning [employer] G6 Transmitter device USE 1 DEVICE EVERY [...] Trend CBC OBGYN/MSK: OOB Ethics/Code Status: FULL Incident Engineer: DVT Prophylaxis: per EP, hold for now [...] failure medications. Status post large anterior wall [id number] for. LVEF 33%. For EVICE. Preop cardiac evaluation performed. Consent confirmed. Other medical issues diabetes mellitus, former smoker, and coronary disease status post PCI LAD noted. Will monitor blood sugar intrasoperatively. Counseling over 50% visit performed. The patient and I discussed bloodwork, diabetes appointment, preop cardiac evaluation, consent for procedure, shared decision making, [place] decision tool, treatment options, risks, benefits, and [...] atorvastatin (LIPITOR) 80 mg, Daily Continuous Glucose Varnish Maker Helper ([employer] G6 exhibitor sales) device 1 Device, As needed Continuous Glucose [...] History: Diagnosis Date CAD (coronary artery disease) ([facility]) Cardiomyopathy ([facility]) Cervical disc disease 05/2024 Controlled type 2 diabetes mellitus with diabetic polyneuropathy ([facility]) Crushing injury of left foot, initial encounter Hyperkalemia Hypertension ([facility]) Impotence Kidney injury Nondisplaced fracture of proximal phalanx of left great toe, initial encounter for closed fracture Pain in left foot Sinus tachycardia STEMI (ST elevation myocardial infarction) ([facility]) ([facility]) Type 2 diabetes mellitus ([facility]) Past Surgical History: Procedure Laterality Date [...] visit: Poor control type I diabetes mellitus ([facility]) - POCT glucose manually resulted We will continue with the same insulin pump settings, we will send him lispro vial for insulin pump Primary hypertension (CMS/HCC) Encounter for dietary consultation Vitamin D deficiency Hyperlipemia, mixed (CMS/HCC) Insulin long-term use (CMS/HCC) Insulin pump status Encounter for fitting and adjustment of insulin pump Follow up in about 3 months (around 02/20/2025). documented in this encounterSamaritan [facility] Center Work Phone: 1(278) 632-437504-09-2025 History and physical note* Anu Durant APRN-BRASS INSTRUMENT REPAIR TECHNICIAN - 11/27/2024 10:53 AM EDT [facility] Critical Care Medicine Date: 11/27/2024 Patient: Wing [...] HTN, and former smoker who presented to [facility] for placement Ricarda EV-ICD. Interval ICU Events: [...] Trend CBC OBGYN/MSK: OOB Ethics/Code Status: FULL Incident Engineer: DVT Prophylaxis: per EP, hold for now post procedure GI Prophylaxis: no indication Bowel Regimen: as needed Diet: cardiac/ diabetic CVC: yes, discontinue [place]: yes, discontinue Crowley: yes, discontinue Restraints: none [...] failure medications. Status post large anterior wall [id number] for. LVEF 33%. For EVICE. Preop cardiac evaluation performed. Consent confirmed. Other medical issues diabetes mellitus, former smoker, and coronary disease status post PCI LAD noted. Will monitor blood sugar intrasoperatively. Counseling over 50% visit performed. The patient and I discussed bloodwork, diabetes appointment, preop cardiac evaluation, consent for procedure, shared decision making, [place] decision tool, treatment options, risks, benefits, and [...] atorvastatin (LIPITOR) 80 mg, Daily Continuous Glucose Varnish Maker Helper ([employer] G6 exhibitor sales) device 1 Device, As needed Continuous Glucose [...] History: Diagnosis Date CAD (coronary artery disease) ([facility]) Cardiomyopathy ([facility]) Cervical disc disease 05/2024 Controlled type 2 diabetes mellitus with diabetic polyneuropathy ([facility]) Crushing injury of left foot, initial encounter Hyperkalemia Hypertension ([facility]) Impotence Kidney injury Nondisplaced fracture of proximal phalanx of left great toe, initial encounter for closed fracture Pain in left foot Sinus tachycardia STEMI (ST elevation myocardial infarction) ([facility]) ([facility]) Type 2 diabetes mellitus ([facility]) Past Surgical History: Procedure Laterality Date [...] visit: Poor control type I diabetes mellitus ([facility]) - POCT glucose manually resulted We will continue with the same insulin pump settings, we will send him lispro vial for insulin pump Primary hypertension ([facility]) Encounter for dietary consultation Vitamin D deficiency Hyperlipemia, mixed ([facility]) Insulin long-term use ([facility]) Insulin pump status Encounter for fitting and adjustment of insulin pump Follow up in about 3 months (around 02/20/2025). documented in this encounterSam[facility] Work Phone: 1(357) [phone] Nurse Note* Maryanne Irvin RN - 11/27/2024 10:35 AM EDT Pt arrived to micu 8 attached to icu monitors. Anu RAMÍREZ at bedside. [facility]04-09-2025 Nurse Note* Maryanne Irvin RN - 11/27/2024 [...] in the last year. documented in this encounterSamaritan [facility] Health Center Work Phone: 1(232) 503-766404-09-2025 Nurse Note* Maryanne Irvin RN - 11/27/2024 [...] in the last year. documented in this encounterSamaritan [facility] Center Work Phone: 1([phone]) 207-346004-09-2025 Surgery Surgical operation note* Op Note - Priya Lopez MD - 11/27/2024 8:10 AM EDT ICD SUBQ Implant (L) Operative Note Date: 11/27/2024 OR Location: [facility] Cardiac Evaporator Helper Name: Wing Alejandro, : 1970, Age: 54 y.o., , Sex: male Diagnosis Pre-op Diagnosis * Cardiomyopathy, ischemic [I25.5] Post-op Diagnosis * Cardiomyopathy, ischemic [I25.5] Procedures Anterior mediastinal exploration (mediastinoscopy with Arthrex Sandra Needle scope 250 mm)(SN:[id number]) Placement of anterior mediastinal extra vascular lead (Medtronic EV 2401 63 cm)(SN: [id number]) Placement of Ricarda EV-ICD (Medtronic [id number])(SN: [id number]) Testing of lead Initiation and termination of ventricular fibrillation Surgeons * Maris Ramos - Primary * Priya Lopez - Primary Drs. Ramos and Jessica should be considered co-surgeons. Dr. Ramos is responsible for testing of lead, implantation of AICD generator, initiation and termination of ventricular fibrillation. Dr. Lopez is responsible for mediastinal exploration (mediastinoscopy), and placement of anterior mediastinal lead. Resident/Fellow/Other Tube Heater: Americo Schumacher SA Staff: Production Team Leader: Stephanie Production Team Leader: Faith Mcmanusub Person: Shala Production Team Leader: Fatimah Anesthesia Staff: Anesthesiologist: Denae Carreon MD EQUIPMENT INSPECTOR: Shady Fernandez APRN-GARRETT Procedure Summary Anesthesia: General [...] Serial No. ICD DEVICE, EV-ICD, RICARDA - [id number] - [id number] Implanted [id number] Findings: The anterior mediastinal space was free [...] to discuss defibrillator. He works with [employer]. He states that multiple coworkers [...] sternum up to the santosh. The 9 Egyptian sheath had been prefilled with saline, and [...] ICD lead was placed through the 9 Egyptian sheath using direct fluoroscopic guidance. The sheath [...] and stable. Condition: stable Tasks performed by Water Fabricator Operator: Placement of crowley bladder catheter. Surgical prep and draping of patient Assistance with sub-xiphoid incision Performed surgical site closure Monitoring and transport of patient to ICU Attending Attestation: I was present and scrubbed for the entire procedure. Priya Lopez MD [facility] Work Phone: 1([phone]) 326-435404-09-2025 Miscellaneous Notes* Op Note - Priya Lopez MD - 11/27/2024 8:10 AM EDT ICD SUBQ Implant (L) Operative Note Date: 11/27/2024 OR Location: [facility]ENC[facility] Cardiac Evaporator Helper Name: Wing Alejandro, : 1970, Age: 54 y.o., , Sex: male Diagnosis Pre-op Diagnosis * Cardiomyopathy, ischemic [I25.5] Post-op Diagnosis * Cardiomyopathy, ischemic [I25.5] Procedures Anterior mediastinal exploration (mediastinoscopy with Arthrex Sandra Needle scope 250 mm)(SN:[id number]) Placement of anterior mediastinal extra vascular lead ([employer]tronic EV 2401 63 cm)(SN: [id number]) Placement of Ricarda EV-ICD (Medtronic [id number])(SN: [id number]) Testing of lead Initiation and termination of ventricular fibrillation Surgeons * Maris Ramos - Primary * Priya Lopez - Primary Drs. Ramos and Jessica should be considered co-surgeons. Dr. Ramos is responsible for testing of lead, implantation of AICD generator, initiation and termination of ventricular fibrillation. Dr. Lopez is responsible for mediastinal exploration (mediastinoscopy), and placement of anterior mediastinal lead. Resident/Fellow/Other Tube Heater: Americo Schumacher SA Staff: Production Team Leader: Stephanie Production Team Leader: Faith Scrub Person: Shala Production Team Leader: Fatimah Anesthesia Staff: Anesthesiologist: Denae Carreon MD EQUIPMENT INSPECTOR: Shady Fernandez APRN-GARRETT Procedure Summary Anesthesia: General [...] Serial No. ICD DEVICE, EV-ICD, RICARDA - [id number] - [id number] Implanted [id number] Findings: The anterior mediastinal space was free [...] sternum up to the santosh. The 9 Egyptian sheath had been prefilled with saline, and [...] ICD lead was placed through the 9 Egyptian sheath using direct fluoroscopic guidance. The sheath [...] and stable. Condition: stable Tasks performed by Water Fabricator Operator: Placement of crowley bladder catheter. Surgical prep [...] alternatives discussed with patient. documented in this [facility] Work Phone: 1(114) 802-799104-09-2025 Attending History and physical note* Maris Ramos [...] failure medications. Status post large anterior wall [id number] for. LVEF 33%. For EVICE. Preop cardiac evaluation performed. Consent confirmed. Other medical issues diabetes mellitus, former smoker, and coronary disease status post PCI LAD noted. Will monitor blood sugar intrasoperatively. Counseling over 50% visit performed. The patient and I discussed bloodwork, diabetes appointment, preop cardiac evaluation, consent for procedure, shared decision making, [place] decision tool, treatment options, risks, benefits, and [...] atorvastatin (LIPITOR) 80 mg, Daily Continuous Glucose Varnish Maker Helper ([employer] G6 exhibitor sales) device 1 Device, As needed Continuous Glucose [...] History: Diagnosis Date CAD (coronary artery disease) ([facility]) Cardiomyopathy ([facility]) Cervical disc disease 05/2024 Controlled type 2 diabetes mellitus with diabetic polyneuropathy ([facility]) Crushing injury of left foot, initial encounter Hyperkalemia Hypertension ([facility]) Impotence Kidney injury Nondisplaced fracture of proximal phalanx of left great toe, initial encounter for closed fracture Pain in left foot Sinus tachycardia STEMI (ST elevation myocardial infarction) ([facility]) ([facility]) Type 2 diabetes mellitus ([facility]) Past Surgical History: Procedure Laterality Date [...] visit: Poor control type I diabetes mellitus ([facility]) - POCT glucose manually resulted We will continue with the same insulin pump settings, we will send him lispro vial for insulin pump Primary hypertension ([facility]) Encounter for dietary consultation Vitamin D deficiency Hyperlipemia, mixed ([facility]) Insulin long-term use ([facility]) Insulin pump status Encounter for fitting and adjustment of insulin pump Follow up in about 3 months (around 02/20/2025). [facility] Work Phone: 1(436) 350-129104-09-2025 Nurse procedure note* Pre-Sedation Documentation - Maris Ramos MD - 11/27/2024 7:42 AM EDT Sedation Plan ASA 2 Mallampati class: II. Risks, benefits, and alternatives discussed with patient. [facility] Work Phone: 1(109) 968-306004-09-2025 Nurse Note* Sudheer Flanagan RN - 11/27/2024 6:57 AM EDT Report called to Holding Room and EP Lab. Pt placed into transport for Holding Room. Fredid Georgia Carias CNP regarding Vancomycin order. Pt has been hospitalized overnight in the last year. [facility] Work Phone: 1(246) 589-768204-03-2025 History of Present illness Narrative* Zenia Langford [...] atorvastatin (LIPITOR) 80 mg, Daily Continuous Glucose Varnish Maker Helper ([employer] G6 exhibitor sales) device 1 Device, As needed Continuous Glucose [...] History: Diagnosis Date CAD (coronary artery disease) ([facility]) Cardiomyopathy ([facility]) Cervical disc disease 05/2024 Controlled type 2 diabetes mellitus with diabetic polyneuropathy ([facility]) Crushing injury of left foot, initial [...] visit: Poor control type I diabetes mellitus ([facility]) - POCT glucose manually resulted We will continue with the same insulin pump settings, we will send him lispro vial for insulin pump Primary hypertension ([facility]) Encounter for dietary consultation Vitamin D deficiency Hyperlipemia, mixed ([facility]) Insulin long-term use ([facility]) Insulin pump status Encounter for fitting and adjustment of insulin pump Follow up in about 3 months (around 02/20/2025). [facility] [id number] History of Present illness Narrative* Maris Ramos [...] here to discuss defibrillator. He works with [employer] for [employer]. He states that multiple coworkers [...] 2 times daily (morning and late afternoon) [employer] G6 Transmitter device USE 1 DEVICE EVERY [...] visit: Cardiomyopathy, ischemic Coronary artery disease involving [place] coronary artery of [place] heart without angina pectoris History of placement of stent in LAD coronary artery Mixed hyperlipidemia S/P PTCA (percutaneous transluminal coronary angioplasty) ST elevation myocardial infarction (STEMI), unspecified artery (Multi) BMI 21.0-21.9, adult Former smoker Encounter for medication review and counseling Encounter to discuss treatment options Encounter to establish care with new doctor Zandra Velasco RN Ischemic cardiomyopathy on optimal heart failure medications. Status post large anterior wall [id number] for. LVEF remains below 35% after 40 days post VA. Will order limited echo to re-evaluate LVEFater 90 days post revascularization. Decision making performed. [place] decision tool used. Treatment options, risk, benefits, [...] performed. Patient, , and I discussed previous VA, cardiomyopathy, LVEF, what indications for defibrillator, types of defibrillator, arc welding defibrillator, provided patient brochure on defibrillator and environmental interaction and patient letter from [employer], [place] decision tool, shared decision making, informed consent, treatment options, risk, benefits, and imponderables. All questions answered in detail. Patient and very appreciative care documented in this [facility] Work Phone: 1(655) 896-143002-17-2025 Instructions* Patient Instructions* Zandra Velasco RN - 10/07/2024 11:00 AM EST Images from the original note were not included. Pre-Procedure Patient Information You have been scheduled for: Extravascular ICD At: [facility] With: Dr. Ramos and Dr. Lopez Date [...] day before your scheduled procedure, please call [phone]. 3. Please bring a current list of [...] any questions, please contact the office at [phone]. SCHEDULE EVICD implant. Obtain labs 1 week [...] MD, FACC, FACP, FHRS documented in this [facility] Work Phone: 1(162) 537-905802-12-2025 History of Present illness Narrative* Uriah Neal, DO - 10/02/2024 10:40 AM EST Subjective Wing Alejandro is a 54 y.o. male Chief Complaint Follow-up 54-year-old gentleman added on to the office today for new findings on cardiac imaging. 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 He is now a candidate for AICD, risks, benefits, alternatives and informed decision-making process performed with the patient and his for 30 minutes this morning in regards to appropriate GDMT as well as AICD placement as well as arc welding being a contraindication going forward. I have askedhim to consult with his transition manager further in regards to his occupation and [...] 3 Assessment/Plan 1. Coronary artery disease involving [place] coronary artery of [place] heart without angina pectorisFollow Up In Cardiology [...] exam, discussion and plan. documented in this [facility] Work Phone: 1([phone]) 624-167802-12-2025 Instructions* Patient Instructions* Yumi Torrez LPN - [...] your visit. 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 Coronary artery disease involving [place] coronary artery of [place] heart without angina pectoris 2. Cardiomyopathy, ischemic 3. S/P PTCA (percutaneous transluminal coronary angioplasty) 4. ST elevation myocardial infarction (STEMI), unspecified artery (Multi) 5. Type 2 diabetes mellitus without complication, with long-term current use of insulin (Multi) 6. Former smoker 7. Body mass index (BMI) 19.9 or less, adult Scribe Attestation By signing my name below, I, Rekha RosarioSerena VICKERS , Scribe attest that this documentation [...] exam, discussion and plan. [facility] Work Phone: 1(113) 903-219811-13-2024 Instructions* Patient Instructions* Martha Mckeon RN - [...] time of your visit. documented [facility] Work Phone: 1(378) 372-767110-31-2024 Procedure [facility]10-31-2024 Hospital Discharge instructions Additional Instructions DISCHARGE [...] doctor or pharmacist, without first calling the beer merchant who implanted the stent. If you require [...] weight lifting, stair steppers, etc. until the beer merchant approves these activities. Check with the beer merchant on your first follow-up visit. CALL YOUR ENVELOPE CUTTER: -If bleeding should occur from the catheter insertion site- apply pressure to the site then immediately call us. -Report any fever, redness, drainage, increased swelling, or firmness at the catheter insertion site. Some bruising or slight swelling may be present at the time of discharge. -Should arm or leg become cold, numb, white, or blue, contact the beer merchant immediately. -IF you should experience episodes of [...] Cardiopulmonary Rehabilitation program is recommended. The attending beer merchant or a nurse clinician should provide you with specific instructions regarding activity, diet, medications, and further follow up for you. Follow the medication instructions provided on your discharge. If the dosages and instructions on this sheet differ from the dosage and instructions on the bottle, follow the instructions on the bottle. [facility] is not responsible for incorrect prescription information provided by the patient during their visit. Do not stop your medications without consulting your health care provider. Please take the list with you to your next doctor's appointment.[facility] Work Phone: 1(500) [phone] Consult note Author Amy Lozoya [facility] June 19, 2024 12:38pmNote Date/TimeOct2023 12:28pm[place] [address] Pulmonology Consult Note Signed Patient: Wing Alejandro MR#: [id number] : 1970 Acct:[id number] Age/Sex: 54 / M Adm Date: 4 Loc: Room: [address] [place] [address] Type: ADM IN Attending Dr: Mekhi Powers MD Copies to: NON STAFF MD Amy Soliz MD~ HPI Date/Time of Consultation: Date of Service: 06/19/2024 Time of Service: 12:21 Consulting Provider: Amy Lozoya Requesting Provider: Mekhi Powers History of Present Illness History of present illness: Mr. Alejandro is a 54 year old male smoker 1PPD, type I diabetes, presents to [place] ER with chest pain that has been ongoing for 2 weeks. Subsequent ECGs showed he evolved into an anterior STEMI and was transferred emegently this AM to [facility] for emergent cath with Dr. Kirk. PCI was performed at 0822; 72 minutes after recognition and review of in-house ECG, with Primary PCI distal left main?ostial/proximal LAD with 4 x 15 mm Bruce stent (per cardiology notes). CT chest at [place] reviewed, bilateral effusions and likely cardiogenic pulmonary edema with underlying emphysema. Patient denies productive cough or fevers, just PERDOMO. EF reported reduced 30%. Currently stable post cath in ICU. Review of Systems Review of Systems Review of systems: see HPI [facility] Social History Smoking Status: Current every [...] signed by Amy Lozoya MD> 06/19/24 1238 [facility] Work Phone: 1(863) 382-196110-30-2024 Progress note Author Mekhi Powers [facility] June 19, 2024 9:46amNote Date/TimeOctober 2023 9:44[place] [address] Hospitalist Progress Note Signed Patient: Wing Alejandro MR#: [id number] : 1970 Acct:[id number] Age/Sex: 54 / M Adm Date: 4 Loc: Room: [address] [place] [address] Type: ADM IN Attending Dr: Mekhi Powers [...] morning indicated ST elevation in anteroseptal leads. Ovhek-fk-fsik ultrasound shows moderate to severe LV dysfunction. Interventional cardiology service contacted, patient taken to the Evaporator Helper this morning,and he was found to have [...] 81 Mg Tablet.Dr PO 06/19/25 08:59 DAILY [facility] Atorvastatin Calcium 80 mg 06/19/24 21:00 Atorvastatin [...] Mg/0.4 Ml Syringe SUBCUT 06/19/25 09:59 DAILY@10 [facility] Glucose 0 gm 06/19/24 06:05 Dextrose 40% Gel 15 Gm Tube PO 06/19/25 06:04 PRN PRN Hypoglycemia Dextrose/Sodium Chloride 1,000 mls @ 100 mls/hr 06/19/24 09:00 5 % Dextrose-0.45 % Nacl IV 06/19/24 18:59 .Q10H [facility] Sodium Chloride 250 mls @ 999 mls/hr [...] troponin in the setting of type II VA versus non-STEMI History of type 1 diabetes on insulin -Patient presented with above HPI, physical exam findings lab and imaging results as well as ED course at [facility] -Pt has been chest pain free [...] on-call, patient will be taken to the Evaporator Helper and I will give Brilinta 180 mg p.o. once, pt is already NPO as discussed earlier. With the help of my colleague, a bedside echo was done showing an EF of approximately 15-20%. Documented By: Mekhi Powers MD 06/19/24 0941 Signed By: <Electronically signed by Mekhi Powers MD> 06/19/24945 [facility] Work Phone: 1(594) 440-380210-30-2024 Consult note Author Nuria Neal [facility] June 19, 2024 9:23amNote Date/TimeOct2023 9:24[place] [id number] Cardiology Consult Note Signed Patient: Wing Alejandro MR#: [id number] : 1970 Acct:[id number] Age/Sex: 54 / M Adm Date: 4 Loc: 4 Room: [address] [place] [address] Type: ADM IN Attending Dr: Mekhi Powers MD Copies to: NON STAFF Mekhi Powers MD W Julián Neal, DO~ Cardiology HPI History of Present Illness Consult Date: 06/19/24 Reason for Consult: Anterior STEMI HPI: Mr. Alejandro is a 54 year old male seen in emergent interventional cardiology consultation at request of hospitalist earlier this morning and patient was transferred from [place] ER with acute coronarysyndrome; initial ECGs from [place] did not reveal STEMI criteria. Patient arrived at 0531, and in clinically and hemodynamically stable condition. Subsequent ECGs on the progressive unit performed revealing evolving anterior STEMI performed at 0648, hospitalist contacted interventional cardiologyimmediately at 0700; Evaporator Helper team was activated; PCI was performed at [...] HPI and Reports chest pain at rest [facility] Social History Smoking Status: Current every [...] Interpretations EKG EKG results cardiology: sinus rhythm VA, pacemaker, normal Myocardial infarction: anterior VA (acute or recent) A&P - Cardiology (1) ST elevation myocardial infarction (STEMI) of anterior wall: Assessment/Problem Details: Initially presented with ACS at [facility] and converted to anterior STEMI after arrival at [facility] Code(s): I21.09 - ST elevation (STEMI) [...] signed by Nuria Neal DO> 06/19/24 0923 [facility] Work Phone: 1(896) 312-319010-30-2024 History and physical note Author Katlin Salvador [facility] June 19, 2024 7:20amNote Date/TimeOct2023 6:08[place], [place] [address] Hospitalist H&P Signed Patient: Wing Alejandro MR#: [id number] : 1970 Acct:[id number] Age/Sex: 54 / M Adm Date: 4 Loc: Room: [address] [place] [address] Type: ADM IN Attending Dr: Mekhi Powers MD Copies to: NON STAFF MD Katlin Soliz MD~ HPI DATE OF EXAMINATION: 06/19/24 CHIEF COMPLAINT: Chest pain and SOB of 2 weeks duration HISTORY OF PRESENT ILLNESS: This is a 54-year-old male with past medical history of type I diabetes, tobaccouse, presented initially to [facility] complaining of chest pain of 2 weeks duration. History obtained from the patient at bedside as well as from the ED physician at [facility] as well as from his chart from his ED stay. 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 2 [...] night he came to the ED at [place] for further workup and management. He denies having this pain before. He denies any fever orchills, he denies any cough. He denies any PND orthopnea orleg swelling. At [place] ED, he had a heart rate of [...] and vascular congestion. In the ED at [place] patient received IV Lasix once, and patient [...] troponin in the setting of type II VA versus non-STEMI History of type 1 diabetes on insulin -Patient presented with above HPI, physical exam findings lab and imaging results as well as ED course at [facility] -Pt has been chest pain free [...] on-call, patient will be taken to the Evaporator Helper and I will give Brilinta 180 mg [...] signed by Katlin Salvador MD> 06/19/24 0720 [facility] Work Phone: 1([phone]) 987-462810-30-2024 [facility] noteCh[facility] HospitalEvaluation note * Diagnosis Onset Date Resolution Status CHF exacerbation acuteIschemic cardiomyopathyacuteST elevation myocardial infarction (STEMI) of anterior wallacuteTobacco abuseacuteType 1 diabetesacute [facility] Work Phone: Evaluation note* Diagnosis Coronary artery disease involving [place] coronary artery of [place] heart without angina pectoris Cardiomyopathy, ischemic Other [...] or less, adult documented in this encounter [facility] Work Phone: Evaluation note* Diagnosis Coronary artery disease involving [place] coronary artery of [place] heart without angina pectoris Cardiomyopathy, ischemic Other specified forms of chronic ischemic heart disease S/P PTCA (percutaneous transluminal coronary angioplasty) Postsurgical percutaneous transluminal coronary angioplasty status ST elevation myocardial infarction (STEMI), unspecified artery (Multi) documented in this encounter [facility] Work Phone: Evaluation note* Diagnosis Poor control type I diabetes mellitus (CMS/HCC)- Primary Type I (juvenile type) diabetes mellitus without mention of complication, uncontrolled Primary hypertension ([facility]) Unspecified essential hypertension Encounter for dietary consultation Vitamin D deficiency Hyperlipemia, mixed ([facility]) Mixed hyperlipidemia Insulin long-term use ([facility]) Encounter for long-term (current) use of insulin documented in this encounter [facility] HealthcareEvaluation note* Diagnosis Coronary artery disease involving [place] coronary artery of [place] heart without angina pectoris ST elevation myocardial infarction (STEMI), unspecified artery (Multi) S/P PTCA (percutaneous transluminal coronary angioplasty) Postsurgical percutaneous transluminal coronary angioplasty status History of placement of stent in LAD coronary artery Cardiomyopathy, ischemic Other specified forms of chronic ischemic heart disease Former smoker Personal history of tobacco use, presenting hazards to health BMI 21.0-21.9, adult documented in this encounter [facility] Work Phone: Evaluation note* Diagnosis Cardiomyopathy, ischemic- Primary Other specified forms of chronic ischemic heart disease Coronary artery disease involving [place] coronary artery of [place] heart without angina pectoris History of placement [...] with new doctor documented in this encounter [facility] Work Phone: Evaluation note* Diagnosis Poor control type I diabetes mellitus ([facility])- Primary Type I (juvenile type) diabetes mellitus without mention of complication, uncontrolled Primary hypertension ([facility]) Unspecified essential hypertension Encounter for dietary consultation Vitamin D deficiency Hyperlipemia, mixed ([facility]) Mixed hyperlipidemia Insulin long-term use ([facility]) Encounter for long-term (current) use of insulin Insulin pump status Encounter for fitting and adjustment of insulin pump documented in this encounter [facility] HealthcareEvaluation note* Diagnosis Cardiomyopathy, ischemic- Primary Other specified forms of chronic ischemic heart disease Cardiomyopathy Other primary cardiomyopathies documented in this encounter [facility] Work Phone: Evaluation note* Diagnosis Cardiomyopathy, ischemic- Primary Other specified forms of chronic ischemic heart disease Cardiomyopathy, ischemic Other specified forms of chronic ischemic heart disease Post-op pain Other acute postoperative pain Cardiomyopathy Other primary cardiomyopathies Cardiomyopathy, ischemic Other specified forms of chronic ischemic heart disease documented in this encounter [facility] Work Phone: Evaluation note* Diagnosis Poor control [...] Other primary cardiomyopathies documented in this encounter [facility] Work Phone: Evaluation note* Diagnosis Primary hypertension- [...] HealthcareEvaluation note* Diagnosis Coronary artery disease involving [place] coronary artery of [place] heart without angina pectoris Cardiomyopathy, unspecified type [...] hazards to health documented in this encounter [facility] Work Phone: Evaluation note* Diagnosis Presence of automatic cardioverter/defibrillator (AICD) Automatic implantable cardiac defibrillator in situ Non-ischemic cardiomyopathy (Multi) Other primary cardiomyopathies documented in this encounter [facility] Work Phone: Progress note Author Nuria Neal [facility] June 20, 2024 4:44pmNote Date/TimeOct2023 4:44pmA[place] [id number] Cardiology Progress Note Signed Patient: Wing Alejandro MR#: [id number] : 1970 Acct:[id number] Age/Sex: 54 / M Adm Date: 4 Loc: Room: [address] [place] [address] Type: ADM IN Attending Dr: Mekhi Powers MD Copies to: ~ Date of Service: 06/20/2024 Subjective Principal diagnosis: Anterior STEMI Interval history: Mr. Alejandro is a 54 year old male seen in emergent interventional cardiology consultation at request of hospitalist earlier this morning and patient was transferred from [place] [facility] with acute coronarysyndrome; initial ECGs from [place] did not reveal STEMI criteria. Patient arrived at 0531, and in clinically and hemodynamically stable condition. Subsequent ECGs on the progressive unit performed revealing evolving anterior STEMI performed at 0648, hospitalist contacted interventional cardiologyimmediately at 0700; Evaporator Helper team was activated; PCI was performed at [...] % (Auto) 68.1 Lymph % (Auto) 19.8 [place] % (Auto) 10.6 Eos % (Auto) 0.8 Baso % (Auto) 0.7 Nucleat RBC Rel Count 0.1 Neut # (Auto) 6.0 Lymph # (Auto) 1.8 [place] # (Auto) 0.9 H Eos # (Auto) [...] MPV Neut % (Auto) Lymph % (Auto) [place] % (Auto) Eos % (Auto) Baso % (Auto) Nucleat RBC Rel Count Neut # (Auto) Lymph # (Auto) [place] # (Auto) Eos # (Auto) Baso # [...] Assessment/Problem Details: Initially presented with ACS at [facility] and converted to anterior STEMI after arrival at [facility] Code(s): I21.09 - ST elevation (STEMI) [...] signed by Nuria Neal DO> 06/20/24 1644 [facility] Work Phone: Reason for visit Narrative* Imaging (Routine) - AuthorizedSpecialtyDiagnoses / ProceduresReferred By ContactReferred To ContactRadiology Diagnoses Coronary artery disease involving [place] coronary artery of [place] heart without angina pectoris Cardiomyopathy, ischemic S/P PTCA (percutaneous transluminal coronary angioplasty) ST elevation myocardial infarction (STEMI), unspecified artery (Multi) Procedures NM heart blood pool ejection fraction wall motion (MUGA) Uriah Neal, DO [address] [facility] [address] [place] [address] Phone: tel: fax: Referral IDStatusReasonStart DateExpiration DateVisits RequestedVisits [id number] Perform Procedure [facility] Work Phone: reason for visit Narrative* Imaging (Routine) - AuthorizedSpecialtyDiagnoses / ProceduresReferred By ContactReferred To ContactRadiology Diagnoses Coronary artery disease involving [place] coronary artery of [place] heart without angina pectoris Cardiomyopathy, ischemic S/P PTCA (percutaneous transluminal coronary angioplasty) ST elevation myocardial infarction (STEMI), unspecified artery (Multi) Procedures NM heart blood pool ejection fraction wall motion (MUGA) Uriah Neal, DO [address] [facility] [address] [place] [address] Phone: tel: fax: Referral IDStatusReasonStart DateExpiration DateVisits RequestedVisits [id number] Perform Procedure [facility] Work Phone: reason for visit Narrative* Auth/CertSpecialty Diagnoses / ProceduresReferred By ContactReferred To Contact Diagnoses Cardiomyopathy, ischemic Procedures DE INS/RPLCMNT PERM SUBQ IMPLTBL DFB W/SUBQ ELTRD ICD SUBQ Implant Maris Ramos MD [address] [facility] Medical [facility], [address] [place] [address] Phone: tel: fax: [facility] [address] [place] [address] Phone: tel: fax: Referral IDStatusReasonStart DateExpiration DateVisits RequestedVisits [id number] [facility] Work Phone: Reason for visit Narrative* Imaging (Routine) - Pending ReviewSpecialtyDiagnoses / ProceduresReferred By ContactReferred To ContactCardiology Diagnoses Presence of automatic cardioverter/defibrillator (AICD) Non-ischemic cardiomyopathy (Multi) Procedures Cardiac [place] [address] [facility] [address] [place] [address] Phone: tel: fax: Referral IDStatusReasonStart DateExpiration DateVisits RequestedVisits [id number] Review Perform Procedure [facility] Work Phone: Summary Purpose Family History No [...] DATE CREATED AUTHOR 02/12/2022 [facility] DATE CREATED AUTHOR AUTHOR'S ORGANIZ ATION 07/18/2024 [facility] DATE CREATED AUTHOR AUTHOR'S ORGANIZ ATION 12/26/2024 [facility] EPIC DATE CREATED AUTHOR AUTHOR'S ORGANIZ ATION 05/03/2025 [facility] DATE CREATED AUTHOR AUTHOR'S ORGANIZ ATION 06/13/2025 [facility] DATE CREATED AUTHOR AUTHOR'S ORGANIZ ATION 06/14/2025 [facility] Care Teams (unrecognized sec tion and content) [...] Team MemberRelationshipSpecialtyStart DateEnd Date Eduard Myers MD [address] [place] [address] PCP - GeneralFamily Tfsqzunt90/13/24 Maru Vazquez RN Care ManagerCase Cawcuwkbji33/31/24 Uriah Neal DO [address] [place] [address] 2, [facility] [address] [place] [address] Consulting VtkzezeanNfanhgsfbe22/13/24Team MemberRelationshipSpecialtyStart Date End Date Eduard Myers MD [address] [place] [address] PCP - GeneralFamily Daluzxdf82/13/24 Brown, Maru, RN Care ManagerCase Mvrdedaysn93/31/24 Uriah Neal DO [address] [facility] [address] [place] [address] Consulting XrrlozrzpTtgojxlccq29/13/24Team MemberRelationshipSpecialtyStart Date End Date Eduard Myers MD [address] [place] [address] PCP - GeneralFamily Anxeazsx96/13/24 Maru Vazquez RN Care ManagerCase Kzwzjqrzrd40/31/24 Uriah Neal DO [address] [facility] [address] [place] [address] Consulting GfhzebunfGtvzxptdkg51/13/24Team MemberRelationshipSpecialtyStart Date End Date Eduard Myers MD [address] [place] [address] PCP - GeneralFamily Medicine09/02/24Team MemberRelationshipSpecialtyStart DateEnd Date Eduard Myers MD [address] [place] [address] PCP - GeneralFamily Medicine09/02/24Team MemberRelationshipSpecialtyStart DateEnd Date Eduard Myers MD [address] [place] [address] PCP - GeneralFamily Jrwotwpb37/13/24 Uriah Neal DO [address] [facility] [address] [place] [address] Consulting IkuzbdrfhMfbgubmrdi07/13/24Team MemberRelationshipSpecialtyStart Date End Date Eduard Myers MD [address] [place] [address] PCP - GeneralFamily Nuqnfbjo11/13/24 Uriah Neal DO [address] [facility] [address] [place] [address] Consulting JhdknckgpQjbihyhzij44/13/24Team MemberRelationshipSpecialtyStart Date End Date Eduard Myers MD [facility] [place] [address] PCP - GeneralFamily Medicine09/02/24Team MemberRelationshipSpecialtyStart DateEnd Date Eduard Myers MD [address] [place] [address], [place] [address] PCP - GeneralFamily Medicine09/02/24Team MemberRelationshipSpecialtyStart DateEnd Date Eduard Myers MD [address] [place] [address] PCP - GeneralFamily Ixswnpih95/13/24 Uriah Neal DO [address] [facility] [address] [place] [address] Consulting ZfwbrtzsqCxualbusbc77/13/24Team MemberRelationshipSpecialtyStart Date End Date Eduard Myers MD [address] [place] [address] PCP - GeneralFamily Boihgzcj65/13/24 Uriah Neal DO [address] [facility] [address], [facility] [address] [place] [address] Consulting ElcsdcnvqNxesztstdt29/13/24Team MemberRelationshipSpecialtyStart Date End Date Eduard Myers MD [address] [place] [address] PCP - GeneralFamily Kahidsgm77/13/24 Uriah Neal DO [address] [place] [address] 2, [facility] [address] [place] [address] Consulting QhqwsgolzSrityqqprm61/13/24 [place] [address] [address] CardiologistElectrophysiology10/07/24Team MemberRelationshipSpecialtyStart Date End Date Eduard Myers MD PCP - GeneralFamily Medicine09/02/24Team MemberRelationshipSpecialtyStart DateEnd Date Eduard Myers MD PCP - GeneralFamily Medicine09/02/24Team MemberRelationshipSpecialtyStart DateEnd Date Eduard Myesr MD [address] [place] [address] PCP - GeneralFamily Tssmyqco02/13/24 Uriah Neal DO [address] [place] [address] 2, [facility] [address] [place] [address] Consulting AjtqmdkjiVutrmbkbcj89/13/24 Maris Ramos MD [address] [facility], [facility] [address] [place] [address] CardiologistCardiology-Clinical Cardiac Electrophysiology03/05/25Team Member RelationshipSpecialtyStart DateEnd Date Eduard Myers MD [address] [facility] [place] [id number] PCP - GeneralFamily Geolpurp99/13/24 Uriah Neal DO [address] [facility] [address] [place] [address] Consulting EikfnobwqAzaqrgansp62/13/24 Maris Ramos MD [address] [facility], [facility] [address] [place] [address] CardiologistCardiology-Clinical Cardiac Electrophysiology03/05/25 Reason for Visit (unrecogniz ed section and content) ReasonCommentsFollow-upTCM VisitReasonCommentsDiabetesNEW REFSpecialtyDiagnoses / ProceduresReferred By ContactReferred To ContactEndocrinology Diagnoses Type 2 diabetes mellitus without complications (CMS/[facility]LY [facility]) Procedures DE OFFICE/OUTPATIENT NEW LOW MDM 30 MINUTES Eduard Myers MD [address] [place] [address] Phone: tel: fax: Zenia Langford MD [address] [place] [address] Phone: tel: fax: Referral IDStatusReasonStart DateExpiration DateVisits RequestedVisits [id number] month SpecialtyDiagnoses / ProceduresReferred By ContactReferred To ContactCardiology Diagnoses Coronary artery disease involving [place] coronary artery of [place] heart without angina pectoris Procedures Follow Up In Cardiology Uriah Neal, [address] [place] [address] 2, [place] [id number] Phone: tel: fax: Uriah Neal, [address] [facility] [address] [place] 1264770 Phone: tel: fax: Referral IDStatusReasonStart DateExpiration DateVisits RequestedVisits [id number] Coronary Artery DiseaseSpecialtyDiagnoses / ProceduresReferred By Contact Referred To ContactCardiology Diagnoses Cardiomyopathy, ischemic Uriah Neal, [address] [facility] [address] [place] [id number] Phone: tel: fax: Maris Ramos MD [address] [facility], [address] [address] Phone: tel: fax: Referral IDStatusReasonStart DateExpiration DateVisits RequestedVisits [id number] Review Specialty Services Required [id number]yqgz-fjGsa pump follow upReason IjbfvzznUwkivqjrMleqza-jmMclyrrFwhawvgkOourqo-qv0 month follow up for Coronary artery disease involving [place] coronary artery of [place] heart without angina pectorisReferral IDStatusReasonStart DateExpiration DateVisits RequestedVisits [id number]/12/20252/ Scheduled Active and Recently Administ ered Medications [...] on Mon11/27/24 at 0800, For 2 doses, call center representative to EP lab premix bag, Dosing of this medication varies based on severity of illness. Does this patient have sepsis or concern for sepsis (probable or documented infection plus systemic manifestations of infection)? No, Suspected Indication (Select all that apply): Surgical Prophylaxis, Indications: Surgical Prophylaxis * 0752 (Given - Provider: Shady Fernandez, ASSEMBLING FABRICATOR-EQUIPMENT INSPECTOR) * 08 (Due) * 1999 (Due) Medication [...] on Mon11/27/24 at 0800, For 2 doses, call center representative to EP lab premix bag, Dosing of this medication varies based on severity of illness. Does this patient have sepsis or concern for sepsis (probable or documented infection plus systemic manifestations of infection)? No, Suspected Indication (Select all that apply): Surgical Prophylaxis, Indications: Surgical Prophylaxis * 0752 (Given - Provider: Shady Fernandez APRN-EQUIPMENT INSPECTOR) * 08 (Due) * 1999 (New Bag [...] BE BASED ON THE PRIMARY CLINICAL RECORDS. [employer] [facility]. provides no warranty or guarantee of the accuracy or completeness of information in this document.
[2025-06-20] MEDS: DEXTROSE 5%-0.9% NACL 1,000 ML 1,000 ML 150 ML IV (07:49)
[2025-06-20 07:51] LABS: Hematocrit 34.3 % (42.0-54.0); Hemoglobin 11.6 g/dL (14.0-18.0); Mean Corpuscular HGB Conc 33.8 g/dL (29.9-35.2); Mean Corpuscular Hemoglobin 30.9 pg (25.9-34.0); Mean Corpuscular Volume 91.5 fL (80.0-94.0); Platelet Count 270 10^3/uL (150-450); Red Blood Count 3.75 10^6/uL (4.70-6.10); White Blood Count 14.2 10^3/uL (4.0-11.0)
[2025-06-20 07:53] LABS: ABL Glucose 250 mg/dL (74-106)
[2025-06-20 08:06] LABS: Alanine Aminotransferase 37 U/L (16-63); Albumin Globulin Ratio 1.0; Albumin Level 3.4 g/dL (3.4-5.0); Alkaline Phosphatase 85 U/L (46-116); Anion Gap 19.3; Aspartate Amino Transferase 19 U/L (15-37); Blood Urea Nitrogen 33.0 mg/dL (7.0-18.0); Calcium 8.7 mg/dL (8.5-10.1); Carbon Dioxide 19.3 mmol/L (21.0-32.0); Chloride 102 mmol/L (98-107); Estimated GFR (African America >60 (>=60 mL/min/1.73m^2); Estimated GFR (Non-African Ame 52 (>=60 mL/min/1.73m^2); Globulin 3.4 g/dL; Glucose 253 mg/dL (74-106); Lipase 20.0 U/L (16.0-77.0); Magnesium 2.5 mg/dL (1.8-2.4); Potassium 4.6 mmol/L (3.5-5.1); Sodium 136 mmol/L (136-145); Total Protein 6.8 g/dL (6.4-8.2)
[2025-06-20 08:09] LABS: Lactate/Lactic Acid 0.8 mmol/L (0.4-2.0)
[2025-06-20] MEDS: ASPIRIN 81 MG TABLET.DR PO (08:51)
[2025-06-20] MEDS: TICAGRELOR 90 MG TABLET PO ×2 (08:52→21:18)
[2025-06-20] MEDS: INSULIN REGULAR IN 0.9 % NACL 100 UNIT/100 ML PLAST..BAG 7.67 UNIT IV (08:52)
--- NOTE | 2025-06-20 09:09 | PM.HP ---
HPI H&P: HPI History of Present Illness Chief complaint: VOMITED/ NOT EATING/ PAIN-NECK,SHOULDER, DKA, CHES Narrative: Mr Alejandro is a 55-year-old gentleman with a known diagnosis of insulin-dependent diabetes. He has insulin pump. His Dexcom stopped working 48 hours ago. His insulin pump stopped functioning yesterday. Last evening he started having epigastric pain, burning sensation, nausea and vomiting. He came to the emergency room and was found to have severe acidosis as well as CYNDY. Burning sensation in the epigastric area. Nausea and vomiting. No fever or chills. No hematemesis or melena. Chest discomfort. No shortness of breath. Patient had 1 episode of prior DKA. Patient was started on IV fluid infusion and insulin drip. Patient is feeling much better today. Complete resolution of epigastric discomfort. Complete resolution of nausea vomiting Opioid HPI Opioid Management Most Recent Pain and Opioid Data: Last Pain Scale 0 06/19/24, 04:38 Last Pain Assessment Today, 09:00 Last ORT Total Score 0 Today, 06:52 Last ORT Risk Category Low Risk Today, 06:52 Review of Systems ROS Status of ROS 10 or more systems reviewed and unremarkable except as noted in history and below PFSH PFSH Social History Highest level of school completed/degree received: high school graduate Little interest or pleasure in doing things: not at all Feeling down, depressed, or hopeless: not at all Meds Home Medications and Allergies Home Medications ?Medication ?Instructions ?Recorded ?Confirmed ?Type insulin glargine 100 unit/mL (3 34 unit subcut DAILY 05/01/23 06/20/25 History mL) subcutaneous pen atorvastatin 80 mg tablet 80 mg PO DAILY 06/19/25 06/19/25 History blood-glucose transmitter (Dexcom 06/19/25 06/19/25 History G6 Transmitter device) dapagliflozin propanediol 10 mg 10 mg PO DAILY 06/19/25 06/20/25 History tablet (Farxiga) insulin lispro 100 unit/mL 1 sliding scale dose subcut ACHS 06/19/25 06/20/25 History subcutaneous pen (Humalog KwikPen (U-100) Insulin) lisinopril 2.5 mg tablet 2.5 mg PO DAILY 06/19/25 06/20/25 History spironolactone 25 mg tablet 25 mg PO DAILY 06/19/25 06/20/25 History ticagrelor 90 mg tablet 90 mg PO DAILY 06/19/25 06/19/25 History aspirin 81 mg tablet,delayed 81 mg PO .QD 06/20/25 06/20/25 History release Allergies Allergy/AdvReac Type Severity Reaction Status Date / Time No Known Drug Allergies Allergy Verified 06/19/25 22:51 Exam Narrative Exam Narrative: [pt is awake and alert. oriented to place, time and person, dry skin and buccal mucosa. HEENT: [place] conjunctiva and NL buccal mucosa Neck: Supple, no tenderness Endocrine: No Thyromegaly. Vascular: No JVD or carotid bruit. Lymphatic: No cervical lymphadenopathy. Chest: CTA no DTP. Heart RRR, no extra sound or murmur. Abd: Soft, no tenderness, no rebound and no rigidity. LE: No cyanosis or clubbing, no varices or edema. Neuro: A A O. Nl speech, comprehension and attention. Nl and symetrical motor and tone examination through out. []] Constitutional Vital Signs, click to edit/add: Last Vital Signs Temp 97.9 F 06/20/25 06:52 Pulse 90 06/20/25 07:57 Resp 16 06/20/25 06:52 BP 129/69 06/20/25 06:52 Pulse Ox 96 06/20/25 06:52 O2 Del Method Room Air 06/20/25 06:52 Results Labs Labs: Short CBC 06/19/25 06/20/25 Range/Units 22:38 07:42 WBC 16.2 H 14.2 H (4.0-11.0) 10^3/uL Hgb 13.3 L 11.6 L (14.0-18.0) g/dL Hct 41.5 L 34.3 L (42.0-54.0) % Plt Count 303 270 (150-450) 10^3/uL BMP 06/19/25 06/20/25 22:38 07:42 Sodium 134 L 136 Potassium 5.1 4.6 Chloride 96 L 102 Carbon Dioxide 11.7 L 19.3 L BUN 30.0 H 33.0 H Creatinine 1.55 H 1.43 H Glucose 434 H 253 H Calcium 9.7 8.7 Liver Function 06/19/25 06/20/25 Range/Units 22:38 07:42 Total Bilirubin 1.2 H 0.8 (0.2-1.0) mg/dL Direct Bilirubin 0.3 H (0.0-0.2) mg/dL AST 28 19 (15-37) U/L ALT 44 37 (16-63) U/L Alkaline Phosphatase 113 85 (46-116) U/L Albumin 4.0 3.4 (3.4-5.0) g/dL Assessment and Plan Assessment and Plan (1) DKA (diabetic ketoacidosis): (2) Metabolic acidosis: (3) CYNDY (acute kidney injury): Plan DKA likely caused by his insulin pump not working. Patient was started on DKA protocol including IV fluid infusion, insulin drip and electrolyte management He was taken off lisinopril and GLP-1 Anion gap is closing down. Bicarb is 19 Changed IV fluid to D5 normal saline. Continue saline drip. BMP every 6 hours. Continue to monitor potassium, magnesium and phosphorus. SIRS present on admission. Likely secondary to DKA. No clinical evidence of active infection. Monitor closely. Monitor white count. Blood culture were ordered. Hold off on antibiotic treatment at this time. CYNDY, dehydration and volume loss secondary to above Holding lisinopril and spironolactone. Holding GLP-1 Continue IV fluid infusion. Continue to monitor. Anemia, no evidence of acute blood loss. Patient will likely require to have anemia workup to be done in the outpatient setting to be handled by PCP in collaboration with other needed outpatient providers. This may include but not limited to EGD, colonoscopy, referral to see hematology and other needed age-appropriate cancer screening. DVT prophylax Lovenox subcu
[2025-06-20] MEDS: PANTOPRAZOLE SODIUM 40 MG TABLET.DR PO ×2 (09:25→21:18)
[2025-06-20 12:58] LABS: Glucose Urine UA >=1000 mg/dL (NEGATIVE)
[2025-06-20 13:34] LABS: Cast Seen? NONE SEEN #/LPF (NONE SEEN); Crystals Seen? None Seen #/HPF (None Seen); Urine Culture Indicated NO
[2025-06-20 14:01] LABS: Anion Gap 12.4; Blood Urea Nitrogen 32.0 mg/dL (7.0-18.0); Calcium 8.4 mg/dL (8.5-10.1); Carbon Dioxide 24.6 mmol/L (21.0-32.0); Chloride 105 mmol/L (98-107); Estimated GFR (African America >60 (>=60 mL/min/1.73m^2); Estimated GFR (Non-African Ame 50 (>=60 mL/min/1.73m^2); Glucose 240 mg/dL (74-106); Potassium 4.0 mmol/L (3.5-5.1); Sodium 138 mmol/L (136-145)
[2025-06-20] MEDS: 0.9 % SODIUM CHLORIDE 1,000 ML 100 ML IV (16:37)
[2025-06-20] MEDS: INSULIN ASPART 300 UNIT/3 ML PEN SUBQ ×3 (16:38→21:20)
[2025-06-20 20:07] LABS: Anion Gap 12.7; Blood Urea Nitrogen 31.0 mg/dL (7.0-18.0); Calcium 7.9 mg/dL (8.5-10.1); Carbon Dioxide 23.8 mmol/L (21.0-32.0); Chloride 106 mmol/L (98-107); Estimated GFR (African America >60 (>=60 mL/min/1.73m^2); Estimated GFR (Non-African Ame >60 (>=60 mL/min/1.73m^2); Glucose 224 mg/dL (74-106); Potassium 4.5 mmol/L (3.5-5.1); Sodium 138 mmol/L (136-145)
[2025-06-20] MEDS: ATORVASTATIN CALCIUM 40 MG TABLET 80 MG PO (21:18)
[2025-06-21] VITALS (28 sets, daily range): BP systolic 127–128; BP diastolic 62–78; PULSE 16–98; TEMP 36.6–36.8; O2SAT 95–96
[2025-06-21] MEDS: DOXYCYCLINE MONOHYDRATE 100 MG CAPSULE PO ×2 (03:13→08:35)
[2025-06-21 06:52] LABS: Hematocrit 32.8 % (42.0-54.0); Hemoglobin 11.1 g/dL (14.0-18.0); Mean Corpuscular HGB Conc 33.8 g/dL (29.9-35.2); Mean Corpuscular Hemoglobin 30.9 pg (25.9-34.0); Mean Corpuscular Volume 91.4 fL (80.0-94.0); Platelet Count 239 10^3/uL (150-450); Red Blood Count 3.59 10^6/uL (4.70-6.10); White Blood Count 9.4 10^3/uL (4.0-11.0)
[2025-06-21 07:07] LABS: Alanine Aminotransferase 32 U/L (16-63); Albumin Globulin Ratio 0.9; Albumin Level 2.9 g/dL (3.4-5.0); Alkaline Phosphatase 69 U/L (46-116); Anion Gap 13.8; Aspartate Amino Transferase 23 U/L (15-37); Blood Urea Nitrogen 23.0 mg/dL (7.0-18.0); Calcium 8.0 mg/dL (8.5-10.1); Carbon Dioxide 23.9 mmol/L (21.0-32.0); Chloride 104 mmol/L (98-107); Estimated GFR (African America >60 (>=60 mL/min/1.73m^2); Estimated GFR (Non-African Ame >60 (>=60 mL/min/1.73m^2); Globulin 3.1 g/dL; Glucose 336 mg/dL (74-106); Magnesium 2.0 mg/dL (1.8-2.4); Potassium 4.7 mmol/L (3.5-5.1); Sodium 137 mmol/L (136-145); Total Protein 6.0 g/dL (6.4-8.2)
[2025-06-21] MEDS: INSULIN ASPART 300 UNIT/3 ML PEN 8 UNIT SUBQ (08:34)
[2025-06-21] MEDS: INSULIN ASPART 300 UNIT/3 ML PEN SUBQ (08:34)
[2025-06-21] MEDS: TICAGRELOR 90 MG TABLET PO (08:35)
[2025-06-21] MEDS: PANTOPRAZOLE SODIUM 40 MG TABLET.DR PO (08:35)
[2025-06-21] MEDS: INSULIN GLARGINE 300 UNIT/3 ML INSULN.PEN 30 UNIT SQ (08:35)
[2025-06-21] MEDS: ASPIRIN 81 MG TABLET.DR PO (08:35)
--- NOTE | 2025-06-21 10:29 | P.DS_ITS ---
DS: Providers Provider Date of admission: 06/20/25 06:21 Primary care physician: Eduard Shoemaker MD DS: Diagnosis Discharge Diagnosis (1) DKA (diabetic ketoacidosis): (2) Metabolic acidosis: (3) CYNDY (acute kidney injury): (4) CAD (coronary artery disease): Plan Diabetic ketoacidosis. Diabetic ketoacidosis caused to because his continuous glucose monitor stopped functioning for 48 hours and then his insulin pump would not administer the correct amount of insulin. Apparent recent acute coronary syndrome/risk of ischemic cardiomyopathy. Patient seems to be noncompliant with these medications, with notations added to his medications (Farxiga, lisinopril, and spironolactone) saying that he stopped them because he did not think that they were needed. DS: Summary Hospital Course Hospital Course: This is a 55-year-old man who has insulin-dependent diabetes and uses an insulin pump. He has been doing well with this for a year. He also uses a continuous glucose monitoring device. His [employer] continuous glucose monitoring device had some sort of problem with his battery so it stopped working for 48 hours. Therefore his insulin pump would not administer the right amount of insulin. The patient says that his floral specialist, Dr. Zenia Langford, has program the insulin pump. So he does not really have any idea what the settings are. The patient can tell me that he loads insulin into his pump every 3 days so he must get about 45 units of insulin delivered per day from his insulin pump. He does have backup supplies of short acting and long-acting insulin at home that he tried to use but he developed abdominal pain and burning and nausea and vomiting and presented the emergency room and was found to have DKA. The patient was admitted at [facility]. He received insulin drip. The DKA protocol was followed. The anion gap normalized. Although the patient's gastrointestinal symptoms went away. While he was in the hospital he was working on calling the one 800-number for his continuous glucose monitor company to get additional supplies that and I think there were certain challenges with this. The patient says that he has a follow-up with his floral specialist in the very near future and he is interested in getting on a newer continuous glucose monitoring device. On the last hospital morning he was administered 50 units of insulin, about half long-acting and half short acting, and he was monitored for breakfast and lunch and he did not have any hypoglycemia. Patient understands that he will need to insert his insulin pump in about 24 hours as the long-acting insulin is beginning to wear off. A final, unrelated note is that the patient had told nursing staff that he was not taking Farxiga, lisinopril, and spironolactone. He does appear to be compliant with Brilinta. He was having some bleeding from the continuous glucose monitoring insertion site which may be due to Brilinta. I hope that the patient can follow-up with his poultry inseminator to make sure that he is on the best medications for his cardiac condition. Status at Discharge Functional status at discharge: independent ambulation Overall status at discharge: patient is progressing back to baseline Time Spent with Patient Time attestation: Total time spent providing and/or coordinating discharge services: Time spent: greater than 30 minutes Specific discharge activities: 35 minutes of total discharge time. Exam Constitutional Vital Signs, click to edit/add: Last Vital Signs Temp 98.0 F 06/21/25 07:22 Pulse 98 H 06/21/25 09:54 Resp 18 06/21/25 07:22 BP 128/62 06/21/25 07:22 Pulse Ox 95 06/21/25 07:22 O2 Del Method Room Air 06/21/25 07:22 DS: Data Data Completed and Pending Labs on day of discharge: Labs from last 24 hours 06/21/25 06/21/25 06/20/25 08:33 06:16 21:13 WBC 9.4 RBC 3.59 L Hgb 11.1 L Hct 32.8 L MCV 91.4 MCH 30.9 MCHC 33.8 RDW 12.8 Plt Count 239 MPV 9.3 L Sodium 137 Potassium 4.7 Chloride 104 Carbon Dioxide 23.9 Anion Gap 13.8 BUN 23.0 H Creatinine 1.11 Est GFR ( Amer) >60 Est GFR (Non-Af Amer) >60 BUN/Creatinine Ratio 20.7 Glucose 336 H Calcium 8.0 L Phosphorus 2.2 L Magnesium 2.0 Total Bilirubin 1.0 AST 23 ALT 32 Alkaline Phosphatase 69 Total Protein 6.0 L Albumin 2.9 L Globulin 3.1 Albumin/Globulin Ratio 0.9 Urine Color Urine Clarity Urine pH Ur Specific [place] Urine Protein Urine Glucose (UA) Urine Ketones Urine Occult Blood Urine Nitrite Urine Bilirubin Urine Urobilinogen Ur Leukocyte Esterase Urine RBC Urine WBC Ur Squamous Epith Cells Urine Crystals Urine Bacteria Urine Casts Urine Mucus Ur Culture Indicated? POC Glucose 336 H 227 H 06/20/25 06/20/25 06/20/25 19:52 16:32 13:58 WBC RBC Hgb Hct MCV MCH MCHC RDW Plt Count MPV Sodium 138 Potassium 4.5 Chloride 106 Carbon Dioxide 23.8 Anion Gap 12.7 BUN 31.0 H Creatinine 1.24 Est GFR ( Amer) >60 Est GFR (Non-Af Amer) >60 BUN/Creatinine Ratio 25.0 Glucose 224 H Calcium 7.9 L Phosphorus Magnesium Total Bilirubin AST ALT Alkaline Phosphatase Total Protein Albumin Globulin Albumin/Globulin Ratio Urine Color Urine Clarity Urine pH Ur Specific [place] Urine Protein Urine Glucose (UA) Urine Ketones Urine Occult Blood Urine Nitrite Urine Bilirubin Urine Urobilinogen Ur Leukocyte Esterase Urine RBC Urine WBC Ur Squamous Epith Cells Urine Crystals Urine Bacteria Urine Casts Urine Mucus Ur Culture Indicated? POC Glucose 212 H 199 H 06/20/25 06/20/25 06/20/25 13:45 13:07 12:20 WBC RBC Hgb Hct MCV MCH MCHC RDW Plt Count MPV Sodium 138 Potassium 4.0 Chloride 105 Carbon Dioxide 24.6 Anion Gap 12.4 BUN 32.0 H Creatinine 1.46 H Est GFR ( Amer) >60 Est GFR (Non-Af Amer) 50 L BUN/Creatinine Ratio 21.9 Glucose 240 H Calcium 8.4 L Phosphorus Magnesium Total Bilirubin AST ALT Alkaline Phosphatase Total Protein Albumin Globulin Albumin/Globulin Ratio Urine Color Lt. yellow Urine Clarity Clear Urine pH 6.0 Ur Specific [place] 1.010 Urine Protein Negative Urine Glucose (UA) >=1000 A Urine Ketones 40 A Urine Occult Blood Negative Urine Nitrite Negative Urine Bilirubin Small A Urine Urobilinogen 0.2 Ur Leukocyte Esterase Negative Urine RBC 0-2 Urine WBC None seen Ur Squamous Epith Cells Rare Urine Crystals None seen Urine Bacteria Trace A Urine Casts None seen Urine Mucus None seen Ur Culture Indicated? No POC Glucose 290 H 06/20/25 06/20/25 12:02 11:07 WBC RBC Hgb Hct MCV MCH MCHC RDW Plt Count MPV Sodium Potassium Chloride Carbon Dioxide Anion Gap BUN Creatinine Est GFR ( Amer) Est GFR (Non-Af Amer) BUN/Creatinine Ratio Glucose Calcium Phosphorus Magnesium Total Bilirubin AST ALT Alkaline Phosphatase Total Protein Albumin Globulin Albumin/Globulin Ratio Urine Color Urine Clarity Urine pH Ur Specific [place] Urine Protein Urine Glucose (UA) Urine Ketones Urine Occult Blood Urine Nitrite Urine Bilirubin Urine Urobilinogen Ur Leukocyte Esterase Urine RBC Urine WBC Ur Squamous Epith Cells Urine Crystals Urine Bacteria Urine Casts Urine Mucus Ur Culture Indicated? POC Glucose 353 H 405 H Discharge Plan Discharge Disposition: Home, Self-Care Discharge Medications: Continued insulin glargine 100 unit/mL (3 mL) insulin pen 34 unit subcut DAILY atorvastatin 80 mg tablet 80 mg PO DAILY (DME) Dexcom G6 Transmitter Device MISCELLANEOUS insulin lispro [Humalog KwikPen Insulin] 100 unit/mL insulin pen 1 sliding scale dose SUBCUT ACHS ticagrelor 90 mg tablet 90 mg PO DAILY aspirin 81 mg tablet,delayed release (DR/EC) 81 mg PO .QD Held dapagliflozin propanediol [Farxiga] 10 mg tablet 10 mg PO DAILY Hold Instructions: Discuss this medication with your regular doctor. lisinopril 2.5 mg tablet 2.5 mg PO DAILY Hold Instructions: Discuss this medication with your regular doctor. spironolactone 25 mg tablet 25 mg PO DAILY Hold Instructions: Discuss this medication with your regular doctor. Activity: resume usual activities as tolerated Diet: diabetic diet Print Language: Greenlandic Patient Instructions: Diabetic Hyperglycemia (DC) Forms: Portal Instructions Referrals: Eduard Shoemaker MD [Primary Care Provider, Family Practice] Follow Up Appointments: Dr. Navid Robles. 06/26 @ 10:30am [phone] Discharge Date/Time: 06/21/25 14:42
--- NOTE | 2025-06-21 11:58 | PC.NURSE ---
per Dr. Nevarez, do not give patient any insulin at this time
[2025-06-21] MEDS: INSULIN ASPART 300 UNIT/3 ML PEN 10 UNIT SUBQ (12:25)
--- NOTE | 2025-06-23 12:11 | CM.DCFOLLOWU ---
Person spoke with: Wing How are you feeling? Better How is your pain? Much Better Did you understand your discharge instructions? Yes Do you have any questions about your discharge instructions? No Were you given any prescriptions at discharge? No Were you able to get your prescriptions filled? I wasn't prescribed any medications Do you understand how to take your medications as ordered? Yes Do you have any questions about your follow up appointment and do you plan to keep your follow up appointment? No questions. The patient was reminded about his appt with Dr Shoemaker on 06/26/2025. Is there anything else that you would like to discuss? No Questions/Comments/Concerns/Other:
== END 2025-06-21 14:42 | disposition home or self-care (01) | DRG 637 ==
LOC: ER 06-20 02:26 → MS 06-20 06:22
PROVIDERS: Admitting Provider Internal Medicine; Emergency Provider Internal Medicine; PCP Family Medicine; Visit Provider Internal Medicine
DX: E11.10 Type 2 diabetes mellitus with ketoacidosis without coma (principal); R65.11 Systemic inflammatory response syndrome (SIRS) of non-infectious origin with acute organ dysfunction; T85.694A Other mechanical complication of insulin pump, initial encounter; N17.9 Acute kidney failure, unspecified; T38.3X6A Underdosing of insulin and oral hypoglycemic [antidiabetic] drugs, initial encounter; Y82.8 Other medical devices associated with adverse incidents; Z96.41 Presence of insulin pump (external) (internal); Z79.4 Long term (current) use of insulin; Z79.82 Long term (current) use of aspirin; E86.0 Dehydration; D64.9 Anemia, unspecified; I25.10 Atherosclerotic heart disease of native coronary artery without angina pectoris; T46.4X6A Underdosing of angiotensin-converting-enzyme inhibitors, initial encounter; Z91.128 Patient's intentional underdosing of medication regimen for other reason; Z95.5 Presence of coronary angioplasty implant and graft; Z95.810 Presence of automatic (implantable) cardiac defibrillator; I50.9 Heart failure, unspecified; Z87.891 Personal history of nicotine dependence; Z79.899 Other long term (current) drug therapy; R07.9 Chest pain, unspecified
CPT/HCPCS: 36415; 71045; 74177; 80048; 80053; 80076; 81001; 82009; 82947; 82948; 83036; 83605; 83690; 83735; 83880; 84100; 84484; 85025; 85027; 87040; 93005; 96361; 96374; 96375; 99285; J2405; Q9967